=== PATIENT | female | born 1930 | race African-American/Black ===

== ENCOUNTER 2017-02-05 11:37 | Inpatient (IN) | payer MEDICARE, OTHER ==
[~2017-02-05 11:37] MED LIST: ADVAI250I PO; AMLO5TAB22 PO; CLAR10TA13 PO; FERR324T4 PO; HUMU70IN SQ; HYDR-2768 PO; LISI-363 PO; LORTA5 PO; SULF-154 PO; TRAZ50TA4 PO
[2017-02-05 11:49] VITALS: BP 120/60; PULSE 86; RESP 20; TEMP 98.4; O2SAT 97
[2017-02-05] MEDS ORDERED: AMLO5TAB2 PO (12:03)
[2017-02-05] MEDS ORDERED: HYDR25TA5 PO (12:04)
[2017-02-05] MEDS ORDERED: HUMU70IN SQ ×2 (12:04→15:21)
[2017-02-05] MEDS ORDERED: HYDR-3516 PO (12:04)
[2017-02-05] MEDS ORDERED: TRAZ50TA12 PO (12:04)
[2017-02-05] MEDS ORDERED: LISI-515 PO (12:04)
[2017-02-05] MEDS ORDERED: FERR325T18 PO ×2 (12:04→15:17)
[2017-02-05] MEDS ORDERED: ADVA250A INH (12:04)
[2017-02-05] MEDS ORDERED: LORA-400 PO (12:16)
[2017-02-05] MEDS ORDERED: MEDR5TAB3 PO (12:16)
[2017-02-05] MEDS ORDERED: CLON0.2T PO (12:16)
[2017-02-05] MEDS ORDERED: ALPR0.25 PO (12:16)
[2017-02-05] MEDS ORDERED: SYMB160A INH (12:16)
[2017-02-05 12:35] LABS: BASOPHIL # 0.2 TH/MM3 (0-0.2); BASOPHIL % 0.9 % (0.0-2.0); EOSINOPHIL # 0.3 TH/MM3 (0-0.4); EOSINOPHIL % 1.5 % (0.0-4.0); HEMATOCRIT 34.5 % (35.0-46.0); HEMO FLAGS DIFF FINAL; LYMPH % 19.5 % (9.0-44.0); LYMPHOCYTE # 3.4 TH/MM3 (1.0-4.8); MEAN CELL VOLUME 96.4 FL (80.0-100.0); MEAN CORPUSCULAR HEMOGLOBIN 32.5 PG (27.0-34.0); MEAN CORPUSCULAR HGB CONC 33.7 % (32.0-36.0); MONO % 4.9 % (0.0-8.0); NEUT % 73.2 % (16.0-70.0); PLATELET COUNT 274 TH/MM3 (150-450); RED BLOOD COUNT 3.58 MIL/MM3 (4.00-5.30); RED CELL DISTRIBUTION WIDTH 13.6 % (11.6-17.2); WHITE BLOOD COUNT 17.7 TH/MM3 (4.0-11.0)
[2017-02-05] MEDS ORDERED: SODIUM CHLOR 0.9% 1000 ML INJ 1,000 ML IV ONE (12:42)
[2017-02-05 12:49] LABS: APTT (PATIENT) 25.4 SEC (24.3-30.1); PROTHROMBIN TIME - PATIENT 10.2 SEC (9.8-11.6)
--- NOTE | 2017-02-05 12:51 | PD ---
HPI Chief Complaint: Respiratory Symptoms Time Seen by Provider: 11:56 Travel History International Travel<30 days: No Contact w/Intl Traveler<30days: No Traveled to known affect area: No History of Present Illness HPI 87-year-old female that presents to the ED for evaluation of shortness of breath that happened today. Patient has a history of fibroids and follows with Dr. Enriquez for this. Patient has periods on occasion. Patient per family has had some blood coming from her vagina that is usual for her. Per family did noted that every time she gets this. She gets short of breath and she gets pale. Per family she is to them. She was taking a shower when she got out of the shower she complained of shortness of breath which is what prompted evaluation. I called ambulance. Per ambulance report patient has been sating at 100%. She denies any chest pain or shortness of breath. She denies any pain of any kind. No urinary symptoms. Per family she's been a little more confused than usual. She is also feeling weak when she ambulates. She denies any cough or runny nose. No fevers chills or sweats. No history of IV drug abuse. She does have a history of smoking as well as a history of diabetes requiring insulin. 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 She denies any other medical issues at this time. Most of the history is obtained from the family as patient herself is not a good historian. PFSH Past Medical History Autoimmune Disease: No Anxiety: Yes Depression: No Cancer: No Cardiovascular Problems: Yes (htn) COPD: Yes Diabetes: Yes Diminished Hearing: No Hypertension: Yes Immune Disorder: No Psychiatric: No Reproductive: No Menopausal: Yes Dilation and Curettage (D&C): Yes Past Surgical History Gynecologic Surgery: Yes (L OVARY REMOVED) Social History Alcohol Use: No Tobacco Use: No Substance Use: No Allergies-Medications (Allergen,Severity, Reaction): Coded Allergies: No Known Allergies (Verified Adverse Reaction, Unknown, 02/05/17) Reported Meds & Prescriptions Reported Meds & Active Scripts Active Reported [] 1 Tab PO DAILY [] Symbicort Inh (Budesonide/Formoterol Fumarate) 160-4.5 Mcg/Act Aero 2 Puff INH Q12HR Claritin-D 24 HR (Loratadine-Pseudoephedrine 24 HR) 10-240 Mg Tab 1 Tab PO DAILY Alprazolam 0.25 Mg Tab 0.25 Mg PO Q8H PRN Medroxyprogesterone Acetate 5 Mg Tab 5 Mg PO BID Start day 21 Clonidine (Clonidine HCl) 0.2 Mg Tab 0.2 Mg PO TID Trazodone (Trazodone HCl) 50 Mg Tab 50 Mg PO HS Lisinopril 20 Mg Tab 20 Mg PO DAILY Humulin 70-30 Inj (Insulin NPH Isophane-Reg (Human) 70-30 Inj) 1,000 Unit/10 Ml Vial 15 Unit SQ HS Hydrocodone-Acetaminophen 5-325 mg Tab 1 Tab PO Q4H PRN Hydrochlorothiazide 25 Mg Tab 25 Mg PO BID Ferrous Sulfate 325 Mg (65 Mg Iron) Tablet 65 Mg PO DAILY PRN Amlodipine (Amlodipine Besylate) 5 Mg Tab 5 Mg PO DAILY Review of Systems Except as stated in HPI: all other systems reviewed are Neg Physical Exam Narrative GENERAL: SKIN: Warm and dry. Patient does have chronic ulcers stage II to the distal aspect of bilateral first toes. Some erythema noted on the right 1 but minimal on the left forearm. Nontender. 2+ pulses bilaterally. Sensation intact bilaterally. HEAD: Atraumatic. Normocephalic. EYES: Pupils equal and round. No scleral icterus. No injection or drainage. ENT: No nasal bleeding or discharge. Mucous membranes pink and moist. Tongue is midline. No uvula deviation. NECK: Trachea midline. No JVD. CARDIOVASCULAR: Regular rate and rhythm. No murmurs, S3, S4. RESPIRATORY: No accessory muscle use. Clear to auscultation. Breath sounds equal bilaterally. GASTROINTESTINAL: Abdomen soft, non-tender, nondistended. Hepatic and splenic margins not palpable. MUSCULOSKELETAL: Extremities without clubbing, cyanosis, or edema. No obvious deformities. Full range of motion of the upper and lower extremities bilaterally. 2+ pulses bilaterally. NEUROLOGICAL: Awake and alert. No obvious cranial nerve deficits. Motor grossly within normal limits. Five out of 5 muscle strength in the arms and legs. Normal speech. PSYCHIATRIC: Appropriate mood and affect; insight and judgment normal. Data Data Last Documented VS Vital Signs Date Time Temp Pulse Resp B/P (MAP) Pulse Ox O2 Delivery O2 Flow Rate FiO2 02/05/17 11:49 98.4 86 20 120/60 (80) 97 Room Air Orders Orders Complete Blood Count With Diff (02/05/17 12:11) Basic Metabolic Panel (Bmp) (02/05/17 12:11) Troponin I (02/05/17 12:11) B-Type Natriuretic Peptide (02/05/17 12:11) Prothrombin Time / Inr (Pt) (02/05/17 12:11) Act Partial Throm Time (Ptt) (02/05/17 12:11) Urinalysis - C+S If Indicated (02/05/17 12:11) Magnesium (Mg) (02/05/17 12:11) Thyroid Stimulating Hormone (02/05/17 12:11) Chest, Single Ap (02/05/17 12:11) Iv Access Insert/Monitor (02/05/17 12:11) Type And Screen (02/05/17 12:11) Electrocardiogram (02/05/17 ) Lactic Acid Sepsis Protocol (02/05/17 12:42) Blood Culture (02/05/17 12:42) Sodium Chlor 0.9% 1000 Ml Inj (Ns 1000 M (02/05/17 12:42) Cath For Specimen (02/05/17 12:42) Ct Brain W/O Iv Contrast(Rout) (02/05/17 ) Sodium Chlor 0.9% 1000 Ml Inj (Ns 1000 M (02/05/17 14:27) Cefepime Inj (Maxipime Inj) (02/05/17 14:30) Vancomycin Inj (Vancomycin Inj) (02/05/17 14:30) Admit Order (Ed Use Only) (02/05/17 14:29) Labs Laboratory Tests Test 02/05/17 11:50 02/05/17 13:15 02/05/17 13:20 White Blood Count 17.7 TH/MM3 Red Blood Count 3.58 MIL/MM3 Hemoglobin 11.6 GM/DL Hematocrit 34.5 % Mean Corpuscular Volume 96.4 FL Mean Corpuscular Hemoglobin 32.5 PG Mean Corpuscular Hemoglobin Concent 33.7 % Red Cell Distribution Width 13.6 % Platelet Count 274 TH/MM3 Mean Platelet Volume 8.9 FL Neutrophils (%) (Auto) 73.2 % Lymphocytes (%) (Auto) 19.5 % Monocytes (%) (Auto) 4.9 % Eosinophils (%) (Auto) 1.5 % Basophils (%) (Auto) 0.9 % Neutrophils # (Auto) 13.0 TH/MM3 Lymphocytes # (Auto) 3.4 TH/MM3 Monocytes # (Auto) 0.9 TH/MM3 Eosinophils # (Auto) 0.3 TH/MM3 Basophils # (Auto) 0.2 TH/MM3 CBC Comment DIFF FINAL Differential Comment Prothrombin Time 10.2 SEC Prothromb Time International Ratio 1.0 RATIO Activated Partial Thromboplast Time 25.4 SEC Blood Urea Nitrogen 23 MG/DL Creatinine 1.42 MG/DL Random Glucose 324 MG/DL Calcium Level 9.1 MG/DL Magnesium Level 1.8 MG/DL Sodium Level 138 MEQ/L Potassium Level 4.2 MEQ/L Chloride Level 106 MEQ/L Carbon Dioxide Level 22.5 MEQ/L Anion Gap 10 MEQ/L Estimat Glomerular Filtration Rate 42 ML/MIN Troponin I LESS THAN 0.02 NG/ML B-Type Natriuretic Peptide 10 PG/ML Thyroid Stimulating Hormone 3rd Gen 0.658 uIU/ML Urine Color YELLOW Urine Turbidity HAZY Urine pH 5.5 Urine Specific [place] 1.021 Urine Protein TRACE mg/dL Urine Glucose (UA) NEG mg/dL Urine Ketones NEG mg/dL Urine Occult Blood LARGE Urine Nitrite NEG Urine Bilirubin NEG Urine Urobilinogen LESS THAN 2.0 MG/DL Urine Leukocyte Esterase SMALL Urine RBC /hpf Urine WBC 6 /hpf Urine Squamous Epithelial Cells 5 /hpf Urine Hyaline Casts 1 /lpf Urine Mucus FEW /lpf Microscopic Urinalysis Comment CULT NOT INDICATED Lactic Acid Level 2.6 mmol/L MDM Medical Decision Making Medical Screen Exam Complete: Yes Emergency Medical Condition: Yes Medical Record Reviewed: Yes Interpretation(s) CBC & BMP Diagram 02/05/17 11:50 Calcium Level 9.1, Magnesium Level 1.8 lactic acid 2.6 UA shows signs of UTI Last Impressions Chest X-Ray 02/05/17 1211 Signed Impressions: Service Date/Time: Sunday, February 05, 2017 13:22 - CONCLUSION: No acute cardiopulmonary abnormality is identified. Daren Katz MD Head CT 02/05/17 0000 Signed Impressions: Service Date/Time: Sunday, February 05, 2017 13:20 - CONCLUSION: 1. Atrophy as described above. No evidence of acute intracranial pathology.8 Omari Spence MD troponin negative EKG shows sinus rhythm with no sigh of acute ischemia or arrythmia Differential Diagnosis Urosepsis versus UTI versus COPD versus CHF versus renal failure versus anemia versus leukocytosis versus physical deconditioning versus encephalopathy Narrative Course 87-year-old female that presents to the ED for evaluation of shortness of breath. Patient was properly examined and was found to have signs and symptoms of unclear to me at this time. She does not appear to be very short of breath but she does complain of it. She is satting 100%. She denies any chest pain. We'll do blood work and imaging. Initial blood work did show elevated leukocytosis of 17. I did review her records in the 2015 she had a similar lab results and she was diagnosed with UTI and sepsis. At this time her bowels are still stable we will add blood cultures, fluids, lactic acid as well as CT of the head. Labs and imaging showed signs of sepsis. Possible from urine. Will admit. Started on antibiotics. My attending Dr Urban agrees with plan. Sepsis Criteria SIRS Criteria (2 or more): WBC > 46745, < 4000 or > 10% bands Diagnosis Primary Impression: Encephalopathy due to infection Additional Impressions: Sepsis Qualified Codes: A41.9 - Sepsis, unspecified organism UTI (urinary tract infection) Qualified Codes: N30.01 - Acute cystitis with hematuria Admitting Information Admitting Physician Requests: Admit Huber Dodge Feb 05, 2017 12:51
[2017-02-05] MEDS ORDERED: prenatal (13:26)
[2017-02-05] MEDS ORDERED: prenatal PO (13:26)
[2017-02-05 13:33] LABS: ANION GAP 10 MEQ/L (5-15); BICARBONATE 22.5 MEQ/L (21.0-32.0); BLOOD UREA NITROGEN 23 MG/DL (7-18); CHLORIDE 106 MEQ/L (98-107); GLOMERULAR FILTRATION RATE 42 ML/MIN (>89); MAGNESIUM 1.8 MG/DL (1.5-2.5); SODIUM (NA) 138 MEQ/L (136-145)
[2017-02-05 13:34] LABS: POTASSIUM 4.2 MEQ/L (3.5-5.1)
[2017-02-05 13:45] LABS: BLOOD, URINE LARGE (NEG); COMMENT (UR) CULT NOT INDICATED; CULTURE IF INDICATED CULT NOT INDICATED; GLUCOSE,URINE NEG (NEG); HYALINE CAST, URINE 1 /lpf (RARE); KETONE, URINE NEG (NEG); MUCUS URINE FEW /lpf (OCC); NITRITE,URINE NEG (NEG); PH, URINE 5.5 (5.0-8.5); SQUAMOUS EPITHELIAL CELL URINE 5 /hpf (0-5); URINE COLOR YELLOW (YELLW/STRAW)
--- NOTE | 2017-02-05 14:00 | RADRPT ---
EXAM DATE/TIME: 02/05/2017 13:22 [facility] COMPARISON: No previous studies available for comparison. INDICATIONS : Shortness of breath. MEDICAL HISTORY : Hypertension. Chronic obstructive pulmonary disease. Diabetes mellitus type II. SURGICAL HISTORY : None. ENCOUNTER: Initial ACUITY: 1 day PAIN SCORE: 0/10 LOCATION: Bilateral chest FINDINGS: Underinflated AP view of the chest demonstrates a normal-sized cardiac silhouette. No effusion, conso lidation, or pneumothorax is identified. The bones and soft tissues demonstrate no acute finding. CONCLUSION: No acute cardiopulmonary abnormality is identified. Daren Katz MD on February 05, 2017 at 13:58 Board Certified Radiologist. This report was verified electronically.
--- NOTE | 2017-02-05 14:10 | RADRPT ---
EXAM DATE/TIME: 02/05/2017 13:20 [facility] COMPARISON: No previous studies available for comparison. INDICATIONS : Shortness of breath, anemia, vaginal bleeding. RADIATION DOSE: 56.35 CTDIvol (mGy) MEDICAL HISTORY : Cardiovascular disease. Hypertension. Diabetes SURGICAL HISTORY : None. ENCOUNTER: Initial ACUITY: 1 day PAIN SCALE: 0/10 LOCATION: cranial TECHNIQUE: Multiple contiguous axial images were obtained of the head. Using automated exposure control and adj ustment of the mA and/or kV according to patient size, radiation dose was kept as low as reasonably a chievable to obtain optimal diagnostic quality images. DICOM format image data is available electro nically for review and comparison. FINDINGS: The ventricles are enlarged with a prominent sulcal pattern compatible with atrophic change. There is no evidence of acute cortical infarction, acute hemorrhage, mass effect or midline shift. Posterior fossa structures are unremarkable. CONCLUSION: 1. Atrophy as described above. No evidence of acute intracranial pathology.8 Omari Spence MD on February 05, 2017 at 13:59 Board Certified Radiologist. This report was verified electronically.
[2017-02-05] MEDS ORDERED: SODIUM CHLOR 0.9% 1000 ML INJ 1,000 ML IV SCH (14:27)
[2017-02-05] MEDS ORDERED: CEFEPIME INJ 1,000 MG in SODIUM CHLORIDE 0.9% INJ 100 ML IV ONE (14:30)
[2017-02-05] MEDS ORDERED: VANCOMYCIN INJ 1,000 MG in SODIUM CHLOR 0.9% 250 ML INJ 250 ML IV ONE (14:30)
--- NOTE | 2017-02-05 14:30 | HHI.HP ---
[facility] Service Family Medicine Primary Care Physician Yanni Valdez MD Admission Diagnosis Diagnoses: International Travel<30 Days: No Contact w/Intl Traveler<30days: No Known Affected Area: No History of Present Illness Patient is an 87 year old female who presents with one episode of shortness of breath, dizziness and generalized fatigue today. She felt well this morning, received a bath and when coming out of the bathroom, felt weak. By the time patient sat in her recliner, she was having a hard time catching her breath. Episode was short-lived. When asked if she needed to go to the hospital, patient said: "Yes, I feel shitty!" Per patient's daughter, patient looked pale/ pasty during episode. Of note, patient has history of irregular vaginal bleeding, secondary to endometrial hyperplasia. Vaginal bleeding stopped two years ago after D&C by Dr. Dalal; at that time, cancer was ruled out by Dr. Wright. Vaginal bleeding returned approximately one month ago; bleeding is described as on and off spotting. Patient is on medroxyprogesterone acetate (Provera) to decrease bleeding. Per patient's daughter, if patient is not taking medication, bleeding amount would be comparable to "a miscarriage." When bleeding started, patient increased iron and vitamin intake to prevent anemia per daughter. Patient reports occasional abdominal pain, located in the lower mid section. Normally, patient has bowel movements x multiple per day. Per daughter, patient was constipated for last 2 days but had bowel movement this morning. Daughter describes stool as hard and very, very, very dark green. She denies black or bloody stool. Daughter describes stool as "funky" smelling. Patient has complained of buttocks pain; daughter attributes pain to abrasion, which she has treated with zinc oxide and is healing well. Patient has become a picky eater; she prefers ENSURE over solid meals. Per daughter, patient has had decreased urination. Patient denies pain with urination. Patient denies recent fever. Patient denies back pain. Patient has had one UTI in the past (2014). (Nissa Beckham MD R1) Review of Systems Constitutional: COMPLAINS OF: Fatigue, Weight loss (By appearance), Dizziness, Change in appetite (Decreased), DENIES: Fever, Weight gain, Chills Eyes: COMPLAINS OF: Blurred vision, DENIES: Diplopia, Eye pain, Vision loss, Double Vision Ears, nose, mouth, throat: DENIES: Tinnitus, Hearing loss, Nasal discharge, Throat pain, Hoarseness, Ear Pain, Running Nose Respiratory: COMPLAINS OF: Shortness of breath, DENIES: Cough Cardiovascular: DENIES: Chest pain, Palpitations, Lower Extremity Edema Gastrointestinal: COMPLAINS OF: Abdominal pain, Constipation, DENIES: Black stools, Bloody stools, Diarrhea, Nausea, Vomiting Genitourinary: COMPLAINS OF: Abnormal vaginal bleeding, DENIES: Urinary frequency, Urgency Musculoskeletal: DENIES: Joint pain, Muscle aches, Back pain Integumentary: COMPLAINS OF: Nail changes (Growing faster), DENIES: Rash Hematologic/lymphatic: DENIES: Bruising Neurologic: COMPLAINS OF: Abnormal gait, Poor Balance, DENIES: Headache Psychiatric: COMPLAINS OF: Anxiety, DENIES: Confusion, Mood changes, Depression (Nissa Beckham MD R1) Past Family Social History Past Medical History Cataracts Diabetes mellitus Type II Hypertension COPD Chronic kidney disease Environmental allergies Past Surgical History Left oophorectomy D&C 2014 Reported Medications Reported Meds & Active Scripts Active Humulin 70-30 Inj (Insulin NPH Isophane-Reg (Human) 70-30 Inj) 1,000 Unit/10 Ml Vial 33 Units SQ AC BREAKFAST Ferrous Sulfate 325 Mg (65 Mg Iron) Tablet 65 Mg PO BID PRN Reported [] 1 Tab PO DAILY [] Symbicort Inh (Budesonide/Formoterol Fumarate) 160-4.5 Mcg/Act Aero 2 Puff INH Q12HR Alprazolam 0.25 Mg Tab 0.25 Mg PO Q8H PRN Medroxyprogesterone Acetate 5 Mg Tab 5 Mg PO BID Start day 21 Clonidine (Clonidine HCl) 0.2 Mg Tab 0.2 Mg PO TID Lisinopril 20 Mg Tab 20 Mg PO DAILY Humulin 70-30 Inj (Insulin NPH Isophane-Reg (Human) 70-30 Inj) 1,000 Unit/10 Ml Vial 15 Unit SQ HS Hydrocodone-Acetaminophen 5-325 mg Tab 1 Tab PO Q4H PRN Hydrochlorothiazide 25 Mg Tab 25 Mg PO BID Amlodipine (Amlodipine Besylate) 5 Mg Tab 5 Mg PO DAILY (Nissa Beckham MD R1) Allergies: Coded Allergies: No Known Allergies (Verified Allergy, Unknown, 02/05/17) Active Ordered Medications Current Medications Medications (Trade) Dose Ordered Sig/Bertram Route Start Time Stop Time Status Last Admin (Xanax) 0.25 mg Q8H PRN PO 02/05/17 15:15 Sodium Chloride 1,000 ml @ 120 mls/hr Q8H20M IV 02/05/17 16:00 02/05/17 17:33 (NS Flush) 2 ml UNSCH PRN IV FLUSH 02/05/17 15:45 (NS Flush) 2 ml BID IV FLUSH 02/05/17 21:00 (Zofran Inj) 4 mg Q6H PRN IVP 02/05/17 15:45 (Tylenol) 650 mg Q6H PRN PO 02/05/17 15:45 ([place] 5-325 Mg) 1 tab Q4H PRN PO 02/05/17 15:45 ([place] 7.5-325 Mg) 1 tab Q4H PRN PO 02/05/17 15:45 (Morphine Inj) 2 mg Q3H PRN IV PUSH 02/05/17 15:45 (Narcan Inj) 0.4 mg UNSCH PRN IV PUSH 02/05/17 15:45 (Sariah-Colace) 1 tab BID PO 02/05/17 21:00 (Milk Of Magnesia Liq) 30 ml Q12H PRN PO 02/05/17 15:45 (Senokot) 17.2 mg Q12H PRN PO 02/05/17 15:45 (Dulcolax Supp) 10 mg DAILY PRN RECTAL 02/05/17 15:45 (Lactulose Liq) 30 ml DAILY PRN PO 02/05/17 15:45 (Levemir Inj) 5 units HS SQ 02/05/17 21:00 (Levemir Inj) 10 units AC BREAKFAST SQ 02/06/17 07:00 (D50w (Vial) Inj) 50 ml UNSCH PRN IV PUSH 02/05/17 16:00 (Glucagon Inj) 1 mg UNSCH PRN OTHER 02/05/17 16:00 (NovoLOG SUPPLEMENTAL SCALE) 1 ACHS SLIDING SCALE SQ 02/05/17 17:00 (Prinivil) 20 mg DAILY PO 02/06/17 09:00 (Norvasc) 5 mg DAILY PO 02/06/17 09:00 (Catapres) 0.1 mg Q6H PRN PO 02/05/17 16:15 (Symbicort 160-4.5 Mcg Inh) 2 puff Q12HR INH 02/05/17 21:00 (Provera) 5 mg BID PO 02/05/17 21:00 Ceftriaxone Sodium 1000 mg/ Sodium Chloride 100 ml @ 200 mls/hr Q24H IV 02/06/17 09:00 (Flu (Quadrivalent) Vaccine Inj) 0.5 ml ONCE ONCE IM 02/06/17 10:00 02/06/17 10:01 (Pneumovax-23 Inj) 25 mcg ONCE ONCE IM 02/06/17 10:00 02/06/17 10:01 Family History Paternal grandmother: Kidney disease Mother (81 year old): Lung cancer Father: (60s): Diabetes, [place] Daughters: Sarcoidosis Daughter: Non-Hodgkin lymphoma, autoimmune diseases Social History Lives with daughter and grandson. Can use bathroom by herself, but needs help to get back to living room; reads a lot. Does not make her own food, does not drive. Mentally competent. Alcohol: Occasional. Tobacco: None; never. Drugs: None. (Nissa Beckham MD R1) Physical Exam Vital Signs Vital Signs Date Time Temp Pulse Resp B/P (MAP) Pulse Ox O2 Delivery O2 Flow Rate FiO2 02/05/17 11:49 98.4 86 20 120/60 (80) 97 Room Air Physical Exam GENERAL: This is a well-nourished, well-developed, obese patient, in no apparent /respiratory distress. SKIN: Ulcers on the tip of the great toes bilaterally. Skin discoloration on anterior, lower extremities bilaterally. Abrasion on buttocks unable to visualize. No ecchymoses. Warm and dry. HEAD: Atraumatic. Normocephalic. No temporal or scalp tenderness. EYES: Pupils equal round. Extraocular motions intact. No scleral icterus. No injection or drainage. ENT: Nose without bleeding, purulent drainage or septal hematoma. Airway patent. NECK: Trachea midline. No JVD or lymphadenopathy. CARDIOVASCULAR: Regular rate and rhythm without murmurs, gallops, or rubs. RESPIRATORY: Clear to auscultation anteriorly. Breath sounds equal bilaterally. No wheezes, rales, or rhonchi. GASTROINTESTINAL: Abdomen soft, non-tender, nondistended. No hepato-splenomegaly , or palpable masses. No guarding. MUSCULOSKELETAL: Extremities without clubbing, cyanosis, or edema. No joint tenderness, effusion, or edema noted. No calf tenderness. NEUROLOGICAL: Awake and alert. Cranial nerves II through XII intact. Motor and sensory grossly within normal limits. Normal speech. Laboratory Laboratory Tests Test 02/05/17 11:50 02/05/17 13:15 02/05/17 13:20 White Blood Count 17.7 Red Blood Count 3.58 Hemoglobin 11.6 Hematocrit 34.5 Mean Corpuscular Volume 96.4 Mean Corpuscular Hemoglobin 32.5 Mean Corpuscular Hemoglobin Concent 33.7 Red Cell Distribution Width 13.6 Platelet Count 274 Mean Platelet Volume 8.9 Neutrophils (%) (Auto) 73.2 Lymphocytes (%) (Auto) 19.5 Monocytes (%) (Auto) 4.9 Eosinophils (%) (Auto) 1.5 Basophils (%) (Auto) 0.9 Neutrophils # (Auto) 13.0 Lymphocytes # (Auto) 3.4 Monocytes # (Auto) 0.9 Eosinophils # (Auto) 0.3 Basophils # (Auto) 0.2 CBC Comment DIFF FINAL Differential Comment Prothrombin Time 10.2 Prothromb Time International Ratio 1.0 Activated Partial Thromboplast Time 25.4 Blood Urea Nitrogen 23 Creatinine 1.42 Random Glucose 324 Calcium Level 9.1 Magnesium Level 1.8 Sodium Level 138 Potassium Level 4.2 Chloride Level 106 Carbon Dioxide Level 22.5 Anion Gap 10 Estimat Glomerular Filtration Rate 42 Troponin I LESS THAN 0.02 B-Type Natriuretic Peptide 10 Thyroid Stimulating Hormone 3rd Gen 0.658 Urine Color YELLOW Urine Turbidity HAZY Urine pH 5.5 Urine Specific [place] 1.021 Urine Protein TRACE Urine Glucose (UA) NEG Urine Ketones NEG Urine Occult Blood LARGE Urine Nitrite NEG Urine Bilirubin NEG Urine Urobilinogen LESS THAN 2.0 Urine Leukocyte Esterase SMALL Urine RBC Urine WBC 6 Urine Squamous Epithelial Cells 5 Urine Hyaline Casts 1 Urine Mucus FEW Microscopic Urinalysis Comment CULT NOT INDICATED Lactic Acid Level 2.6 Date/Time Source Procedure Growth Status 02/05/17 13:20 Blood Peripheral Aerobic Blood Culture Pending Received 02/05/17 13:20 Blood Peripheral Anaerobic Blood Culture Pending Received (Nissa Beckham MD R1) Result Diagram: 02/05/17 1150 02/05/17 1150 Imaging Last Impressions Chest X-Ray 02/05/17 1211 Signed Impressions: Service Date/Time: Sunday, February 05, 2017 13:22 - CONCLUSION: No acute cardiopulmonary abnormality is identified. Daren Katz MD Head CT 02/05/17 0000 Signed Impressions: Service Date/Time: Sunday, February 05, 2017 13:20 - CONCLUSION: 1. Atrophy as described above. No evidence of acute intracranial pathology.8 Omari Spence MD (LaBell,Nissa ADAMS R1) Caprini VTE Risk Assessment Caprini VTE Risk Assessment: Mod/High Risk (score >= 2) VTE Pharm Contraindication: Active bleeding Caprini Risk Assessment Model Point Value = 1 Point Value = 2 Point Value = 3 Point Value = 5 Age 41-60 Minor surgery BMI > 25 kg/m2 Swollen legs Varicose veins or History of unexplained or recurrent spontaneous Oral contraceptives or hormone replacement Sepsis (< 1 month) Serious lung disease, including pneumonia (< 1 month) Abnormal pulmonary function Acute myocardial infarction Congestive heart failure (< 1 month) History of inflammatory bowel disease Medical patient at bed rest Age 61-74 Arthroscopic surgery Major open surgery (> 45 min) Laparoscopic surgery (> 45 min) Malignancy Confined to bed (> 72 hours) Immobilizing plaster cast Central venous access Age >= 75 History of VTE Family history of VTE Factor V Leiden Prothrombin [id number] Lupus anticoagulant Anticardiolipin antibodies Elevated serum homocysteine Heparin-induced thrombocytopenia Other congenital or acquired thrombophilia Stroke (< 1 month) Elective arthroplasty Hip, pelvis, or leg fracture Acute spinal cord injury (< 1 month) Prophylaxis Regimen Total Risk Factor Score Risk Level Prophylaxis Regimen 0-1 Low Early ambulation 2 Moderate Order ONE of the following: *Sequential Compression Device (SCD) *Heparin 5000 units SQ BID 3-4 Higher Order ONE of the following medications: *Heparin 5000 units SQ TID *Enoxaparin/Lovenox 40 mg SQ daily (WT < 150 kg, CrCl > 30 mL/min) *Enoxaparin/Lovenox 30 mg SQ daily (WT < 150 kg, CrCl > 10-29 mL/min) *Enoxaparin/Lovenox 30 mg SQ BID (WT < 150 kg, CrCl > 30 mL/min) AND/OR *Sequential Compression Device (SCD) 5 or more Highest Order ONE of the following medications: *Heparin 5000 units SQ TID (Preferred with Epidurals) *Enoxaparin/Lovenox 40 mg SQ daily (WT < 150 kg, CrCl > 30 mL/min) *Enoxaparin/Lovenox 30 mg SQ daily (WT < 150 kg, CrCl > 10-29 mL/min) *Enoxaparin/Lovenox 30 mg SQ BID (WT < 150 kg, CrCl > 30 mL/min) AND *Sequential Compression Device (SCD) (Nissa Beckham MD R1) Assessment and Plan Assessment and Plan Patient is an 87 year old female who presents with one episode of shortness of breath, dizziness and generalized fatigue today. Vital signs within normal limits. WBC 17.7. Lactic acid 2.6 with repeat 2.2. Cr 1.42. UA hazy in appearance, large occult blood and small leukocyte esterase as well as 6 WBCs and few mucus. Admitted for UTI and acute on chronic kidney failure. Code Status Full Code Discussed Condition With Geo Salmon and Laurent. (Nissa Beckham MD R1) Attending Attestation Patient seen and examined. Case reviewed and discussed with the resident team. Agree with plan of care as discussed with me and documented in the resident note. pt seen in ED and being admitted for UTI. She is pleasant and stable hemodynamically (Candy Miguel MD) Problem List: (1) Leukocytosis ICD Codes: D72.829 - Elevated white blood cell count, unspecified Status: Acute Plan: Vital signs within normal limits. Differential diagnoses: * Likely secondary to UTI. Labs/Microbiology: * On admission, WBC 17.7 with 73.2% neutrophils. * Blood culture pending. Medication: * Acetaminophen 650mg q6hr PO PRN for fever >101F. * See antibiotic coverage below. (2) UTI (urinary tract infection) ICD Codes: N39.0 - Urinary tract infection, site not specified Status: Acute Plan: Asymptomatic. Labs/Microbiology: * On admission, WBC 17.7 with 73.2% neutrophils. * UA hazy appearance, large occult blood, small leukocyte esterase, 6 WBC and few mucus. * Blood culture pending. * Urine culture pending. Medications: * Ceftriaxone 1g IV q24hr. * Patient received vancomycin and cefepime in ED. (3) Acute on chronic renal failure ICD Codes: N17.9 - Acute kidney failure, unspecified; N18.9 - Chronic kidney disease, unspecified Status: Acute Plan: Patient with history of chronic kidney disease. Not followed by nephrology. Per daughter, patient has had decreased urination. Labs: * On admission, BUN 23 and CR 1.42. Medications: * NS 1,000 ml at 120 ml/hr. (4) Hypertension ICD Codes: I10 - Essential (primary) hypertension Status: Chronic Plan: Patient on four different blood pressure medications at home. Daughter concerned that patient is taking too much blood pressure medication. Vitals: * On admission, BP 120/60. Orders: * Orthostatic hypotension testing. Medications: * Continued amlodipine 5mg PO daily. * Continued lisinopril 20mg PO daily. * Continued clonidine 0.1mg q6hr PO PRN if systolic pressure >180. (5) DM (diabetes mellitus) ICD Codes: E11.9 - Type 2 diabetes mellitus without complications Status: Chronic Plan: Insulin-dependent. Labs: * On admission, random glucose 324. Medications: * Levemir 10 units SQ before meals breakfast. * Levemir 5 units SQ at bedtime. * NovoLog supplemental sliding scale. (6) COPD (chronic obstructive pulmonary disease) ICD Codes: J44.9 - Chronic obstructive pulmonary disease, unspecified Status: Chronic Plan: Patient with history of COPD. Medications: * Continued Symbicort inhaler q12hr. (7) Post-menopausal bleeding ICD Codes: N95.0 - Post-menopausal bleeding Status: Acute Plan: Postmenopausal bleeding monitored by Dr. Dalal. Patient seen by Dr. Bone in 2014; cancer ruled out at the time. Patient on Provera to control bleeding at home. Labs: * On admission, Hgb 11.6 and Hct 34.5. Medications: * Continued medroxyprogesterone acetate 5mg BID PO. (8) Fluid, electrolyte, nutrition, and prophylaxis Status: Acute Plan: Fluids: * NS 1,000 ml at 120 ml/hr. Electrolyte: * Monitor and replete as necessary. Nutrition: * Diabetic diet. * Supplement with Glucerna. Prophylaxis: * SCDs. (Nissa Beckham MD R1) Problem Qualifiers (1) Leukocytosis: Qualified Codes: D72.825 - Bandemia (2) UTI (urinary tract infection): Qualified Codes: N30.01 - Acute cystitis with hematuria (3) Acute on chronic renal failure: Qualified Codes: N17.9 - Acute kidney failure, unspecified; N18.9 - Chronic kidney disease, unspecified (4) Hypertension: Qualified Codes: I10 - Essential (primary) hypertension (5) DM (diabetes mellitus): Qualified Codes: E11.8 - Type 2 diabetes mellitus with unspecified complications (6) COPD (chronic obstructive pulmonary disease): Qualified Codes: J43.9 - Emphysema, unspecified Nissa Beckham MD R1 Feb 05, 2017 14:30 Candy Miguel MD Feb 06, 2017 12:22
--- NOTE | 2017-02-05 14:53 | PD ---
Data Data Last Documented VS Vital Signs Date Time Temp Pulse Resp B/P (MAP) Pulse Ox O2 Delivery O2 Flow Rate FiO2 02/05/17 11:49 98.4 86 20 120/60 (80) 97 Room Air Orders Orders Complete Blood Count With Diff (02/05/17 12:11) Basic Metabolic Panel (Bmp) (02/05/17 12:11) Troponin I (02/05/17 12:11) B-Type Natriuretic Peptide (02/05/17 12:11) Prothrombin Time / Inr (Pt) (02/05/17 12:11) Act Partial Throm Time (Ptt) (02/05/17 12:11) Urinalysis - C+S If Indicated (02/05/17 12:11) Magnesium (Mg) (02/05/17 12:11) Thyroid Stimulating Hormone (02/05/17 12:11) Chest, Single Ap (02/05/17 12:11) Iv Access Insert/Monitor (02/05/17 12:11) Type And Screen (02/05/17 12:11) Electrocardiogram (02/05/17 ) Lactic Acid Sepsis Protocol (02/05/17 12:42) Blood Culture (02/05/17 12:42) Sodium Chlor 0.9% 1000 Ml Inj (Ns 1000 M (02/05/17 12:42) Cath For Specimen (02/05/17 12:42) Ct Brain W/O Iv Contrast(Rout) (02/05/17 ) Sodium Chlor 0.9% 1000 Ml Inj (Ns 1000 M (02/05/17 14:27) Cefepime Inj (Maxipime Inj) (02/05/17 14:30) Vancomycin Inj (Vancomycin Inj) (02/05/17 14:30) Admit Order (Ed Use Only) (02/05/17 14:29) Labs Laboratory Tests Test 02/05/17 11:50 02/05/17 13:15 02/05/17 13:20 White Blood Count 17.7 TH/MM3 Red Blood Count 3.58 MIL/MM3 Hemoglobin 11.6 GM/DL Hematocrit 34.5 % Mean Corpuscular Volume 96.4 FL Mean Corpuscular Hemoglobin 32.5 PG Mean Corpuscular Hemoglobin Concent 33.7 % Red Cell Distribution Width 13.6 % Platelet Count 274 TH/MM3 Mean Platelet Volume 8.9 FL Neutrophils (%) (Auto) 73.2 % Lymphocytes (%) (Auto) 19.5 % Monocytes (%) (Auto) 4.9 % Eosinophils (%) (Auto) 1.5 % Basophils (%) (Auto) 0.9 % Neutrophils # (Auto) 13.0 TH/MM3 Lymphocytes # (Auto) 3.4 TH/MM3 Monocytes # (Auto) 0.9 TH/MM3 Eosinophils # (Auto) 0.3 TH/MM3 Basophils # (Auto) 0.2 TH/MM3 CBC Comment DIFF FINAL Differential Comment Prothrombin Time 10.2 SEC Prothromb Time International Ratio 1.0 RATIO Activated Partial Thromboplast Time 25.4 SEC Blood Urea Nitrogen 23 MG/DL Creatinine 1.42 MG/DL Random Glucose 324 MG/DL Calcium Level 9.1 MG/DL Magnesium Level 1.8 MG/DL Sodium Level 138 MEQ/L Potassium Level 4.2 MEQ/L Chloride Level 106 MEQ/L Carbon Dioxide Level 22.5 MEQ/L Anion Gap 10 MEQ/L Estimat Glomerular Filtration Rate 42 ML/MIN Troponin I LESS THAN 0.02 NG/ML B-Type Natriuretic Peptide 10 PG/ML Thyroid Stimulating Hormone 3rd Gen 0.658 uIU/ML Urine Color YELLOW Urine Turbidity HAZY Urine pH 5.5 Urine Specific [place] 1.021 Urine Protein TRACE mg/dL Urine Glucose (UA) NEG mg/dL Urine Ketones NEG mg/dL Urine Occult Blood LARGE Urine Nitrite NEG Urine Bilirubin NEG Urine Urobilinogen LESS THAN 2.0 MG/DL Urine Leukocyte Esterase SMALL Urine RBC /hpf Urine WBC 6 /hpf Urine Squamous Epithelial Cells 5 /hpf Urine Hyaline Casts 1 /lpf Urine Mucus FEW /lpf Microscopic Urinalysis Comment CULT NOT INDICATED Lactic Acid Level 2.6 mmol/L MDM Supervised Visit with BRANDY: Yes Narrative Course The history, exam, and medical decision-making in the associated mid-level provider note were completed with my assistance. I reviewed and agree with the findings presented. I attest that I had a [id number] encounter with the patient on the same day, and personally performed and documented my assessment and findings in the medical record. *My assessment and Findings: 87-year-old woman, presents to the emergency department 87-year-old woman, or shortness of breath. Some pallor and history of postmenopausal vaginal bleeding associated with fibroids. H&H is not terrible. Also complaining of some generalized weakness. She has some chronic ulcers on her toes. She has some leukocytosis of unclear etiology. Blood in her urine which was a catheter urine. We'll recommend admission for observation. Diagnosis Primary Impression: Encephalopathy due to infection Additional Impressions: Sepsis Qualified Codes: A41.9 - Sepsis, unspecified organism UTI (urinary tract infection) Qualified Codes: N30.01 - Acute cystitis with hematuria Chester Urban MD Feb 05, 2017 14:53
[2017-02-05] MEDS ORDERED: ALPRAZolam 0.25 MG TAB PO PRN (15:15)
[2017-02-05 15:28] LABS: LACTIC ACID GHOST NOT REPORTABLE
[2017-02-05 15:40] VITALS: BP 125/58; PULSE 88; RESP 20; O2SAT 98
[2017-02-05] MEDS ORDERED: NALOXONE HCL 0.4 MG/ML AMP IV PUSH PRN (15:45)
[2017-02-05] MEDS ORDERED: ACETAMINOPHEN/HYDROcodone 325 MG/5 MG TAB PO PRN (15:45)
[2017-02-05] MEDS ORDERED: SENNOSIDES 8.6 MG TAB PO PRN (15:45)
[2017-02-05] MEDS ORDERED: ONDANSETRON HCL 4 MG/2 ML VIAL IVP PRN (15:45)
[2017-02-05] MEDS ORDERED: SODIUM CHLORIDE 0.9% FLUSH 10 ML FLUSH IV FLUSH PRN (15:45)
[2017-02-05] MEDS ORDERED: MAGNESIUM HYDROXIDE SUSP 30 ML CUP PO PRN (15:45)
[2017-02-05] MEDS ORDERED: ACETAMINOPHEN 325 MG TAB PO PRN (15:45)
[2017-02-05] MEDS ORDERED: MORPHINE SULFATE 4 MG/ML INJ IV PUSH PRN (15:45)
[2017-02-05] MEDS ORDERED: LACTULOSE SYRUP 20 GM/30 ML CUP PO PRN (15:45)
[2017-02-05] MEDS ORDERED: BISACODYL 10 MG SUPP RECTAL PRN (15:45)
[2017-02-05 16:00] VITALS: BP 139/61; PULSE 83; RESP 20; TEMP 97.8; O2SAT 98
[2017-02-05] MEDS ORDERED: DEXTROSE 50% IN WATER 50 ML VIAL(D50) IV PUSH PRN (16:00)
[2017-02-05] MEDS ORDERED: GLUCAGON 1 MG/ML VIAL OTHER PRN (16:00)
[2017-02-05] MEDS ORDERED: cloNIDine HCL 0.1 MG TAB PO PRN (16:15)
[2017-02-05] MEDS: INSULIN ASPART SUPPLEMENTAL SCALE SQ SCH ×2 (17:00→22:13)
[2017-02-05] MEDS: SODIUM CHLOR 0.9% 1000 ML INJ 1,000 ML IV SCH (17:33)
[2017-02-05 20:00] VITALS: BP 136/66; PULSE 88; RESP 20; TEMP 96; O2SAT 98
[2017-02-05] MEDS: BUDESONIDE-FORMOTEROL 160/4.5 MCG INHALER INH SCH (20:27)
[2017-02-05] MEDS: DOCUSATE SODIUM 50 MG/SENNA 8.6 MG TAB PO SCH (20:28)
[2017-02-05] MEDS: SODIUM CHLORIDE 0.9% FLUSH 10 ML FLUSH IV FLUSH SCH (20:28)
[2017-02-05] MEDS: ACETAMINOPHEN/HYDROcodone 325 MG/7.5 MG TAB PO PRN (20:30)
[2017-02-05] MEDS: INSULIN DETEMIR 100 UNITS/ML VIAL SQ SCH (22:12)
[2017-02-06 00:23] VITALS: BP 148/73; PULSE 88; RESP 20; TEMP 99; O2SAT 98
[2017-02-06] MEDS: SODIUM CHLOR 0.9% 1000 ML INJ 1,000 ML IV SCH ×4 (01:14→23:22)
[2017-02-06 02:00] LABS: C. DIFF EPI 027 PRESUMPTIVE NEGATIVE (NEGATIVE)
[2017-02-06] MEDS: INSULIN DETEMIR 100 UNITS/ML VIAL SQ SCH ×2 (06:23→23:21)
[2017-02-06 06:29] LABS: AUTOMATED NEUTROPHIL # 12.4 TH/MM3 (1.8-7.7); BASOPHIL % 0.2 % (0.0-2.0); EOSINOPHIL # 0.3 TH/MM3 (0-0.4); EOSINOPHIL % 1.7 % (0.0-4.0); HEMATOCRIT 31.3 % (35.0-46.0); HEMO FLAGS DIFF FINAL; LYMPH % 19.9 % (9.0-44.0); LYMPHOCYTE # 3.4 TH/MM3 (1.0-4.8); MEAN CELL VOLUME 96.5 FL (80.0-100.0); MEAN CORPUSCULAR HEMOGLOBIN 32.2 PG (27.0-34.0); MEAN CORPUSCULAR HGB CONC 33.4 % (32.0-36.0); MONO % 5.8 % (0.0-8.0); NEUT % 72.4 % (16.0-70.0); PLATELET COUNT 230 TH/MM3 (150-450); RED BLOOD COUNT 3.24 MIL/MM3 (4.00-5.30); RED CELL DISTRIBUTION WIDTH 13.8 % (11.6-17.2); WHITE BLOOD COUNT 17.2 TH/MM3 (4.0-11.0)
[2017-02-06 07:05] LABS: BICARBONATE 23.5 MEQ/L (21.0-32.0); POTASSIUM 3.9 MEQ/L (3.5-5.1)
[2017-02-06 08:00] VITALS: BP 157/68; PULSE 76; RESP 17; TEMP 97.6; O2SAT 97
[2017-02-06] MEDS: INSULIN ASPART SUPPLEMENTAL SCALE SQ SCH ×4 (08:00→23:21)
[2017-02-06] MEDS: SODIUM CHLORIDE 0.9% FLUSH 10 ML FLUSH IV FLUSH SCH ×2 (09:00→20:28)
[2017-02-06] MEDS: amLODIPine BESYLATE 5 MG TAB PO SCH (09:29)
[2017-02-06] MEDS: DOCUSATE SODIUM 50 MG/SENNA 8.6 MG TAB PO SCH ×2 (09:30→20:29)
[2017-02-06] MEDS: LISINOPRIL 20 MG TAB PO SCH (09:30)
[2017-02-06] MEDS: cefTRIAXone INJ 1,000 MG in SODIUM CHLORIDE 0.9% INJ 100 ML IV SCH (09:32)
[2017-02-06] MEDS: BUDESONIDE-FORMOTEROL 160/4.5 MCG INHALER INH SCH ×2 (09:32→23:21)
[2017-02-06] MEDS ORDERED: PNEUMOCOCCAL POLYVALENT INJ 25 MCG/0.5 ML SYR IM ONE (10:00)
[2017-02-06] MEDS ORDERED: INFLUENZA VIRUS VACCINE (QUADRIVALENT) 0.5 ML SYR IM ONE (10:00)
--- NOTE | 2017-02-06 11:59 | HHI.HP ---
[facility] Service Family Medicine Primary Care Physician Yanni Valdez MD Admission Diagnosis Diagnoses: (1) Leukocytosis Diagnosis: Principal (2) UTI (urinary tract infection) Diagnosis: Principal (3) Acute on chronic renal failure Diagnosis: Principal (4) Hypertension Diagnosis: Principal (5) DM (diabetes mellitus) Diagnosis: Principal (6) COPD (chronic obstructive pulmonary disease) Diagnosis: Principal (7) Post-menopausal bleeding Diagnosis: Principal (8) Fluid, electrolyte, nutrition, and prophylaxis Diagnosis: Principal International Travel<30 Days: No Contact w/Intl Traveler<30days: No Known Affected Area: No History of Present Illness Ms Morales is an 87 year old female who presents with one episode of shortness of breath, dizziness and generalized fatigue. She felt earlier that morning, received a bath and when coming out of the bathroom, felt weak. By the time patient sat in her recliner, she was having a hard time catching her breath. Episode was short-lived. When asked if she needed to go to the hospital , patient said: "Yes, I feel shitty!" Per patient's daughter, patient looked pale/pasty during episode. Of note, patient has history of irregular vaginal bleeding, secondary to endometrial hyperplasia. Vaginal bleeding stopped two years ago after D&C by Dr. Dalal; at that time, cancer was ruled out by Dr. Wright. Vaginal bleeding returned approximately one month ago; bleeding is described as on and off spotting. Patient is on medroxyprogesterone acetate (Provera) to decrease bleeding. Per patient's daughter, if patient is not taking medication, bleeding amount would be comparable to "a miscarriage." When bleeding started, patient increased iron and vitamin intake to prevent anemia per daughter. Patient reports occasional abdominal pain, located in the lower mid section. Normally, patient has bowel movements x multiple per day. Per daughter, patient was constipated for last 2 days but had bowel movement this morning. Daughter describes stool as hard and very, very, very dark green. She denies black or bloody stool. Daughter describes stool as "funky" smelling. Patient has complained of buttocks pain; daughter attributes pain to abrasion, which she has treated with zinc oxide and is healing well. Patient has become a picky eater; she prefers ENSURE over solid meals. Per daughter, patient has had decreased urination. Patient denies pain with urination. Patient denies recent fever. Patient denies back pain. Patient has had one UTI in the past (2014). Overnight there were no incidents or complaints. Today Ms Morales wanted to go home and denied any problems, No pain, no breathing issues, no other complaints. She is a poor historian and appears to have some dementia. Review of Systems Other Constitutional: COMPLAINS OF: Fatigue, Weight loss (By appearance), Dizziness, Change in appetite (Decreased), DENIES: Fever, Weight gain, Chills Eyes: COMPLAINS OF: Blurred vision, DENIES: Diplopia, Eye pain, Vision loss, Double Vision Ears, nose, mouth, throat: DENIES: Tinnitus, Hearing loss, Nasal discharge, Throat pain, Hoarseness, Ear Pain, Running Nose Respiratory: COMPLAINS OF: Shortness of breath, DENIES: Cough Cardiovascular: DENIES: Chest pain, Palpitations, Lower Extremity Edema Gastrointestinal: COMPLAINS OF: Abdominal pain, Constipation, DENIES: Black stools, Bloody stools, Diarrhea, Nausea, Vomiting Genitourinary: COMPLAINS OF: Abnormal vaginal bleeding, DENIES: Urinary frequency, Urgency Musculoskeletal: DENIES: Joint pain, Muscle aches, Back pain Integumentary: COMPLAINS OF: Nail changes (Growing faster), DENIES: Rash Hematologic/lymphatic: DENIES: Bruising Neurologic: COMPLAINS OF: Abnormal gait, Poor Balance, DENIES: Headache Psychiatric: COMPLAINS OF: Anxiety, DENIES: Confusion, Mood changes, Depression Past Family Social History Past Medical History Cataracts Diabetes mellitus Type II Hypertension COPD Chronic kidney disease Environmental allergies Past Surgical History Left oophorectomy D&C 2014 Allergies: Coded Allergies: No Known Allergies (Verified Allergy, Unknown, 02/05/17) Family History Paternal grandmother: Kidney disease Mother (81 year old): Lung cancer Father: (60s): Diabetes, [place] Daughters: Sarcoidosis Daughter: Non-Hodgkin lymphoma, autoimmune diseases Social History Lives with daughter and grandson. Can use bathroom by herself, but needs help to get back to living room; reads a lot. Does not make her own food, does not drive. Mentally competent. Alcohol: Occasional. Tobacco: None; never. Drugs: None. Physical Exam Vital Signs Vital Signs Date Time Temp Pulse Resp B/P (MAP) Pulse Ox O2 Delivery O2 Flow Rate FiO2 02/06/17 08:00 97.6 76 17 157/68 (97) 97 02/06/17 00:23 99.0 88 20 148/73 (98) 98 02/05/17 20:00 96.0 88 20 136/66 (89) 98 02/05/17 16:00 97.8 83 20 139/61 (87) 98 02/05/17 15:40 88 20 125/58 (80) 98 Room Air 02/05/17 12:00 Physical Exam GENERAL: This is a well-nourished, well-developed, obese patient, in no apparent /respiratory distress. SKIN: Ulcers on the tip of the great toes bilaterally. Skin discoloration on anterior, lower extremities bilaterally. Abrasion on buttocks unable to visualize. No ecchymoses. Warm and dry. HEAD: Atraumatic. Normocephalic. No temporal or scalp tenderness. EYES: Pupils equal round. Extraocular motions intact. No scleral icterus. No injection or drainage. ENT: Nose without bleeding, purulent drainage or septal hematoma. Airway patent. NECK: Trachea midline. No JVD or lymphadenopathy. CARDIOVASCULAR: Regular rate and rhythm without murmurs, gallops, or rubs. RESPIRATORY: Clear to auscultation anteriorly. Breath sounds equal bilaterally. No wheezes, rales, or rhonchi. GASTROINTESTINAL: Abdomen soft, non-tender, nondistended. No hepato-splenomegaly , or palpable masses. No guarding. MUSCULOSKELETAL: Extremities without clubbing, cyanosis, or edema. No joint tenderness, effusion, or edema noted. No calf tenderness. NEUROLOGICAL: Awake and alert. Cranial nerves II through XII intact. Motor and sensory grossly within normal limits. Normal speech. Laboratory Laboratory Tests Test 02/05/17 13:15 02/05/17 13:20 02/05/17 16:28 02/05/17 22:25 Urine Color YELLOW Urine Turbidity HAZY Urine pH 5.5 Urine Specific [place] 1.021 Urine Protein TRACE Urine Glucose (UA) NEG Urine Ketones NEG Urine Occult Blood LARGE Urine Nitrite NEG Urine Bilirubin NEG Urine Urobilinogen LESS THAN 2.0 Urine Leukocyte Esterase SMALL Urine RBC Urine WBC 6 Urine Squamous Epithelial Cells 5 Urine Hyaline Casts 1 Urine Mucus FEW Microscopic Urinalysis Comment CULT NOT INDICATED Lactic Acid Level 2.6 2.2 Stool C. difficile Toxin (PCR) NEGATIVE Stl C. difficile Toxin Epiderm 027 PRESUMPTIVE NEGATIVE Test 02/06/17 05:11 White Blood Count 17.2 Red Blood Count 3.24 Hemoglobin 10.4 Hematocrit 31.3 Mean Corpuscular Volume 96.5 Mean Corpuscular Hemoglobin 32.2 Mean Corpuscular Hemoglobin Concent 33.4 Red Cell Distribution Width 13.8 Platelet Count 230 Mean Platelet Volume 8.2 Neutrophils (%) (Auto) 72.4 Lymphocytes (%) (Auto) 19.9 Monocytes (%) (Auto) 5.8 Eosinophils (%) (Auto) 1.7 Basophils (%) (Auto) 0.2 Neutrophils # (Auto) 12.4 Lymphocytes # (Auto) 3.4 Monocytes # (Auto) 1.0 Eosinophils # (Auto) 0.3 Basophils # (Auto) 0.0 CBC Comment DIFF FINAL Differential Comment Blood Urea Nitrogen 16 Creatinine 1.02 Random Glucose 121 Calcium Level 8.4 Sodium Level 143 Potassium Level 3.9 Chloride Level 111 Carbon Dioxide Level 23.5 Anion Gap 9 Estimat Glomerular Filtration Rate 62 Date/Time Source Procedure Growth Status 02/05/17 13:20 Blood Peripheral Aerobic Blood Culture - Preliminary NO GROWTH IN 1 DAY Resulted 02/05/17 13:20 Blood Peripheral Anaerobic Blood Culture - Preliminary NO GROWTH IN 1 DAY Resulted 02/05/17 22:25 Stool Stool Stool Occult Blood (HALLIE) - Final HEMOCCULT NEGATIVE Complete Result Diagram: 02/06/17 0511 02/06/17 0511 Imaging Last Impressions Chest X-Ray 02/05/17 1211 Signed Impressions: Service Date/Time: Sunday, February 05, 2017 13:22 - CONCLUSION: No acute cardiopulmonary abnormality is identified. Daren Katz MD Head CT 02/05/17 0000 Signed Impressions: Service Date/Time: Sunday, February 05, 2017 13:20 - CONCLUSION: 1. Atrophy as described above. No evidence of acute intracranial pathology.8 MD Tish Harding VTE Risk Assessment Tish VTE Risk Assessment: Mod/High Risk (score >= 2) VTE Pharm Contraindication: Active bleeding Caprini Risk Assessment Model Point Value = 1 Point Value = 2 Point Value = 3 Point Value = 5 Age 41-60 Minor surgery BMI > 25 kg/m2 Swollen legs Varicose veins or History of unexplained or recurrent spontaneous Oral contraceptives or hormone replacement Sepsis (< 1 month) Serious lung disease, including pneumonia (< 1 month) Abnormal pulmonary function Acute myocardial infarction Congestive heart failure (< 1 month) History of inflammatory bowel disease Medical patient at bed rest Age 61-74 Arthroscopic surgery Major open surgery (> 45 min) Laparoscopic surgery (> 45 min) Malignancy Confined to bed (> 72 hours) Immobilizing plaster cast Central venous access Age >= 75 History of VTE Family history of VTE Factor V Leiden Prothrombin [id number] Lupus anticoagulant Anticardiolipin antibodies Elevated serum homocysteine Heparin-induced thrombocytopenia Other congenital or acquired thrombophilia Stroke (< 1 month) Elective arthroplasty Hip, pelvis, or leg fracture Acute spinal cord injury (< 1 month) Prophylaxis Regimen Total Risk Factor Score Risk Level Prophylaxis Regimen 0-1 Low Early ambulation 2 Moderate Order ONE of the following: *Sequential Compression Device (SCD) *Heparin 5000 units SQ BID 3-4 Higher Order ONE of the following medications: *Heparin 5000 units SQ TID *Enoxaparin/Lovenox 40 mg SQ daily (WT < 150 kg, CrCl > 30 mL/min) *Enoxaparin/Lovenox 30 mg SQ daily (WT < 150 kg, CrCl > 10-29 mL/min) *Enoxaparin/Lovenox 30 mg SQ BID (WT < 150 kg, CrCl > 30 mL/min) AND/OR *Sequential Compression Device (SCD) 5 or more Highest Order ONE of the following medications: *Heparin 5000 units SQ TID (Preferred with Epidurals) *Enoxaparin/Lovenox 40 mg SQ daily (WT < 150 kg, CrCl > 30 mL/min) *Enoxaparin/Lovenox 30 mg SQ daily (WT < 150 kg, CrCl > 10-29 mL/min) *Enoxaparin/Lovenox 30 mg SQ BID (WT < 150 kg, CrCl > 30 mL/min) AND *Sequential Compression Device (SCD) Assessment and Plan Assessment and Plan Patient is an 87 year old female who presents with one episode of shortness of breath, dizziness and generalized fatigue. Vital signs within normal limits. WBC 17.7. Lactic acid 2.6 with repeat 2.2. Cr 1.42. UA hazy in appearance, large occult blood and small leukocyte esterase as well as 6 WBCs and few mucus. Admitted for UTI and acute on chronic kidney failure. Problem List: (1) Leukocytosis ICD Codes: D72.829 - Elevated white blood cell count, unspecified Status: Acute Plan: Vital signs within normal limits. On chart review her WBCs have been elevated for many years. Her WBC now and in 2014 have been in the 17 range. At her age, there can be many hematologic reasons for chronically elevated WBC. Would consider rechecking CBC as an outpt when she is at baseline and seeing if she may need referral to Hematology. At this point it is not warranted as an inpatient as she is still being evaluated for infectious diseases Differential diagnoses: * Likely secondary to UTI. Labs/Microbiology: * On admission, WBC 17.7 with 73.2% neutrophils. * Blood culture pending. Medication: * Acetaminophen 650mg q6hr PO PRN for fever >101F. * See antibiotic coverage below. (2) UTI (urinary tract infection) ICD Codes: N39.0 - Urinary tract infection, site not specified Status: Acute Plan: Asymptomatic. Labs/Microbiology: * On admission, WBC 17.7 with 73.2% neutrophils. * UA hazy appearance, large occult blood, small leukocyte esterase, 6 WBC and few mucus. * Blood culture pending. * Urine culture pending. Medications: * Ceftriaxone 1g IV q24hr. * Patient received vancomycin and cefepime in ED. (3) Acute on chronic renal failure ICD Codes: N17.9 - Acute kidney failure, unspecified; N18.9 - Chronic kidney disease, unspecified Status: Acute Plan: Patient with history of chronic kidney disease. Not followed by nephrology. Per daughter, patient has had decreased urination. Labs: * On admission, BUN 23 and CR 1.42. Medications: * NS 1,000 ml at 120 ml/hr. (4) Hypertension ICD Codes: I10 - Essential (primary) hypertension Status: Chronic Plan: Patient on four different blood pressure medications at home. Daughter concerned that patient is taking too much blood pressure medication. Vitals: * On admission, BP 120/60. Orders: * Orthostatic hypotension testing. Medications: * Continued amlodipine 5mg PO daily. * Continued lisinopril 20mg PO daily. * Continued clonidine 0.1mg q6hr PO PRN if systolic pressure >180. (5) DM (diabetes mellitus) ICD Codes: E11.9 - Type 2 diabetes mellitus without complications Status: Chronic Plan: Insulin-dependent. Labs: * On admission, random glucose 324. Medications: * Levemir 10 units SQ before meals breakfast. * Levemir 5 units SQ at bedtime. * NovoLog supplemental sliding scale. (6) COPD (chronic obstructive pulmonary disease) ICD Codes: J44.9 - Chronic obstructive pulmonary disease, unspecified Status: Chronic Plan: Patient with history of COPD. Medications: * Continued Symbicort inhaler q12hr. (7) Post-menopausal bleeding ICD Codes: N95.0 - Post-menopausal bleeding Status: Acute Plan: Postmenopausal bleeding monitored by Dr. Dalal. Patient seen by Dr. Bone in 2014; cancer ruled out at the time. Patient on Provera to control bleeding at home. Labs: * On admission, Hgb 11.6 and Hct 34.5. Medications: * Continued medroxyprogesterone acetate 5mg BID PO. (8) Fluid, electrolyte, nutrition, and prophylaxis Status: Acute Plan: Fluids: * NS 1,000 ml at 120 ml/hr. Electrolyte: * Monitor and replete as necessary. Nutrition: * Diabetic diet. * Supplement with Glucerna. Prophylaxis: * SCDs. Problem Qualifiers (1) Leukocytosis: Qualified Codes: D72.825 - Bandemia (2) UTI (urinary tract infection): Qualified Codes: N30.01 - Acute cystitis with hematuria (3) Acute on chronic renal failure: Qualified Codes: N17.9 - Acute kidney failure, unspecified; N18.9 - Chronic kidney disease, unspecified (4) Hypertension: Qualified Codes: I10 - Essential (primary) hypertension (5) DM (diabetes mellitus): Qualified Codes: E11.8 - Type 2 diabetes mellitus with unspecified complications (6) COPD (chronic obstructive pulmonary disease): Qualified Codes: J43.9 - Emphysema, unspecified Candy Miguel MD Feb 06, 2017 11:59
[2017-02-06 12:00] VITALS: BP 158/70; PULSE 88; RESP 16; TEMP 99; O2SAT 96
[2017-02-06] MEDS ORDERED: CIPR250T2 PO (12:27)
--- NOTE | 2017-02-06 12:27 | HHI.DCPOC ---
Discharge Care Plan Diagnosis: (1) UTI (urinary tract infection) Goals to Promote Your Health * To prevent worsening of your condition and complications * To maintain your health at the optimal level Directions to Meet Your Goals Take your medications as prescribed Follow your dietary instruction Follow activity as directed Keep your appointments as scheduled Take your immunizations and boosters as scheduled If your symptoms worsen call your PCP, if no PCP go to Urgent Care Center or Emergency Room Smoking is Dangerous to Your Health. Avoid second hand smoke Call the 24-hour hour crisis hotline for domestic abuse at Alan Guardado MD, R3 Feb 06, 2017 12:27
--- NOTE | 2017-02-06 13:30 | EKG ---
Date Performed: 02/05/2017 Time Performed: 12:54:40 PTAGE: 87 years EKG: Sinus rhythm WITH FIRST DEGREE AV BLOCK MARKED LEFT AXIS DEVIATION NONSPECIFIC T-WAVE ABNORMALITY ABNORMAL ECG Si nce PREVIOUS TRACING , no significant change noted PREVIOUS TRACING 07/29/2014 13.53.50 DOCTOR: Orlin Javier Interpretating Date/Time 02/06/2017 13:29:18
--- NOTE | 2017-02-06 15:02 | HHI.FF ---
Face to Face Verification Diagnosis: (1) Hypokalemia (2) Physical deconditioning (3) COPD (chronic obstructive pulmonary disease) (4) Hypertension (5) DM (diabetes mellitus) (6) Acute on chronic renal failure (7) UTI (urinary tract infection) (8) Anemia (9) Post-menopausal bleeding Physical Therapy Order: Evaluate and Treat Occupational Therapy Order: Evaluate and Treat Home Health Nursing Order: Medical education Diabetic education Nursing assessment with vital signs I have seen patient Nahomi Morales on 02/06/17. My clinical findings support the need for the requested home health care services because: Ltd mobility - disease progression Deconditioned w/ increased weakness Limited ability to care for self High risk of falls I certify that my clinical findings support that this patient is homebound because: Unsteady gait/balance Unsafe to leave home unassisted Nissa Beckham MD R1 Feb 06, 2017 15:02
[2017-02-06 16:00] VITALS: BP 117/54; PULSE 87; RESP 17; TEMP 97.7; O2SAT 98
[2017-02-06 20:00] VITALS: BP 159/72; PULSE 93; RESP 22; TEMP 98; O2SAT 98
[2017-02-07] VITALS: BP 153/67; PULSE 88; RESP 22; TEMP 98.2; O2SAT 98
[2017-02-07] MEDS: INSULIN DETEMIR 100 UNITS/ML VIAL SQ SCH ×2 (06:22→20:11)
[2017-02-07 08:00] VITALS: BP 148/68; PULSE 81; RESP 16; TEMP 97.3; O2SAT 99
[2017-02-07] MEDS: cefTRIAXone INJ 1,000 MG in SODIUM CHLORIDE 0.9% INJ 100 ML IV SCH (08:28)
[2017-02-07] MEDS: INSULIN ASPART SUPPLEMENTAL SCALE SQ SCH ×4 (08:28→20:11)
[2017-02-07] MEDS: LISINOPRIL 20 MG TAB PO SCH (08:28)
[2017-02-07] MEDS: amLODIPine BESYLATE 5 MG TAB PO SCH (08:28)
[2017-02-07] MEDS: BUDESONIDE-FORMOTEROL 160/4.5 MCG INHALER INH SCH ×2 (08:29→20:04)
[2017-02-07] MEDS: DOCUSATE SODIUM 50 MG/SENNA 8.6 MG TAB PO SCH ×2 (08:29→20:03)
[2017-02-07] MEDS: SODIUM CHLOR 0.9% 1000 ML INJ 1,000 ML IV SCH ×2 (08:29→17:42)
[2017-02-07] MEDS: SODIUM CHLORIDE 0.9% FLUSH 10 ML FLUSH IV FLUSH SCH ×2 (08:29→20:04)
[2017-02-07] MEDS ORDERED: Vancomycin Consult Pharmacy 1 EA OTHER SCH (10:00)
--- NOTE | 2017-02-07 10:08 | HHI.FPPN ---
Subjective Remarks Patient seen and examined this morning with daughter at bedside. No acute events overnight per nursing staff. Patient*report patient was seen by HEDIS SPECIALIST this morning and is recommending an ultrasound and evaluation by her HEDIS SPECIALIST, Dr. Dalal, tomorrow for possible D&C. Her daughter reports no events overnight and the patient was also reporting "chills" this morning. Otherwise patient and daughter report no complaints and she denies any shortness of breath , chest pain, NVD, abdominal pain, or calf tenderness. We discussed that her blood cultures have come back with gram-positive cocci. Patient and daughter counseled on initiation of antibiotics and continued monitoring at this time until speciation and sensitivities identified. (Dexter Mancilla MD R2) Objective Vitals Vital Signs Date Time Temp Pulse Resp B/P (MAP) Pulse Ox O2 Delivery O2 Flow Rate FiO2 02/07/17 08:00 97.3 81 16 148/68 (94) 99 02/07/17 00:00 98.2 88 22 153/67 (95) 98 02/06/17 20:00 98.0 93 22 159/72 (101) 98 02/06/17 16:00 97.7 87 17 117/54 (75) 98 02/06/17 12:00 99.0 88 16 158/70 (99) 96 I/O 02/06/17 02/06/17 02/06/17 02/07/17 02/07/17 02/07/17 07:00 15:00 23:00 07:00 15:00 23:00 Intake Total 1100 ml 960 ml 240 ml Balance 1100 ml 960 ml 240 ml Intake Oral 960 ml 240 ml IV Total 1100 ml # Voids 4 4 3 # Bowel Movements 2 1 1 (Dexter Mancilla MD R2) Result Diagram: 02/06/17 0511 02/06/17 0511 Objective Remarks GENERAL: Well-nourished, well-developed obese female lying in bed in no acute distress. SKIN: Ulcers on the tip of the great toes bilaterally. Skin discoloration on anterior, lower extremities bilaterally. Abrasion on buttocks unable to visualize. No ecchymoses. Warm and dry. HEENT: Atraumatic, normocephalic with EOMI. MMM. No rhinorrhea. No LAD or JVD appreciated. CARDIOVASCULAR: Regular rate and rhythm without murmurs, gallops, or rubs. RESPIRATORY: Clear to auscultation anteriorly. No CRW appreciated. No increased work of breathing. GASTROINTESTINAL: Abdomen soft, non-tender, nondistended with positive bowel sounds. No masses appreciated. MUSCULOSKELETAL: Extremities without cyanosis or edema. No calf tenderness. NEUROLOGICAL: Awake and alert. Patient is slightly lethargic to baseline, does interact during interview and exam. (Dexter Mancilla MD R2) A/P Assessment and Plan Patient is an 87 year old female who presents with one episode of shortness of breath, dizziness and generalized fatigue. Vital signs within normal limits. WBC 17.7. Lactic acid 2.6 with repeat 2.2. Cr 1.42. UA hazy in appearance, large occult blood and small leukocyte esterase as well as 6 WBCs and few mucus. Admitted for UTI and acute on chronic kidney failure. Patient now with gram-positive cocci in blood cultures. (Dexter Mancilla MD R2) Attending Attestation Patient seen and examined. Case reviewed and discussed with the resident team. Agree with plan of care as discussed with me and documented in the resident note. will need to follow her blood cultures to see what fci treatment will be needed (Candy Miguel MD) Problem List: (1) Gram-positive bacteremia ICD Codes: R78.81 - Bacteremia Status: Acute Plan: Patient found to have gram-positive bacteremia on routine blood cultures. Imaging/orders/studies: Blood cultures: Gram-positive cocci and 3/4 blood cultures, speciation and sensitivities pending Medications: Vancomycin 1 g twice a day, pharmacy consulted for dosing (02/07- ) (2) UTI (urinary tract infection) ICD Codes: N39.0 - Urinary tract infection, site not specified Status: Acute Plan: Asymptomatic. Labs/Microbiology: * On admission, WBC 17.7 with 73.2% neutrophils. * UA hazy appearance, large occult blood, small leukocyte esterase, 6 WBC and few mucus. * Blood culture gram-positive cocci, plan as above * Urine culture pending. Medications: * Ceftriaxone 1g IV q24hr. (02/05- ) * Patient received vancomycin and cefepime in ED. (3) Leukocytosis ICD Codes: D72.829 - Elevated white blood cell count, unspecified Status: Acute Plan: Vital signs within normal limits. On chart review her WBCs have been elevated for many years. Her WBC now and in 2015 have been in the 17 range. At her age, there can be many hematologic reasons for chronically elevated WBC. Would consider rechecking CBC as an outpt when she is at baseline and seeing if she may need referral to Hematology. At this point it is not warranted as an inpatient as she is still being evaluated for infectious diseases Differential diagnoses: * Likely secondary to UTI. Labs/Microbiology: * On admission, WBC 17.7 with 73.2% neutrophils. * Blood culture with gram-positive cocci, plan as above Medication: * Acetaminophen 650mg q6hr PO PRN for fever >101F. * See antibiotic coverage below. (4) Acute on chronic renal failure ICD Codes: N17.9 - Acute kidney failure, unspecified; N18.9 - Chronic kidney disease, unspecified Status: Resolved Plan: Patient with history of chronic kidney disease. Not followed by nephrology. Per daughter, patient has had decreased urination. Labs: * On admission, BUN 23 and CR 1.42. Improved Medications: * NS 1,000 ml at 120 ml/hr. (5) Hypertension ICD Codes: I10 - Essential (primary) hypertension Status: Chronic Plan: Patient on four different blood pressure medications at home. Daughter concerned that patient is taking too much blood pressure medication. Vitals: * On admission, BP 120/60. Orders: * Orthostatic hypotension testing. Medications: * Continued amlodipine 5mg PO daily. * Continued lisinopril 20mg PO daily. * Continued clonidine 0.1mg q6hr PO PRN if systolic pressure >180. (6) DM (diabetes mellitus) ICD Codes: E11.9 - Type 2 diabetes mellitus without complications Status: Chronic Plan: Insulin-dependent. Labs: * On admission, random glucose 324. Medications: * Levemir 10 units SQ before meals breakfast. * Levemir 5 units SQ at bedtime. * NovoLog supplemental sliding scale. (7) COPD (chronic obstructive pulmonary disease) ICD Codes: J44.9 - Chronic obstructive pulmonary disease, unspecified Status: Chronic Plan: Patient with history of COPD. Medications: * Continued Symbicort inhaler q12hr. (8) Post-menopausal bleeding ICD Codes: N95.0 - Post-menopausal bleeding Status: Acute Plan: Postmenopausal bleeding monitored by Dr. Dalal. Patient seen by Dr. Bone in 2015; cancer ruled out at the time. Patient on Provera to control bleeding at home. Labs: * On admission, Hgb 11.6 and Hct 34.5. * Ultrasound: Pending Medications: * Continued medroxyprogesterone acetate 5mg BID PO. (9) Fluid, electrolyte, nutrition, and prophylaxis Status: Acute Plan: Fluids: * NS 1,000 ml at 120 ml/hr. Electrolyte: * Monitor and replete as necessary. Nutrition: * Diabetic diet. * Supplement with Glucerna. Prophylaxis: * SCDs. * Hold medical prophylaxis due to possible surgical intervention tomorrow (Dexter Mancilla MD R2) Problem Qualifiers (1) UTI (urinary tract infection): Qualified Codes: N30.01 - Acute cystitis with hematuria (2) Leukocytosis: Qualified Codes: D72.825 - Bandemia (3) Acute on chronic renal failure: Qualified Codes: N17.9 - Acute kidney failure, unspecified; N18.9 - Chronic kidney disease, unspecified (4) Hypertension: Qualified Codes: I10 - Essential (primary) hypertension (5) DM (diabetes mellitus): Qualified Codes: E11.8 - Type 2 diabetes mellitus with unspecified complications (6) COPD (chronic obstructive pulmonary disease): Qualified Codes: J43.9 - Emphysema, unspecified Dexter Mancilla MD R2 Feb 07, 2017 10:08 Candy Miguel MD Feb 10, 2017 12:06
--- NOTE | 2017-02-07 10:21 | PD.CONS ---
HPI Chief Complaint consulted on inpatient by Internal Medicine team for postmenopausal bleeding in patient known to Dr. Daren Dalal, I am covering for him this weekend pt admitted for shortness of breath/dizziness/fatigue/leukocytosis suspected UTI now with +blood cultures Date Seen: Feb 07, 2017 Time Seen: 09:40 Travel History International Travel<30 Days: No Contact w/Intl Traveler<30Days: No Known Affected Area: No History of Present Illness HPI 87 yo admitted 02/06/17 to IM team for short of breath/dizziness/fatigue and laboratory abnormality with leukocytosis and questionable UTI based on Udip. On admission patient's daughter brought up that over past 1.5 months pt has had postmenopausal bleeding, has increased her Provera dose from 5mg daily to 5mg BID. If misses dose has light bleeding but enough to require pad change throughout the day. Pt lives with her daughter who is main caregiver. Patient is sleepy on entry into room, nods in agreement with statements made by daughter. Arousable but history not obtained from patient, obtained from daughter. On review of records Dr. Dalal performed hysteroscopy, dilation & curettage back in July 30, 2014 at which time endocervical polyp showed complex hyperplasia without atypia and endometrial sampling showed simple hyperplasia without atypia. Pt was sent to [facility] and Dr. Isamar Wright saw pt August at which time recommendation for Provera 5mg BID was discussed. Unclear why patient was not taking that dose until recently. Only previous imaging on review of chart is pelvic ultrasound dated 07/12/14 showing 8.1 x 5.0 x 4.8 cm uterus, right ovary not visualized, left ovary surgically absent, endometrial stripe 6mm at that time. Unremarkable pelvic ultrasound. Patient's daughter is insistent that vaginal bleeding is addressed this admission despite it being a chronic issue. Patient denies pain currently, daughter states a few days ago was complaining of abdominal pain but this resolved once patient had bowel movement per daughter's report. Daughter reports usually pt has BMs daily and had been without x 2 days prior to that BM. Patient states she has no pain currently, 0/10, but is cold. States she feels tired and wants to sleep. No bleeding on pad currently. Pt declines pelvic exam. 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 Dalal for postmenopausal bleeding Family History Narrative Family History mother - lung cancer & stroke, passed age 81 father type 2 diabetes, passed age 65 no FHx of uterine cancer, ovarian cancer, or cervical cancer reported Social History Alcohol Use: No Tobacco Use: No Substance Abuse: No Allergies-Medications (Allergen,Severity, Reaction): Coded Allergies: No Known Allergies (Verified Allergy, Unknown, 02/05/17) Home Meds Active Scripts Ciprofloxacin (Ciprofloxacin) 250 Mg Tab, 250 MG PO BID for Infection, #6 TAB 0 Refills Prov:Alan Guardado MD, R3 02/06/17 Insulin NPH Isophane-Reg (Human) 70-30 Inj (Humulin 70-30 Inj) 1,000 Unit/10 Ml Vial, 33 UNITS SQ AC BREAKFAST, #1 VIAL Prov:Nissa Beckham MD R1 02/05/17 Ferrous Sulfate (Ferrous Sulfate) 325 Mg (65 Mg Iron) Tablet, 65 MG PO BID Y for anemia, #30 TAB 0 Refills Prov:Nissa Beckham MD R1 02/05/17 Reported Medications [] No Conflict Check, 1 TAB PO DAILY 02/05/17 [] No Conflict Check 02/05/17 Budesonide-Formoterol Inh (Symbicort Inh) 160-4.5 Mcg/Act Aero, 2 PUFF INH Q12HR , #1 INHALER 0 Refills 02/05/17 Alprazolam (Alprazolam) 0.25 Mg Tab, 0.25 MG PO Q8H Y for ANXIETY, TAB 0 Refills 02/05/17 Medroxyprogesterone Acetate (Medroxyprogesterone Acetate) 5 Mg Tab, 5 MG PO BID for Uterine bleeding, #5 TAB 0 Refills Start day 21 02/05/17 Clonidine (Clonidine) 0.2 Mg Tab, 0.2 MG PO TID for Blood Pressure Management, # 60 TAB 0 Refills 02/05/17 Lisinopril (Lisinopril) 20 Mg Tab, 20 MG PO DAILY, #30 TAB 0 Refills 02/05/17 Insulin NPH Isophane-Reg (Human) 70-30 Inj (Humulin 70-30 Inj) 1,000 Unit/10 Ml Vial, 15 UNIT SQ HS 02/05/17 Hydrocodone-Acetaminophen (Hydrocodone-Acetaminophen) 5-325 mg Tab, 1 TAB PO Q4H Y for PAIN, TAB 0 Refills 02/05/17 Hydrochlorothiazide (Hydrochlorothiazide) 25 Mg Tab, 25 MG PO BID, #30 TAB 02/05/17 Amlodipine (Amlodipine) 5 Mg Tab, 5 MG PO DAILY for Blood Pressure Management, # 30 TAB 0 Refills 02/05/17 Discontinued Reported Medications Fluticasone-Salmeterol Inh (Advair Diskus Inh) 250-50 Mcg/Blist Aer, 1 PUFF INH BID, #1 INHALER 0 Refills Rinse mouth after use. 02/05/17 Review of Systems General / Constitutional: No: Fever, Weight Gain, Chills, Other Eyes: No: Diploplia, Blurred Vision, Visual changes, Pain, Photophobia HENT: Lightheadedness (on admission), No: Headaches, Vertigo Cardiovascular: No: Irregular Rhythm, Chest Pain or Discomfort, Palpitations, Tachycardia, Syncope, Varicosities, Edema, Cyanosis Respiratory: Short of Breath (on admission, has since resolved), No: Cough, Other Gastrointestinal: Constipation (resolved 2 days ago), No: Nausea, Vomiting, Diarrhea Genitourinary: Vaginal Bleeding (x 1.5 months per pt's daughter), No: Decreased Urinary Output, Oliguria Musculoskeletal: Weakness, No: Limited ROM, Cramping, Edema, Pain Skin: No Rash, No Itching, No Dryness, No Lumps, No Change in Pigmentation, No Change in Nails, No Alopecia, Lesions (ulcers on large toes bilaterally; healing ) Neurologic: Weakness, No: Dizziness, Syncope, Focal Abnormalities, Coordination Problem, Headache, Slurred Speech, Seizures Psychiatric: No: Depression, Suicidal Ideations, Homicidal Ideation Endocrine: No: Heat Intolerance, Cold Intolerance, Polydipsia, Polyuria, Other Physical Exam Exam Limitations: Poor Historian (drowsy; patient's daughter present for exam) Vital Signs Date Time Temp Pulse Resp B/P (MAP) Pulse Ox O2 Delivery O2 Flow Rate FiO2 02/07/17 08:00 97.3 81 16 148/68 (94) 99 02/07/17 00:00 98.2 88 22 153/67 (95) 98 02/06/17 20:00 98.0 93 22 159/72 (101) 98 02/06/17 16:00 97.7 87 17 117/54 (75) 98 02/06/17 12:00 99.0 88 16 158/70 (99) 96 Narrative GENERAL: Well-nourished, well-developed patient. Overweight. SKIN: Warm and dry. HEAD: Normocephalic and atraumatic. EYES: No scleral icterus. No injection or drainage. ENT: No nasal drainage noted. Mucous membranes pink. Airway patent. NECK: Supple, trachea midline. No JVD. CARDIOVASCULAR: Regular rate and rhythm without murmurs, gallops, or rubs. RESPIRATORY: Breath sounds equal bilaterally from anterior & lateral chest; pt unable to sit up in bed states she is too tired. No accessory muscle use. BREASTS: deferred. ABDOMEN/GI: Abdomen soft, non-tender, bowel sounds present, no rebound, no guarding; uterus not palpated abdominally GENITOURINARY: pt declined internal exam; external exam shows no abrasion, pad is dry (just changed) EXTREMITIES: No cyanosis; shiny thin skin overlying shins to ankles b/l; healing lesion of large toe bilaterally; nails brittle BACK: unable to examine due to pt uncooperative with exam. NEUROLOGICAL: sleepy, answers questions with nodding; unable to evaluate rest of neurologic exam. Data Data Vital Signs Reviewed: Yes Orders Orders Activity Oob With Assistance (02/06/17 11:14) Resp Home Oxygen Walk Test (02/06/17 ) Admit To Inpatient (02/06/17 ) Inpatient Certification (02/06/17 ) Consult Gynecology (02/06/17 ) (Hub Use Only)Inp Phy Cons/Ref (02/06/17 ) Case Management Consult (02/06/17 ) Us Pelvis Comp W Transvaginal (02/07/17 ) Labs Date/Time Source Procedure Growth Status 02/05/17 13:20 Blood Peripheral Aerobic Blood Culture - Preliminary Gram Positive Cocci Resulted 02/05/17 13:20 Anaerobic Blood Culture - Preliminary Gram Positive Cocci Resulted 02/05/17 22:25 Stool Stool Stool Occult Blood ([facility]ALLIE) - Final HEMOCCULT NEGATIVE Complete 02/06/17 12:30 Urine Catheterized Urine Urine Culture Pending Received [facility] Medical Record Reviewed: Yes Interpretation(s) postmenopausal bleeding, 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 Dalal, I am covering for him this weekend, consult was ordered for postmenopausal bleeding in pt admitted for leukocytosis and suspected UTI, on review of labs this morning preliminary blood cultures are + gram positive cocci x 2 1) postmenopausal bleeding: on review of chart and previous workup it appears PMB was first evaluated by Dr. Dalal in 2014 with pathology showing endometrial hyperplasia without atypia; at that time 07/2014 pt was started on Provera 5mg daily but after consultation with [facility] Dr. Wright it was recommended dose increased to 5mg bid; per pt's daughter, pt was only taking Provera 5mg daily until about 1.5 months ago when started to have bleeding again ; denies any clots or soaking thru bedsheets/ clothing but states it is enough to have to change her pad throughout the day, like a light to moderate menses; pt's daughter increased Provera to BID about 1 month ago and states it helps but pt continues to have on/off bleeding - no blood on pad this morning and pt declines pelvic exam; will order pelvic ultrasound & plan for outpatient evaluation; pt needs repeat sampling in office with endometrial biopsy and possibly additional procedures based on sonogram results - as bleeding is not acute and no heavy currently would recommend further workup as outpatient, pt to return to care of Dr. Dalal as she is established with him - will continue Provera 5mg po bid while inpatient 2) multiple other health issues now with peripheral blood cultures + for gram + cocci; leave all further management up to primary team, discharge planning up to their discretion Thank you for this consult, if patient remains inpatient Dr. Dalal will see tomorrow and continue to follow; will f/u ultrasound results, order placed. Otherwise will plan additional evaluation of chronic PMB in outpatient setting. Admitting diagnosis: acute encephalopahty, UTI, lactic acidosis CoMorbid Conditions type 2 diabetes, chronic kidney disease, COPD, chronic hypertension, obesity Scripts Ciprofloxacin (Ciprofloxacin) 250 Mg Tab 250 MG PO BID for Infection, #6 TAB 0 Refills Prov: Alan Guardado MD, R3 02/06/17 Insulin NPH Isophane-Reg (Human) 70-30 Inj (Humulin 70-30 Inj) 1,000 Unit/10 Ml Vial 33 UNITS SQ AC BREAKFAST, #1 VIAL Prov: Nissa Beckham MD R1 02/05/17 Ferrous Sulfate (Ferrous Sulfate) 325 Mg (65 Mg Iron) Tablet 65 MG PO BID Y for anemia, #30 TAB 0 Refills Prov: Nissa Beckham MD R1 02/05/17 Renetta Taylor MD Feb 07, 2017 10:21
[2017-02-07] MEDS ORDERED: VANCOMYCIN INJ 1,000 MG in SODIUM CHLOR 0.9% 250 ML INJ 250 ML IV ONE (11:00)
[2017-02-07 12:00] VITALS: BP 137/65; PULSE 93; RESP 17; TEMP 98.1; O2SAT 99
--- NOTE | 2017-02-07 13:23 | RADRPT ---
EXAM DATE/TIME: 02/07/2017 12:21 [facility] COMPARISON: US PELVIS COMP W/TRANSVAGINAL, July 12, 2014, 8:16. INDICATIONS : Post menopausal bleeding. MEDICAL HISTORY : Cardiovascular disease. Hypertension. Diabetes SURGICAL HISTORY : D&C. Left oopherectomy. ENCOUNTER: Subsequent ACUITY: 1 month PAIN SCORE: 0/10 LOCATION: Bilateral Perianal MEASUREMENTS: TRANSABDOMINAL: UTERUS: 10.5 x 5.6 x 4.2 cm ENDOMETRIAL STRIPE: 7 mm RIGHT OVARY: 2.7 x 3.2 x 1.1 cm LEFT OVARY: Surgically absent UTERUS: Non visualized ENDOMETRIAL STRIPE: RIGHT OVARY: Non visualized LEFT OVARY: Surgically absent FINDINGS: UTERUS: The myometrium has homogeneous echotexture without mass.There appears to be a focal fluid collection in the upper uterine endometrial cavity measuring 1.3 x 0.8 cm. This is a new finding compared to the prior study. There is a small nabothian cyst on the cervix which is not significantly changed compar ed to the prior exam. RIGHT OVARY: Ovary contains no mass or significant cystic lesion. LEFT OVARY: Surgically removed. MISCELLANEOUS: No free fluid. CONCLUSION: 1. There appears to be a small focal fluid collection in the upper uterine endometrial cavity measuri ng 1.3 x 0.8 cm. This is a new abnormal finding compared to the prior examination. 2. Small stable nabothian cysts in the cervix. 3. Otherwise, no other significant changes compared to the prior examination. Jay Lange MD on February 07, 2017 at 13:17 Board Certified Radiologist. This report was verified electronically.
[2017-02-07 16:00] VITALS: BP 127/58; PULSE 85; RESP 16; TEMP 98.4; O2SAT 99
[2017-02-07 18:00] VITALS: BP_SYST 138; BP_SYST 149; BP_SYST 158; BP_DIAS 56; BP_DIAS 68; PULSE 86; RESP 17; TEMP 96.8; O2SAT 97
[2017-02-07 20:00] VITALS: BP 150/65; PULSE 89; RESP 24; TEMP 97; O2SAT 98
[2017-02-08] VITALS: BP 158/70; PULSE 84; RESP 24; TEMP 99.4; O2SAT 97
[2017-02-08] MEDS: SODIUM CHLOR 0.9% 1000 ML INJ 1,000 ML IV SCH ×3 (01:10→17:50)
[2017-02-08] MEDS: INSULIN DETEMIR 100 UNITS/ML VIAL SQ SCH ×2 (05:55→21:45)
[2017-02-08] MEDS: DOCUSATE SODIUM 50 MG/SENNA 8.6 MG TAB PO SCH ×2 (07:39→21:46)
[2017-02-08] MEDS: LISINOPRIL 20 MG TAB PO SCH (07:39)
[2017-02-08] MEDS: SODIUM CHLORIDE 0.9% FLUSH 10 ML FLUSH IV FLUSH SCH ×2 (07:39→21:47)
[2017-02-08] MEDS: cefTRIAXone INJ 1,000 MG in SODIUM CHLORIDE 0.9% INJ 100 ML IV SCH (07:39)
[2017-02-08] MEDS: amLODIPine BESYLATE 5 MG TAB PO SCH (07:39)
[2017-02-08] MEDS: BUDESONIDE-FORMOTEROL 160/4.5 MCG INHALER INH SCH ×2 (07:40→21:48)
[2017-02-08 07:55] LABS: HEMATOCRIT 29.1 % (35.0-46.0); MEAN CORPUSCULAR HEMOGLOBIN 32.2 PG (27.0-34.0); MEAN CORPUSCULAR HGB CONC 33.9 % (32.0-36.0); PLATELET COUNT 215 TH/MM3 (150-450); RED BLOOD COUNT 3.06 MIL/MM3 (4.00-5.30); RED CELL DISTRIBUTION WIDTH 13.5 % (11.6-17.2); REVIEW FLAG FINAL; WHITE BLOOD COUNT 13.7 TH/MM3 (4.0-11.0)
[2017-02-08 08:00] VITALS: BP 153/65; PULSE 88; RESP 18; TEMP 98.6; O2SAT 97
[2017-02-08] MEDS: INSULIN ASPART SUPPLEMENTAL SCALE SQ SCH ×4 (08:04→21:44)
[2017-02-08 08:28] LABS: BICARBONATE 21.9 MEQ/L (21.0-32.0); MAGNESIUM 1.5 MG/DL (1.5-2.5); POTASSIUM 4.1 MEQ/L (3.5-5.1)
--- NOTE | 2017-02-08 09:15 | HHI.FPPN ---
Subjective Remarks Patient was seen and evaluated this morning. She continues to feel fatigued. She complains of feeling cold despite being covered by 3 blankets. Patient's temperature recorded at 8 AM: 98.6 F. Patient denies chest pain, heart palpitations, shortness of breath, nausea/vomiting, diarrhea and constipation. All questions were answered. (Nissa Beckham MD R1) Objective Vitals Vital Signs Date Time Temp Pulse Resp B/P (MAP) Pulse Ox O2 Delivery O2 Flow Rate FiO2 02/08/17 08:00 98.6 88 18 153/65 (94) 97 02/08/17 00:00 99.4 84 24 158/70 (99) 97 02/07/17 20:00 97.0 89 24 150/65 (93) 98 02/07/17 18:00 96.8 86 17 149/68 (95) 97 138/56 (83) 158/68 (98) 02/07/17 16:00 98.4 85 16 127/58 (81) 99 02/07/17 13:57 18 02/07/17 12:00 98.1 93 17 137/65 (89) 99 I/O 02/07/17 02/07/17 02/07/17 02/08/17 02/08/17 02/08/17 07:00 15:00 23:00 07:00 15:00 23:00 Intake Total 240 ml 350 ml 2160 ml 1240 ml Balance 240 ml 350 ml 2160 ml 1240 ml Intake Oral 240 ml 2160 ml 240 ml IV Total 350 ml 1000 ml # Voids 3 4 3 # Bowel Movements 1 3 1 (Nissa Beckham MD R1) Result Diagram: 02/08/17 0645 02/08/17 0645 Imaging Last Impressions Pelvis Ultrasound 02/07/17 0000 Signed Impressions: Service Date/Time: Tuesday, February 07, 2017 12:21 - CONCLUSION: 1. There appears to be a small focal fluid collection in the upper uterine endometrial cavity measuring 1.3 x 0.8 cm. This is a new abnormal finding compared to the prior examination. 2. Small stable nabothian cysts in the cervix. 3. Otherwise , no other significant changes compared to the prior examination. Jay Lange MD Chest X-Ray 02/05/17 1211 Signed Impressions: Service Date/Time: Sunday, February 05, 2017 13:22 - CONCLUSION: No acute cardiopulmonary abnormality is identified. Daren Katz MD Head CT 02/05/17 0000 Signed Impressions: Service Date/Time: Sunday, February 05, 2017 13:20 - CONCLUSION: 1. Atrophy as described above. No evidence of acute intracranial pathology.8 Omari Spence MD Objective Remarks GENERAL: Well-nourished, well-developed, obese female lying in bed in no acute/ respiratory distress. She looks weak. SKIN: Warm and dry. Ulcers on the tip of the great toes bilaterally. Skin discoloration on anterior, lower extremities bilaterally. No ecchymoses. HEENT: Atraumatic, normocephalic with extraocular motions intact. Moist mucous membranes. No rhinorrhea. No lymphadenopathy or JVD appreciated. CARDIOVASCULAR: Regular rate and rhythm without murmurs, gallops, or rubs. RESPIRATORY: Clear to auscultation anteriorly. No increased work of breathing. No accessory muscle use. GASTROINTESTINAL: Abdomen soft, non-tender, nondistended with positive bowel sounds. No masses appreciated. MUSCULOSKELETAL: Extremities without cyanosis or edema. No calf tenderness. NEUROLOGICAL: Awake and alert. Patient is slightly lethargic but does interact during interview and exam. Medications and IVs Current Medications Medications (Trade) Dose Ordered Sig/Bertram Route Start Time Stop Time Status Last Admin (Xanax) 0.25 mg Q8H PRN PO 02/05/17 15:15 02/07/17 14:25 Sodium Chloride 1,000 ml @ 120 mls/hr Q8H20M IV 02/05/17 16:00 02/08/17 07:40 (NS Flush) 2 ml UNSCH PRN IV FLUSH 02/05/17 15:45 (NS Flush) 2 ml BID IV FLUSH 02/05/17 21:00 02/08/17 07:39 (Zofran Inj) 4 mg Q6H PRN IVP 02/05/17 15:45 (Tylenol) 650 mg Q6H PRN PO 02/05/17 15:45 ([place] 5-325 Mg) 1 tab Q4H PRN PO 02/05/17 15:45 02/07/17 12:48 ([place] 7.5-325 Mg) 1 tab Q4H PRN PO 02/05/17 15:45 02/05/17 20:30 (Morphine Inj) 2 mg Q3H PRN IV PUSH 02/05/17 15:45 (Narcan Inj) 0.4 mg UNSCH PRN IV PUSH 02/05/17 15:45 (Sariah-Colace) 1 tab BID PO 02/05/17 21:00 02/08/17 07:39 (Milk Of Magnesia Liq) 30 ml Q12H PRN PO 02/05/17 15:45 (Senokot) 17.2 mg Q12H PRN PO 02/05/17 15:45 (Dulcolax Supp) 10 mg DAILY PRN RECTAL 02/05/17 15:45 (Lactulose Liq) 30 ml DAILY PRN PO 02/05/17 15:45 (Levemir Inj) 5 units HS SQ 02/05/17 21:00 02/07/17 20:11 (Levemir Inj) 10 units AC BREAKFAST SQ 02/06/17 07:00 02/08/17 05:55 (D50w (Vial) Inj) 50 ml UNSCH PRN IV PUSH 02/05/17 16:00 (Glucagon Inj) 1 mg UNSCH PRN OTHER 02/05/17 16:00 (NovoLOG SUPPLEMENTAL SCALE) 1 ACHS SLIDING SCALE SQ 02/05/17 17:00 02/08/17 12:30 (Prinivil) 20 mg DAILY PO 02/06/17 09:00 02/08/17 07:39 (Norvasc) 5 mg DAILY PO 02/06/17 09:00 02/08/17 07:39 (Catapres) 0.1 mg Q6H PRN PO 02/05/17 16:15 (Symbicort 160-4.5 Mcg Inh) 2 puff Q12HR INH 02/05/17 21:00 02/08/17 07:40 (Provera) 5 mg BID PO 02/05/17 21:00 02/08/17 07:39 Ceftriaxone Sodium 1000 mg/ Sodium Chloride 100 ml @ 200 mls/hr Q24H IV 02/06/17 09:00 02/08/17 07:39 Pharmacy Profile Note 0 ml @ 0 mls/hr UNSCH OTHER 02/07/17 10:00 Vancomycin HCl 1250 mg/Sodium Chloride 262.5 ml @ 250 mls/hr Q18H IV 02/08/17 13:00 02/08/17 12:49 Miscellaneous Information SPECIFIC LAB TO BE [facility]... ONCE ONCE .XX 02/10/17 18:45 02/10/17 18:46 (Nissa Beckham MD R1) Urinary Catheter: No (Nissa Beckham MD R1) Vascular Central Line Catheter: No (Nissa Beckham MD R1) A/P Assessment and Plan Patient is an 87 year old female who presents with one episode of shortness of breath, dizziness and generalized fatigue. On admission, vital signs within normal limits, WBC 17.7, lactic acid 2.6 with repeat 2.2, Cr 1.42 and UA hazy in appearance, large occult blood and small leukocyte esterase as well as 6 WBCs and few mucus. Admitted for UTI and acute on chronic kidney failure. Patient also with vaginal bleeding, followed by Dr. Dalal. Patient now with gram-positive cocci in blood cultures. (Nissa Beckham MD R1) Attending Attestation Patient seen and examined. Case reviewed and discussed with the resident team. Agree with plan of care as discussed with me and documented in the resident note. she is doing well on abx but unclear if she will need a longer course (Candy Miguel MD) Problem List: (1) Leukocytosis ICD Codes: D72.829 - Elevated white blood cell count, unspecified Status: Acute Plan: Vital signs within normal limits. Differential diagnoses: * Likely secondary to bacteremia versus UTI. * See plan for Gram-positive bacteria and UTI. Medication: * Acetaminophen 650mg q6hr PO PRN for fever >101F. (2) Gram-positive bacteremia ICD Codes: R78.81 - Bacteremia Status: Acute Plan: Patient found to have gram-positive bacteremia on routine blood cultures. Labs: * On admission, WBC 13.7 and lactic acid 2.6 with repeat 2.2. * 02/08: WBC 13.7. Micrology: * Blood cultures: Gram-positive cocci in 3/4 blood cultures. * Aerobic blood cultures growing staph epidermidis x2; aerobic blood culture with no growth in 3 days 1. * Anaerobic blood culture growing staph species coagulase-negative. * Repeat blood cultures ordered 02/08. Medications: * Vancomycin 1g IV BID, pharmacy consulted for dosing (02/07- ). (3) UTI (urinary tract infection) ICD Codes: N39.0 - Urinary tract infection, site not specified Status: Acute Plan: Asymptomatic. Labs/Microbiology: * On admission, WBC 17.7 with 73.2% neutrophils. * 02/08: WBC 13.7. * UA hazy appearance, large occult blood, small leukocyte esterase, 6 WBC and few mucus. * Urine culture with no growth in 48 hours. Medications: * Ceftriaxone 1g IV q24hr. (02/05- ). * Patient received vancomycin and cefepime in ED. (4) Acute on chronic renal failure ICD Codes: N17.9 - Acute kidney failure, unspecified; N18.9 - Chronic kidney disease, unspecified Status: Resolved Plan: Resolved. Patient with history of chronic kidney disease. Not followed by nephrology. Per daughter, patient has had decreased urination. Labs: * On admission, BUN 23 and Cr 1.42. * 02/08: BUN 10 and Cr 0.77. Medications: * NS 1,000 ml at 120 ml/hr. (5) Hypertension ICD Codes: I10 - Essential (primary) hypertension Status: Chronic Plan: Patient on four different blood pressure medications at home. Daughter concerned that patient is taking too much blood pressure medication. Vitals: * On admission, BP 120/60. * 02/08: 140/76. Orders: * Orthostatic hypotension testing - negative. Medications: * Continued amlodipine 5mg PO daily. * Continued lisinopril 20mg PO daily. * Continued clonidine 0.1mg q6hr PO PRN if systolic pressure >180. (6) DM (diabetes mellitus) ICD Codes: E11.9 - Type 2 diabetes mellitus without complications Status: Chronic Plan: Insulin-dependent. Labs: * On admission, random glucose 324. * 02/08: random glucose 174. Medications: * Levemir 10 units SQ before meals breakfast. * Levemir 5 units SQ at bedtime. * NovoLog supplemental sliding scale - patient has required 17 additional units in last 24 hours. (7) COPD (chronic obstructive pulmonary disease) ICD Codes: J44.9 - Chronic obstructive pulmonary disease, unspecified Status: Chronic Plan: Patient with history of COPD. Medications: * Continued Symbicort inhaler q12hr. (8) Post-menopausal bleeding ICD Codes: N95.0 - Post-menopausal bleeding Status: Acute Plan: Postmenopausal bleeding monitored by Dr. Dalal. Patient seen by Dr. Bone in 2014; cancer ruled out at the time. Patient on Provera to control bleeding at home. Labs: * On admission, Hgb 11.6 and Hct 34.5. * 02/08: Hgb 9.8 and Hct 29.1. * Ultrasound: There appears to be a small focal fluid collection in the upper uterine endometrial cavity measuring 1.30.8 cm. This is a new abnormal finding compared to the prior examination. Small stable nabothian cysts on the cervix. Otherwise, no other significant changes compared to the prior examination. Orders: * Placed gynecological consult. Dr. Taylor saw patient on 02/07 and recommended outpatient evaluation. Dr. Dalal to see patient today. Medications: * Continued medroxyprogesterone acetate 5mg BID PO. (9) Fluid, electrolyte, nutrition, and prophylaxis Status: Acute Plan: Fluids: * NS 1,000 ml at 120 ml/hr. Electrolyte: * Monitor and replete as necessary. Nutrition: * Diabetic diet. * Supplement with Glucerna. Prophylaxis: * SCDs. (Nissa Beckham MD R1) Problem Qualifiers (1) Leukocytosis: Qualified Codes: D72.825 - Bandemia (2) UTI (urinary tract infection): Qualified Codes: N30.01 - Acute cystitis with hematuria (3) Acute on chronic renal failure: Qualified Codes: N17.9 - Acute kidney failure, unspecified; N18.9 - Chronic kidney disease, unspecified (4) Hypertension: Qualified Codes: I10 - Essential (primary) hypertension (5) DM (diabetes mellitus): Qualified Codes: E11.8 - Type 2 diabetes mellitus with unspecified complications (6) COPD (chronic obstructive pulmonary disease): Qualified Codes: J43.9 - Emphysema, unspecified Nissa Beckham MD R1 Feb 08, 2017 09:15 Candy Miguel MD Feb 10, 2017 12:08
[2017-02-08 12:00] VITALS: BP 140/76; PULSE 81; RESP 18; TEMP 99.1; O2SAT 93
[2017-02-08] MEDS: VANCOMYCIN INJ 1,250 MG in SODIUM CHLOR 0.9% 250 ML INJ 250 ML IV SCH (12:49)
[2017-02-08 16:00] VITALS: BP 141/60; PULSE 93; RESP 20; TEMP 99.7; O2SAT 98
--- NOTE | 2017-02-08 16:19 | HHI.PR ---
[employer] Note Note Pt was seen this afternoon, daughter Pat at bedside. I explained that Dr Dalal wants her to continue to provera 5mg twice per day to decrease bleeding. He will f/u with her in the office in one week . Pt was alert heart rhythm regular lungs clear to auscultation anterior and posterior abd soft and nontender no dc or blood noted under pt or on perineum no swelling to bilateral lower extremities f/u on office in 1 week Radha Shore Feb 08, 2017 16:19
[2017-02-08 20:00] VITALS: BP 149/67; PULSE 79; RESP 18; TEMP 97.4; O2SAT 98
[2017-02-08] MEDS: ACETAMINOPHEN/HYDROcodone 325 MG/7.5 MG TAB PO PRN (21:48)
[2017-02-09] VITALS: BP 134/69; PULSE 91; RESP 18; TEMP 99.4; O2SAT 97
[2017-02-09] MEDS: SODIUM CHLOR 0.9% 1000 ML INJ 1,000 ML IV SCH (03:24)
[2017-02-09] MEDS: VANCOMYCIN INJ 1,250 MG in SODIUM CHLOR 0.9% 250 ML INJ 250 ML IV SCH (06:34)
[2017-02-09] MEDS: INSULIN DETEMIR 100 UNITS/ML VIAL SQ SCH ×2 (06:35→12:06)
[2017-02-09 07:56] VITALS: BP 150/67; PULSE 78; RESP 18; TEMP 98.6; O2SAT 99
[2017-02-09 09:37] VITALS: PULSE 87; O2SAT 97
--- NOTE | 2017-02-09 09:40 | HHI.FPPN ---
Subjective Remarks Patient was seen and evaluated this morning. She complains of feeling cold despite being covered by multiple blankets. Patient's temperature recorded at 7: 56: 98.6F. Patient denies chest pain, heart palpitations, shortness of breath, nausea/vomiting, diarrhea and constipation. All questions were answered. (Nissa Beckham MD R1) Objective Vitals Vital Signs Date Time Temp Pulse Resp B/P (MAP) Pulse Ox O2 Delivery O2 Flow Rate FiO2 02/09/17 09:37 87 97 02/09/17 07:56 98.6 78 18 150/67 (94) 99 02/09/17 00:00 99.4 91 18 134/69 (90) 97 02/08/17 20:00 97.4 79 18 149/67 (94) 98 02/08/17 16:00 99.7 93 20 141/60 (87) 98 02/08/17 12:00 99.1 81 18 140/76 (97) 93 I/O 02/08/17 02/08/17 02/08/17 02/09/17 02/09/17 02/09/17 07:00 15:00 23:00 07:00 15:00 23:00 Intake Total 1240 ml 350 ml 620 ml 1305 ml Balance 1240 ml 350 ml 620 ml 1305 ml Intake Oral 240 ml 620 ml IV Total 1000 ml 350 ml 1305 ml # Voids 3 4 3 # Bowel Movements 1 2 4 (Nissa Beckham MD R1) Result Diagram: 02/08/17 0645 02/08/17 0645 Imaging Last Impressions Pelvis Ultrasound 02/07/17 0000 Signed Impressions: Service Date/Time: Tuesday, February 07, 2017 12:21 - CONCLUSION: 1. There appears to be a small focal fluid collection in the upper uterine endometrial cavity measuring 1.3 x 0.8 cm. This is a new abnormal finding compared to the prior examination. 2. Small stable nabothian cysts in the cervix. 3. Otherwise , no other significant changes compared to the prior examination. Jay Lange MD Chest X-Ray 02/05/17 1211 Signed Impressions: Service Date/Time: Sunday, February 05, 2017 13:22 - CONCLUSION: No acute cardiopulmonary abnormality is identified. Daren Katz MD Head CT 02/05/17 0000 Signed Impressions: Service Date/Time: Sunday, February 05, 2017 13:20 - CONCLUSION: 1. Atrophy as described above. No evidence of acute intracranial pathology.8 Omari Spence MD Objective Remarks GENERAL: Well-nourished, well-developed, obese female lying in bed in no acute/ respiratory distress. She looks tired and weak. SKIN: Warm and dry. Ulcers on the tip of the great toes bilaterally. Skin discoloration on anterior, lower extremities bilaterally. No ecchymoses. HEENT: Atraumatic, normocephalic with extraocular motions intact. Moist mucous membranes. No rhinorrhea. No lymphadenopathy or JVD appreciated. CARDIOVASCULAR: Regular rate and rhythm without murmurs, gallops, or rubs. RESPIRATORY: Clear to auscultation anteriorly. No increased work of breathing. No accessory muscle use. GASTROINTESTINAL: Abdomen soft, non-tender, nondistended with positive bowel sounds. No masses appreciated. MUSCULOSKELETAL: Extremities without cyanosis or edema. No calf tenderness. NEUROLOGICAL: Awake and alert. Patient was woken up and appears drowsy but interacts appropriately during interview and exam. Medications and IVs Current Medications Medications (Trade) Dose Ordered Sig/Bertram Route Start Time Stop Time Status Last Admin (Xanax) 0.25 mg Q8H PRN PO 02/05/17 15:15 02/07/17 14:25 Sodium Chloride 1,000 ml @ 120 mls/hr Q8H20M IV 02/05/17 16:00 02/09/17 03:24 (NS Flush) 2 ml UNSCH PRN IV FLUSH 02/05/17 15:45 (NS Flush) 2 ml BID IV FLUSH 02/05/17 21:00 02/09/17 10:11 (Zofran Inj) 4 mg Q6H PRN IVP 02/05/17 15:45 (Tylenol) 650 mg Q6H PRN PO 02/05/17 15:45 ([place] 5-325 Mg) 1 tab Q4H PRN PO 02/05/17 15:45 02/07/17 12:48 ([place] 7.5-325 Mg) 1 tab Q4H PRN PO 02/05/17 15:45 02/08/17 21:48 (Morphine Inj) 2 mg Q3H PRN IV PUSH 02/05/17 15:45 (Narcan Inj) 0.4 mg UNSCH PRN IV PUSH 02/05/17 15:45 (Sariah-Colace) 1 tab BID PO 02/05/17 21:00 02/09/17 10:10 (Milk Of Magnesia Liq) 30 ml Q12H PRN PO 02/05/17 15:45 (Senokot) 17.2 mg Q12H PRN PO 02/05/17 15:45 (Dulcolax Supp) 10 mg DAILY PRN RECTAL 02/05/17 15:45 (Lactulose Liq) 30 ml DAILY PRN PO 02/05/17 15:45 (Levemir Inj) 5 units HS SQ 02/05/17 21:00 02/08/17 21:45 (Levemir Inj) 10 units AC BREAKFAST SQ 02/06/17 07:00 02/08/17 05:55 (D50w (Vial) Inj) 50 ml UNSCH PRN IV PUSH 02/05/17 16:00 (Glucagon Inj) 1 mg UNSCH PRN OTHER 02/05/17 16:00 (NovoLOG SUPPLEMENTAL SCALE) 1 ACHS SLIDING SCALE SQ 02/05/17 17:00 02/09/17 10:07 (Prinivil) 20 mg DAILY PO 02/06/17 09:00 02/09/17 10:10 (Norvasc) 5 mg DAILY PO 02/06/17 09:00 02/09/17 10:11 (Catapres) 0.1 mg Q6H PRN PO 02/05/17 16:15 (Symbicort 160-4.5 Mcg Inh) 2 puff Q12HR INH 02/05/17 21:00 02/08/17 21:48 (Provera) 5 mg BID PO 02/05/17 21:00 02/09/17 10:10 Ceftriaxone Sodium 1000 mg/ Sodium Chloride 100 ml @ 200 mls/hr Q24H IV 02/06/17 09:00 02/09/17 10:10 Pharmacy Profile Note 0 ml @ 0 mls/hr UNSCH OTHER 02/07/17 10:00 Vancomycin HCl 1250 mg/Sodium Chloride 262.5 ml @ 250 mls/hr Q18H IV 02/08/17 13:00 02/09/17 06:34 Miscellaneous Information SPECIFIC LAB TO BE [facility]... ONCE ONCE .XX 02/10/17 18:45 02/10/17 18:46 (Nissa Beckham MD R1) Urinary Catheter: No (Nissa Beckham MD R1) Vascular Central Line Catheter: No (Nissa Beckham MD R1) A/P Assessment and Plan Patient is an 87 year old female who presents with one episode of shortness of breath, dizziness and generalized fatigue. On admission, vital signs within normal limits, WBC 17.7, lactic acid 2.6 with repeat 2.2, Cr 1.42 and UA hazy in appearance, large occult blood and small leukocyte esterase as well as 6 WBCs and few mucus. Admitted for UTI and acute on chronic kidney failure. Patient also with vaginal bleeding, followed by Dr. Dalal. Patient now with gram-positive cocci in blood cultures. (Nissa Beckham MD R1) Attending Attestation Case reviewed and discussed with the resident team. Agree with plan of care as discussed with me and documented in the resident note. (Chandrakant Mccauley MD) Problem List: (1) Leukocytosis ICD Codes: D72.829 - Elevated white blood cell count, unspecified Status: Acute Plan: Vital signs within normal limits. Differential diagnoses: * Likely secondary to bacteremia versus UTI. * See plan for Gram-positive bacteria and UTI. Medication: * Acetaminophen 650mg q6hr PO PRN for fever >101F. (2) Gram-positive bacteremia ICD Codes: R78.81 - Bacteremia Status: Acute Plan: Patient found to have gram-positive bacteremia on routine blood cultures. Labs: * On admission, WBC 13.7 and lactic acid 2.6 with repeat 2.2. * 02/09: WBC 14.2. Micrology: * Aerobic blood cultures growing staph epidermidis x1; aerobic blood culture no growth in 4 days. Sensitivities available. * Anaerobic blood culture growing staph epidermidis x2. Sensitivities available. * Repeat blood cultures 02/08 no growth in 1 day. Medications: * Vancomycin 1g IV BID, pharmacy consulted for dosing (02/07- ). * Discharge on Bactrim DS x 10 days. (3) UTI (urinary tract infection) ICD Codes: N39.0 - Urinary tract infection, site not specified Status: Acute Plan: Asymptomatic. Labs/Microbiology: * On admission, WBC 17.7 with 73.2% neutrophils. * 12: WBC 14.2. * UA hazy appearance, large occult blood, small leukocyte esterase, 6 WBC and few mucus. * Urine culture with no growth in 48 hours. Medications: * Ceftriaxone 1g IV q24hr. (02/05- ). * Patient received vancomycin and cefepime in ED. (4) Physical deconditioning ICD Codes: R53.81 - Other malaise Status: Acute Plan: Patient weak and tired in appearance. Orders: * PT consulted. PT recommends PT at rehab. Patient and family prefer at home rehab. Daughter concerned about patient's psychological state if send to rehabilitation facility. Home PT to be set up upon discharge. (5) Acute on chronic renal failure ICD Codes: N17.9 - Acute kidney failure, unspecified; N18.9 - Chronic kidney disease, unspecified Status: Resolved Plan: Resolved. Patient with history of chronic kidney disease. Not followed by nephrology. Per daughter, patient has had decreased urination. Labs: * On admission, BUN 23 and Cr 1.42. * 02/09: BUN 9 and Cr 0.63. Medications: * NS 1,000 ml at 120 ml/hr. (6) Hypertension ICD Codes: I10 - Essential (primary) hypertension Status: Chronic Plan: Patient on four different blood pressure medications at home. Daughter concerned that patient is taking too much blood pressure medication. Vitals: * On admission, BP 120/60. * 12: 150/67. Orders: * Orthostatic hypotension testing - negative. Medications: * Continued amlodipine 5mg PO daily. * Continued lisinopril 20mg PO daily. * Continued clonidine 0.1mg q6hr PO PRN if systolic pressure >180. (7) DM (diabetes mellitus) ICD Codes: E11.9 - Type 2 diabetes mellitus without complications Status: Chronic Plan: Insulin-dependent. Labs: * On admission, random glucose 324. * 02/09: random glucose 154. Medications: * Levemir 10 units SQ before meals breakfast. * Levemir 5 units SQ at bedtime. * NovoLog supplemental sliding scale - patient has required 15 additional units in last 24 hours. (8) COPD (chronic obstructive pulmonary disease) ICD Codes: J44.9 - Chronic obstructive pulmonary disease, unspecified Status: Chronic Plan: Patient with history of COPD. Medications: * Continued Symbicort inhaler q12hr. (9) Post-menopausal bleeding ICD Codes: N95.0 - Post-menopausal bleeding Status: Acute Plan: Postmenopausal bleeding monitored by Dr. Dalal. Patient seen by Dr. Bone in 2014; cancer ruled out at the time. Patient on Provera to control bleeding at home. Labs: * On admission, Hgb 11.6 and Hct 34.5. * 02/09: Hgb 9.7 and Hct 28.9. * Ultrasound: There appears to be a small focal fluid collection in the upper uterine endometrial cavity measuring 1.30.8 cm. This is a new abnormal finding compared to the prior examination. Small stable nabothian cysts on the cervix. Otherwise, no other significant changes compared to the prior examination. Orders: * Placed gynecological consult. Dr. Taylor saw patient on 02/07 and recommended outpatient evaluation. Nurse practitioner from Dr. Dalal's office saw patient yesterday and recommended outpatient follow-up. Medications: * Continued medroxyprogesterone acetate 5mg BID PO. (10) Fluid, electrolyte, nutrition, and prophylaxis Status: Acute Plan: Fluids: * NS 1,000 ml at 120 ml/hr. Electrolyte: * Monitor and replete as necessary. Nutrition: * Diabetic diet. * Supplement with Glucerna. Prophylaxis: * SCDs. (Nissa Beckham MD R1) Problem Qualifiers (1) Leukocytosis: Qualified Codes: D72.825 - Bandemia (2) UTI (urinary tract infection): Qualified Codes: N30.01 - Acute cystitis with hematuria (3) Acute on chronic renal failure: Qualified Codes: N17.9 - Acute kidney failure, unspecified; N18.9 - Chronic kidney disease, unspecified (4) Hypertension: Qualified Codes: I10 - Essential (primary) hypertension (5) DM (diabetes mellitus): Qualified Codes: E11.8 - Type 2 diabetes mellitus with unspecified complications (6) COPD (chronic obstructive pulmonary disease): Qualified Codes: J43.9 - Emphysema, unspecified Nissa Beckham MD R1 Feb 09, 2017 09:40 Chandrakant Mccauley MD Feb 10, 2017 17:57
[2017-02-09] MEDS: INSULIN ASPART SUPPLEMENTAL SCALE SQ SCH ×2 (10:07→12:12)
[2017-02-09] MEDS: DOCUSATE SODIUM 50 MG/SENNA 8.6 MG TAB PO SCH (10:10)
[2017-02-09] MEDS: LISINOPRIL 20 MG TAB PO SCH (10:10)
[2017-02-09] MEDS: cefTRIAXone INJ 1,000 MG in SODIUM CHLORIDE 0.9% INJ 100 ML IV SCH (10:10)
[2017-02-09] MEDS: amLODIPine BESYLATE 5 MG TAB PO SCH (10:11)
[2017-02-09] MEDS: SODIUM CHLORIDE 0.9% FLUSH 10 ML FLUSH IV FLUSH SCH (10:11)
[2017-02-09 10:57] LABS: HEMATOCRIT 28.9 % (35.0-46.0); MEAN CELL VOLUME 95.4 FL (80.0-100.0); MEAN CORPUSCULAR HEMOGLOBIN 31.8 PG (27.0-34.0); MEAN CORPUSCULAR HGB CONC 33.4 % (32.0-36.0); PLATELET COUNT 222 TH/MM3 (150-450); RED BLOOD COUNT 3.03 MIL/MM3 (4.00-5.30); RED CELL DISTRIBUTION WIDTH 13.5 % (11.6-17.2); REVIEW FLAG FINAL; WHITE BLOOD COUNT 14.2 TH/MM3 (4.0-11.0)
[2017-02-09 11:26] LABS: POTASSIUM 3.5 MEQ/L (3.5-5.1)
[2017-02-09 12:00] VITALS: BP 162/74; PULSE 88; RESP 18; TEMP 97.8; O2SAT 98
[2017-02-09] MEDS: ACETAMINOPHEN/HYDROcodone 325 MG/7.5 MG TAB PO PRN (12:01)
[2017-02-09] MEDS ORDERED: BACT800T5 PO (12:45)
--- NOTE | 2017-02-09 13:08 | HHI.DS ---
Discharge Summary Admission Date Feb 06, 2017 at 13:15 Discharge Date: Feb 09, 2017 Admitting Diagnosis UTI, lactic acidosis (1) Leukocytosis Diagnosis: Principal ICD Codes: D72.829 - Elevated white blood cell count, unspecified Status: Acute (2) Gram-positive bacteremia Diagnosis: Principal ICD Codes: R78.81 - Bacteremia Status: Acute (3) Post-menopausal bleeding Diagnosis: Secondary ICD Codes: N95.0 - Post-menopausal bleeding Status: Acute (4) UTI (urinary tract infection) Diagnosis: Secondary ICD Codes: N39.0 - Urinary tract infection, site not specified Status: Acute (5) Physical deconditioning Diagnosis: Secondary ICD Codes: R53.81 - Other malaise Status: Acute (6) Acute on chronic renal failure Diagnosis: Secondary ICD Codes: N17.9 - Acute kidney failure, unspecified; N18.9 - Chronic kidney disease, unspecified Status: Resolved (7) Hypertension Diagnosis: Secondary ICD Codes: I10 - Essential (primary) hypertension Status: Chronic (8) DM (diabetes mellitus) Diagnosis: Secondary ICD Codes: E11.9 - Type 2 diabetes mellitus without complications Status: Chronic (9) COPD (chronic obstructive pulmonary disease) Diagnosis: Secondary ICD Codes: J44.9 - Chronic obstructive pulmonary disease, unspecified Status: Chronic Brief History Patient is an 87 year old female who presents with one episode of shortness of breath, dizziness and generalized fatigue. On admission, vital signs within normal limits, WBC 17.7, lactic acid 2.6 with repeat 2.2, Cr 1.42 and UA hazy in appearance, large occult blood and small leukocyte esterase as well as 6 WBCs and few mucus. Admitted for UTI and acute on chronic kidney failure. Patient also with vaginal bleeding, followed by Dr. Dalal. Patient then with gram-positive cocci in blood cultures. CBC/BMP: 02/09/17 0930 02/09/17 0930 Significant Findings Laboratory Tests Test 02/08/17 06:45 02/09/17 09:30 White Blood Count 13.7 TH/MM3 (4.0-11.0) 14.2 TH/MM3 (4.0-11.0) Red Blood Count 3.06 MIL/MM3 (4.00-5.30) 3.03 MIL/MM3 (4.00-5.30) Hemoglobin 9.8 GM/DL (11.6-15.3) 9.7 GM/DL (11.6-15.3) Hematocrit 29.1 % (35.0-46.0) 28.9 % (35.0-46.0) Random Glucose 174 MG/DL (74-106) 154 MG/DL (74-106) Calcium Level 8.1 MG/DL (8.5-10.1) 8.0 MG/DL (8.5-10.1) Chloride Level 112 MEQ/L (98-107) 113 MEQ/L (98-107) Estimat Glomerular Filtration Rate 86 ML/MIN (>89) Imaging Last Impressions Pelvis Ultrasound 02/07/17 0000 Signed Impressions: Service Date/Time: Tuesday, February 07, 2017 12:21 - CONCLUSION: 1. There appears to be a small focal fluid collection in the upper uterine endometrial cavity measuring 1.3 x 0.8 cm. This is a new abnormal finding compared to the prior examination. 2. Small stable nabothian cysts in the cervix. 3. Otherwise , no other significant changes compared to the prior examination. Jay Lange MD Chest X-Ray 02/05/17 1211 Signed Impressions: Service Date/Time: Sunday, February 05, 2017 13:22 - CONCLUSION: No acute cardiopulmonary abnormality is identified. Daren Katz MD Head CT 02/05/17 0000 Signed Impressions: Service Date/Time: Sunday, February 05, 2017 13:20 - CONCLUSION: 1. Atrophy as described above. No evidence of acute intracranial pathology.8 Omari Spence MD PE at Discharge GENERAL: Well-nourished, well-developed, obese female lying in bed in no acute/ respiratory distress. She looks tired and weak. SKIN: Warm and dry. Ulcers on the tip of the great toes bilaterally. Skin discoloration on anterior, lower extremities bilaterally. No ecchymoses. HEENT: Atraumatic, normocephalic with extraocular motions intact. Moist mucous membranes. No rhinorrhea. No lymphadenopathy or JVD appreciated. CARDIOVASCULAR: Regular rate and rhythm without murmurs, gallops, or rubs. RESPIRATORY: Clear to auscultation anteriorly. No increased work of breathing. No accessory muscle use. GASTROINTESTINAL: Abdomen soft, non-tender, nondistended with positive bowel sounds. No masses appreciated. MUSCULOSKELETAL: Extremities without cyanosis or edema. No calf tenderness. NEUROLOGICAL: Awake and alert. Patient was woken up and appears drowsy but interacts appropriately during interview and exam. Hospital Course Leukocytosis and Gram-positive bacteremia: Patient found to have gram-positive bacteremia on routine blood cultures. Labs: * On admission, WBC 13.7 and lactic acid 2.6 with repeat 2.2. * 02/09: WBC 14.2. Micrology: * Aerobic blood cultures growing staph epidermidis x1; aerobic blood culture no growth in 4 days. Sensitivities available. * Anaerobic blood culture growing staph epidermidis x2. Sensitivities available. * Repeat blood cultures 02/08 no growth in 1 day. Medications: * Vancomycin 1g IV BID, pharmacy consulted for dosing (02/07- ). * Discharge on Bactrim DS x 10 days. UTI: Asymptomatic. Labs/Microbiology: * On admission, WBC 17.7 with 73.2% neutrophils. * 02/09: WBC 14.2. * UA hazy appearance, large occult blood, small leukocyte esterase, 6 WBC and few mucus. * Urine culture with no growth in 48 hours. Medications: * Ceftriaxone 1g IV q24hr. (02/05-02/09). * Patient received vancomycin and cefepime in ED. Acute on chronic renal failure: Resolved. Patient with history of chronic kidney disease. Not followed by nephrology. Per daughter, patient has had decreased urination. Labs: * On admission, BUN 23 and Cr 1.42. * 02/09: BUN 9 and Cr 0.63. Medications: * NS 1,000 ml at 120 ml/hr. Post-menopausal bleeding: Postmenopausal bleeding monitored by Dr. Dalal. Patient seen by Dr. Bone in 2014; cancer ruled out at the time. Patient on Provera to control bleeding at home. Labs: * On admission, Hgb 11.6 and Hct 34.5. * 02/09: Hgb 9.7 and Hct 28.9. * Ultrasound: There appears to be a small focal fluid collection in the upper uterine endometrial cavity measuring 1.30.8 cm. This is a new abnormal finding compared to the prior examination. Small stable nabothian cysts on the cervix. Otherwise, no other significant changes compared to the prior examination. Orders: * Placed gynecological consult. Dr. Taylor saw patient on 02/07 and recommended outpatient evaluation. Nurse practitioner from Dr. Dalal's office saw patient yesterday and recommended outpatient follow-up. Medications: * Continued medroxyprogesterone acetate 5mg BID PO. Deconditioning: PT recommended PT at rehab. Patient and family prefer at home rehab. Daughter concerned about patient's psychological state if send to rehabilitation facility. Home PT to be set up upon discharge. Pt Condition on Discharge: Stable Discharge Disposition: Disch w/ Home Health Serv Discharge Instructions DIET: Follow Instructions for: Diabetic Diet Activities you can perform: Regular-No Restrictions Follow up Referrals: GRAPHIC COORDINATOR - 2-3 Days with Marlene Dalal MD PCP Follow-up - 2-3 Days New Medications: Sulfamethoxazole-Trimethoprim (Bactrim DS) 800-160 Mg Tab 1 TAB PO BID for Infection for 10 Days, #20 TAB 0 Refills Continued Medications: Alprazolam (Alprazolam) 0.25 Mg Tab 0.25 MG PO Q8H PRN for ANXIETY, TAB 0 Refills Amlodipine (Amlodipine) 5 Mg Tab 5 MG PO DAILY for Blood Pressure Management, #30 TAB 0 Refills Budesonide-Formoterol Inh (Symbicort Inh) 160-4.5 Mcg/Act Aero 2 PUFF INH Q12HR, #1 INHALER 0 Refills Ferrous Sulfate (Ferrous Sulfate) 325 Mg (65 Mg Iron) Tablet 65 MG PO BID PRN for anemia, #30 TAB 0 Refills Hydrocodone-Acetaminophen (Hydrocodone-Acetaminophen) 5-325 mg Tab 1 TAB PO Q4H PRN for PAIN, TAB 0 Refills Insulin NPH Isophane-Reg (Human) 70-30 Inj (Humulin 70-30 Inj) 1,000 Unit/10 Ml Vial 15 UNIT SQ HS Insulin NPH Isophane-Reg (Human) 70-30 Inj (Humulin 70-30 Inj) 1,000 Unit/10 Ml Vial 33 UNITS SQ AC BREAKFAST, #1 VIAL Lisinopril (Lisinopril) 20 Mg Tab 20 MG PO DAILY, #30 TAB 0 Refills Medroxyprogesterone Acetate (Medroxyprogesterone Acetate) 5 Mg Tab 5 MG PO BID for Uterine bleeding, #5 TAB 0 Refills Start day 21 [] () [] () 1 TAB PO DAILY Discontinued Medications: Clonidine (Clonidine) 0.2 Mg Tab 0.2 MG PO TID for Blood Pressure Management, #60 TAB 0 Refills Hydrochlorothiazide (Hydrochlorothiazide) 25 Mg Tab 25 MG PO BID, #30 TAB LaBell,Nissa ADAMS R1 Feb 09, 2017 13:08
--- NOTE | 2017-02-09 15:46 | PD.WCN.NOT ---
Wound Consult Description: Consult placed for WOUND MANAGEMENT of Tips of great toes bilaterally per Nissa Beckham MDR1 Communicated with: Patient Recommendation: Leave great toes open to air and free from pressure/rubbing. Additional Information: Patient seen on for bilateral great toes. Bilateral great toes are hyperkeratotic with ~1cm x 1cm of dried exudate. There are no open areas noted. These wounds appear to be of pressure and or friction related. Dipika Tyson [facility] Feb 09, 2017 15:46
[2017-02-10] MEDS ORDERED: PHARMACY ORDERED LAB ONE (18:45)
== END 2017-02-09 16:35 | disposition home health service (06) | DRG 690 ==
LOC: NEPE 11:37 → INTOOBSV 14:31 → NEDA 14:31 → N07B 15:54 → OBSVTOIN 02-06 13:15
PROVIDERS: ADMIT Family Medicine; ATTEND Family Medicine
DX: N39.0 Urinary tract infection, site not specified (principal); N17.9 Acute kidney failure, unspecified; E87.2 Acidosis; E11.22 Type 2 diabetes mellitus with diabetic chronic kidney disease; L97.528 Non-pressure chronic ulcer of other part of left foot with other specified severity; L97.518 Non-pressure chronic ulcer of other part of right foot with other specified severity; F03.90 Unspecified dementia, unspecified severity, without behavioral disturbance, psychotic disturbance, mood disturbance, and anxiety; E11.621 Type 2 diabetes mellitus with foot ulcer; N18.9 Chronic kidney disease, unspecified; I12.9 Hypertensive chronic kidney disease with stage 1 through stage 4 chronic kidney disease, or unspecified chronic kidney disease; F41.9 Anxiety disorder, unspecified; Z79.4 Long term (current) use of insulin; Z87.891 Personal history of nicotine dependence; N95.0 Postmenopausal bleeding; D25.9 Leiomyoma of uterus, unspecified; Z87.440 Personal history of urinary (tract) infections; J43.9 Emphysema, unspecified; Z90.721 Acquired absence of ovaries, unilateral; Z84.1 Family history of disorders of kidney and ureter; Z83.3 Family history of diabetes mellitus; Z80.1 Family history of malignant neoplasm of trachea, bronchus and lung; Z80.7 Family history of other malignant neoplasms of lymphoid, hematopoietic and related tissues; Z80.8 Family history of malignant neoplasm of other organs or systems; D64.9 Anemia, unspecified; B96.89 Other specified bacterial agents as the cause of diseases classified elsewhere; E66.9 Obesity, unspecified; Z23 Encounter for immunization
CPT/HCPCS: 70450; 71010; 76830; 76856; 80048; 80202; 81001; 82272; 82948; 83605; 83735; 83880; 84443; 84484; 85025; 85027; 85610; 85730; 86403; 86850; 86900; 86901; 87040; 87077; 87086; 87186; 87205; 87493; 90686; 90732; 93005; 94150; 96360; J0692; J0696; J1815; J3370; J7030; J7050; P9612; Q2038

== ENCOUNTER 2017-04-07 19:25 | Emergency (ER) | payer MEDICARE, OTHER ==
[~2017-04-07] VITALS: Ht 167.6 cm; Wt 80.0 kg
[~2017-04-07 19:25] MED LIST changes: -ADVAI250I PO; +ALPR0.25 PO; +AMLO5TAB2 PO; -AMLO5TAB22 PO; +BACT800T5 PO; -CLAR10TA13 PO; -FERR324T4 PO; +FERR325T18 PO; -HYDR-2768 PO; +HYDR-3516 PO; -LISI-363 PO; +LISI-515 PO; -LORTA5 PO; +MEDR5TAB3 PO; -SULF-154 PO; +SYMB160A INH; -TRAZ50TA4 PO; +prenatal; +prenatal PO
[2017-04-07 19:36] VITALS: BP 128/68; PULSE 84; RESP 16; TEMP 98.5; O2SAT 98
[2017-04-07] MEDS ORDERED: SODIUM CHLORIDE 0.9% FLUSH 10 ML FLUSH IVF PRN (20:15)
[2017-04-07] MEDS ORDERED: CALC1TAB87 PO (20:27)
[2017-04-07] MEDS ORDERED: ZYRTEC D PO (20:27)
[2017-04-07] MEDS ORDERED: MELA5 PO (20:27)
[2017-04-07] MEDS ORDERED: CYAN100025 SL (20:27)
[2017-04-07] MEDS ORDERED: TRAZ50TA12 PO (20:27)
[2017-04-07] MEDS ORDERED: FIBE500T PO (20:27)
--- NOTE | 2017-04-07 20:49 | RADRPT ---
EXAM DATE/TIME: 04/07/2017 20:36 [facility] COMPARISON: CHEST SINGLE AP, February 05, 2017, 13:22. INDICATIONS : Palpitations. MEDICAL HISTORY : Hypertension. Diabetes mellitus type II. SURGICAL HISTORY : None. ENCOUNTER: Initial ACUITY: 1 day PAIN SCORE: Non-responsive. LOCATION: Bilateral chest FINDINGS: A single view of the chest demonstrates the lungs to be symmetrically aerated without evidence of mas s, infiltrate or effusion. The cardiomediastinal contours are unremarkable. Osseous structures are intact. CONCLUSION: No acute disease. No significant change has occurred. Jay Lange MD on April 07, 2017 at 20:47 Board Certified Radiologist. This report was verified electronically.
[2017-04-07 21:00] VITALS: BP 132/60; PULSE 77; RESP 16; O2SAT 97
[2017-04-07 21:25] LABS: AUTOMATED NEUTROPHIL # 9.9 TH/MM3 (1.8-7.7); BASOPHIL # 0.1 TH/MM3 (0-0.2); BASOPHIL % 0.7 % (0.0-2.0); EOSINOPHIL # 0.2 TH/MM3 (0-0.4); EOSINOPHIL % 1.4 % (0.0-4.0); HEMATOCRIT 34.8 % (35.0-46.0); HEMOGLOBIN 11.6 GM/DL (11.6-15.3); LYMPH % 29.8 % (9.0-44.0); LYMPHOCYTE # 4.8 TH/MM3 (1.0-4.8); MEAN CELL VOLUME 95.1 FL (80.0-100.0); MEAN CORPUSCULAR HEMOGLOBIN 31.8 PG (27.0-34.0); MEAN CORPUSCULAR HGB CONC 33.5 % (32.0-36.0); MEAN PLATELET VOLUME 7.6 FL (7.0-11.0); MONOCYTE # 1.1 TH/MM3 (0-0.9); NEUT % 61.1 % (16.0-70.0); PLATELET COUNT 327 TH/MM3 (150-450); RED BLOOD COUNT 3.66 MIL/MM3 (4.00-5.30); RED CELL DISTRIBUTION WIDTH 14.3 % (11.6-17.2); WHITE BLOOD COUNT 16.2 TH/MM3 (4.0-11.0)
[2017-04-07 21:40] LABS: PROTHROMBIN TIME - PATIENT 10.5 SEC (9.8-11.6)
--- NOTE | 2017-04-07 21:49 | RADRPT ---
EXAM DATE/TIME: 04/07/2017 21:20 [facility] COMPARISON: CT BRAIN W/O CONTRAST, February 05, 2017, 13:20. INDICATIONS : Dizziness. RADIATION DOSE: 59.09 CTDIvol (mGy) MEDICAL HISTORY : Hypertension. Chronic obstructive pulmonary disease. SURGICAL HISTORY : None. ENCOUNTER: Initial ACUITY: 1 day PAIN SCALE: 0/10 LOCATION: cranial TECHNIQUE: Multiple contiguous axial images were obtained of the head. Using automated exposure control and adj ustment of the mA and/or kV according to patient size, radiation dose was kept as low as reasonably a chievable to obtain optimal diagnostic quality images. DICOM format image data is available electro nically for review and comparison. FINDINGS: CEREBRUM: The ventricles are normal for age. There continues to be bilateral cortical atrophy and chronic white matter changes. These findings are stable compared to the prior study. No evidence of midline shift, mass lesion, hemorrhage or acute infarction. No extra-axial fluid collections are seen. POSTERIOR FOSSA: The cerebellum and brainstem are intact. The 4th ventricle is midline. The cerebellopontine angle i s unremarkable. EXTRACRANIAL: The visualized portion of the orbits is intact. SKULL: The calvaria is intact. No evidence of skull fracture. CONCLUSION: Stable CT scan of the brain. Jay Lange MD on April 07, 2017 at 21:43 Board Certified Radiologist. This report was verified electronically.
[2017-04-07 22:00] VITALS: BP 117/57; PULSE 75; RESP 16; O2SAT 97
[2017-04-07 22:29] LABS: BILIRUBIN, URINE NEG (NEG); BLOOD, URINE NEG (NEG); GLUCOSE,URINE NEG (NEG); KETONE, URINE NEG (NEG); NITRITE,URINE NEG (NEG); SQUAMOUS EPITHELIAL CELL URINE <1 /hpf (0-5); URINE COLOR YELLOW (YELLW/STRAW); URINE LEUKOCYTE ESTERASE NEG (NEG)
[2017-04-08 00:03] LABS: ALBUMIN 2.7 GM/DL (3.4-5.0); ALKALINE PHOSPHATASE 64 U/L (45-117); ALT (GPT) 9 U/L (10-53); AST (GOT) 9 U/L (15-37); BLOOD UREA NITROGEN 11 MG/DL (7-18); CALCIUM 8.6 MG/DL (8.5-10.1); GLOMERULAR FILTRATION RATE 64 ML/MIN (>89); MAGNESIUM 1.9 MG/DL (1.5-2.5); TOTAL PROTEIN 7.4 GM/DL (6.4-8.2)
[2017-04-08 00:04] LABS: BICARBONATE 26.3 MEQ/L (21.0-32.0); CHLORIDE 104 MEQ/L (98-107); SODIUM (NA) 138 MEQ/L (136-145); TOTAL BILIRUBIN ADULT 0.2 MG/DL (0.2-1.0); TROPONIN I LESS THAN 0.02 NG/ML (0.02-0.05)
[2017-04-08 00:07] LABS: GLUCOSE,RANDOM 49 MG/DL (74-106)
[2017-04-08 00:30] VITALS: BP 167/89; PULSE 89; RESP 16; O2SAT 99
[2017-04-08] MEDS ORDERED: cefTRIAXone INJ 1,000 MG in SODIUM CHLORIDE 0.9% INJ 100 ML IV ONE (02:15)
--- NOTE | 2017-04-08 02:32 | PD ---
HPI Chief Complaint: General Weakness Time Seen by Provider: 19:51 Travel History International Travel<30 days: No Contact w/Intl Traveler<30days: No Traveled to known affect area: No History of Present Illness HPI 87-year-old female presents to the emergency department for evaluation of generalized weakness. Daughter reports after physical therapy today patient seemed more fatigued had received insulin and had not been taking as much oral intake today after exertion. Due to generalized weakness decided to bring the patient to the emergency room for further evaluation. Patient here denies any headache visual disturbance trouble with her speech difficulty swallowing neck pain back pain chest pain rib pain abdominal pain shortness of breath nausea vomiting diarrhea urinary symptoms or new onset unilateral upper or lower extremity numbness tingling or weakness. Patient denies any fall or injury. Patient states she feels well. Daughter reports that she has been doing well with physical therapy has been having some issues with sinus infections and urinary tract infections and last antibiotic use was approximately 10 days ago. Patient has had no abdominal pain no explosive or bloody or mucoid diarrhea. Patient has been doing pretty well but daughter is very concerned that she may have a urinary tract infection. Patient's had no fever no chills no productive cough no abdominal pain and dysuria frequency urgency or hematuria also no flank pain. Patient denies any chest pain palpitations or referred neck jaw back shoulder arm pain. PFSH Past Medical History Narrative Medical Recurrent urinary tract infections recurrent sinusitis Anemia anxiety hypertension diabetes; oophorectomy; no tobacco use alcohol use; nursing notes reviewed Anemia: Yes Autoimmune Disease: No Anxiety: Yes Depression: No Cancer: No Cardiovascular Problems: No COPD: Yes Diabetes: Yes Patient Takes Glucophage: Yes Diminished Hearing: No Endocrine: No Genitourinary: No Hypertension: Yes Immune Disorder: No Musculoskeletal: No Neurologic: No Psychiatric: No Reproductive: Yes Respiratory: No (allergy seasonal) Thyroid Disease: No Tetanus Vaccination: Unknown Influenza Vaccination: Yes Menopausal: Yes Dilation and Curettage (D&C): Yes Past Surgical History Abdominal Surgery: No Cardiac Surgery: No Ear Surgery: Yes (bleeding on retina) Endocrine Surgery: No Eye Surgery: No Genitourinary Surgery: No Gynecologic Surgery: Yes (partial oophrectomy) Oral Surgery: No Thoracic Surgery: No Other Surgery: Yes Social History Alcohol Use: No Tobacco Use: No Substance Use: No Allergies-Medications (Allergen,Severity, Reaction): Coded Allergies: No Known Allergies (Verified Allergy, Unknown, 04/07/17) Reported Meds & Prescriptions Reported Meds & Active Scripts Active Humulin 70-30 Inj (Insulin NPH Isophane-Reg (Human) 70-30 Inj) 1,000 Unit/10 Ml Vial 33 Units SQ AC BREAKFAST Ferrous Sulfate 325 Mg (65 Mg Iron) Tablet 65 Mg PO BID PRN Reported B-12 (Cyanocobalamin) 1,000 Mcg Subl Unknown Dose SL DAILY Calcium 600 with Vitamin D (Calcium Carbonate-Cholecalciferol) 600-400 mg-Unit Tab 1 Tab PO DAILY Fiber Therapy (Methylcellulose) 500 Mg Tab 2 Tab PO DAILY PRN Melatonin 5 Mg Tab 5 Mg PO HS PRN [Zyrtec D] 1 Tab PO DAILY PRN Trazodone (Trazodone HCl) 50 Mg Tab 50 Mg PO HS PRN Symbicort Inh (Budesonide/Formoterol Fumarate) 160-4.5 Mcg/Act Aero 2 Puff INH Q12HR Alprazolam 0.25 Mg Tab 0.25 Mg PO Q8H PRN Lisinopril 20 Mg Tab 40 Mg PO DAILY Humulin 70-30 Inj (Insulin NPH Isophane-Reg (Human) 70-30 Inj) 1,000 Unit/10 Ml Vial 15 Unit SQ HS Amlodipine (Amlodipine Besylate) 5 Mg Tab 5 Mg PO DAILY Review of Systems Except as stated in HPI: all other systems reviewed are Neg General / Constitutional: No: Fever, Chills Eyes: No: Visual changes HENT: Positive: Lightheadedness, No: Headaches, Congestion Cardiovascular: No: Chest Pain or Discomfort, Palpitations, Diaphoresis, Dyspnea on exertion Respiratory: No: Cough, Wheezing Gastrointestinal: No: Nausea, Vomiting, Diarrhea, Abdominal Pain Genitourinary: No: Urgency, Frequency, Dysuria Musculoskeletal: No: Myalgias, Arthralgias Skin: No Rash Neurologic: Positive: Weakness, No: Dizziness, Syncope, Focal Abnormalities, Coordination Problem, Headache, Change in Mentation, Paresthesia, Seizures Psychiatric: No: Anxiety Hematologic/Lymphatic: No: Lymph Node Enlargement Physical Exam Narrative GENERAL: Well-developed well-nourished female in no acute distress no respiratory distress SKIN: Warm and dry. HEAD: Atraumatic. Normocephalic. EYES: Pupils equal and round. No scleral icterus. No injection or drainage. ENT: No nasal bleeding or discharge. Mucous membranes pink and moist. NECK: Trachea midline. No JVD. CARDIOVASCULAR: Regular rate and rhythm. RESPIRATORY: No accessory muscle use. Clear to auscultation. Breath sounds equal bilaterally. GASTROINTESTINAL: Abdomen soft, non-tender, nondistended. Hepatic and splenic margins not palpable. MUSCULOSKELETAL: Extremities without clubbing, cyanosis, or edema. No obvious deformities. NEUROLOGICAL: Awake and alert. No obvious cranial nerve deficits. Motor grossly within normal limits. Five out of 5 muscle strength in the arms and legs. Normal speech. PSYCHIATRIC: Appropriate mood and affect; insight and judgment normal. Data Data Last Documented VS Vital Signs Date Time Temp Pulse Resp B/P (MAP) Pulse Ox O2 Delivery O2 Flow Rate FiO2 04/08/17 02:36 88 16 159/65 (96) 100 04/08/17 00:30 Room Air 04/07/17 19:36 98.5 Orders Orders Electrocardiogram (04/07/17 20:06) Complete Blood Count With Diff (04/07/17 20:06) Comprehensive Metabolic Panel (04/07/17 20:06) Magnesium (Mg) (04/07/17 20:06) Ckmb (Isoenzyme) Profile (04/07/17 20:06) Troponin I (04/07/17 20:06) Act Partial Throm Time (Ptt) (04/07/17 20:06) Prothrombin Time / Inr (Pt) (04/07/17 20:06) Urinalysis - C+S If Indicated (04/07/17 20:06) Chest, Single Ap (04/07/17 20:06) Ct Brain W/O Iv Contrast(Rout) (04/07/17 20:06) Ecg Monitoring (04/07/17 20:06) Iv Access Insert/Monitor (04/07/17 20:06) Oximetry (04/07/17 20:06) Sodium Chloride 0.9% Flush (Ns Flush) (04/07/17 20:15) Blood Culture (04/07/17 20:06) Lactic Acid (04/07/17 20:06) Blood Glucose (04/08/17 00:07) Ceftriaxone Inj (Rocephin Inj) (04/08/17 02:15) Ed Discharge Order (04/08/17 02:28) Labs Laboratory Tests Test 04/07/17 20:25 04/07/17 22:00 04/07/17 22:30 White Blood Count 16.2 TH/MM3 Red Blood Count 3.66 MIL/MM3 Hemoglobin 11.6 GM/DL Hematocrit 34.8 % Mean Corpuscular Volume 95.1 FL Mean Corpuscular Hemoglobin 31.8 PG Mean Corpuscular Hemoglobin Concent 33.5 % Red Cell Distribution Width 14.3 % Platelet Count 327 TH/MM3 Mean Platelet Volume 7.6 FL Neutrophils (%) (Auto) 61.1 % Lymphocytes (%) (Auto) 29.8 % Monocytes (%) (Auto) 7.0 % Eosinophils (%) (Auto) 1.4 % Basophils (%) (Auto) 0.7 % Neutrophils # (Auto) 9.9 TH/MM3 Lymphocytes # (Auto) 4.8 TH/MM3 Monocytes # (Auto) 1.1 TH/MM3 Eosinophils # (Auto) 0.2 TH/MM3 Basophils # (Auto) 0.1 TH/MM3 CBC Comment DIFF FINAL Differential Comment Prothrombin Time 10.5 SEC Prothromb Time International Ratio 1.0 RATIO Activated Partial Thromboplast Time 25.2 SEC Lactic Acid Level 1.4 mmol/L Urine Color YELLOW Urine Turbidity CLEAR Urine pH 7.0 Urine Specific [place] 1.007 Urine Protein NEG mg/dL Urine Glucose (UA) NEG mg/dL Urine Ketones NEG mg/dL Urine Occult Blood NEG Urine Nitrite NEG Urine Bilirubin NEG Urine Urobilinogen LESS THAN 2.0 MG/DL Urine Leukocyte Esterase NEG Urine RBC LESS THAN 1 /hpf Urine WBC LESS THAN 1 /hpf Urine Squamous Epithelial Cells <1 /hpf Microscopic Urinalysis Comment CULT NOT INDICATED Blood Urea Nitrogen 11 MG/DL Creatinine 1.00 MG/DL Random Glucose 49 MG/DL Total Protein 7.4 GM/DL Albumin 2.7 GM/DL Calcium Level 8.6 MG/DL Magnesium Level 1.9 MG/DL Alkaline Phosphatase 64 U/L Aspartate Amino Transf (AST/SGOT) 9 U/L Alanine Aminotransferase (ALT/SGPT) 9 U/L Total Bilirubin 0.2 MG/DL Sodium Level 138 MEQ/L Potassium Level 3.6 MEQ/L Chloride Level 104 MEQ/L Carbon Dioxide Level 26.3 MEQ/L Anion Gap 8 MEQ/L Estimat Glomerular Filtration Rate 64 ML/MIN Total Creatine Kinase 18 U/L Troponin I LESS THAN 0.02 NG/ML MDM Medical Decision Making Medical Screen Exam Complete: Yes Emergency Medical Condition: Yes Medical Record Reviewed: Yes Interpretation(s) EKG normal sinus rhythm rate 83 left axis deviation age-indeterminate QS septally Last Impressions Head CT 04/07/172005 Signed Impressions: Service Date/Time: Friday, April 07, 2017 21:20 - CONCLUSION: Stable CT scan of the brain. Jay Lange MD Chest X-Ray 04/07/172005 Signed Impressions: Service Date/Time: Friday, April 07, 2017 20:36 - CONCLUSION: No acute disease. No significant change has occurred. Jay Lange MD CBC & BMP Diagram 04/07/17 20:25 04/07/17 22:30 Total Protein 7.4, Albumin 2.7 L, Calcium Level 8.6, Magnesium Level 1.9, Alkaline Phosphatase 64, Aspartate Amino Transf (AST/SGOT) 9 L, Alanine Aminotransferase (ALT/SGPT) 9 L, Total Bilirubin 0.2 Vital Signs Date Time Temp Pulse Resp B/P (MAP) Pulse Ox O2 Delivery O2 Flow Rate FiO2 04/08/17 00:30 89 16 167/89 (115) 99 Room Air 04/07/17 22:00 75 16 117/57 (77) 97 Room Air 04/07/17 21:00 77 16 132/60 (84) 97 Room Air 04/07/17 19:36 98.5 84 16 128/68 (88) 98 Differential Diagnosis Generalized weakness, dehydration, hypoglycemia, TIA, CVA, ICH, ACS, anemia, electronic disturbance, arrhythmia, dehydration, UTI, sinusitis, sepsis Narrative Course Patient placed on groundwater monitoring technician with continuous pulse oximetry IV access obtained specimen collected and sent for resulting EKG performed which reveals no acute injury pattern change patient sent for imaging studies CT brain noncontrast reveals the process White count as well as elevated the patient is afebrile has no obvious foci for infection and appears mildly dehydrated as well as is identified to have low blood sugar which may have caused some mild stress demargination Patient given oral hydration and dietary tray Patient feeling well and desirous of being discharged to home voicing no concerns or complaints. In view of white count elevation although normal lactic acid cultures pending normal chest x-ray normal urinalysis with no obvious source of infection will still cover presumptively with one-time dose of IV Rocephin and patient will be stable for outpatient management with close follow-up with primary care provider on or Wednesday of this week. Patient and daughter are in agreement with this plan as patient and daughter both desirous of having patient discharged home stable vital signs and otherwise afebrile and stable for outpatient management this time although daughter is encouraged to adjust dose of insulin as patient is more physically active in consuming last food was require less insulin dosing. Diagnosis Primary Impression: Hypoglycemia associated with type 2 diabetes mellitus Additional Impressions: Physical deconditioning Leukocytosis Referrals: Primary Care Physician 1 day Patient Instructions: General Instructions Additional Instructions: Encourage/increase fluid hydration Follow-up [employer] diet closely and monitor blood sugars Follow-up with primary care provider call office in a.m. schedule follow-up appointment Return to the emergency department for any concerns or change in condition Continue chronic medications as currently prescribed Take acetaminophen/Tylenol as needed for fever 100.4F or greater Med/Other Pt SpecificInfo: No Change to Meds Disposition: 01 DISCHARGE HOME Condition: Stable Dinah Sandoval MD Apr 08, 2017 02:32
[2017-04-08 02:36] VITALS: BP 159/65
--- NOTE | 2017-04-08 20:33 | EKG ---
Date Performed: 04/07/2017 Time Performed: 19:37:31 PTAGE: 87 years EKG: Sinus rhythm MARKED LEFT AXIS DEVIATION PATTERN CONSISTENT WITH PULMONARY DISEASE SEPTAL MYOCARDIAL INFARCTION AB NORMAL ECG INTERPRETATION BASED ON A DEFAULT AGE OF 40 YEARS Since the prior tracing, there has been no significant change NO PREVIOUS TRACING DOCTOR: Julius Staton Interpretating Date/Time 04/08/2017 20:23:35
== END 2017-04-08 02:55 | disposition home or self-care (01) ==
LOC: NEPC 19:25
DX: E11.649 Type 2 diabetes mellitus with hypoglycemia without coma (principal); D72.829 Elevated white blood cell count, unspecified; R94.31 Abnormal electrocardiogram [ECG] [EKG]; J44.9 Chronic obstructive pulmonary disease, unspecified; I10 Essential (primary) hypertension; D64.9 Anemia, unspecified; Z79.4 Long term (current) use of insulin; Z79.899 Other long term (current) drug therapy
CPT/HCPCS: 70450; 71045; 80053; 81001; 82550; 83605; 83735; 84484; 85025; 85610; 85730; 87040; 93005; 96374; 99285; J0696

== ENCOUNTER 2017-04-21 11:48 | Emergency (ER) | payer MEDICARE ==
[~2017-04-21] VITALS: Ht 167.6 cm; Wt 100.0 kg
[~2017-04-21 11:48] MED LIST changes: -BACT800T5 PO; +CALC1TAB87 PO; +CYAN100025 SL; +FIBE500T PO; -HYDR-3516 PO; -MEDR5TAB3 PO; +MELA5 PO; +TRAZ50TA12 PO; +ZYRTEC D PO; -prenatal; -prenatal PO
[2017-04-21 12:01] VITALS: BP 110/58; PULSE 73; RESP 15; TEMP 97.8; O2SAT 99
[2017-04-21] MEDS ORDERED: SODIUM CHLOR 0.9% 1000 ML INJ 1,000 ML IV ONE (12:01)
[2017-04-21] MEDS ORDERED: SODIUM CHLORIDE 0.9% FLUSH 10 ML FLUSH IVF PRN (12:15)
--- NOTE | 2017-04-21 12:19 | RADRPT ---
EXAM DATE/TIME: 04/21/2017 12:03 [facility] COMPARISON: No previous studies available for comparison. INDICATIONS : Chest discomfort. MEDICAL HISTORY : Hypertension. Chronic obstructive pulmonary disease. Diabetes mellitus type II. SURGICAL HISTORY : None. ENCOUNTER: Initial ACUITY: 1 day PAIN SCORE: Non-responsive. LOCATION: Bilateral chest FINDINGS: A single view of the chest demonstrates minimal basilar atelectasis. No effusion. No pneumothorax. To rtuous aorta. CONCLUSION: 1. Minimal basilar atelectasis. No active disease. Teja Miramontes MD on April 21, 2017 at 12:15 Board Certified Radiologist. This report was verified electronically.
[2017-04-21] MEDS ORDERED: DEXTROSE 50% IN WATER 50 ML SYRINGE ONE (13:05)
[2017-04-21] MEDS ORDERED: DEXTROSE 50% IN WATER 50 ML SYRINGE IV PUSH ONE ×2 (13:15→13:30)
[2017-04-21 13:19] LABS: BASOPHIL # 0.1 TH/MM3 (0-0.2); BASOPHIL % 0.4 % (0.0-2.0); BILIRUBIN, URINE NEG (NEG); BLOOD, URINE MOD (NEG); EOSINOPHIL # 0.2 TH/MM3 (0-0.4); EOSINOPHIL % 1.2 % (0.0-4.0); GLUCOSE,URINE NEG (NEG); HEMATOCRIT 33.9 % (35.0-46.0); HEMOGLOBIN 11.5 GM/DL (11.6-15.3); HYALINE CAST, URINE 7 /lpf (RARE); KETONE, URINE NEG (NEG); LYMPH % 17.4 % (9.0-44.0); LYMPHOCYTE # 2.6 TH/MM3 (1.0-4.8); MEAN CELL VOLUME 95.1 FL (80.0-100.0); MEAN CORPUSCULAR HEMOGLOBIN 32.3 PG (27.0-34.0); MEAN PLATELET VOLUME 7.5 FL (7.0-11.0); MONO % 6.1 % (0.0-8.0); MONOCYTE # 0.9 TH/MM3 (0-0.9); NEUT % 74.9 % (16.0-70.0); NITRITE,URINE NEG (NEG); PLATELET COUNT 321 TH/MM3 (150-450); RED BLOOD COUNT 3.57 MIL/MM3 (4.00-5.30); RED CELL DISTRIBUTION WIDTH 13.3 % (11.6-17.2); URINE COLOR YELLOW (YELLW/STRAW); URINE LEUKOCYTE ESTERASE NEG (NEG); WHITE BLOOD COUNT 14.7 TH/MM3 (4.0-11.0)
[2017-04-21 13:26] LABS: PROTHROMBIN TIME - PATIENT 10.6 SEC (9.8-11.6)
[2017-04-21] MEDS ORDERED: CETI1TAB53 PO (13:28)
--- NOTE | 2017-04-21 13:33 | RADRPT ---
EXAM DATE/TIME: 04/21/2017 12:53 [place] COMPARISON: CT BRAIN W/O CONTRAST, February 05, 2017, 13:20. CT BRAIN W/O CONTRAST, April 07, 2017, 21:20. INDICATIONS : Patient had a episode where she was unresponsive RADIATION DOSE: 36.07 CTDIvol (mGy) MEDICAL HISTORY : Hypertension. Chronic obstructive pulmonary disease. anemia,diabetes SURGICAL HISTORY : None. ENCOUNTER: Initial ACUITY: 1 day PAIN SCALE: 0/10 LOCATION: cranial TECHNIQUE: Multiple contiguous axial images were obtained of the head. Using automated exposure control and adj ustment of the mA and/or kV according to patient size, radiation dose was kept as low as reasonably a chievable to obtain optimal diagnostic quality images. DICOM format image data is available electro nically for review and comparison. FINDINGS: There is mild patient motion causing some streak artifacts on the mid convexity images. The patient head is also canted in the gantry creating asymmetries. The study is still of diagnostic quality. CEREBRUM: The ventricles, sulci, and basal cisterns are prominent, characteristic of moderate severity central and cortical atrophy. The overall appearance of the brain is unchanged when compared to 04/07/17. No evidence of midline shift, mass lesion, hemorrhage or acute infarction. No extra-axial fluid collect ions are seen. POSTERIOR FOSSA: The cerebellum and brainstem are intact. The 4th ventricle is midline. The cerebellopontine angle i s unremarkable. EXTRACRANIAL: The visualized portion of the orbits is intact. SKULL: The calvaria is intact. No evidence of skull fracture. Small bony excrescence adjacent to the exter nal table of the right frontal calvarium, unchanged from prior. CONCLUSION: 1. No acute findings in the brain. No evidence of hemorrhage. 2. 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 Sanchez Rodríguez MD on April 21, 2017 at 13:16 Board Certified Radiologist. This report was verified electronically.
--- NOTE | 2017-04-21 13:37 | PD ---
HPI Chief Complaint: Syncope/Near-Syncope Time Seen by Provider: 11:55 Travel History International Travel<30 days: No Contact w/Intl Traveler<30days: No Traveled to known affect area: No History of Present Illness HPI 87-year-old female with PMH of HTN, DM, COPD, anxiety, anemia presents to the ED via EMS for evaluation of syncopal episode at home today. The patient states that she was getting her hair done and just felt weak. On arrival she denies headache, dizziness, chest pain, palpitations, shortness of breath, abdominal pain, nausea, vomiting. She is unsure if she took her insulin this morning. She states that she has not eaten today. EMS reports BP and blood glucose low on scene. The patient's daughter arrives and confirms the patient' s account of this morning's events. Daughter states that the patient received 33 units of Humulin this morning. She states that she has not eaten today. Patient's daughter states that the patient had a few episodes of loose stools yesterday. Daughter states that she gave her mother dose of Imodium before bed and the daughter feels the events today are related to that medication. PCP Dr. Valdez. [facility] Past Medical History Anemia: Yes Autoimmune Disease: No Anxiety: Yes Depression: No Cancer: No Cardiovascular Problems: No COPD: Yes Diabetes: Yes Patient Takes Glucophage: No Diminished Hearing: No Endocrine: No Gastrointestinal Disorders: Yes (dark stool) Genitourinary: No Hypertension: Yes Immune Disorder: No Musculoskeletal: No Neurologic: No Psychiatric: No Reproductive: Yes Thyroid Disease: No Tetanus Vaccination: Unknown Influenza Vaccination: Yes Menopausal: Yes Dilation and Curettage (D&C): Yes Past Surgical History Abdominal Surgery: No Cardiac Surgery: No Ear Surgery: Yes (bleeding on retina) Endocrine Surgery: No Eye Surgery: No Genitourinary Surgery: No Gynecologic Surgery: Yes (partial oophrectomy) Oral Surgery: No Thoracic Surgery: No Other Surgery: Yes Social History Alcohol Use: No Tobacco Use: No Substance Use: No Allergies-Medications (Allergen,Severity, Reaction): Coded Allergies: No Known Allergies (Verified Allergy, Unknown, 04/21/17) Reported Meds & Prescriptions Reported Meds & Active Scripts Active Humulin 70-30 Inj (Insulin NPH Isophane-Reg (Human) 70-30 Inj) 1,000 Unit/10 Ml Vial 33 Units SQ AC BREAKFAST Ferrous Sulfate 325 Mg (65 Mg Iron) Tablet 65 Mg PO BID PRN Reported Zyrtec-D Tablet (Cetirizine HCl/Pseudoephedrine) 5 Mg-120 Mg Tab.er.12h 1 Tab PO DAILY PRN B-12 (Cyanocobalamin) 1,000 Mcg Subl 1,000 Mcg SL DAILY Calcium 600 with Vitamin D (Calcium Carbonate-Cholecalciferol) 600-400 mg-Unit Tab 1 Tab PO DAILY Fiber Therapy (Methylcellulose) 500 Mg Tab 2 Tab PO DAILY PRN Melatonin 5 Mg Tab 5 Mg PO HS PRN Trazodone (Trazodone HCl) 50 Mg Tab 50 Mg PO HS PRN Symbicort Inh (Budesonide/Formoterol Fumarate) 160-4.5 Mcg/Act Aero 2 Puff INH Q12HR Alprazolam 0.25 Mg Tab 0.25 Mg PO Q8H PRN Lisinopril 20 Mg Tab 40 Mg PO DAILY Humulin 70-30 Inj (Insulin NPH Isophane-Reg (Human) 70-30 Inj) 1,000 Unit/10 Ml Vial 15 Unit SQ HS Amlodipine (Amlodipine Besylate) 5 Mg Tab 5 Mg PO DAILY Review of Systems Except as stated in HPI: all other systems reviewed are Neg Physical Exam Narrative GENERAL: Well-nourished, well-developed female in no acute distress. SKIN: Focused skin assessment warm/dry. HEAD: Normocephalic. Atraumatic. EYES: No scleral icterus. No injection or drainage. PERRLA. EOMI. NECK: Supple, trachea midline. No JVD or lymphadenopathy. CARDIOVASCULAR: Regular rate and rhythm without murmurs, gallops, or rubs. RESPIRATORY: Breath sounds clear and equal bilaterally. No accessory muscle use. GASTROINTESTINAL: Abdomen soft, non-tender, nondistended. Active bowel sounds. MUSCULOSKELETAL: No cyanosis, or edema. NEUROLOGICAL: Somewhat somnolent, arouses easily to voice. Follows commands appropriately. Cranial nerves II through XII intact. Motor and sensory grossly within normal limits. Moves all extremities spontaneously. Normal speech. BACK: Nontender without obvious deformity. No CVA tenderness. Data Data Last Documented VS Vital Signs Date Time Temp Pulse Resp B/P (MAP) Pulse Ox O2 Delivery O2 Flow Rate FiO2 04/21/17 13:40 74 16 119/59 (79) 99 Room Air 04/21/17 12:01 97.8 Orders Orders Electrocardiogram (04/21/17 12:01) Complete Blood Count With Diff (04/21/17 12:01) Comprehensive Metabolic Panel (04/21/17 12:01) Ckmb (Isoenzyme) Profile (04/21/17 12:01) Troponin I (04/21/17 12:01) Act Partial Throm Time (Ptt) (04/21/17 12:01) Prothrombin Time / Inr (Pt) (04/21/17 12:01) Urinalysis - C+S If Indicated (04/21/17 12:01) Chest, Single Ap (04/21/17 12:01) Ct Brain W/O Iv Contrast(Rout) (04/21/17 12:01) Ecg Monitoring (04/21/17 12:01) Iv Access Insert/Monitor (04/21/17 12:01) Oximetry (04/21/17 12:01) Sodium Chloride 0.9% Flush (Ns Flush) (04/21/17 12:15) Sodium Chlor 0.9% 1000 Ml Inj (Ns 1000 M (04/21/17 12:01) Cath For Specimen (04/21/17 12:01) Dextrose 50% In Hira (Syr) Inj (D50w (Syr (04/21/17 13:05) Dextrose 50% In Hira (Syr) Inj (D50w (Syr (04/21/17 13:15) Dextrose 50% In Hira (Syr) Inj (D50w (Syr (04/21/17 13:30) Ed Discharge Order (04/21/17 14:09) Labs Laboratory Tests Test 04/21/17 12:33 White Blood Count 14.7 TH/MM3 Red Blood Count 3.57 MIL/MM3 Hemoglobin 11.5 GM/DL Hematocrit 33.9 % Mean Corpuscular Volume 95.1 FL Mean Corpuscular Hemoglobin 32.3 PG Mean Corpuscular Hemoglobin Concent 34.0 % Red Cell Distribution Width 13.3 % Platelet Count 321 TH/MM3 Mean Platelet Volume 7.5 FL Neutrophils (%) (Auto) 74.9 % Lymphocytes (%) (Auto) 17.4 % Monocytes (%) (Auto) 6.1 % Eosinophils (%) (Auto) 1.2 % Basophils (%) (Auto) 0.4 % Neutrophils # (Auto) 11.0 TH/MM3 Lymphocytes # (Auto) 2.6 TH/MM3 Monocytes # (Auto) 0.9 TH/MM3 Eosinophils # (Auto) 0.2 TH/MM3 Basophils # (Auto) 0.1 TH/MM3 CBC Comment DIFF FINAL Differential Comment Prothrombin Time 10.6 SEC Prothromb Time International Ratio 1.0 RATIO Activated Partial Thromboplast Time 22.7 SEC Urine Color YELLOW Urine Turbidity CLEAR Urine pH 6.0 Urine Specific [place] 1.015 Urine Protein NEG mg/dL Urine Glucose (UA) NEG mg/dL Urine Ketones NEG mg/dL Urine Occult Blood MOD Urine Nitrite NEG Urine Bilirubin NEG Urine Urobilinogen LESS THAN 2.0 MG/DL Urine Leukocyte Esterase NEG Urine RBC 53 /hpf Urine WBC 2 /hpf Urine Hyaline Casts 7 /lpf Microscopic Urinalysis Comment CULT NOT INDICATED Blood Urea Nitrogen 23 MG/DL Creatinine 1.55 MG/DL Random Glucose 44 MG/DL Total Protein 7.7 GM/DL Albumin 2.7 GM/DL Calcium Level 8.6 MG/DL Alkaline Phosphatase 61 U/L Aspartate Amino Transf (AST/SGOT) 15 U/L Alanine Aminotransferase (ALT/SGPT) 8 U/L Total Bilirubin 0.2 MG/DL Sodium Level 140 MEQ/L Potassium Level 3.4 MEQ/L Chloride Level 105 MEQ/L Carbon Dioxide Level 27.6 MEQ/L Anion Gap 7 MEQ/L Estimat Glomerular Filtration Rate 38 ML/MIN Total Creatine Kinase 32 U/L Troponin I LESS THAN 0.02 NG/ML MDM Medical Decision Making Medical Screen Exam Complete: Yes Emergency Medical Condition: Yes Differential Diagnosis hypoglycemia versus metabolic derangement versus anemia versus dehydration versus less likely ACS versus less like ICH versus other Narrative Course 87-year-old female with PMH of HTN, DM, COPD, anxiety, anemia presents to the ED via EMS for evaluation of syncopal episode at home today. The patient states that she was getting her hair done and just felt weak. On arrival she denies headache, dizziness, chest pain, palpitations, shortness of breath, abdominal pain, nausea, vomiting. Daughter reports administering 33 units of Humulin N this morning. Patient has not had anything to eat. EMS reports BP and blood glucose low on scene. Patient's daughter states that the patient had a few episodes of loose stools yesterday and was treated with Imodium before bed. Daughter feels symptoms are related to this. PCP Dr. Valdez. BP 110/58 after administration of 250 normal saline en route. Bedside blood glucose 42 on arrival. On exam the patient is somewhat somnolent but she arouses easily to voice. She is not diaphoretic. She follows commands appropriately. No focal neuro deficits. Chest CTAB. Abdomen soft and nontender. No lower extremity edema. IV was established. Patient was administered 1 L normal saline and 25 mL D50. EKG rate 75, normal rhythm. Eating obscured by artifact. No acute ST changes. Reviewed by Dr. Lepe Cardiac enzymes negative 1. CXR: Minimal bibasilar atelectasis. No acute disease per radiology read. CBC: CBC 14.7. Hemoglobin 11.5. INR: 1.0. CMP: Potassium 3.4. BUN 23, creatinine 1.55. Blood glucose 44. UA: No culture indicated. On recheck the patient's sitting up in bed. Patient was administered 25 ML's D50. Blood glucose is 89 on recheck. I discussed the results of the workup with the patient and her daughter. Syncopal episode 2/2 to low blood sugars. The patient's daughter feels safe taking the patient home and will follow closely with Dr. Valdez. I reinforced proper administration of Humalog, the importance of checking blood sugar before giving these medications, caution with OTC medications. The patient is stable and discharged home. Diagnosis Primary Impression: Hypoglycemia associated with type 2 diabetes mellitus Additional Impression: Near syncope Referrals: Yanni Valdez Jr., MD Patient Instructions: General Instructions, Hypoglycemia in a Person with Diabetes (ED) Additional Instructions: Rest, hydrate. Return to normal, gentle activities as tolerated. Check blood sugars regularly. Always give food shortly after morning insulin dose. Follow-up with Dr. Valdez as discussed. Return to the ED for any urgent or emergent medical condition. Disposition: 01 DISCHARGE HOME Condition: Stable Rianna Stewart Apr 21, 2017 13:37
[2017-04-21 13:40] VITALS: BP 119/59; PULSE 74; RESP 16; O2SAT 99
[2017-04-21 13:46] LABS: ALBUMIN 2.7 GM/DL (3.4-5.0); ALKALINE PHOSPHATASE 61 U/L (45-117); ALT (GPT) 8 U/L (10-53); AST (GOT) 15 U/L (15-37); BICARBONATE 27.6 MEQ/L (21.0-32.0); BLOOD UREA NITROGEN 23 MG/DL (7-18); CALCIUM 8.6 MG/DL (8.5-10.1); CHLORIDE 105 MEQ/L (98-107); CREATININE 1.55 MG/DL (0.50-1.00); GLOMERULAR FILTRATION RATE 38 ML/MIN (>89); SODIUM (NA) 140 MEQ/L (136-145); TOTAL BILIRUBIN ADULT 0.2 MG/DL (0.2-1.0); TOTAL PROTEIN 7.7 GM/DL (6.4-8.2); TROPONIN I LESS THAN 0.02 NG/ML (0.02-0.05)
[2017-04-21 13:50] LABS: GLUCOSE,RANDOM 44 MG/DL (74-106)
--- NOTE | 2017-04-22 08:17 | EKG ---
Date Performed: 04/21/2017 Time Performed: 12:14:03 PTAGE: 87 years EKG: Probable normal Sinus rhythm Significant artifact precluding any further interpretation PREVIOUS TRACING : 04/07/2017 19.37 DOCTOR: Jessa Cespedes Interpretating Date/Time 04/22/2017 08:14:46
== END 2017-04-21 16:23 | disposition home or self-care (01) ==
LOC: NEPC 11:48 → NEDAMB 16:23
DX: E11.649 Type 2 diabetes mellitus with hypoglycemia without coma (principal); R55 Syncope and collapse; I10 Essential (primary) hypertension; J44.9 Chronic obstructive pulmonary disease, unspecified; D64.9 Anemia, unspecified; F41.9 Anxiety disorder, unspecified; Z79.4 Long term (current) use of insulin
CPT/HCPCS: 70450; 71045; 80053; 81001; 82550; 84484; 85025; 85610; 85730; 93005; 96361; 96374; 99285; J7030; P9612

== ENCOUNTER 2018-02-06 16:35 | Inpatient (IN) ==
[2018-02-06] MEDS ORDERED: Dextrose 50% in Water Syringe 50 ML ONE (17:00)
[2018-02-06] MEDS ORDERED: Dextrose 50% in Water 50 ML Vial IV.PUSH ONE (17:01)
[2018-02-06 17:32] LABS: Baso # (Auto) 0.1 th/mm3 (0.0-0.2); Baso % (Auto) 0.4 % (0.0-2.0); Eos # (Auto) 0.1 th/mm3 (0.0-0.4); Eos % (Auto) 0.4 % (0.0-4.0); Hematocrit 33.6 % (35.0-46.0); Hemoglobin 11.2 gm/dL (11.6-15.3); Lymph # (Auto) 1.4 th/mm3 (1.0-4.8); Lymph % (Auto) 6.7 % (9.0-44.0); Mean Corpuscular HGB Conc 33.3 % (32.0-36.0); Mean Corpuscular Hemoglobin 32.2 pg (27.0-34.0); Mean Corpuscular Volume 96.9 fL (80.0-100.0); Mean Platelet Volume 7.3 fL (7.0-11.0); Mono # (Auto) 1.3 th/mm3 (0.0-0.9); Neut # (Auto) 18.7 th/mm3 (1.8-7.7); Neut % (Auto) 86.5 % (16.0-70.0); Platelet Count 325 th/mm3 (150-450); Red Blood Count 3.47 mil/mm3 (4.00-5.30); Red Cell Distribution Width 13.8 % (11.6-17.2); White Blood Count 21.6 th/mm3 (4.0-11.0)
[2018-02-06 17:37] LABS: Bacteria,Urine Occasional /hpf; Bilirubin,Urine Negative (Negative); Clarity,Urine Hazy (Clear); Color,Urine Amber (Yellw/Straw); Glucose,Urine (UA) Negative (Negative); Leukocyte Esterase,Urine Small (Negative); Mucus,Urine Few /lpf (Occasional); Nitrite,Urine Negative (Negative); Specific Gravity,Urine 1.021 (1.002-1.035); Squamous Epithelial Cell,Urine 1 /hpf (0-5)
--- NOTE | 2018-02-06 17:57 | ED ---
HPI General Chief complaint: Altered Mental Status Stated complaint: Poss AMS Time Seen by Provider: 02/06/18 16:39 History of Present Illness HPI narrative: Patient is an 88-year-old female presents emergency department for intermittent altered mental status since today. Patient has a history of C. difficile and she is taking antibiotic for that. Patient really has no complaints currently she is alert and awake and oriented. She is a diabetic on insulin. Denies any chest pain shortness breath abdominal pain nausea vomiting diarrhea constipation. Related Data Home Medications Medication Instructions Recorded Confirmed alprazolam 0.25 mg PO TID PRN 11/09/17 02/06/18 amlodipine 5 mg PO DAILY 11/09/17 02/06/18 benzonatate 100 mg PO TID PRN 11/09/17 02/06/18 budesonide-formoterol [Symbicort] 2 puff INHALATION BID 11/09/17 02/06/18 ferrous sulfate 325 mg PO DAILY 11/09/17 02/06/18 insulin NPH and regular human 15 unit SUB-Q 4XW 11/09/17 02/06/18 [Humulin 70/30 U-100 Insulin] insulin NPH and regular human 33 unit SUB-Q QAM 11/09/17 02/06/18 [Humulin 70/30 U-100 Insulin] lisinopril 40 mg PO DAILY 11/09/17 02/06/18 medroxyprogesterone 5 mg PO DAILY 11/09/17 02/06/18 trazodone 50 mg PO QPM 11/09/17 02/06/18 Previous Rx's Medication Instructions Recorded albuterol sulfate 2.5 mg INHALATION Q4-8H PRN #90 ml 11/09/17 Allergies Allergy/AdvReac Type Severity Reaction Status Date / Time No Known Allergies Allergy Verified 01/10/18 22:35 Review of Systems ROS: all other systems reviewed are negative [facility] Medical History Medical History Asthma (Acute) Diabetes (Acute) Hypertension (Acute) Uterine fibroid (Acute) Surgical History Surgical History Hx of oophorectomy (Acute) Family History Family History Father Heart disease Diabetes Mother Asthma Social History Social History Substance History: No History of Abuse Second Hand Smoke Exposure: No Smoking Status: Never smoker How Often Do You Have a Drink Containing Alcohol: Never Recent Out of Country Travel within the Last 8 Weeks: No Immunization History Tetanus Immunization: Unsure Exam Narrative Exam Narrative: GENERAL: Well-developed well-nourished no obvious distress SKIN: patient has mild skin breakdown posterior of the sacrum, superficial probably stage I. No obvious infection. HEAD: Atraumatic. Normocephalic. EYES: Pupils equal and round. No scleral icterus. No injection or drainage. ENT: No nasal bleeding or discharge. Mucous membranes pink and moist. NECK: Trachea midline. No JVD. CARDIOVASCULAR: Regular rate and rhythm. No murmur appreciated. RESPIRATORY: No accessory muscle use. Clear to auscultation. Breath sounds equal bilaterally. GASTROINTESTINAL: Abdomen soft, non-tender, nondistended. Hepatic and splenic margins not palpable. MUSCULOSKELETAL: No obvious deformities. No clubbing. No cyanosis. No edema. NEUROLOGICAL: Awake and alert. No obvious cranial nerve deficits. Motor grossly within normal limits. Normal speech. PSYCHIATRIC: Appropriate mood and affect; insight and judgment normal. Course Initial Documented Vital Signs Temperature 98 F 02/06/18 16:40 Pulse Rate 88 02/06/18 16:40 Respiratory Rate 18 02/06/18 16:40 Blood Pressure 132/71 02/06/18 16:40 Pulse Oximetry 98 02/06/18 16:40 Last Documented Vital Signs Temperature 98.7 F 02/11/18 16:00 Pulse Rate 86 02/11/18 16:00 Respiratory Rate 22 02/11/18 16:00 Blood Pressure 134/58 L 02/11/18 16:00 Pulse Oximetry 96 02/11/18 16:00 Sign Out Sign Out Data: Patient Sign Out occurred on 02/06/18 at 19:08. Patient's care was discussed, and care was transferred from Twan Ibarra MD to Elvi Quionnez MD. Sign Out Comment: Obs~ 6 hours. Recheck BGL. Consider discharge with lower insulin dosing. Last updated by Twan Ibarra MD at 02/06/18 18:48 Post-Handoff Eval: The patient's case was checked out to me by Dr. Ibarra at the conclusion of his shift. Please see his initial history and physical. The patient presented with an episode of altered mentation and a blood sugar in the 40s. The patient' s daughter at the bedside reports that she is under the care of home health. She reports that this is the third episode of hypoglycemia over the last 3 weeks. She denies any changes in the patient's insulin regimen, however she was diagnosed with C. difficile colitis and placed on Flagyl on Wednesday. During the course of the patient was placed on a cardiac rn with oximetry and frequent blood pressure monitoring. The patient had IV access obtained and blood work sent for analysis. The patient was initially provided an amp of D50. The patient was then given orange juice and was also provided a meal of [employer] by her daughter at the bedside. The patient tolerated this well. The patient's diagnostic studies are remarkable for a white count of 21.6, Hemoglobin 11.2, platelets 325 with 86.5 neutrophils. Given the patient's leukocytosis, blood cultures x2 have been added to the patient's workup along with a lactic acid. Chemistries remarkable for chloride of 111, BUN 19, creatinine 1.40 and is noted to be elevated from a creatinine previously on December 2017 at 1.08, calcium 7.4, albumin 1.8. Urinalysis shows small leukocyte esterase 7 WBCs, occasional bacteria, few mucus, culture indicated. Chest x-ray shows no acute abnormality. The patient had a CT scan of the abdomen and pelvis done that shows severe wall thickening and severe surrounding inflammation involving the rectum and distal sigmoid colon, findings are consistent with the severe acute proctocolitis, sigmoid colon immediately proximal to the inflammatory changes is dilated. Stable partially visualized anterior mediastinal mass measuring up to 4.4 cm is noted, severe atherosclerotic disease is noted. The patient's case including history, pertinent physical examination findings, and laboratory studies were discussed with Dr. Galarza. It was agreed that the patient would be admitted to the hospitalist service. The patient's results were discussed with the patient, including the plan of care. I explained that further testing and/ or monitoring is indicated based on the patient's history, examination, and/ or laboratory findings. Therefore, I recommended admission for additional evaluation. The patient expressed understanding and was agreeable with this plan. The patient was admitted to the hospital in guarded condition and sent to a bed under the care of the [facility] service. Medical Decision Making MDM Narrative Medical Screen Exam Complete: Yes Emergency Medical Condition: Yes Lab Data Result diagrams: 02/11/18 05:50 02/10/18 09:06 Lab Results 02/06/18 02/06/18 02/06/18 Range/Units 16:59 17:09 17:10 WBC 21.6 H (4.0-11.0) th/mm3 RBC 3.47 L (4.00-5.30) mil/mm3 Hgb 11.2 L (11.6-15.3) gm/dL Hct 33.6 L (35.0-46.0) % MCV 96.9 (80.0-100.0) fL MCH 32.2 (27.0-34.0) pg MCHC 33.3 (32.0-36.0) % RDW 13.8 (11.6-17.2) % Plt Count 325 (150-450) th/mm3 MPV 7.3 (7.0-11.0) fL Prelim Diff (Auto) Neut % (Auto) 86.5 H (16.0-70.0) % Lymph % (Auto) 6.7 L (9.0-44.0) % [place] % (Auto) 6.0 (0.0-8.0) % Eos % (Auto) 0.4 (0.0-4.0) % Baso % (Auto) 0.4 (0.0-2.0) % Neut # (Auto) 18.7 H (1.8-7.7) th/mm3 Lymph # (Auto) 1.4 (1.0-4.8) th/mm3 [place] # (Auto) 1.3 H (0.0-0.9) th/mm3 Eos # (Auto) 0.1 (0.0-0.4) th/mm3 Baso # (Auto) 0.1 (0.0-0.2) th/mm3 WBC Differential . Seg Neuts % (Manual) (16-70) % Band Neuts % (Manual) (0-6) % Lymphocytes % (Manual) (9-44) % Monocytes % (Manual) (0-8) % Abs Neuts (Manual) (1.8-7.7) th/mm3 Differential Comment Auto diff final Platelet Estimate (Normal) Platelet Morphology (Normal) Ovalocytes (None) Sodium (136-145) meq/L Potassium (3.5-5.1) meq/L Chloride (98-107) meq/L Carbon Dioxide (21.0-32.0) meq/L Anion Gap (5-15) meq/L BUN (7-18) mg/dL Creatinine (0.50-1.00) mg/dL Estimated GFR (>89) mL/min POC Glucose 41 L* 119 H (68-110) mg/dl Random Glucose (74-106) mg/dL Lactic Acid (0.4-2.0) mmol/L Calcium (8.5-10.1) mg/dL Calcium Adj for Albumin (8.5-10.1) mg/dL Magnesium (1.5-2.5) mg/dL Total Bilirubin (0.2-1.0) mg/dL AST (15-37) U/L ALT (10-53) U/L Alkaline Phosphatase (45-117) U/L Total Creatine Kinase (26-192) U/L Total Protein (6.4-8.2) g/dL Albumin (3.4-5.0) g/dL Urine Color (Yellw/Straw) Urine Clarity (Clear) Urine pH (5.0-8.5) Ur Specific [place] (1.002-1.035) Urine Protein (Neg-Trace) mg/dL Urine Glucose (UA) (Negative) mg/dL Urine Ketones (Negative) mg/dL Urine Occult Blood (Negative) Urine Nitrate (Negative) Urine Bilirubin (Negative) Urine Urobilinogen (Less than 2) mg/dL Ur Leukocyte Esterase (Negative) Urine RBC (0-3) /hpf Urine WBC (0-5) /hpf Urine WBC Clumps (None) Ur Squamous Epith Cells (0-5) /hpf Urine Bacteria (None) /hpf Urine Mucus (Occasional) /lpf Urine Yeast (None) /hpf Ur Yeast w Hyphae (None) /hpf Micro UA Comment Ur Microscopic Review Urine Culture Comments Stool C.difficile Ag (Negative) Stool C.difficile Toxin (Negative) Stl C.difficile DNA Amp (Negative) St C. diff Tox Epid 027 (Negative) Random Vancomycin Comment 12/11/1602/06/18 02/06/18 Range/Units 17:10 17:10 17:20 WBC (4.0-11.0) th/mm3 RBC (4.00-5.30) mil/mm3 Hgb (11.6-15.3) gm/dL Hct (35.0-46.0) % MCV (80.0-100.0) fL MCH (27.0-34.0) pg MCHC (32.0-36.0) % RDW (11.6-17.2) % Plt Count (150-450) th/mm3 MPV (7.0-11.0) fL Prelim Diff (Auto) Neut % (Auto) (16.0-70.0) % Lymph % (Auto) (9.0-44.0) % [place] % (Auto) (0.0-8.0) % Eos % (Auto) (0.0-4.0) % Baso % (Auto) (0.0-2.0) % Neut # (Auto) (1.8-7.7) th/mm3 Lymph # (Auto) (1.0-4.8) th/mm3 [place] # (Auto) (0.0-0.9) th/mm3 Eos # (Auto) (0.0-0.4) th/mm3 Baso # (Auto) (0.0-0.2) th/mm3 WBC Differential Seg Neuts % (Manual) (16-70) % Band Neuts % (Manual) (0-6) % Lymphocytes % (Manual) (9-44) % Monocytes % (Manual) (0-8) % Abs Neuts (Manual) (1.8-7.7) th/mm3 Differential Comment Platelet Estimate (Normal) Platelet Morphology (Normal) Ovalocytes (None) Sodium 142 (136-145) meq/L Potassium 4.6 (3.5-5.1) meq/L Chloride 111 H (98-107) meq/L Carbon Dioxide 23.8 (21.0-32.0) meq/L Anion Gap 7 (5-15) meq/L BUN 19 H (7-18) mg/dL Creatinine 1.40 H (0.50-1.00) mg/dL Estimated GFR 43 L (>89) mL/min POC Glucose (68-110) mg/dl Random Glucose 157 H (74-106) mg/dL Lactic Acid (0.4-2.0) mmol/L Calcium 7.4 L* (8.5-10.1) mg/dL Calcium Adj for Albumin 9.2 (8.5-10.1) mg/dL Magnesium 2.4 (1.5-2.5) mg/dL Total Bilirubin 0.2 (0.2-1.0) mg/dL AST 20 (15-37) U/L ALT 9 L (10-53) U/L Alkaline Phosphatase 68 (45-117) U/L Total Creatine Kinase 69 (26-192) U/L Total Protein 6.4 (6.4-8.2) g/dL Albumin 1.8 L (3.4-5.0) g/dL Urine Color [place] (Yellw/Straw) Urine Clarity Hazy H (Clear) Urine pH 5.0 (5.0-8.5) Ur Specific [place] 1.021 (1.002-1.035) Urine Protein Negative (Neg-Trace) mg/dL Urine Glucose (UA) Negative (Negative) mg/dL Urine Ketones Negative (Negative) mg/dL Urine Occult Blood Negative (Negative) Urine Nitrate Negative (Negative) Urine Bilirubin Negative (Negative) Urine Urobilinogen Less than 2 (Less than 2) mg/dL Ur Leukocyte Esterase Small H (Negative) Urine RBC Less than 1 (0-3) /hpf Urine WBC 7 H (0-5) /hpf Urine WBC Clumps (None) Ur Squamous Epith Cells 1 (0-5) /hpf Urine Bacteria Occasional H (None) /hpf Urine Mucus Few H (Occasional) /lpf Urine Yeast (None) /hpf Ur Yeast w Hyphae (None) /hpf Micro UA Comment Cath-culture ind Ur Microscopic Review Not Reportable Urine Culture Comments Cath-cult indicated Stool C.difficile Ag (Negative) Stool C.difficile Toxin (Negative) Stl C.difficile DNA Amp (Negative) St C. diff Tox Epid 027 (Negative) Random Vancomycin Comment 02/06/18 02/06/18 02/06/18 Range/Units 17:43 19:21 20:00 WBC (4.0-11.0) th/mm3 RBC (4.00-5.30) mil/mm3 Hgb (11.6-15.3) gm/dL Hct (35.0-46.0) % MCV (80.0-100.0) fL MCH (27.0-34.0) pg MCHC (32.0-36.0) % RDW (11.6-17.2) % Plt Count (150-450) th/mm3 MPV (7.0-11.0) fL Prelim Diff (Auto) Neut % (Auto) (16.0-70.0) % Lymph % (Auto) (9.0-44.0) % [place] % (Auto) (0.0-8.0) % Eos % (Auto) (0.0-4.0) % Baso % (Auto) (0.0-2.0) % Neut # (Auto) (1.8-7.7) th/mm3 Lymph # (Auto) (1.0-4.8) th/mm3 [place] # (Auto) (0.0-0.9) th/mm3 Eos # (Auto) (0.0-0.4) th/mm3 Baso # (Auto) (0.0-0.2) th/mm3 WBC Differential Seg Neuts % (Manual) (16-70) % Band Neuts % (Manual) (0-6) % Lymphocytes % (Manual) (9-44) % Monocytes % (Manual) (0-8) % Abs Neuts (Manual) (1.8-7.7) th/mm3 Differential Comment Platelet Estimate (Normal) Platelet Morphology (Normal) Ovalocytes (None) Sodium (136-145) meq/L Potassium (3.5-5.1) meq/L Chloride (98-107) meq/L Carbon Dioxide (21.0-32.0) meq/L Anion Gap (5-15) meq/L BUN (7-18) mg/dL Creatinine (0.50-1.00) mg/dL Estimated GFR (>89) mL/min POC Glucose 106 138 H (68-110) mg/dl Random Glucose (74-106) mg/dL Lactic Acid 1.6 (0.4-2.0) mmol/L Calcium (8.5-10.1) mg/dL Calcium Adj for Albumin (8.5-10.1) mg/dL Magnesium (1.5-2.5) mg/dL Total Bilirubin (0.2-1.0) mg/dL AST (15-37) U/L ALT (10-53) U/L Alkaline Phosphatase (45-117) U/L Total Creatine Kinase (26-192) U/L Total Protein (6.4-8.2) g/dL Albumin (3.4-5.0) g/dL Urine Color (Yellw/Straw) Urine Clarity (Clear) Urine pH (5.0-8.5) Ur Specific [place] (1.002-1.035) Urine Protein (Neg-Trace) mg/dL Urine Glucose (UA) (Negative) mg/dL Urine Ketones (Negative) mg/dL Urine Occult Blood (Negative) Urine Nitrate (Negative) Urine Bilirubin (Negative) Urine Urobilinogen (Less than 2) mg/dL Ur Leukocyte Esterase (Negative) Urine RBC (0-3) /hpf Urine WBC (0-5) /hpf Urine WBC Clumps (None) Ur Squamous Epith Cells (0-5) /hpf Urine Bacteria (None) /hpf Urine Mucus (Occasional) /lpf Urine Yeast (None) /hpf Ur Yeast w Hyphae (None) /hpf Micro UA Comment Ur Microscopic Review Urine Culture Comments Stool C.difficile Ag (Negative) Stool C.difficile Toxin (Negative) Stl C.difficile DNA Amp (Negative) St C. diff Tox Epid 027 (Negative) Random Vancomycin Comment 02/06/18 02/07/18 02/07/18 Range/Units 21:03 01:14 07:50 WBC 20.4 H (4.0-11.0) th/mm3 RBC 3.33 L (4.00-5.30) mil/mm3 Hgb 10.7 L (11.6-15.3) gm/dL Hct 31.9 L (35.0-46.0) % MCV 95.8 (80.0-100.0) fL MCH 32.2 (27.0-34.0) pg MCHC 33.7 (32.0-36.0) % RDW 13.9 (11.6-17.2) % Plt Count 320 (150-450) th/mm3 MPV 6.9 L (7.0-11.0) fL Prelim Diff (Auto) Neut % (Auto) 82.0 H (16.0-70.0) % Lymph % (Auto) 9.5 (9.0-44.0) % [place] % (Auto) 7.2 (0.0-8.0) % Eos % (Auto) 0.9 (0.0-4.0) % Baso % (Auto) 0.4 (0.0-2.0) % Neut # (Auto) 16.8 H (1.8-7.7) th/mm3 Lymph # (Auto) 1.9 (1.0-4.8) th/mm3 [place] # (Auto) 1.5 H (0.0-0.9) th/mm3 Eos # (Auto) 0.2 (0.0-0.4) th/mm3 Baso # (Auto) 0.1 (0.0-0.2) th/mm3 WBC Differential . Seg Neuts % (Manual) (16-70) % Band Neuts % (Manual) (0-6) % Lymphocytes % (Manual) (9-44) % Monocytes % (Manual) (0-8) % Abs Neuts (Manual) (1.8-7.7) th/mm3 Differential Comment Auto diff final Platelet Estimate (Normal) Platelet Morphology (Normal) Ovalocytes (None) Sodium (136-145) meq/L Potassium (3.5-5.1) meq/L Chloride (98-107) meq/L Carbon Dioxide (21.0-32.0) meq/L Anion Gap (5-15) meq/L BUN (7-18) mg/dL Creatinine (0.50-1.00) mg/dL Estimated GFR (>89) mL/min POC Glucose 182 H 173 H (68-110) mg/dl Random Glucose (74-106) mg/dL Lactic Acid (0.4-2.0) mmol/L Calcium (8.5-10.1) mg/dL Calcium Adj for Albumin (8.5-10.1) mg/dL Magnesium (1.5-2.5) mg/dL Total Bilirubin (0.2-1.0) mg/dL AST (15-37) U/L ALT (10-53) U/L Alkaline Phosphatase (45-117) U/L Total Creatine Kinase (26-192) U/L Total Protein (6.4-8.2) g/dL Albumin (3.4-5.0) g/dL Urine Color (Yellw/Straw) Urine Clarity (Clear) Urine pH (5.0-8.5) Ur Specific [place] (1.002-1.035) Urine Protein (Neg-Trace) mg/dL Urine Glucose (UA) (Negative) mg/dL Urine Ketones (Negative) mg/dL Urine Occult Blood (Negative) Urine Nitrate (Negative) Urine Bilirubin (Negative) Urine Urobilinogen (Less than 2) mg/dL Ur Leukocyte Esterase (Negative) Urine RBC (0-3) /hpf Urine WBC (0-5) /hpf Urine WBC Clumps (None) Ur Squamous Epith Cells (0-5) /hpf Urine Bacteria (None) /hpf Urine Mucus (Occasional) /lpf Urine Yeast (None) /hpf Ur Yeast w Hyphae (None) /hpf Micro UA Comment Ur Microscopic Review Urine Culture Comments Stool C.difficile Ag (Negative) Stool C.difficile Toxin (Negative) Stl C.difficile DNA Amp (Negative) St C. diff Tox Epid 027 (Negative) Random Vancomycin Comment 02/07/18 02/07/18 02/07/18 Range/Units 07:50 08:25 13:26 WBC (4.0-11.0) th/mm3 RBC (4.00-5.30) mil/mm3 Hgb (11.6-15.3) gm/dL Hct (35.0-46.0) % MCV (80.0-100.0) fL MCH (27.0-34.0) pg MCHC (32.0-36.0) % RDW (11.6-17.2) % Plt Count (150-450) th/mm3 MPV (7.0-11.0) fL Prelim Diff (Auto) Neut % (Auto) (16.0-70.0) % Lymph % (Auto) (9.0-44.0) % [place] % (Auto) (0.0-8.0) % Eos % (Auto) (0.0-4.0) % Baso % (Auto) (0.0-2.0) % Neut # (Auto) (1.8-7.7) th/mm3 Lymph # (Auto) (1.0-4.8) th/mm3 [place] # (Auto) (0.0-0.9) th/mm3 Eos # (Auto) (0.0-0.4) th/mm3 Baso # (Auto) (0.0-0.2) th/mm3 WBC Differential Seg Neuts % (Manual) (16-70) % Band Neuts % (Manual) (0-6) % Lymphocytes % (Manual) (9-44) % Monocytes % (Manual) (0-8) % Abs Neuts (Manual) (1.8-7.7) th/mm3 Differential Comment Platelet Estimate (Normal) Platelet Morphology (Normal) Ovalocytes (None) Sodium 141 (136-145) meq/L Potassium 4.3 (3.5-5.1) meq/L Chloride 114 H (98-107) meq/L Carbon Dioxide 21.0 (21.0-32.0) meq/L Anion Gap 6 (5-15) meq/L BUN 15 (7-18) mg/dL Creatinine 1.09 H (0.50-1.00) mg/dL Estimated GFR 57 L (>89) mL/min POC Glucose 135 H 185 H (68-110) mg/dl Random Glucose 130 H (74-106) mg/dL Lactic Acid (0.4-2.0) mmol/L Calcium 7.1 L* (8.5-10.1) mg/dL Calcium Adj for Albumin 8.9 (8.5-10.1) mg/dL Magnesium (1.5-2.5) mg/dL Total Bilirubin 0.2 (0.2-1.0) mg/dL AST 11 L (15-37) U/L ALT 10 (10-53) U/L Alkaline Phosphatase 68 (45-117) U/L Total Creatine Kinase (26-192) U/L Total Protein 6.0 L (6.4-8.2) g/dL Albumin 1.7 L (3.4-5.0) g/dL Urine Color (Yellw/Straw) Urine Clarity (Clear) Urine pH (5.0-8.5) Ur Specific [place] (1.002-1.035) Urine Protein (Neg-Trace) mg/dL Urine Glucose (UA) (Negative) mg/dL Urine Ketones (Negative) mg/dL Urine Occult Blood (Negative) Urine Nitrate (Negative) Urine Bilirubin (Negative) Urine Urobilinogen (Less than 2) mg/dL Ur Leukocyte Esterase (Negative) Urine RBC (0-3) /hpf Urine WBC (0-5) /hpf Urine WBC Clumps (None) Ur Squamous Epith Cells (0-5) /hpf Urine Bacteria (None) /hpf Urine Mucus (Occasional) /lpf Urine Yeast (None) /hpf Ur Yeast w Hyphae (None) /hpf Micro UA Comment Ur Microscopic Review Urine Culture Comments Stool C.difficile Ag (Negative) Stool C.difficile Toxin (Negative) Stl C.difficile DNA Amp (Negative) St C. diff Tox Epid 027 (Negative) Random Vancomycin Comment 02/07/18 02/07/18 02/08/18 Range/Units 17:08 20:24 04:40 WBC (4.0-11.0) th/mm3 RBC (4.00-5.30) mil/mm3 Hgb (11.6-15.3) gm/dL Hct (35.0-46.0) % MCV (80.0-100.0) fL MCH (27.0-34.0) pg MCHC (32.0-36.0) % RDW (11.6-17.2) % Plt Count (150-450) th/mm3 MPV (7.0-11.0) fL Prelim Diff (Auto) Neut % (Auto) (16.0-70.0) % Lymph % (Auto) (9.0-44.0) % [place] % (Auto) (0.0-8.0) % Eos % (Auto) (0.0-4.0) % Baso % (Auto) (0.0-2.0) % Neut # (Auto) (1.8-7.7) th/mm3 Lymph # (Auto) (1.0-4.8) th/mm3 [place] # (Auto) (0.0-0.9) th/mm3 Eos # (Auto) (0.0-0.4) th/mm3 Baso # (Auto) (0.0-0.2) th/mm3 WBC Differential Seg Neuts % (Manual) (16-70) % Band Neuts % (Manual) (0-6) % Lymphocytes % (Manual) (9-44) % Monocytes % (Manual) (0-8) % Abs Neuts (Manual) (1.8-7.7) th/mm3 Differential Comment Platelet Estimate (Normal) Platelet Morphology (Normal) Ovalocytes (None) Sodium (136-145) meq/L Potassium (3.5-5.1) meq/L Chloride (98-107) meq/L Carbon Dioxide (21.0-32.0) meq/L Anion Gap (5-15) meq/L BUN (7-18) mg/dL Creatinine (0.50-1.00) mg/dL Estimated GFR (>89) mL/min POC Glucose 173 H 165 H (68-110) mg/dl Random Glucose (74-106) mg/dL Lactic Acid (0.4-2.0) mmol/L Calcium (8.5-10.1) mg/dL Calcium Adj for Albumin (8.5-10.1) mg/dL Magnesium (1.5-2.5) mg/dL Total Bilirubin (0.2-1.0) mg/dL AST (15-37) U/L ALT (10-53) U/L Alkaline Phosphatase (45-117) U/L Total Creatine Kinase (26-192) U/L Total Protein (6.4-8.2) g/dL Albumin (3.4-5.0) g/dL Urine Color (Yellw/Straw) Urine Clarity (Clear) Urine pH (5.0-8.5) Ur Specific [place] (1.002-1.035) Urine Protein (Neg-Trace) mg/dL Urine Glucose (UA) (Negative) mg/dL Urine Ketones (Negative) mg/dL Urine Occult Blood (Negative) Urine Nitrate (Negative) Urine Bilirubin (Negative) Urine Urobilinogen (Less than 2) mg/dL Ur Leukocyte Esterase (Negative) Urine RBC (0-3) /hpf Urine WBC (0-5) /hpf Urine WBC Clumps (None) Ur Squamous Epith Cells (0-5) /hpf Urine Bacteria (None) /hpf Urine Mucus (Occasional) /lpf Urine Yeast (None) /hpf Ur Yeast w Hyphae (None) /hpf Micro UA Comment Ur Microscopic Review Urine Culture Comments Stool C.difficile Ag Positive H (Negative) Stool C.difficile Toxin Positive H (Negative) Stl C.difficile DNA Amp Positive H (Negative) St C. diff Tox Epid 027 Positive H (Negative) Random Vancomycin Comment 12/11/18 12/11/18 12/11/18 Range/Units 07:18 07:18 07:45 WBC 25.2 H (4.0-11.0) th/mm3 RBC 3.46 L (4.00-5.30) mil/mm3 Hgb 11.1 L (11.6-15.3) gm/dL Hct 34.0 L (35.0-46.0) % MCV 98.1 (80.0-100.0) fL MCH 32.2 (27.0-34.0) pg MCHC 32.8 (32.0-36.0) % RDW 13.7 (11.6-17.2) % Plt Count 322 (150-450) th/mm3 MPV 7.0 (7.0-11.0) fL Prelim Diff (Auto) Neut % (Auto) (16.0-70.0) % Lymph % (Auto) (9.0-44.0) % [place] % (Auto) (0.0-8.0) % Eos % (Auto) (0.0-4.0) % Baso % (Auto) (0.0-2.0) % Neut # (Auto) (1.8-7.7) th/mm3 Lymph # (Auto) (1.0-4.8) th/mm3 [place] # (Auto) (0.0-0.9) th/mm3 Eos # (Auto) (0.0-0.4) th/mm3 Baso # (Auto) (0.0-0.2) th/mm3 WBC Differential Seg Neuts % (Manual) (16-70) % Band Neuts % (Manual) (0-6) % Lymphocytes % (Manual) (9-44) % Monocytes % (Manual) (0-8) % Abs Neuts (Manual) (1.8-7.7) th/mm3 Differential Comment Platelet Estimate (Normal) Platelet Morphology (Normal) Ovalocytes (None) Sodium 140 (136-145) meq/L Potassium 4.4 (3.5-5.1) meq/L Chloride 114 H (98-107) meq/L Carbon Dioxide 20.3 L (21.0-32.0) meq/L Anion Gap 6 (5-15) meq/L BUN 13 (7-18) mg/dL Creatinine 0.97 (0.50-1.00) mg/dL Estimated GFR 66 L (>89) mL/min POC Glucose 218 H (68-110) mg/dl Random Glucose 252 H D (74-106) mg/dL Lactic Acid (0.4-2.0) mmol/L Calcium 7.2 L* (8.5-10.1) mg/dL Calcium Adj for Albumin 9.0 (8.5-10.1) mg/dL Magnesium (1.5-2.5) mg/dL Total Bilirubin (0.2-1.0) mg/dL AST (15-37) U/L ALT (10-53) U/L Alkaline Phosphatase (45-117) U/L Total Creatine Kinase (26-192) U/L Total Protein (6.4-8.2) g/dL Albumin 1.8 L (3.4-5.0) g/dL Urine Color (Yellw/Straw) Urine Clarity (Clear) Urine pH (5.0-8.5) Ur Specific [place] (1.002-1.035) Urine Protein (Neg-Trace) mg/dL Urine Glucose (UA) (Negative) mg/dL Urine Ketones (Negative) mg/dL Urine Occult Blood (Negative) Urine Nitrate (Negative) Urine Bilirubin (Negative) Urine Urobilinogen (Less than 2) mg/dL Ur Leukocyte Esterase (Negative) Urine RBC (0-3) /hpf Urine WBC (0-5) /hpf Urine WBC Clumps (None) Ur Squamous Epith Cells (0-5) /hpf Urine Bacteria (None) /hpf Urine Mucus (Occasional) /lpf Urine Yeast (None) /hpf Ur Yeast w Hyphae (None) /hpf Micro UA Comment Ur Microscopic Review Urine Culture Comments Stool C.difficile Ag (Negative) Stool C.difficile Toxin (Negative) Stl C.difficile DNA Amp (Negative) St C. diff Tox Epid 027 (Negative) Random Vancomycin Comment 02/08/18 02/08/18 02/08/18 Range/Units 13:05 17:27 20:13 WBC (4.0-11.0) th/mm3 RBC (4.00-5.30) mil/mm3 Hgb (11.6-15.3) gm/dL Hct (35.0-46.0) % MCV (80.0-100.0) fL MCH (27.0-34.0) pg MCHC (32.0-36.0) % RDW (11.6-17.2) % Plt Count (150-450) th/mm3 MPV (7.0-11.0) fL Prelim Diff (Auto) Neut % (Auto) (16.0-70.0) % Lymph % (Auto) (9.0-44.0) % [place] % (Auto) (0.0-8.0) % Eos % (Auto) (0.0-4.0) % Baso % (Auto) (0.0-2.0) % Neut # (Auto) (1.8-7.7) th/mm3 Lymph # (Auto) (1.0-4.8) th/mm3 [place] # (Auto) (0.0-0.9) th/mm3 Eos # (Auto) (0.0-0.4) th/mm3 Baso # (Auto) (0.0-0.2) th/mm3 WBC Differential Seg Neuts % (Manual) (16-70) % Band Neuts % (Manual) (0-6) % Lymphocytes % (Manual) (9-44) % Monocytes % (Manual) (0-8) % Abs Neuts (Manual) (1.8-7.7) th/mm3 Differential Comment Platelet Estimate (Normal) Platelet Morphology (Normal) Ovalocytes (None) Sodium (136-145) meq/L Potassium (3.5-5.1) meq/L Chloride (98-107) meq/L Carbon Dioxide (21.0-32.0) meq/L Anion Gap (5-15) meq/L BUN (7-18) mg/dL Creatinine (0.50-1.00) mg/dL Estimated GFR (>89) mL/min POC Glucose 177 H 164 H 312 H (68-110) mg/dl Random Glucose (74-106) mg/dL Lactic Acid (0.4-2.0) mmol/L Calcium (8.5-10.1) mg/dL Calcium Adj for Albumin (8.5-10.1) mg/dL Magnesium (1.5-2.5) mg/dL Total Bilirubin (0.2-1.0) mg/dL AST (15-37) U/L ALT (10-53) U/L Alkaline Phosphatase (45-117) U/L Total Creatine Kinase (26-192) U/L Total Protein (6.4-8.2) g/dL Albumin (3.4-5.0) g/dL Urine Color (Yellw/Straw) Urine Clarity (Clear) Urine pH (5.0-8.5) Ur Specific [place] (1.002-1.035) Urine Protein (Neg-Trace) mg/dL Urine Glucose (UA) (Negative) mg/dL Urine Ketones (Negative) mg/dL Urine Occult Blood (Negative) Urine Nitrate (Negative) Urine Bilirubin (Negative) Urine Urobilinogen (Less than 2) mg/dL Ur Leukocyte Esterase (Negative) Urine RBC (0-3) /hpf Urine WBC (0-5) /hpf Urine WBC Clumps (None) Ur Squamous Epith Cells (0-5) /hpf Urine Bacteria (None) /hpf Urine Mucus (Occasional) /lpf Urine Yeast (None) /hpf Ur Yeast w Hyphae (None) /hpf Micro UA Comment Ur Microscopic Review Urine Culture Comments Stool C.difficile Ag (Negative) Stool C.difficile Toxin (Negative) Stl C.difficile DNA Amp (Negative) St C. diff Tox Epid 027 (Negative) Random Vancomycin Comment 02/08/18 02/09/18 02/09/18 Range/Units 21:08 07:14 08:11 WBC 30.0 H (4.0-11.0) th/mm3 RBC 3.57 L (4.00-5.30) mil/mm3 Hgb 11.4 L (11.6-15.3) gm/dL Hct 34.7 L (35.0-46.0) % MCV 97.1 (80.0-100.0) fL MCH 31.8 (27.0-34.0) pg MCHC 32.8 (32.0-36.0) % RDW 13.8 (11.6-17.2) % Plt Count 300 (150-450) th/mm3 MPV 7.2 (7.0-11.0) fL Prelim Diff (Auto) Neut % (Auto) 87.4 H (16.0-70.0) % Lymph % (Auto) 6.7 L (9.0-44.0) % [place] % (Auto) 5.2 (0.0-8.0) % Eos % (Auto) 0.2 (0.0-4.0) % Baso % (Auto) 0.5 (0.0-2.0) % Neut # (Auto) 26.2 H (1.8-7.7) th/mm3 Lymph # (Auto) 2.0 (1.0-4.8) th/mm3 [place] # (Auto) 1.6 H (0.0-0.9) th/mm3 Eos # (Auto) 0.1 (0.0-0.4) th/mm3 Baso # (Auto) 0.1 (0.0-0.2) th/mm3 WBC Differential . Seg Neuts % (Manual) (16-70) % Band Neuts % (Manual) (0-6) % Lymphocytes % (Manual) (9-44) % Monocytes % (Manual) (0-8) % Abs Neuts (Manual) (1.8-7.7) th/mm3 Differential Comment Auto diff final Platelet Estimate (Normal) Platelet Morphology (Normal) Ovalocytes (None) Sodium (136-145) meq/L Potassium (3.5-5.1) meq/L Chloride (98-107) meq/L Carbon Dioxide (21.0-32.0) meq/L Anion Gap (5-15) meq/L BUN (7-18) mg/dL Creatinine (0.50-1.00) mg/dL Estimated GFR (>89) mL/min POC Glucose 341 H 289 H (68-110) mg/dl Random Glucose (74-106) mg/dL Lactic Acid (0.4-2.0) mmol/L Calcium (8.5-10.1) mg/dL Calcium Adj for Albumin (8.5-10.1) mg/dL Magnesium (1.5-2.5) mg/dL Total Bilirubin (0.2-1.0) mg/dL AST (15-37) U/L ALT (10-53) U/L Alkaline Phosphatase (45-117) U/L Total Creatine Kinase (26-192) U/L Total Protein (6.4-8.2) g/dL Albumin (3.4-5.0) g/dL Urine Color (Yellw/Straw) Urine Clarity (Clear) Urine pH (5.0-8.5) Ur Specific [place] (1.002-1.035) Urine Protein (Neg-Trace) mg/dL Urine Glucose (UA) (Negative) mg/dL Urine Ketones (Negative) mg/dL Urine Occult Blood (Negative) Urine Nitrate (Negative) Urine Bilirubin (Negative) Urine Urobilinogen (Less than 2) mg/dL Ur Leukocyte Esterase (Negative) Urine RBC (0-3) /hpf Urine WBC (0-5) /hpf Urine WBC Clumps (None) Ur Squamous Epith Cells (0-5) /hpf Urine Bacteria (None) /hpf Urine Mucus (Occasional) /lpf Urine Yeast (None) /hpf Ur Yeast w Hyphae (None) /hpf Micro UA Comment Ur Microscopic Review Urine Culture Comments Stool C.difficile Ag (Negative) Stool C.difficile Toxin (Negative) Stl C.difficile DNA Amp (Negative) St C. diff Tox Epid 027 (Negative) Random Vancomycin Comment 02/09/18 02/09/18 02/09/18 Range/Units 13:08 17:34 22:06 WBC (4.0-11.0) th/mm3 RBC (4.00-5.30) mil/mm3 Hgb (11.6-15.3) gm/dL Hct (35.0-46.0) % MCV (80.0-100.0) fL MCH (27.0-34.0) pg MCHC (32.0-36.0) % RDW (11.6-17.2) % Plt Count (150-450) th/mm3 MPV (7.0-11.0) fL Prelim Diff (Auto) Neut % (Auto) (16.0-70.0) % Lymph % (Auto) (9.0-44.0) % [place] % (Auto) (0.0-8.0) % Eos % (Auto) (0.0-4.0) % Baso % (Auto) (0.0-2.0) % Neut # (Auto) (1.8-7.7) th/mm3 Lymph # (Auto) (1.0-4.8) th/mm3 [place] # (Auto) (0.0-0.9) th/mm3 Eos # (Auto) (0.0-0.4) th/mm3 Baso # (Auto) (0.0-0.2) th/mm3 WBC Differential Seg Neuts % (Manual) (16-70) % Band Neuts % (Manual) (0-6) % Lymphocytes % (Manual) (9-44) % Monocytes % (Manual) (0-8) % Abs Neuts (Manual) (1.8-7.7) th/mm3 Differential Comment Platelet Estimate (Normal) Platelet Morphology (Normal) Ovalocytes (None) Sodium (136-145) meq/L Potassium (3.5-5.1) meq/L Chloride (98-107) meq/L Carbon Dioxide (21.0-32.0) meq/L Anion Gap (5-15) meq/L BUN (7-18) mg/dL Creatinine (0.50-1.00) mg/dL Estimated GFR (>89) mL/min POC Glucose 305 H 415 H 365 H (68-110) mg/dl Random Glucose (74-106) mg/dL Lactic Acid (0.4-2.0) mmol/L Calcium (8.5-10.1) mg/dL Calcium Adj for Albumin (8.5-10.1) mg/dL Magnesium (1.5-2.5) mg/dL Total Bilirubin (0.2-1.0) mg/dL AST (15-37) U/L ALT (10-53) U/L Alkaline Phosphatase (45-117) U/L Total Creatine Kinase (26-192) U/L Total Protein (6.4-8.2) g/dL Albumin (3.4-5.0) g/dL Urine Color (Yellw/Straw) Urine Clarity (Clear) Urine pH (5.0-8.5) Ur Specific [place] (1.002-1.035) Urine Protein (Neg-Trace) mg/dL Urine Glucose (UA) (Negative) mg/dL Urine Ketones (Negative) mg/dL Urine Occult Blood (Negative) Urine Nitrate (Negative) Urine Bilirubin (Negative) Urine Urobilinogen (Less than 2) mg/dL Ur Leukocyte Esterase (Negative) Urine RBC (0-3) /hpf Urine WBC (0-5) /hpf Urine WBC Clumps (None) Ur Squamous Epith Cells (0-5) /hpf Urine Bacteria (None) /hpf Urine Mucus (Occasional) /lpf Urine Yeast (None) /hpf Ur Yeast w Hyphae (None) /hpf Micro UA Comment Ur Microscopic Review Urine Culture Comments Stool C.difficile Ag (Negative) Stool C.difficile Toxin (Negative) Stl C.difficile DNA Amp (Negative) St C. diff Tox Epid 027 (Negative) Random Vancomycin Comment 02/10/18 02/10/18 02/10/18 Range/Units 05:49 07:30 09:06 WBC (4.0-11.0) th/mm3 RBC (4.00-5.30) mil/mm3 Hgb (11.6-15.3) gm/dL Hct (35.0-46.0) % MCV (80.0-100.0) fL MCH (27.0-34.0) pg MCHC (32.0-36.0) % RDW (11.6-17.2) % Plt Count (150-450) th/mm3 MPV (7.0-11.0) fL Prelim Diff (Auto) Neut % (Auto) (16.0-70.0) % Lymph % (Auto) (9.0-44.0) % [place] % (Auto) (0.0-8.0) % Eos % (Auto) (0.0-4.0) % Baso % (Auto) (0.0-2.0) % Neut # (Auto) (1.8-7.7) th/mm3 Lymph # (Auto) (1.0-4.8) th/mm3 [place] # (Auto) (0.0-0.9) th/mm3 Eos # (Auto) (0.0-0.4) th/mm3 Baso # (Auto) (0.0-0.2) th/mm3 WBC Differential Seg Neuts % (Manual) (16-70) % Band Neuts % (Manual) (0-6) % Lymphocytes % (Manual) (9-44) % Monocytes % (Manual) (0-8) % Abs Neuts (Manual) (1.8-7.7) th/mm3 Differential Comment Platelet Estimate (Normal) Platelet Morphology (Normal) Ovalocytes (None) Sodium 141 (136-145) meq/L Potassium 5.1 (3.5-5.1) meq/L Chloride 117 H (98-107) meq/L Carbon Dioxide 20.0 L (21.0-32.0) meq/L Anion Gap 4 L (5-15) meq/L BUN 13 (7-18) mg/dL Creatinine 0.87 (0.50-1.00) mg/dL Estimated GFR 75 L (>89) mL/min POC Glucose 244 H (68-110) mg/dl Random Glucose 217 H (74-106) mg/dL Lactic Acid (0.4-2.0) mmol/L Calcium 7.1 L* (8.5-10.1) mg/dL Calcium Adj for Albumin 9.2 (8.5-10.1) mg/dL Magnesium (1.5-2.5) mg/dL Total Bilirubin (0.2-1.0) mg/dL AST (15-37) U/L ALT (10-53) U/L Alkaline Phosphatase (45-117) U/L Total Creatine Kinase (26-192) U/L Total Protein (6.4-8.2) g/dL Albumin 1.4 L (3.4-5.0) g/dL Urine Color (Yellw/Straw) Urine Clarity (Clear) Urine pH (5.0-8.5) Ur Specific [place] (1.002-1.035) Urine Protein (Neg-Trace) mg/dL Urine Glucose (UA) (Negative) mg/dL Urine Ketones (Negative) mg/dL Urine Occult Blood (Negative) Urine Nitrate (Negative) Urine Bilirubin (Negative) Urine Urobilinogen (Less than 2) mg/dL Ur Leukocyte Esterase (Negative) Urine RBC (0-3) /hpf Urine WBC (0-5) /hpf Urine WBC Clumps (None) Ur Squamous Epith Cells (0-5) /hpf Urine Bacteria (None) /hpf Urine Mucus (Occasional) /lpf Urine Yeast (None) /hpf Ur Yeast w Hyphae (None) /hpf Micro UA Comment Ur Microscopic Review Urine Culture Comments Stool C.difficile Ag (Negative) Stool C.difficile Toxin (Negative) Stl C.difficile DNA Amp (Negative) St C. diff Tox Epid 027 (Negative) Random Vancomycin 8.8 Comment 02/10/18 02/10/18 02/10/18 Range/Units 09:06 12:44 16:27 WBC 32.8 H (4.0-11.0) th/mm3 RBC 3.06 L (4.00-5.30) mil/mm3 Hgb 9.9 L (11.6-15.3) gm/dL Hct 29.6 L (35.0-46.0) % MCV 96.8 (80.0-100.0) fL MCH 32.3 (27.0-34.0) pg MCHC 33.4 (32.0-36.0) % RDW 14.2 (11.6-17.2) % Plt Count 305 (150-450) th/mm3 MPV 7.1 (7.0-11.0) fL Prelim Diff (Auto) Slide review pending Neut % (Auto) 84.9 H (16.0-70.0) % Lymph % (Auto) 8.4 L (9.0-44.0) % [place] % (Auto) 6.1 (0.0-8.0) % Eos % (Auto) 0.4 (0.0-4.0) % Baso % (Auto) 0.2 (0.0-2.0) % Neut # (Auto) 27.8 H (1.8-7.7) th/mm3 Lymph # (Auto) 2.7 (1.0-4.8) th/mm3 [place] # (Auto) 2.0 H (0.0-0.9) th/mm3 Eos # (Auto) 0.1 (0.0-0.4) th/mm3 Baso # (Auto) 0.1 (0.0-0.2) th/mm3 WBC Differential Manual diff final Seg Neuts % (Manual) 86 H (16-70) % Band Neuts % (Manual) 5 (0-6) % Lymphocytes % (Manual) 5 L (9-44) % Monocytes % (Manual) 4 (0-8) % Abs Neuts (Manual) 29.8 H (1.8-7.7) th/mm3 Differential Comment . Platelet Estimate Normal (Normal) Platelet Morphology Normal (Normal) Ovalocytes 1+ H (None) Sodium (136-145) meq/L Potassium (3.5-5.1) meq/L Chloride (98-107) meq/L Carbon Dioxide (21.0-32.0) meq/L Anion Gap (5-15) meq/L BUN (7-18) mg/dL Creatinine (0.50-1.00) mg/dL Estimated GFR (>89) mL/min POC Glucose 277 H 215 H (68-110) mg/dl Random Glucose (74-106) mg/dL Lactic Acid (0.4-2.0) mmol/L Calcium (8.5-10.1) mg/dL Calcium Adj for Albumin (8.5-10.1) mg/dL Magnesium (1.5-2.5) mg/dL Total Bilirubin (0.2-1.0) mg/dL AST (15-37) U/L ALT (10-53) U/L Alkaline Phosphatase (45-117) U/L Total Creatine Kinase (26-192) U/L Total Protein (6.4-8.2) g/dL Albumin (3.4-5.0) g/dL Urine Color (Yellw/Straw) Urine Clarity (Clear) Urine pH (5.0-8.5) Ur Specific [place] (1.002-1.035) Urine Protein (Neg-Trace) mg/dL Urine Glucose (UA) (Negative) mg/dL Urine Ketones (Negative) mg/dL Urine Occult Blood (Negative) Urine Nitrate (Negative) Urine Bilirubin (Negative) Urine Urobilinogen (Less than 2) mg/dL Ur Leukocyte Esterase (Negative) Urine RBC (0-3) /hpf Urine WBC (0-5) /hpf Urine WBC Clumps (None) Ur Squamous Epith Cells (0-5) /hpf Urine Bacteria (None) /hpf Urine Mucus (Occasional) /lpf Urine Yeast (None) /hpf Ur Yeast w Hyphae (None) /hpf Micro UA Comment Ur Microscopic Review Urine Culture Comments Stool C.difficile Ag (Negative) Stool C.difficile Toxin (Negative) Stl C.difficile DNA Amp (Negative) St C. diff Tox Epid 027 (Negative) Random Vancomycin Comment 02/10/18 02/10/18 02/11/18 Range/Units 18:00 20:38 05:50 WBC 29.7 H (4.0-11.0) th/mm3 RBC 3.09 L (4.00-5.30) mil/mm3 Hgb 10.0 L (11.6-15.3) gm/dL Hct 29.5 L (35.0-46.0) % MCV 95.4 (80.0-100.0) fL MCH 32.3 (27.0-34.0) pg MCHC 33.8 (32.0-36.0) % RDW 13.9 (11.6-17.2) % Plt Count 298 (150-450) th/mm3 MPV 7.4 (7.0-11.0) fL Prelim Diff (Auto) Neut % (Auto) 83.8 H (16.0-70.0) % Lymph % (Auto) 9.3 (9.0-44.0) % [place] % (Auto) 5.8 (0.0-8.0) % Eos % (Auto) 0.6 (0.0-4.0) % Baso % (Auto) 0.5 (0.0-2.0) % Neut # (Auto) 24.9 H (1.8-7.7) th/mm3 Lymph # (Auto) 2.8 (1.0-4.8) th/mm3 [place] # (Auto) 1.7 H (0.0-0.9) th/mm3 Eos # (Auto) 0.2 (0.0-0.4) th/mm3 Baso # (Auto) 0.1 (0.0-0.2) th/mm3 WBC Differential . Seg Neuts % (Manual) (16-70) % Band Neuts % (Manual) (0-6) % Lymphocytes % (Manual) (9-44) % Monocytes % (Manual) (0-8) % Abs Neuts (Manual) (1.8-7.7) th/mm3 Differential Comment Auto diff final Platelet Estimate (Normal) Platelet Morphology (Normal) Ovalocytes (None) Sodium (136-145) meq/L Potassium (3.5-5.1) meq/L Chloride (98-107) meq/L Carbon Dioxide (21.0-32.0) meq/L Anion Gap (5-15) meq/L BUN (7-18) mg/dL Creatinine (0.50-1.00) mg/dL Estimated GFR (>89) mL/min POC Glucose 251 H (68-110) mg/dl Random Glucose (74-106) mg/dL Lactic Acid (0.4-2.0) mmol/L Calcium (8.5-10.1) mg/dL Calcium Adj for Albumin (8.5-10.1) mg/dL Magnesium (1.5-2.5) mg/dL Total Bilirubin (0.2-1.0) mg/dL AST (15-37) U/L ALT (10-53) U/L Alkaline Phosphatase (45-117) U/L Total Creatine Kinase (26-192) U/L Total Protein (6.4-8.2) g/dL Albumin (3.4-5.0) g/dL Urine Color [place] (Yellw/Straw) Urine Clarity Turbid H (Clear) Urine pH 5.0 (5.0-8.5) Ur Specific [place] 1.026 (1.002-1.035) Urine Protein 30 H (Neg-Trace) mg/dL Urine Glucose (UA) 50 (Negative) mg/dL Urine Ketones Trace H (Negative) mg/dL Urine Occult Blood Small H (Negative) Urine Nitrate Negative (Negative) Urine Bilirubin (Negative) Urine Urobilinogen 0.2 (Less than 2) mg/dL Ur Leukocyte Esterase Large H (Negative) Urine RBC 57 H (0-3) /hpf Urine WBC (0-5) /hpf Urine WBC Clumps Few H (None) Ur Squamous Epith Cells 1 (0-5) /hpf Urine Bacteria Moderate H (None) /hpf Urine Mucus Moderate H (Occasional) /lpf Urine Yeast Many H (None) /hpf Ur Yeast w Hyphae Rare H (None) /hpf Micro UA Comment Ur Microscopic Review Not Reportable Urine Culture Comments Stool C.difficile Ag (Negative) Stool C.difficile Toxin (Negative) Stl C.difficile DNA Amp (Negative) St C. diff Tox Epid 027 (Negative) Random Vancomycin Comment 02/11/18 02/11/18 02/11/18 Range/Units 08:33 12:41 17:08 WBC (4.0-11.0) th/mm3 RBC (4.00-5.30) mil/mm3 Hgb (11.6-15.3) gm/dL Hct (35.0-46.0) % MCV (80.0-100.0) fL MCH (27.0-34.0) pg MCHC (32.0-36.0) % RDW (11.6-17.2) % Plt Count (150-450) th/mm3 MPV (7.0-11.0) fL Prelim Diff (Auto) Neut % (Auto) (16.0-70.0) % Lymph % (Auto) (9.0-44.0) % [place] % (Auto) (0.0-8.0) % Eos % (Auto) (0.0-4.0) % Baso % (Auto) (0.0-2.0) % Neut # (Auto) (1.8-7.7) th/mm3 Lymph # (Auto) (1.0-4.8) th/mm3 [place] # (Auto) (0.0-0.9) th/mm3 Eos # (Auto) (0.0-0.4) th/mm3 Baso # (Auto) (0.0-0.2) th/mm3 WBC Differential Seg Neuts % (Manual) (16-70) % Band Neuts % (Manual) (0-6) % Lymphocytes % (Manual) (9-44) % Monocytes % (Manual) (0-8) % Abs Neuts (Manual) (1.8-7.7) th/mm3 Differential Comment Platelet Estimate (Normal) Platelet Morphology (Normal) Ovalocytes (None) Sodium (136-145) meq/L Potassium (3.5-5.1) meq/L Chloride (98-107) meq/L Carbon Dioxide (21.0-32.0) meq/L Anion Gap (5-15) meq/L BUN (7-18) mg/dL Creatinine (0.50-1.00) mg/dL Estimated GFR (>89) mL/min POC Glucose 197 H 234 H 258 H (68-110) mg/dl Random Glucose (74-106) mg/dL Lactic Acid (0.4-2.0) mmol/L Calcium (8.5-10.1) mg/dL Calcium Adj for Albumin (8.5-10.1) mg/dL Magnesium (1.5-2.5) mg/dL Total Bilirubin (0.2-1.0) mg/dL AST (15-37) U/L ALT (10-53) U/L Alkaline Phosphatase (45-117) U/L Total Creatine Kinase (26-192) U/L Total Protein (6.4-8.2) g/dL Albumin (3.4-5.0) g/dL Urine Color (Yellw/Straw) Urine Clarity (Clear) Urine pH (5.0-8.5) Ur Specific [place] (1.002-1.035) Urine Protein (Neg-Trace) mg/dL Urine Glucose (UA) (Negative) mg/dL Urine Ketones (Negative) mg/dL Urine Occult Blood (Negative) Urine Nitrate (Negative) Urine Bilirubin (Negative) Urine Urobilinogen (Less than 2) mg/dL Ur Leukocyte Esterase (Negative) Urine RBC (0-3) /hpf Urine WBC (0-5) /hpf Urine WBC Clumps (None) Ur Squamous Epith Cells (0-5) /hpf Urine Bacteria (None) /hpf Urine Mucus (Occasional) /lpf Urine Yeast (None) /hpf Ur Yeast w Hyphae (None) /hpf Micro UA Comment Ur Microscopic Review Urine Culture Comments Stool C.difficile Ag (Negative) Stool C.difficile Toxin (Negative) Stl C.difficile DNA Amp (Negative) St C. diff Tox Epid 027 (Negative) Random Vancomycin Comment Imaging Data Radiologist's impression: Chest X-Ray 02/06/18 17:54 CONCLUSION: No acute cardiopulmonary process. Abdomen/Pelvis CT 02/06/18 19:48 CONCLUSION: 1. Severe wall thickening and severe surrounding inflammation involving the rectum and distal sigmoid colon. Findings are characteristic of a severe acute proctocolitis. The sigmoid colon immediately proximal to the inflammation is dilated. 2. 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 This was previously described on the 11/09/[address] 3. Severe atherosclerotic disease. Chest X-Ray 02/10/18 00:00 CONCLUSION: No acute cardiopulmonary disease. Discharge Plan Discharge Disposition Patient Disposition: ED Admit(ED Internal Use Only) Discharge Order Discharge Orders: ED Use Only Admit Order (Routine); Ordered 02/06/18 Ordered By: Elvi Quinonez Discharge Details Diagnosis: Colitis, Hypoglycemia Physicians Team ED Provider: Elvi Quinonez Primary Care Provider: Yanni Valdez Attending Provider: Nomi Hawkins Other Providers: Shabnam Rodríguez ; Cruz Aranda Status ED Status: Left Department Discharge Information Discharge Date/Time: 02/06/18 23:06
[2018-02-06 17:58] LABS: Calcium 7.4 mg/dL (8.5-10.1); Carbon Dioxide 23.8 meq/L (21.0-32.0); Magnesium 2.4 mg/dL (1.5-2.5); Potassium 4.6 meq/L (3.5-5.1)
[2018-02-06 17:59] LABS: Albumin 1.8 g/dL (3.4-5.0); Total Protein 6.4 g/dL (6.4-8.2)
--- NOTE | 2018-02-06 18:17 | XR ---
EXAM DATE: 02/06/2018 6:12 PM EST AGE/SEX: 88 years / Female INDICATIONS: Short of breath. CLINICAL DATA: This is the patient's initial encounter. Patient reports that signs and symptoms have been present for 1 day and indicates a pain score of 0/10. MEDICAL/SURGICAL HISTORY: None. None. COMPARISON: C, CHEST 1V SINGLE AP, 01/10/2018. [facility], CT CHEST W/O CONTRAST, 01/10/2018. . FINDINGS: The heart size is normal. There is persistent density seen in the left retrocardiac area. This is unc hanged. There is deviation of the trachea towards the right presumably from an enlarged thyroid. When compared to the prior exam, no significant change is occurred. The lungs appear clear. The costophre rose angles are clear. CONCLUSION: No acute cardiopulmonary process. Electronically signed by: Daren Grace MD 02/06/2018 6:15 PM EST
[2018-02-06] MEDS ORDERED: Sodium Chlor 0.9% Inj 500 ML IV.SIG ONE (19:50)
[2018-02-06] MEDS ORDERED: metroNIDAZOLE 500 MG Tablet PO ONE (20:15)
--- NOTE | 2018-02-06 21:01 | CT ---
EXAM DATE: 02/06/2018 8:37 PM EST AGE/SEX: 88 years / Female INDICATIONS: Abdominal pain; possible colitis. CLINICAL DATA: This is the patient's initial encounter. Patient reports that signs and symptoms have been present for 1 day and indicates a pain score of 7/10. MEDICAL/SURGICAL HISTORY: Hypertension. Diabetes. Asthma. . Oophorectomy ORAL CONTRAST: No oral contrast ingested. RADIATION DOSE: 26.79 CTDI (mGy) COMPARISON: [facility] [place]ELVIS [place]/O CONTRAST, 11/09/2017. [facility] [place]ST [place]AST, 11/09/2017. . TECHNIQUE: Multiple contiguous axial images were obtained through the abdomen and pelvis following b olus infusion of 95 ml Omnipaque 350 (iohexol) nonionic water-soluble contrast as a single exam dos e. No oral contrast ingested. Using automated exposure control and adjustment of the mA and/or kV ac cording to patient size, radiation dose was kept as low as reasonably achievable to obtain optimal di agnostic quality images. DICOM format image data is available electronically for review and comparis on. FINDINGS: There is artifact on the examination related to patient arm positioning. Lower chest: There is respiratory motion artifact. Lungs demonstrate no acute finding. There is a par tially visualized solid appearing mass in the anterior mediastinum measuring up to 4.4 x 2.7 cm. It c ontains punctate areas of calcification and was documented on the prior examination. Hepatobiliary: No focal liver lesion is identified. Hepatic vasculature demonstrates no abnormality. There are likely multiple stones in the gallbladder. No bile duct dilatation is present. Kidneys: No hydronephrosis, stone, or mass. Adrenal Glands: Within normal limits. Spleen: Within normal limits. Pancreas: No definite pancreas abnormality is identified. Vascular: The aorta is nonaneurysmal. There is severe atherosclerotic disease. Bowel/Mesentery: The stomach and small bowel demonstrate no acute abnormality. There is severe wall t hickening and surrounding inflammation involving the rectum and distal sigmoid colon. There is also s evere surrounding inflammation in the adjacent fat. The sigmoid colon proximal to the inflammation is dilated. No free intraperitoneal air or fluid is identified. Abdominal Wall: No hernia is visualized. Retroperitoneum: No lymphadenopathy. Bladder: No wall thickening or mass. Reproductive: No acute abnormality is appreciated. Inguinal: No lymphadenopathy or hernia. Musculoskeletal: No acute osseous abnormality is identified. There are degenerative changes of the parrish mbar spine. CONCLUSION: 1. Severe wall thickening and severe surrounding inflammation involving the rectum and distal sigmoi d colon. Findings are characteristic of a severe acute proctocolitis. The sigmoid colon immediately p roximal to the inflammation is dilated. 2. 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 This was previously described on the 11/09/[address] 3. Severe atherosclerotic disease. Electronically signed by: Daren Katz MD 02/06/2018 9:00 PM EST
[2018-02-06] MEDS ORDERED: Acetaminophen 325 MG Tablet PO PRN (21:38)
[2018-02-06] MEDS ORDERED: Bisacodyl 10 MG Supp RECTAL PRN (21:38)
[2018-02-06] MEDS: Sod Chloride 0.9% Inj 1,000 ML IV.CONT SCH (22:04)
--- NOTE | 2018-02-06 22:33 | P.HPIM ---
History of Present Illness Service: [facility] Primary Care Physician: Yanni Valdez MD Chief Complaint: lethargy History of Present Illness: 88 y/o female with a history of htn, dm and asthma was brought to the ED via EMS for increased lethargy and confusion per the daughter. Patient is oriented x 2, sleepy, information was provided by her daughter at bedside. She states the patient has had increasing stools for 2 weeks and on Wednesday tested positive for cdiff out patient, she was then started on Flagyl Po. She states the patient was being fed today and went unresponsive so ems was called. Patient opens eyes briefly to answer some questions, she denies any abdominal pain, sob, or chest pain. No dysuria complaints. Patient does have care givers that take care of her at night that also work at a local detention. Daughter also states patients sugar tends to go low at home, patient takes 70/30 at home 15units multiple times a day, daughter states she only eats 2 meals a day and snacks the rest of the time. Inpatient Certification Inpatient Certification: I certify that the inpatient services were ordered in accordance with Medicare regulations governing the order. This includes certification that hospital inpatient services are reasonable and necessary and in the case of services not specified as inpatient-only under 42 CFR 419.22(n), that they are appropriately provided as inpatient services in accordance to with the 2-midnight benchmark under 43 CFR 412.3(e) Estimated Total Length of Stay (Days): 3 Plans for Post Hospital Care: Not yet determined Review of Systems Review of Systems: all other systems reviewed are negative [facility] Medical History Medical History Asthma (Acute) Diabetes (Acute) Hypertension (Acute) Uterine fibroid (Acute) Surgical History Surgical History Hx of oophorectomy (Acute) Family History Family History Father Heart disease Diabetes Mother Asthma Social History Social History Substance History: No History of Abuse Second Hand Smoke Exposure: No Smoking Status: Unknown if ever smoked How Often Do You Have a Drink Containing Alcohol: Never Recent Out of Country Travel within the Last 8 Weeks: No Immunization History Tetanus Immunization: Unsure Medications and Allergies Allergies Allergy/AdvReac Type Severity Reaction Status Date / Time No Known Allergies Allergy Verified 01/10/18 22:35 Home Medications Medication Instructions Recorded Confirmed Type alprazolam 0.25 mg PO TID PRN 11/09/17 02/06/18 History amlodipine 5 mg PO DAILY 11/09/17 02/06/18 History benzonatate 100 mg PO TID PRN 11/09/17 02/06/18 History budesonide-formoterol [Symbicort] 2 puff INHALATION BID 11/09/17 02/06/18 History ferrous sulfate 325 mg PO DAILY 11/09/17 02/06/18 History insulin NPH and regular human 15 unit SUB-Q 4XW 11/09/17 02/06/18 History [Humulin 70/30 U-100 Insulin] insulin NPH and regular human 33 unit SUB-Q QAM 11/09/17 02/06/18 History [Humulin 70/30 U-100 Insulin] lisinopril 40 mg PO DAILY 11/09/17 02/06/18 History medroxyprogesterone 5 mg PO DAILY 11/09/17 02/06/18 History trazodone 50 mg PO QPM 11/09/17 02/06/18 History Active Medications: Active Medications Acetaminophen (Tylenol) 650 mg PO Q4H PRN PRN Reason: Temp > 100.4 Al Hydroxide/Mg Hydroxide (Milk Of Magnesia Liq) 30 ml PO Q12H PRN PRN Reason: Mild Constipation Bisacodyl (Dulcolax Supp) 10 mg RECTAL DAILY PRN PRN Reason: SEVERE CONSITIPATION Metronidazole/Sodium Chloride (Flagyl 500 Mg Inj) 100 mls @ 100 mls/hr IV.SIG Q6H DARCY Sodium Chloride (Ns Inj) 1,000 mls @ 60 mls/hr IV.CONT .[id number] [facility] Last Admin: 02/06/18 22:04 Dose: 60 mls/hr Lactulose (Lactulose Liq) 30 ml PO DAILY PRN PRN Reason: SEVERE CONSITIPATION Ondansetron HCl (Zofran Inj) 4 mg IV.PUSH Q6H PRN PRN Reason: NAUSEA OR VOMITING Sennosides (Senokot) 17.2 mg PO Q12H PRN PRN Reason: Moderate Constipation Sodium Chloride (Ns Flush) 2 ml IV.FLUSH BID DARCY Sodium Chloride (Ns Flush) 2 ml IV.FLUSH PRN PRN PRN Reason: FLUSH AFTER USING IV ACCESS Vancomycin HCl (Vancomycin Po) 500 mg PO QID [facility] Last Admin: 02/06/18 22:12 Dose: 500 mg Physical Exam Vital signs: Last Vital Signs Temp 98.3 F 02/06/18 16:50 Pulse 84 02/06/18 22:06 Resp 15 02/06/18 22:06 BP 117/54 L 02/06/18 22:06 Pulse Ox 98 02/06/18 22:06 Intake & Output 02/04/18 02/05/18 02/06/18 02/07/18 06:59 06:59 06:59 06:59 Intake Total 550 / 550 Balance 550 / 550 Weight 113.398 kg Narrative: GENERAL: patient in no acute distress SKIN: Warm and dry. Stage 1 pressure ulcer sacrum, reddened, blanchable HEAD: Atraumatic. Normocephalic. EYES: Pupils equal and round. No scleral icterus. No injection or drainage. CARDIOVASCULAR: Regular rate and rhythm. RESPIRATORY: No accessory muscle use. Clear to auscultation. Breath sounds equal bilaterally. GASTROINTESTINAL: Abdomen soft, non-tender, nondistended. Hepatic and splenic margins not palpable. MUSCULOSKELETAL: Extremities without clubbing, cyanosis, or edema. No obvious deformities. NEUROLOGICAL: Sleepy and alert x 2. Motor grossly within normal limits. Normal speech. Results Labs CBC & Chem 7: 02/06/18 17:10 02/06/18 17:10 Imaging Impressions Chest X-Ray 02/06/18 17:54 CONCLUSION: No acute cardiopulmonary process. Abdomen/Pelvis CT 02/06/18 19:48 CONCLUSION: 1. Severe wall thickening and severe surrounding inflammation involving the rectum and distal sigmoid colon. Findings are characteristic of a severe acute proctocolitis. The sigmoid colon immediately proximal to the inflammation is dilated. 2. 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 This was previously described on the 11/09/[address] 3. Severe atherosclerotic disease. Caprini VTE Risk Assessment Caprini VTE Risk Assessment: Moderate/High Risk (score >= 2) Caprini Risk Assessment Model: Point Value = 1 Point Value = 2 Point Value = 3 Point Value = 5 Age 41-60 Minor surgery BMI > 25 kg/m2 Swollen legs Varicose veins or History of unexplained or recurrent spontaneous Oral contraceptives or hormone replacement Sepsis (< 1 month) Serious lung disease, including pneumonia (< 1 month) Abnormal pulmonary function Acute myocardial infarction Congestive heart failure (< 1 month) History of inflammatory bowel disease Medical patient at bed rest Age 61-74 Arthroscopic surgery Major open surgery (> 45 min) Laparoscopic surgery (> 45 min) Malignancy Confined to bed (> 72 hours) Immobilizing plaster cast Central venous access Age >= 75 History of VTE Family history of VTE Factor V Leiden Prothrombin [id number] Lupus anticoagulant Anticardiolipin antibodies Elevated serum homocysteine Heparin-induced thrombocytopenia Other congenital or acquired thrombophilia Stroke (< 1 month) Elective arthroplasty Hip, pelvis, or leg fracture Acute spinal cord injury (< 1 month) Prophylaxis Regimen: Total Risk Factor Score Risk Level Prophylaxis Regimen 0-1 Low Early ambulation 2 Moderate Order ONE of the following: *Sequential Compression Device (SCD) *Heparin 5000 units SQ BID 3-4 Higher Order ONE of the following medications: *Heparin 5000 units SQ TID *Enoxaparin/Lovenox 40 mg SQ daily (WT < 150 kg, CrCl > 30 mL/min) *Enoxaparin/Lovenox 30 mg SQ daily (WT < 150 kg, CrCl > 10-29 mL/min) *Enoxaparin/Lovenox 30 mg SQ BID (WT < 150 kg, CrCl > 30 mL/min) AND/OR *Sequential Compression Device (SCD) 5 or more Highest Order ONE of the following medications: *Heparin 5000 units SQ TID (Preferred with Epidurals) *Enoxaparin/Lovenox 40 mg SQ daily (WT < 150 kg, CrCl > 30 mL/min) *Enoxaparin/Lovenox 30 mg SQ daily (WT < 150 kg, CrCl > 10-29 mL/min) *Enoxaparin/Lovenox 30 mg SQ BID (WT < 150 kg, CrCl > 30 mL/min) AND *Sequential Compression Device (SCD) Assessment and Plan Plan 88 y/o female with a history of htn, dm and asthma was brought to the ED via EMS for increased lethargy and confusion per the daughter. Collins diff colitis with leukocytosis WBC 21.[address] reviewed and shows Severe wall thickening and severe surrounding inflammation involving the rectum and distal sigmoid colon. Findings are characteristic of a severe acute proctocolitis. -Vancomycin po and flagyl IV -Labs in am -IVF for hydration Abnormal UA UA shows small leukocyte esterase -culture pending, await culture before treatment Acute kidney injury, likely due to dehydration creatine 1.4, baseline 1.0 -IVF as above -Trend creatine -avoid nephrotoxins Pressure ulcer,sacrum, patient is at risk for increasing pressure ulcer -Barrier cream as needed -Turn Q2H DM, chronic -Hold home insulin, patient may benefit from lowering 70/30 dose at home and following up with PCP -Accu checks with Sliding scale -Diabetic diet HTN, chronic -Resume home medications -Monitor vitals DVT prophylaxis: scds
[2018-02-07] MEDS ORDERED: Dextrose 50% in Water 50 ML Vial IV.PUSH PRN (01:33)
[2018-02-07 08:19] LABS: Baso # (Auto) 0.1 th/mm3 (0.0-0.2); Baso % (Auto) 0.4 % (0.0-2.0); Eos # (Auto) 0.2 th/mm3 (0.0-0.4); Eos % (Auto) 0.9 % (0.0-4.0); Hematocrit 31.9 % (35.0-46.0); Hemoglobin 10.7 gm/dL (11.6-15.3); Lymph # (Auto) 1.9 th/mm3 (1.0-4.8); Lymph % (Auto) 9.5 % (9.0-44.0); Mean Corpuscular HGB Conc 33.7 % (32.0-36.0); Mean Corpuscular Hemoglobin 32.2 pg (27.0-34.0); Mean Corpuscular Volume 95.8 fL (80.0-100.0); Mean Platelet Volume 6.9 fL (7.0-11.0); Mono # (Auto) 1.5 th/mm3 (0.0-0.9); Mono % (Auto) 7.2 % (0.0-8.0); Neut # (Auto) 16.8 th/mm3 (1.8-7.7); Platelet Count 320 th/mm3 (150-450); Red Blood Count 3.33 mil/mm3 (4.00-5.30); Red Cell Distribution Width 13.9 % (11.6-17.2); White Blood Count 20.4 th/mm3 (4.0-11.0)
[2018-02-07 08:55] LABS: Albumin 1.7 g/dL (3.4-5.0); Calcium 7.1 mg/dL (8.5-10.1); Potassium 4.3 meq/L (3.5-5.1)
[2018-02-07] MEDS: Ferrous Sulfate 325 MG Tablet PO SCH (09:58)
[2018-02-07] MEDS: Heparin - SQ 10,000 UNITS/ML Vial SQ SCH ×2 (09:58→21:32)
[2018-02-07] MEDS: Insulin NovoLOG Aspart Correctional Sugar Inj SQ SCH ×4 (10:00→21:45)
[2018-02-07] MEDS: amLODIPine 5 MG Tablet PO SCH (10:00)
--- NOTE | 2018-02-07 13:29 | P.PNIM ---
Subjective Interval history: Follow-up visit colitis, leukocytosis, DM 2. Patient seen and examined today awake and alert. Knows her name. Knows she is in a hospital but does not know the name. States is 1979. Patient was reoriented. She denies any chest pain, palpitations, headaches, fevers, chills. Patient reports abdominal pain mostly along the mid epigastric region on bilateral side, unable to describe further. Denies any nausea, vomiting. Physical Exam Vital signs: Vital Signs 02/06/18 16:40 02/06/18 16:49 02/06/18 16:50 Temperature 98 F 98.3 F Pulse Rate 88 87 Respiratory Rate 18 20 Blood Pressure 132/71 137/62 Pulse Oximetry 98 98 98 02/06/18 19:22 02/06/18 21:04 02/06/18 22:06 Temperature Pulse Rate 82 84 84 Respiratory Rate 17 17 15 Blood Pressure 127/85 152/69 H 117/54 L Pulse Oximetry 98 98 98 02/06/18 22:45 02/07/18 00:00 02/07/18 04:00 Temperature 98.5 F 98.7 F 98.8 F Pulse Rate 84 80 89 Respiratory Rate 18 16 18 Blood Pressure 130/60 133/59 L 119/58 L Pulse Oximetry 99 97 98 02/07/18 08:00 Temperature 97.6 F Pulse Rate 99 H Respiratory Rate 20 Blood Pressure 125/61 Pulse Oximetry 96 Intake & Output 02/06/18 02/07/18 02/07/18 18:59 06:59 18:59 Intake Total 50 / 50 650 / 650 Balance 50 / 50 650 / 650 Weight 116 kg 113 kg Intake: IV 50 / 50 600 / 600 [id number] Syringe 50 ML @ 0 mls/hr . 50 / 50 ROUTE .STK-MED ONE Rx#:[id number] NS Inj 500 ML @ Wide Open IV. 500 / 500 SIG BOLUS ONE Rx#:[id number] Flagyl 500 MG Inj 100 ML @ 100 100 / 100 mls/hr IV.SIG Q6H DARCY Rx#: [id number] Oral 50 / 50 Narrative: GENERAL: This is a an elderly, well-developed patient, in no apparent distress. SKIN: Warm and dry. HEENT: Normocephalic. Pupils equal round and reactive. Nose without bleeding. Airway patent. Oral candidiasis noted. NECK: Trachea midline. CARDIOVASCULAR: Regular rate and rhythm without murmurs, gallops, or rubs. RESPIRATORY: Clear to auscultation. Breath sounds equal bilaterally. No wheezes , rales, or rhonchi. GASTROINTESTINAL: Abdomen soft, nondistended. Bowel Sounds hyperactive. Mild tenderness to palpate. MUSCULOSKELETAL: Extremities without clubbing, cyanosis, or edema. NEUROLOGICAL: Awake and alert. Moves all extremities, weak bilateral lower extremities. Results - Labs CBC & Chem 7: 02/07/18 07:50 02/07/18 07:50 Laboratory Results - last 24 hr 02/06/18 02/06/18 02/06/18 16:59 17:09 17:10 WBC 21.6 H RBC 3.47 L Hgb 11.2 L Hct 33.6 L MCV 96.9 MCH 32.2 MCHC 33.3 RDW 13.8 Plt Count 325 MPV 7.3 Neut % (Auto) 86.5 H Lymph % (Auto) 6.7 L [place] % (Auto) 6.0 Eos % (Auto) 0.4 Baso % (Auto) 0.4 Neut # (Auto) 18.7 H Lymph # (Auto) 1.4 [place] # (Auto) 1.3 H Eos # (Auto) 0.1 Baso # (Auto) 0.1 WBC Differential . Differential Comment Auto diff final Sodium Potassium Chloride Carbon Dioxide Anion Gap BUN Creatinine Estimated GFR POC Glucose 41 L* 119 H Random Glucose Lactic Acid Calcium Calcium Adj for Albumin Magnesium Total Bilirubin AST ALT Alkaline Phosphatase Total Creatine Kinase Total Protein Albumin Urine Color Urine Clarity Urine pH Ur Specific [place] Urine Protein Urine Glucose (UA) Urine Ketones Urine Occult Blood Urine Nitrate Urine Bilirubin Urine Urobilinogen Ur Leukocyte Esterase Urine RBC Urine WBC Ur Squamous Epith Cells Urine Bacteria Urine Mucus Micro UA Comment Ur Microscopic Review Urine Culture Comments 02/06/18 02/06/18 02/06/18 17:10 17:10 17:20 WBC RBC Hgb Hct MCV MCH MCHC RDW Plt Count MPV Neut % (Auto) Lymph % (Auto) [place] % (Auto) Eos % (Auto) Baso % (Auto) Neut # (Auto) Lymph # (Auto) [place] # (Auto) Eos # (Auto) Baso # (Auto) WBC Differential Differential Comment Sodium 142 Potassium 4.6 Chloride 111 H Carbon Dioxide 23.8 Anion Gap 7 BUN 19 H Creatinine 1.40 H Estimated GFR 43 L POC Glucose Random Glucose 157 H Lactic Acid Calcium 7.4 L* Calcium Adj for Albumin 9.2 Magnesium 2.4 Total Bilirubin 0.2 AST 20 ALT 9 L Alkaline Phosphatase 68 Total Creatine Kinase 69 Total Protein 6.4 Albumin 1.8 L Urine Color [place] Urine Clarity Hazy H Urine pH 5.0 Ur Specific [place] 1.021 Urine Protein Negative Urine Glucose (UA) Negative Urine Ketones Negative Urine Occult Blood Negative Urine Nitrate Negative Urine Bilirubin Negative Urine Urobilinogen Less than 2 Ur Leukocyte Esterase Small H Urine RBC Less than 1 Urine WBC 7 H Ur Squamous Epith Cells 1 Urine Bacteria Occasional H Urine Mucus Few H Micro UA Comment Cath-culture ind Ur Microscopic Review Not Reportable Urine Culture Comments Cath-cult indicated 02/06/18 02/06/18 02/06/18 17:43 19:21 20:00 WBC RBC Hgb Hct MCV MCH MCHC RDW Plt Count MPV Neut % (Auto) Lymph % (Auto) [place] % (Auto) Eos % (Auto) Baso % (Auto) Neut # (Auto) Lymph # (Auto) [place] # (Auto) Eos # (Auto) Baso # (Auto) WBC Differential Differential Comment Sodium Potassium Chloride Carbon Dioxide Anion Gap BUN Creatinine Estimated GFR POC Glucose 106 138 H Random Glucose Lactic Acid 1.6 Calcium Calcium Adj for Albumin Magnesium Total Bilirubin AST ALT Alkaline Phosphatase Total Creatine Kinase Total Protein Albumin Urine Color Urine Clarity Urine pH Ur Specific [place] Urine Protein Urine Glucose (UA) Urine Ketones Urine Occult Blood Urine Nitrate Urine Bilirubin Urine Urobilinogen Ur Leukocyte Esterase Urine RBC Urine WBC Ur Squamous Epith Cells Urine Bacteria Urine Mucus Micro UA Comment Ur Microscopic Review Urine Culture Comments 02/06/18 02/07/18 02/07/18 21:03 01:14 07:50 WBC 20.4 H RBC 3.33 L Hgb 10.7 L Hct 31.9 L MCV 95.8 MCH 32.2 MCHC 33.7 RDW 13.9 Plt Count 320 MPV 6.9 L Neut % (Auto) 82.0 H Lymph % (Auto) 9.5 [place] % (Auto) 7.2 Eos % (Auto) 0.9 Baso % (Auto) 0.4 Neut # (Auto) 16.8 H Lymph # (Auto) 1.9 [place] # (Auto) 1.5 H Eos # (Auto) 0.2 Baso # (Auto) 0.1 WBC Differential . Differential Comment Auto diff final Sodium Potassium Chloride Carbon Dioxide Anion Gap BUN Creatinine Estimated GFR POC Glucose 182 H 173 H Random Glucose Lactic Acid Calcium Calcium Adj for Albumin Magnesium Total Bilirubin AST ALT Alkaline Phosphatase Total Creatine Kinase Total Protein Albumin Urine Color Urine Clarity Urine pH Ur Specific [place] Urine Protein Urine Glucose (UA) Urine Ketones Urine Occult Blood Urine Nitrate Urine Bilirubin Urine Urobilinogen Ur Leukocyte Esterase Urine RBC Urine WBC Ur Squamous Epith Cells Urine Bacteria Urine Mucus Micro UA Comment Ur Microscopic Review Urine Culture Comments 02/07/18 02/07/18 07:50 08:25 WBC RBC Hgb Hct MCV MCH MCHC RDW Plt Count MPV Neut % (Auto) Lymph % (Auto) [place] % (Auto) Eos % (Auto) Baso % (Auto) Neut # (Auto) Lymph # (Auto) [place] # (Auto) Eos # (Auto) Baso # (Auto) WBC Differential Differential Comment Sodium 141 Potassium 4.3 Chloride 114 H Carbon Dioxide 21.0 Anion Gap 6 BUN 15 Creatinine 1.09 H Estimated GFR 57 L POC Glucose 135 H Random Glucose 130 H Lactic Acid Calcium 7.1 L* Calcium Adj for Albumin 8.9 Magnesium Total Bilirubin 0.2 AST 11 L ALT 10 Alkaline Phosphatase 68 Total Creatine Kinase Total Protein 6.0 L Albumin 1.7 L Urine Color Urine Clarity Urine pH Ur Specific [place] Urine Protein Urine Glucose (UA) Urine Ketones Urine Occult Blood Urine Nitrate Urine Bilirubin Urine Urobilinogen Ur Leukocyte Esterase Urine RBC Urine WBC Ur Squamous Epith Cells Urine Bacteria Urine Mucus Micro UA Comment Ur Microscopic Review Urine Culture Comments Microbiology 02/06/18 20:00 Blood - Peripheral Aerobic Blood Culture - Preliminary No growth in 1 day 02/06/18 20:00 Blood - Peripheral Anaerobic Blood Culture - Preliminary No growth in 1 day 02/06/18 20:05 Blood - Peripheral Aerobic Blood Culture - Preliminary No growth in 1 day 02/06/18 20:05 Blood - Peripheral Anaerobic Blood Culture - Preliminary No growth in 1 day - Imaging Impressions Chest X-Ray 02/06/18 17:54 CONCLUSION: No acute cardiopulmonary process. Abdomen/Pelvis CT 02/06/18 19:48 CONCLUSION: 1. Severe wall thickening and severe surrounding inflammation involving the rectum and distal sigmoid colon. Findings are characteristic of a severe acute proctocolitis. The sigmoid colon immediately proximal to the inflammation is dilated. 2. 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 This was previously described on the 11/09/[address] 3. Severe atherosclerotic disease. Assessment and Plan - Plan 88 y/o female with a history of htn, dm and asthma was brought to the ED via EMS for increased lethargy and confusion per the daughter C diff colitis with leukocytosis WBC 21.6 -->20.4 SIRS, sepsis due to colitis -Follow-up blood cultures, lactic acid less than 2 -Diagnosed in the outpatient positive for C. difficile and was started on Flagyl p.o. -Abdominal CT reviewed and shows Severe wall thickening and severe surrounding inflammation involving the rectum and distal sigmoid colon. Findings are characteristic of a severe acute proctocolitis. -Vancomycin po and flagyl IV, May benefit with Vanco per rectum but will defer to Colorectal Surgeon due to proctocolitis in the rectum-risk for perf -IVF for hydration -Consult infectious disease for further evaluation. Appreciate recommendation -Consult colorectal surgeon for further evaluation. Appreciate recommendations Abnormal UA UA shows small leukocyte esterase -culture pending, no growth to date, preliminary Oral Ashlyn -Clotrimazole troches -Oral care Acute kidney injury, likely due to dehydration -creatine 1.4, baseline 1.0 -IVF as above -Trend creatine -avoid nephrotoxins Pressure ulcer,sacrum, patient is at risk for increasing pressure ulcer -Barrier cream as needed -Turn Q2H DM, chronic -Initially hypoglycemic possibly from dehydration -Hold home insulin, patient may benefit from lowering 70/30 dose at home and following up with PCP -Accu checks with Sliding scale -Diabetic diet HTN, chronic -Resume home medications Norvasc 5 mg -Monitor vitals DVT prophylaxis heparin Code Status: Full code Discussed Condition With: Discussed with nursing, Dr. Hawkins, Dr. Rodríguez Discharge Planning: Plan to DC home with home health care when clinically improved
[2018-02-07] MEDS: Budesonide-Formoterol 80/4.5 MCG 6.9 GM Inhaler INH SCH ×2 (13:30→21:47)
--- NOTE | 2018-02-07 16:02 | P.CONID ---
History of Present Illness Service: Infectious disease Consult date: 02/07/18 Requesting Physician: Jef Ortiz Reason for Consult: Evaluate patient with severe proctocolitis Primary Care Provider: Yanni Valdez MD Chief Complaint: lethargy History of Present Illness: Patient seen and examined. Records reviewed. Patient is an 88-year-old female, presented to the hospital for further evaluation of lethargy. Patient apparently has been having diarrhea over the last 2 weeks. She was seen by her primary care physician, and tested positive for C. difficile. She was started on p.o. Flagyl. On the day of admission patient was noted to be quite lethargic,. She lives with her daughter. She was concerned so the patient was brought into the hospital for further evaluation and treatment. Since admission she has not been febrile. Her white count is greater than 20,000. CT of the abdomen and pelvis is showing significant bowel wall thickening of the rectum and the sigmoid colon. She is having a lot of diarrhea. Infectious disease consultation has been requested to assist with evaluation and treatment. Review of Systems Constitutional: Reports lack of energy, Denies chills, Denies fever(s), Denies night sweats Eyes: Denies discharge, Denies dry eyes Ears, Nose, Mouth, and Throat: Denies difficulty swallowing, Denies nasal discharge, Denies pain with swallowing, Denies sore throat Cardiovascular: Denies chest pain, Denies shortness of breath Respiratory: Denies chest congestion, Denies cough, Denies shortness of breath Gastrointestinal: Denies abdominal pain, Denies nausea, Denies pain with swallowing, Denies vomiting Genitourinary: Denies painful urination Musculoskeletal: Denies joint pain, Denies joint swelling Skin/Breast: Denies rash Neurologic: Reports confusion PMFSH - History History Provided By: Family Member, Chief Fundraising Officer / EMT - Medical History Medical History: Medical History (Last Reviewed 02/07/18 @ 15:56 by Shabnam Rodríguez MD) Asthma Diabetes Hypertension Uterine fibroid - Surgical History Surgical History: Surgical History (Last Reviewed 02/07/18 @ 15:56 by Shabnam Rodríguez MD) Hx of oophorectomy - Family History Family History: Family History (Last Reviewed 02/07/18 @ 15:56 by Shabnam Rodríguez MD) Father Heart disease Diabetes Mother Asthma - Tobacco History Second Hand Smoke Exposure: No Smoking Status: Unknown if ever smoked - Alcohol History How Often Do You Have a Drink Containing Alcohol: Never - Substance Use History Substance History: No History of Abuse - Travel History Recent Travel Out of the Country Within the Last 8 Weeks: No - Immunization History Tetanus Immunization: Unsure Medications and Allergies Active Medications: Active Medications Acetaminophen (Tylenol) 650 mg PO Q4H PRN PRN Reason: Temp > 100.4 Al Hydroxide/Mg Hydroxide (Milk Of Magnesia Liq) 30 ml PO Q12H PRN PRN Reason: Mild Constipation Amlodipine Besylate (Norvasc) 5 mg PO DAILY [facility] Last Admin: 02/07/18 10:00 Dose: Not Given Bisacodyl (Dulcolax Supp) 10 mg RECTAL DAILY PRN PRN Reason: SEVERE CONSITIPATION Budesonide/Formoterol Fumarate (Symbicort 80/4.5 Mcg Inh) 2 puff INH BID [facility] Last Admin: 02/07/18 13:30 Dose: Not Given Clotrimazole (Mycelex Andres) 10 mg BUCCAL 5 TIMES A DAY [facility] Stop: 02/17/18 13:59 Dextrose (D50w Vial) 50 ml IV.PUSH UNSCH PRN PRN Reason: PER HYPOGLYCEMIA PROTOCOL Ferrous Sulfate (Ferosul) 325 mg PO DAILY [facility] Last Admin: 02/07/18 09:58 Dose: 325 mg Glucagon (Glucagon Inj) 1 mg OTHER PRN PRN PRN Reason: for Hypoglycemia Protocol Heparin Sodium (Porcine) (Heparin Inj) 5,000 units SQ Q12HR [facility] Last Admin: 02/07/18 09:58 Dose: 5,000 units Sodium Chloride (Ns Inj) 1,000 mls @ 60 mls/hr IV.CONT .[id number] [facility] Last Admin: 02/06/18 22:04 Dose: 60 mls/hr Metronidazole/Sodium Chloride (Flagyl 500 Mg Inj) 100 mls @ 100 mls/hr IV.SIG Q8H [facility] Insulin Aspart (Novolog Insulin Correctional Sugar Inj) 0 unit SQ ACHS [facility]; Protocol Last Admin: 02/07/18 10:00 Dose: Not Given Lactobacillus Acidophilus (Lactinex) 1 tab PO BID [facility] Lactulose (Lactulose Liq) 30 ml PO DAILY PRN PRN Reason: SEVERE CONSITIPATION Medroxyprogesterone Acetate (Provera) 5 mg PO DAILY [facility] Last Admin: 02/07/18 09:58 Dose: 5 mg Ondansetron HCl (Zofran Inj) 4 mg IV.PUSH Q6H PRN PRN Reason: NAUSEA OR VOMITING Sennosides (Senokot) 17.2 mg PO Q12H PRN PRN Reason: Moderate Constipation Sodium Chloride (Ns Flush) 2 ml IV.FLUSH BID [facility] Last Admin: 02/07/18 10:00 Dose: Not Given Sodium Chloride (Ns Flush) 2 ml IV.FLUSH PRN PRN PRN Reason: FLUSH AFTER USING IV ACCESS Vancomycin HCl (Vancomycin Po) 250 mg PO QID [facility] Last Admin: 02/07/18 13:32 Dose: 250 mg Allergies Allergy/AdvReac Type Severity Reaction Status Date / Time No Known Allergies Allergy Verified 01/10/18 22:35 Home Medications Medication Instructions Recorded Confirmed Type alprazolam 0.25 mg PO TID PRN 11/09/17 02/06/18 History amlodipine 5 mg PO DAILY 11/09/17 02/06/18 History benzonatate 100 mg PO TID PRN 11/09/17 02/06/18 History budesonide-formoterol [Symbicort] 2 puff INHALATION BID 11/09/17 02/06/18 History ferrous sulfate 325 mg PO DAILY 11/09/17 02/06/18 History insulin NPH and regular human 15 unit SUB-Q 4XW 11/09/17 02/06/18 History [Humulin 70/30 U-100 Insulin] insulin NPH and regular human 33 unit SUB-Q QAM 11/09/17 02/06/18 History [Humulin 70/30 U-100 Insulin] lisinopril 40 mg PO DAILY 11/09/17 02/06/18 History medroxyprogesterone 5 mg PO DAILY 11/09/17 02/06/18 History trazodone 50 mg PO QPM 11/09/17 02/06/18 History Exam Vital signs: Vital Signs 02/06/18 16:40 02/06/18 16:49 02/06/18 16:50 Temperature 98 F 98.3 F Pulse Rate 88 87 Respiratory Rate 18 20 Blood Pressure 132/71 137/62 Pulse Oximetry 98 98 98 02/06/18 19:22 02/06/18 21:04 12/09/18 22:06 Temperature Pulse Rate 82 84 84 Respiratory Rate 17 17 15 Blood Pressure 127/85 152/69 H 117/54 L Pulse Oximetry 98 98 98 02/06/18 22:45 02/07/18 00:00 02/07/18 04:00 Temperature 98.5 F 98.7 F 98.8 F Pulse Rate 84 80 89 Respiratory Rate 18 16 18 Blood Pressure 130/60 133/59 L 119/58 L Pulse Oximetry 99 97 98 02/07/18 08:00 02/07/18 12:00 02/07/18 14:29 Temperature 97.6 F 98.5 F Pulse Rate 99 H 89 Respiratory Rate 20 20 Blood Pressure 125/61 132/64 Pulse Oximetry 96 98 96 Intake & Output 02/06/18 02/07/18 02/07/18 18:59 06:59 18:59 Intake Total 50 / 50 650 / 650 Balance 50 / 50 650 / 650 Weight 116 kg 113 kg Intake: IV 50 / 50 600 / 600 [id number] Syringe 50 ML @ 0 mls/hr . 50 / 50 ROUTE .STK-MED ONE Rx#:[id number] NS Inj 500 ML @ Wide Open IV. 500 / 500 SIG BOLUS ONE Rx#:[id number] Flagyl 500 MG Inj 100 ML @ 100 100 / 100 mls/hr IV.SIG Q6H DARCY Rx#: [id number] Oral 50 / 50 Narrative: Physical Examination GENERAL: Patient is a well-nourished, well-developed elderly female, awake and alert, not in respiratory distress. Told me worng age, does not known where she is, gave me wrong year and could n0t tell me name of president SKIN: Cool and dry. No generalized rash, no ecchymoses and no evidence of embolic lesions. HEAD: Atraumatic. Normocephalic. No temporal wasting, or tenderness. EYES: [place] conjunctiva. No petechia or hemorrhage. Pupils equal, round and reactive to light. Extraocular movements full and intact. No scleral icterus. No injection or drainage. EARS, NOSE AND THROAT: Nose without bleeding or purulent nasal discharge. Slightly dry oral mucosa, white coating on tongue NECK: Trachea midline. Supple and not tender, no meningeal signs CARDIOVASCULAR: Regular rate and rhythm. No murmurs, rubs or gallops heard RESPIRATORY: Clear to auscultation. Breath sounds equal bilaterally. No rales , wheezing or rhonchi ABDOMEN: Soft, non-tender, nondistended. Bowel sounds present and normoactive. No guarding. No rebound. No organomegaly. EXTREMITIES: No clubbing, cyanosis, or edema. No calf tenderness. NEURO: Grossly non-focal PSYCHIATRIC: Normal affect, calm and cooperative. LINE: No evidence of infection Results - Labs CBC & Chem 7: 02/07/18 07:50 02/07/18 07:50 Labs: Laboratory Results - last 24 hr 02/06/18 02/06/18 02/06/18 16:59 17:09 17:10 WBC 21.6 H RBC 3.47 L Hgb 11.2 L Hct 33.6 L MCV 96.9 MCH 32.2 MCHC 33.3 RDW 13.8 Plt Count 325 MPV 7.3 Neut % (Auto) 86.5 H Lymph % (Auto) 6.7 L [place] % (Auto) 6.0 Eos % (Auto) 0.4 Baso % (Auto) 0.4 Neut # (Auto) 18.7 H Lymph # (Auto) 1.4 [place] # (Auto) 1.3 H Eos # (Auto) 0.1 Baso # (Auto) 0.1 WBC Differential . Differential Comment Auto diff final Sodium Potassium Chloride Carbon Dioxide Anion Gap BUN Creatinine Estimated GFR POC Glucose 41 L* 119 H Random Glucose Lactic Acid Calcium Calcium Adj for Albumin Magnesium Total Bilirubin AST ALT Alkaline Phosphatase Total Creatine Kinase Total Protein Albumin Urine Color Urine Clarity Urine pH Ur Specific [place] Urine Protein Urine Glucose (UA) Urine Ketones Urine Occult Blood Urine Nitrate Urine Bilirubin Urine Urobilinogen Ur Leukocyte Esterase Urine RBC Urine WBC Ur Squamous Epith Cells Urine Bacteria Urine Mucus Micro UA Comment Ur Microscopic Review Urine Culture Comments 02/06/18 02/06/18 02/06/18 17:10 17:10 17:20 WBC RBC Hgb Hct MCV MCH MCHC RDW Plt Count MPV Neut % (Auto) Lymph % (Auto) [place] % (Auto) Eos % (Auto) Baso % (Auto) Neut # (Auto) Lymph # (Auto) [place] # (Auto) Eos # (Auto) Baso # (Auto) WBC Differential Differential Comment Sodium 142 Potassium 4.6 Chloride 111 H Carbon Dioxide 23.8 Anion Gap 7 BUN 19 H Creatinine 1.40 H Estimated GFR 43 L POC Glucose Random Glucose 157 H Lactic Acid Calcium 7.4 L* Calcium Adj for Albumin 9.2 Magnesium 2.4 Total Bilirubin 0.2 AST 20 ALT 9 L Alkaline Phosphatase 68 Total Creatine Kinase 69 Total Protein 6.4 Albumin 1.8 L Urine Color Jesika Urine Clarity Hazy H Urine pH 5.0 Ur Specific [place] 1.021 Urine Protein Negative Urine Glucose (UA) Negative Urine Ketones Negative Urine Occult Blood Negative Urine Nitrate Negative Urine Bilirubin Negative Urine Urobilinogen Less than 2 Ur Leukocyte Esterase Small H Urine RBC Less than 1 Urine WBC 7 H Ur Squamous Epith Cells 1 Urine Bacteria Occasional H Urine Mucus Few H Micro UA Comment Cath-culture ind Ur Microscopic Review Not Reportable Urine Culture Comments Cath-cult indicated 02/06/18 02/06/18 02/06/18 17:43 19:21 20:00 WBC RBC Hgb Hct MCV MCH MCHC RDW Plt Count MPV Neut % (Auto) Lymph % (Auto) [place] % (Auto) Eos % (Auto) Baso % (Auto) Neut # (Auto) Lymph # (Auto) [place] # (Auto) Eos # (Auto) Baso # (Auto) WBC Differential Differential Comment Sodium Potassium Chloride Carbon Dioxide Anion Gap BUN Creatinine Estimated GFR POC Glucose 106 138 H Random Glucose Lactic Acid 1.6 Calcium Calcium Adj for Albumin Magnesium Total Bilirubin AST ALT Alkaline Phosphatase Total Creatine Kinase Total Protein Albumin Urine Color Urine Clarity Urine pH Ur Specific [place] Urine Protein Urine Glucose (UA) Urine Ketones Urine Occult Blood Urine Nitrate Urine Bilirubin Urine Urobilinogen Ur Leukocyte Esterase Urine RBC Urine WBC Ur Squamous Epith Cells Urine Bacteria Urine Mucus Micro UA Comment Ur Microscopic Review Urine Culture Comments 02/06/18 02/07/18 02/07/18 21:03 01:14 07:50 WBC 20.4 H RBC 3.33 L Hgb 10.7 L Hct 31.9 L MCV 95.8 MCH 32.2 MCHC 33.7 RDW 13.9 Plt Count 320 MPV 6.9 L Neut % (Auto) 82.0 H Lymph % (Auto) 9.5 [place] % (Auto) 7.2 Eos % (Auto) 0.9 Baso % (Auto) 0.4 Neut # (Auto) 16.8 H Lymph # (Auto) 1.9 [place] # (Auto) 1.5 H Eos # (Auto) 0.2 Baso # (Auto) 0.1 WBC Differential . Differential Comment Auto diff final Sodium Potassium Chloride Carbon Dioxide Anion Gap BUN Creatinine Estimated GFR POC Glucose 182 H 173 H Random Glucose Lactic Acid Calcium Calcium Adj for Albumin Magnesium Total Bilirubin AST ALT Alkaline Phosphatase Total Creatine Kinase Total Protein Albumin Urine Color Urine Clarity Urine pH Ur Specific [place] Urine Protein Urine Glucose (UA) Urine Ketones Urine Occult Blood Urine Nitrate Urine Bilirubin Urine Urobilinogen Ur Leukocyte Esterase Urine RBC Urine WBC Ur Squamous Epith Cells Urine Bacteria Urine Mucus Micro UA Comment Ur Microscopic Review Urine Culture Comments 02/07/18 02/07/18 02/07/18 07:50 08:25 13:26 WBC RBC Hgb Hct MCV MCH MCHC RDW Plt Count MPV Neut % (Auto) Lymph % (Auto) [place] % (Auto) Eos % (Auto) Baso % (Auto) Neut # (Auto) Lymph # (Auto) [place] # (Auto) Eos # (Auto) Baso # (Auto) WBC Differential Differential Comment Sodium 141 Potassium 4.3 Chloride 114 H Carbon Dioxide 21.0 Anion Gap 6 BUN 15 Creatinine 1.09 H Estimated GFR 57 L POC Glucose 135 H 185 H Random Glucose 130 H Lactic Acid Calcium 7.1 L* Calcium Adj for Albumin 8.9 Magnesium Total Bilirubin 0.2 AST 11 L ALT 10 Alkaline Phosphatase 68 Total Creatine Kinase Total Protein 6.0 L Albumin 1.7 L Urine Color Urine Clarity Urine pH Ur Specific [place] Urine Protein Urine Glucose (UA) Urine Ketones Urine Occult Blood Urine Nitrate Urine Bilirubin Urine Urobilinogen Ur Leukocyte Esterase Urine RBC Urine WBC Ur Squamous Epith Cells Urine Bacteria Urine Mucus Micro UA Comment Ur Microscopic Review Urine Culture Comments - Imaging Impressions Chest X-Ray 02/06/18 17:54 CONCLUSION: No acute cardiopulmonary process. Abdomen/Pelvis CT 02/06/18 19:48 CONCLUSION: 1. Severe wall thickening and severe surrounding inflammation involving the rectum and distal sigmoid colon. Findings are characteristic of a severe acute proctocolitis. The sigmoid colon immediately proximal to the inflammation is dilated. 2. 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 This was previously described on the 11/09/[address] 3. Severe atherosclerotic disease. Assessment and Plan - Plan IMpression Possible sepsis due to C diff C difficile colitis Severe proctocolitis on CT A/P Leukocytosis Prob underlying demetia Recommendation Continue IV Flagyl Continue po Vanco Conssult CRS jennie evaluate severe proctocolitis Follow CBC Monitor progress I will follow along with you Thank you for this consultation
[2018-02-07] MEDS: Clotrimazole 10 MG Troche BUCCAL SCH ×3 (16:22→21:32)
[2018-02-07] MEDS: Sod Chloride 0.9% Inj 1,000 ML IV.CONT SCH (21:31)
[2018-02-07] MEDS: Lactobacillus Acidophilus/L. Spores Tablet PO SCH (21:32)
--- NOTE | 2018-02-07 23:07 | MB ---
cc: Cruz Aranda MD DATE: 02/07/2018 REASON FOR CONSULTATION: C. diff colitis, abnormal CAT scan. HISTORY OF PRESENT ILLNESS: Ms. Blanco is an 88-year-old female with a significant history of hypertension and diabetes. Daughter reports her mother had a respiratory illness several weeks ago and was treated with broad spectrum oral antibiotics. She did well until the last several days when she became increasingly lethargic and a little less responsive. Daughter noted increased amounts of diarrhea and loose stool. The patient was sleeping a lot more than usual. She also had decreased oral intake due to the lethargy. She was seen by an outpatient family doctor and found to be positive for C. diff in the stool and was started on oral Flagyl. However, due to poor oral intake, she became more unresponsive and the patient's daughter called [facility] on the day of admission for worsening of her condition. She denies any real abdominal pain. No rectal bleeding. Copious amounts of liquid foul-smelling stool. Unsure if she has had any urination problems. Denies any fever. She has been taking her insulin for her diabetes, but daughter believes she checks her blood sugars. Since admission, the patient did have an evaluation in the emergency room showing some mild dehydration and elevated white count. She also had a CT scan showing significant thickening and inflammatory changes of the rectum, rectosigmoid and some of the left colon. Please refer to the history and physical and other consultations for a more complete past medical and surgical history. PHYSICAL EXAMINATION: GENERAL: A very pleasant older female barely responsive to verbal stimulus. HEENT: Remarkable for very dry but pink membranes. Nonicteric sclerae. NECK: Rather stiff without adenopathy. CHEST: Diminished in the bases, clear anteriorly. HEART: Regular rhythm. ABDOMEN: Soft, a little doughy. Bowel sounds are normal. Very little tenderness. No rebound or guarding or any masses noted. EXTREMITIES: Show 1 to 2+ pedal edema. LABORATORY STUDIES: White count initially was 21.6, hemoglobin 11.2, platelet count 325,000. Electrolytes remarkable for a BUN of 15, creatinine of 1, albumin of 1.7. Normal liver function tests. Urinalysis pretty unremarkable. CT scan was reviewed showing severe wall thickening and surrounding inflammatory changes of the rectum and distal sigmoid consistent with acute proctosigmoiditis. Quite a bit of stool was present in the proximal colon. ASSESSMENT AND PLAN: An 88-year-old female with reportedly Clostridium difficile positive stools outpatient who appears to have failed oral Flagyl treatment. The patient has been admitted and started on intravenous Flagyl and oral vancomycin. We reviewed at length with the daughter and suggested we at least evaluate the sigmoid and rectosigmoid. I recommended we bring her down to the GI lab for at least visualization of the rectum and sigmoid colon to see if there are any ischemic changes or any other source of inflammatory process. If it is Clostridium difficile colitis, then maybe vancomycin enemas would be beneficial to help speed the response to treatment. If she continues to show very little response to treatment, would potentially think about palliative care. We will see how she does with additional medical therapy prior to doing any more interventional therapies. MD MARZENA Martinez/lui , 10:34 PM , 10:42 PM
[2018-02-07] MEDS ORDERED: Sodium Chlor 0.9% Inj 500 ML IV.SIG SCH (23:45)
[2018-02-07] MEDS ORDERED: Chlorhexidine Gluconate 2% 1 Pack (2 Cloths) TOPICAL ONE (23:48)
[2018-02-08] MEDS: Clotrimazole 10 MG Troche BUCCAL SCH ×4 (06:26→21:08)
[2018-02-08 07:58] LABS: Hemoglobin 11.1 gm/dL (11.6-15.3); Mean Corpuscular HGB Conc 32.8 % (32.0-36.0); Mean Corpuscular Hemoglobin 32.2 pg (27.0-34.0); Mean Corpuscular Volume 98.1 fL (80.0-100.0); Platelet Count 322 th/mm3 (150-450); Red Blood Count 3.46 mil/mm3 (4.00-5.30); Red Cell Distribution Width 13.7 % (11.6-17.2); White Blood Count 25.2 th/mm3 (4.0-11.0)
[2018-02-08 08:27] LABS: Calcium 7.2 mg/dL (8.5-10.1); Carbon Dioxide 20.3 meq/L (21.0-32.0); Potassium 4.4 meq/L (3.5-5.1)
[2018-02-08 08:39] LABS: Albumin 1.8 g/dL (3.4-5.0)
[2018-02-08] MEDS: Ferrous Sulfate 325 MG Tablet PO SCH (09:00)
[2018-02-08] MEDS: amLODIPine 5 MG Tablet PO SCH (09:00)
[2018-02-08] MEDS: Heparin - SQ 10,000 UNITS/ML Vial SQ SCH ×2 (09:00→21:09)
[2018-02-08] MEDS: Insulin NovoLOG Aspart Correctional Sugar Inj SQ SCH ×4 (09:30→21:10)
[2018-02-08] MEDS: Lactobacillus Acidophilus/L. Spores Tablet PO SCH ×2 (09:52→21:10)
--- NOTE | 2018-02-08 10:04 | ECG ---
Date Performed: 02/06/2018 Time Performed: 16:58:13 PTAGE: 88 years EKG: SUPRAVENTRICULAR RHYTHM MARKED LEFT AXIS DEVIATION Consider ASMI, age indeterminate Seniain e artifact significantly limits accuracy of interpretation Left anterior fascicular block ABNORMAL EC G PREVIOUS TRACING : 01/10/2018 23.32 DOCTOR: Frederic Blanco Interpretating Date/Time 02/08/2018 10:04:15
--- NOTE | 2018-02-08 10:10 | P.PNID ---
Subjective Remarks: Patient is an 88-year-old female, presented to the hospital for further evaluation of lethargy. Patient apparently has been having diarrhea over the last 2 weeks. She was seen by her primary care physician, and tested positive for C. difficile. She was started on p.o. Flagyl. On the day of admission patient was noted to be quite lethargic,. She lives with her daughter. She was concerned so the patient was brought into the hospital for further evaluation and treatment. Since admission she has not been febrile. Her white count is greater than 20,000. CT of the abdomen and pelvis is showing significant bowel wall thickening of the rectum and the sigmoid colon. She is having a lot of diarrhea. Infectious disease consultation has been requested to assist with evaluation and treatment. Notes reviewed Low grade temps CRS notes reviewed Going for GI procedure today WBC higher Getting acidotic Stools not recorded Antibiotics: IV Flagyl PO Vancomycin Lines: PIV Past Medical History: Asthma Diabetes Hypertension Uterine fibroid Oophorectomy Allergies/Adverse Reactions: Allergies No Known Allergies Allergy (Verified 01/10/18 22:35) Objective Vital Signs 02/07/18 12:00 02/07/18 14:29 02/07/18 16:00 Temperature 98.5 F 99.2 F Pulse Rate 89 92 H Respiratory Rate 20 20 Blood Pressure 132/64 141/62 H Pulse Oximetry 98 96 98 02/07/18 20:00 02/08/18 00:00 02/08/18 04:00 Temperature 98.8 F 100.1 F H 99.7 F H Pulse Rate 90 93 H 89 Respiratory Rate 20 20 20 Blood Pressure 143/66 H 151/68 H 174/67 H Pulse Oximetry 99 98 98 02/08/18 08:00 Temperature 99.3 F Pulse Rate 87 Respiratory Rate 20 Blood Pressure 121/62 Pulse Oximetry 95 Intake & Output 02/07/18 02/08/18 02/08/18 18:59 06:59 18:59 Intake Total 1000 / 1000 800 / 800 Balance 1000 / 1000 800 / 800 Weight 96.3 kg Intake: IV 1000 / 1000 200 / 200 NS Inj 1,000 ML @ 60 mls/hr IV. 1000 / 1000 CONT .[id number] DARCY Rx#:[id number] Flagyl 500 MG Inj 100 ML @ 100 200 / 200 mls/hr IV.SIG Q8H DARCY Rx#: [id number] Oral 600 / 600 02/06/18 17:20 Catheterized Urine Urine Culture - Final No growth in 48 hours 02/06/18 20:00 Blood - Peripheral Aerobic Blood Culture - Preliminary gram positive cocci 02/06/18 20:00 Blood - Peripheral Anaerobic Blood Culture - Preliminary gram positive cocci 02/06/18 20:05 Blood - Peripheral Aerobic Blood Culture - Preliminary No growth in 1 day 02/06/18 20:05 Blood - Peripheral Anaerobic Blood Culture - Preliminary No growth in 1 day Lab - Hematology Results 02/06/18 02/07/18 02/08/18 17:10 07:50 07:18 WBC 21.6 H 20.4 H 25.2 H RBC 3.47 L 3.33 L 3.46 L Hgb 11.2 L 10.7 L 11.1 L Hct 33.6 L 31.9 L 34.0 L MCV 96.9 95.8 98.1 MCH 32.2 32.2 32.2 MCHC 33.3 33.7 32.8 RDW 13.8 13.9 13.7 Plt Count 325 320 322 MPV 7.3 6.9 L 7.0 Neut % (Auto) 86.5 H 82.0 H Lymph % (Auto) 6.7 L 9.5 [place] % (Auto) 6.0 7.2 Eos % (Auto) 0.4 0.9 Baso % (Auto) 0.4 0.4 Neut # (Auto) 18.7 H 16.8 H Lymph # (Auto) 1.4 1.9 [place] # (Auto) 1.3 H 1.5 H Eos # (Auto) 0.1 0.2 Baso # (Auto) 0.1 0.1 WBC Differential . . Differential Comment Auto diff final Auto diff final Lab - Chemistry Results 02/06/18 02/06/18 02/06/18 16:59 17:09 17:10 Sodium 142 Potassium 4.6 Chloride 111 H Carbon Dioxide 23.8 Anion Gap 7 BUN 19 H Creatinine 1.40 H Estimated GFR 43 L POC Glucose 41 L* 119 H Random Glucose 157 H Lactic Acid Calcium 7.4 L* Calcium Adj for Albumin 9.2 Magnesium 2.4 Total Bilirubin 0.2 AST 20 ALT 9 L Alkaline Phosphatase 68 Total Creatine Kinase Total Protein 6.4 Albumin 1.8 L 12/11/1602/06/18 02/06/18 17:10 17:43 19:21 Sodium Potassium Chloride Carbon Dioxide Anion Gap BUN Creatinine Estimated GFR POC Glucose 106 138 H Random Glucose Lactic Acid Calcium Calcium Adj for Albumin Magnesium Total Bilirubin AST ALT Alkaline Phosphatase Total Creatine Kinase 69 Total Protein Albumin 02/06/18 02/06/18 02/07/18 20:00 21:03 01:14 Sodium Potassium Chloride Carbon Dioxide Anion Gap BUN Creatinine Estimated GFR POC Glucose 182 H 173 H Random Glucose Lactic Acid 1.6 Calcium Calcium Adj for Albumin Magnesium Total Bilirubin AST ALT Alkaline Phosphatase Total Creatine Kinase Total Protein Albumin 02/07/18 02/07/18 02/07/18 07:50 08:25 13:26 Sodium 141 Potassium 4.3 Chloride 114 H Carbon Dioxide 21.0 Anion Gap 6 BUN 15 Creatinine 1.09 H Estimated GFR 57 L POC Glucose 135 H 185 H Random Glucose 130 H Lactic Acid Calcium 7.1 L* Calcium Adj for Albumin 8.9 Magnesium Total Bilirubin 0.2 AST 11 L ALT 10 Alkaline Phosphatase 68 Total Creatine Kinase Total Protein 6.0 L Albumin 1.7 L 02/07/18 02/07/18 02/08/18 17:08 20:24 07:18 Sodium 140 Potassium 4.4 Chloride 114 H Carbon Dioxide 20.3 L Anion Gap 6 BUN 13 Creatinine 0.97 Estimated GFR 66 L POC Glucose 173 H 165 H Random Glucose 252 H D Lactic Acid Calcium 7.2 L* Calcium Adj for Albumin 9.0 Magnesium Total Bilirubin AST ALT Alkaline Phosphatase Total Creatine Kinase Total Protein Albumin 1.8 L 02/08/18 07:45 Sodium Potassium Chloride Carbon Dioxide Anion Gap BUN Creatinine Estimated GFR POC Glucose 218 H Random Glucose Lactic Acid Calcium Calcium Adj for Albumin Magnesium Total Bilirubin AST ALT Alkaline Phosphatase Total Creatine Kinase Total Protein Albumin Imaging: ITS Impressions Chest X-Ray 02/06/18 17:54 CONCLUSION: No acute cardiopulmonary process. Abdomen/Pelvis CT 02/06/18 19:48 CONCLUSION: 1. Severe wall thickening and severe surrounding inflammation involving the rectum and distal sigmoid colon. Findings are characteristic of a severe acute proctocolitis. The sigmoid colon immediately proximal to the inflammation is dilated. 2. 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 This was previously described on the 11/09/[address] 3. Severe atherosclerotic disease. Physical Exam: GENERAL: awake and alert, not in respiratory distress. Told me worng age, does not known where she is, gave me wrong year and could n0t tell me name of president SKIN: Cool and dry. No generalized rash, no ecchymoses and no evidence of embolic lesions. HEAD: Atraumatic. Normocephalic. No temporal wasting, or tenderness. EYES: [place] conjunctiva. No petechia or hemorrhage. Pupils equal, round and reactive to light. Extraocular movements full and intact. No scleral icterus. No injection or drainage. EARS, NOSE AND THROAT: Nose without bleeding or purulent nasal discharge. Slightly dry oral mucosa, white coating on tongue NECK: Trachea midline. Supple and not tender, no meningeal signs CARDIOVASCULAR: Regular rate and rhythm. No murmurs, rubs or gallops heard RESPIRATORY: Clear to auscultation. Breath sounds equal bilaterally. No rales , wheezing or rhonchi ABDOMEN: Soft, non-tender, nondistended. Bowel sounds present and normoactive. No guarding. No rebound. No organomegaly. EXTREMITIES: No clubbing, cyanosis, or edema. No calf tenderness. NEURO: Grossly non-focal PSYCHIATRIC: Normal affect, calm and cooperative. LINE: No evidence of infection Assessment and Plan - Plan IMpression Possible sepsis due to C diff C difficile colitis Severe proctocolitis on CT A/P Leukocytosis Prob underlying dementia Recommendation Continue IV Flagyl Continue po Vanco For GI procedure today CRSfollowing Follow CBC Follow temps Monitor progress D/W RN
[2018-02-08] MEDS: Sod Chloride 0.9% Inj 1,000 ML IV.CONT SCH (12:51)
[2018-02-08] MEDS: Budesonide-Formoterol 80/4.5 MCG 6.9 GM Inhaler INH SCH ×2 (13:59→21:11)
[2018-02-08] MEDS ORDERED: Vancomycin Consult Pharmacy OTHER PRN (15:47)
--- NOTE | 2018-02-08 16:56 | P.PNIM ---
Subjective Interval history: Follow-up visit for colitis, leukocytosis, DM 2. Patient seen and examined lying in the bed, denies any pain or any discomfort. Patient denies any abdominal pain, nausea or vomiting. Patient had some diarrhea but improving. Patient denies any headache or dizziness, chest pain or shortness of breath, denies any fever or chills. Nurse reported patient requesting for change in mechanical soft diet with Glucerna. Request for speech therapy eval for swallow eval. Physical Exam Vital signs: Vital Signs 02/07/18 20:00 02/08/18 00:00 02/08/18 04:00 Temperature 98.8 F 100.1 F H 99.7 F H Pulse Rate 90 93 H 89 Respiratory Rate 20 20 20 Blood Pressure 143/66 H 151/68 H 174/67 H Pulse Oximetry 99 98 98 02/08/18 08:00 02/08/18 08:50 02/08/18 11:10 Temperature 99.3 F 98.3 F Pulse Rate 87 89 Respiratory Rate 20 20 Blood Pressure 121/62 129/58 L Pulse Oximetry 95 95 95 Intake & Output 02/07/18 02/08/18 02/08/18 18:59 06:59 18:59 Intake Total 1000 / 1000 800 / 800 1050 / 1050 Balance 1000 / 1000 800 / 800 1050 / 1050 Weight 96.3 kg Intake: IV 1000 / 1000 200 / 200 1000 / 1000 NS Inj 1,000 ML @ 60 mls/hr IV. 1000 / 1000 1000 / 1000 CONT .[id number] DARCY Rx#:[id number] Flagyl 500 MG Inj 100 ML @ 100 200 / 200 mls/hr IV.SIG Q8H DARCY Rx#: [id number] Oral 600 / 600 Anesthesia Amount 50 / 50 Narrative: GENERAL: Well-developed, well-nourished, elderly female, in no apparent distress SKIN: Warm and dry. HEAD: Atraumatic. Normocephalic. EYES: Pupils equal and round. No scleral icterus. No injection or drainage. ENT: No nasal bleeding or discharge. Oral white trash NECK: Trachea midline. No JVD. CARDIOVASCULAR: Regular rate and rhythm. RESPIRATORY: No accessory muscle use. Clear to auscultation. Breath sounds equal bilaterally. GASTROINTESTINAL: Abdomen soft, non-tender, nondistended. Hepatic and splenic margins not palpable. MUSCULOSKELETAL: Extremities without clubbing, cyanosis, or edema. No obvious deformities. NEUROLOGICAL: Awake and alert. No obvious cranial nerve deficits. Motor grossly within normal limits. Generalized weakness moving all 4 extremities normal speech. PSYCHIATRIC: Appropriate mood and affect; insight and judgment normal. Results - Labs CBC & Chem 7: 02/08/18 07:18 02/08/18 07:18 Laboratory Results - last 24 hr 02/07/18 02/07/18 02/08/18 17:08 20:24 04:40 WBC RBC Hgb Hct MCV MCH MCHC RDW Plt Count MPV Sodium Potassium Chloride Carbon Dioxide Anion Gap BUN Creatinine Estimated GFR POC Glucose 173 H 165 H Random Glucose Calcium Calcium Adj for Albumin Albumin Stool C.difficile Ag Positive H Stool C.difficile Toxin Positive H Stl C.difficile DNA Amp Positive H St C. diff Tox Epid 027 Positive H 02/08/18 02/08/18 02/08/18 07:18 07:18 07:45 WBC 25.2 H RBC 3.46 L Hgb 11.1 L Hct 34.0 L MCV 98.1 MCH 32.2 MCHC 32.8 RDW 13.7 Plt Count 322 MPV 7.0 Sodium 140 Potassium 4.4 Chloride 114 H Carbon Dioxide 20.3 L Anion Gap 6 BUN 13 Creatinine 0.97 Estimated GFR 66 L POC Glucose 218 H Random Glucose 252 H D Calcium 7.2 L* Calcium Adj for Albumin 9.0 Albumin 1.8 L Stool C.difficile Ag Stool C.difficile Toxin Stl C.difficile DNA Amp St C. diff Tox Epid 027 02/08/18 13:05 WBC RBC Hgb Hct MCV MCH MCHC RDW Plt Count MPV Sodium Potassium Chloride Carbon Dioxide Anion Gap BUN Creatinine Estimated GFR POC Glucose 177 H Random Glucose Calcium Calcium Adj for Albumin Albumin Stool C.difficile Ag Stool C.difficile Toxin Stl C.difficile DNA Amp St C. diff Tox Epid 027 Microbiology 02/06/18 20:00 Blood - Peripheral Aerobic Blood Culture - Preliminary Staphylococcus species 02/06/18 20:00 Blood - Peripheral Anaerobic Blood Culture - Preliminary S. aureus MRSA 02/06/18 20:05 Blood - Peripheral Aerobic Blood Culture - Preliminary No growth in 2 days 02/06/18 20:05 Blood - Peripheral Anaerobic Blood Culture - Preliminary No growth in 2 days 02/06/18 17:20 Catheterized Urine Urine Culture - Final No growth in 48 hours Assessment and Plan - Assessment (1) Clostridium difficile colitis Code(s): A04.72 - Enterocolitis due to Clostridium difficile, not specified as recurrent Status: Acute (2) Colitis Code(s): K52.9 - Noninfective gastroenteritis and colitis, unspecified Status : Acute (3) Hypoglycemia Code(s): E16.2 - Hypoglycemia, unspecified Status: Acute - Plan This is an 88 y/o female with a history of htn, dm and asthma was brought to the ED via EMS for increased lethargy and confusion per the daughter C diff colitis Leukocytosis WBC 21.6 -->20.4 SIRS, sepsis due to colitis -Follow-up blood cultures, lactic acid less than 2 -Diagnosed in the outpatient positive for C. difficile and was started on Flagyl p.o. -Abdominal CT reviewed and shows Severe wall thickening and severe surrounding inflammation involving the rectum and distal sigmoid colon. Findings are characteristic of a severe acute proctocolitis. -Vancomycin po and flagyl IV, May benefit with Vanco per rectum but will defer to Colorectal Surgeon due to proctocolitis in the rectum-risk for perf -IVF for hydration -ID consult appreciated: recom continue Flagyl and Vanco PO -Colorectal surgeon appreciated: Sigmoidoscopy to evaluate Abnormal UA UA shows small leukocyte esterase -culture pending, no growth in 48 hrs Oral [place] -Clotrimazole troches -Oral care Acute kidney injury, likely due to dehydration -creatine today 0.97, back to baseline 1.0 -continue IVF as above -avoid nephrotoxins -follow renal Indices Pressure ulcer,sacrum - patient is at risk for increasing pressure ulcer -Barrier cream as needed -Turn Q2H DM Type 2, chronic -Initially hypoglycemic possibly from dehydration -Hold home insulin, patient may benefit from lowering 70/30 dose at home and following up with PCP -Accu checks with Sliding scale -Diabetic diet HTN, chronic BP Labile -continue home medications Norvasc 5 mg -Monitor BP adjust medications as needed DVT prophylaxis: heparin Code Status: full code Discussed Condition With: patient and nurse/MDR
--- NOTE | 2018-02-08 16:57 | P.DCO ---
- Physical Therapy Order: Evaluate and treat - Occupational Therapy Order: Evaluate and treat - Speech Therapy Order: To improve: Speech and communication skills - Home Health Nursing Order: Medical education, Medication education-adverse effect - Case Management Consult Case Management Consult-Home Health: Yes - Certification I have seen patient Nahomi Morales on 02/08/18. My clinical findings support the need for the requested home health care services because: Limited mobility due to disease progression, Patient has SOB, Deconditioned with increased weakness, Medication compliance is questionable, Limited ability to care for self I certify that my clinical findings support that this patient is homebound because: Impaired cognitive ability/safety, Unsteady gait/balance, Unsafe to leave home unassisted
[2018-02-08] MEDS: VANCOMYCIN IRRIGATION SCH ×3 (19:18)
[2018-02-08] MEDS: SODIUM CHLOR 0.9% IRRIGATION SCH ×3 (19:18)
[2018-02-09] MEDS: SODIUM CHLOR 0.9% IRRIGATION SCH ×6 (05:01→22:12)
[2018-02-09] MEDS: Clotrimazole 10 MG Troche BUCCAL SCH ×5 (05:01→22:09)
[2018-02-09] MEDS: VANCOMYCIN IRRIGATION SCH ×6 (05:01→22:12)
[2018-02-09] MEDS: Sod Chloride 0.9% Inj 1,000 ML IV.CONT SCH ×2 (05:03→19:03)
[2018-02-09 07:58] LABS: Baso # (Auto) 0.1 th/mm3 (0.0-0.2); Baso % (Auto) 0.5 % (0.0-2.0); Eos # (Auto) 0.1 th/mm3 (0.0-0.4); Eos % (Auto) 0.2 % (0.0-4.0); Hematocrit 34.7 % (35.0-46.0); Hemoglobin 11.4 gm/dL (11.6-15.3); Lymph % (Auto) 6.7 % (9.0-44.0); Mean Corpuscular HGB Conc 32.8 % (32.0-36.0); Mean Corpuscular Hemoglobin 31.8 pg (27.0-34.0); Mean Corpuscular Volume 97.1 fL (80.0-100.0); Mean Platelet Volume 7.2 fL (7.0-11.0); Mono # (Auto) 1.6 th/mm3 (0.0-0.9); Mono % (Auto) 5.2 % (0.0-8.0); Neut # (Auto) 26.2 th/mm3 (1.8-7.7); Neut % (Auto) 87.4 % (16.0-70.0); Platelet Count 300 th/mm3 (150-450); Red Blood Count 3.57 mil/mm3 (4.00-5.30); Red Cell Distribution Width 13.8 % (11.6-17.2)
--- NOTE | 2018-02-09 10:37 | P.PNCS ---
Subjective Interval history: afebrile, VSS ??UO stools loose alittle more alert Objective Result Diagrams: 02/09/18 07:14 02/08/18 07:18 Objective Remarks: PE lethargic Abd - full, mild tender, some tympany, no BRB Assessment and Plan - Plan Imp: incr WBC cont enemas, PO vanco IVF insert worthy better skin care
[2018-02-09] MEDS: Lactobacillus Acidophilus/L. Spores Tablet PO SCH ×2 (11:04→22:09)
[2018-02-09] MEDS: amLODIPine 5 MG Tablet PO SCH (11:04)
[2018-02-09] MEDS: Ferrous Sulfate 325 MG Tablet PO SCH (11:04)
[2018-02-09] MEDS: Insulin NovoLOG Aspart Correctional Sugar Inj SQ SCH ×4 (11:05→22:11)
[2018-02-09] MEDS: Heparin - SQ 10,000 UNITS/ML Vial SQ SCH ×2 (11:05→22:13)
[2018-02-09] MEDS: Budesonide-Formoterol 80/4.5 MCG 6.9 GM Inhaler INH SCH ×2 (11:06→22:10)
--- NOTE | 2018-02-09 11:08 | MR ---
cc: Cruz Aranda MD DATE: 02/08/2018 REASON FOR SURGERY: Clostridium difficile colitis, abnormal CT scan. PROCEDURE: Limited colonoscopy to the left colon. POSTOPERATIVE DIAGNOSES 1. Significant colonic stool above the left colon. 2. Edema and swelling of the rectosigmoid mucosa down to the rectum with significant pseudomembranes within the rectal vault. 3. Good blood supply and viability. SURGEON: Cruz Aranda MD. DESCRIPTION OF PROCEDURE: The patient was placed in the left lateral decubitus position. After very little IV anesthesia, digital exam confirms some stool in the rectal vault. The Olympus colonoscope was introduced into the rectum and advanced easily under direct vision with some irrigation of the mucosa and suctioning to get through the rectosigmoid up in the left colon The mucosa did appear to be quite pink and viable. No ischemic changes were seen. Above the left colon, there was quite a bit of stool; and the procedure had to be limited at this point. The scope was therefore gradually withdrawn, noting some diverticulosis in the sigmoid colon. There was quite a bit of edema of the mucosa extending down to the rectosigmoid and rectal vault with pseudomembranes quite obvious within the rectal vault. No evidence of carcinoma was seen. No luminal narrowing was noted. The patient tolerated the procedure quite well and was brought to the recovery room in stable condition. Cruz Aranda MD [facility]/rs , 10:40 AM , 10:45 AM
--- NOTE | 2018-02-09 14:25 | P.PNID ---
Subjective Remarks: Patient is an 88-year-old female, presented to the hospital for further evaluation of lethargy. Patient apparently has been having diarrhea over the last 2 weeks. She was seen by her primary care physician, and tested positive for C. difficile. She was started on p.o. Flagyl. On the day of admission patient was noted to be quite lethargic,. She lives with her daughter. She was concerned so the patient was brought into the hospital for further evaluation and treatment. Since admission she has not been febrile. Her white count is greater than 20,000. CT of the abdomen and pelvis is showing significant bowel wall thickening of the rectum and the sigmoid colon. She is having a lot of diarrhea. Infectious disease consultation has been requested to assist with evaluation and treatment. Notes reviewed Temps 99+ Has evidence of pseudomembrane on sigmoidoscopy CRS notes reviewed WBC rising Has one BC with Coag Neg Staph and MRSA Antibiotics: IV Flagyl PO Vancomycin Vanco enema Lines: PIV Past Medical History: Asthma Diabetes Hypertension Uterine fibroid Oophorectomy Allergies/Adverse Reactions: Allergies No Known Allergies Allergy (Verified 01/10/18 22:35) Objective Vital Signs 02/08/18 16:20 02/08/18 20:00 02/09/18 00:00 Temperature 98.3 F 99.4 F 98.9 F Pulse Rate 88 91 H 94 H Respiratory Rate 20 20 18 Blood Pressure 130/60 130/60 149/65 H Pulse Oximetry 97 97 99 02/09/18 04:00 02/09/18 08:20 Temperature 98.1 F 97.9 F Pulse Rate 85 88 Respiratory Rate 18 18 Blood Pressure 147/64 H 132/61 Pulse Oximetry 97 98 Intake & Output 02/08/18 02/09/18 02/09/18 18:59 06:59 18:59 Intake Total 1150 / 1150 440 / 440 Balance 1150 / 1150 440 / 440 Weight 96.6 kg Intake: IV 1100 / 1100 200 / 200 NS Inj 1,000 ML @ 60 mls/hr IV. 1000 / 1000 CONT .[id number] DARCY Rx#:[id number] Flagyl 500 MG Inj 100 ML @ 100 100 / 100 200 / 200 mls/hr IV.SIG Q8H DARCY Rx#: [id number] Oral 240 / 240 Anesthesia Amount 50 / 50 Other: Date of Last Bowel Movement 02/08/18 02/06/18 20:00 Blood - Peripheral Aerobic Blood Culture - Final Staphylococcus coag negative 02/06/18 20:00 Blood - Peripheral Anaerobic Blood Culture - Final S. aureus MRSA 02/06/18 20:05 Blood - Peripheral Aerobic Blood Culture - Preliminary No growth in 3 days 02/06/18 20:05 Blood - Peripheral Anaerobic Blood Culture - Preliminary No growth in 3 days 02/06/18 17:20 Catheterized Urine Urine Culture - Final No growth in 48 hours Lab - Hematology Results 02/08/18 02/09/18 07:18 07:14 WBC 25.2 H 30.0 H RBC 3.46 L 3.57 L Hgb 11.1 L 11.4 L Hct 34.0 L 34.7 L MCV 98.1 97.1 MCH 32.2 31.8 MCHC 32.8 32.8 RDW 13.7 13.8 Plt Count 322 300 MPV 7.0 7.2 Neut % (Auto) 87.4 H Lymph % (Auto) 6.7 L [place] % (Auto) 5.2 Eos % (Auto) 0.2 Baso % (Auto) 0.5 Neut # (Auto) 26.2 H Lymph # (Auto) 2.0 [place] # (Auto) 1.6 H Eos # (Auto) 0.1 Baso # (Auto) 0.1 WBC Differential . Differential Comment Auto diff final Lab - Chemistry Results 02/07/18 02/07/18 02/08/18 17:08 20:24 07:18 Sodium 140 Potassium 4.4 Chloride 114 H Carbon Dioxide 20.3 L Anion Gap 6 BUN 13 Creatinine 0.97 Estimated GFR 66 L POC Glucose 173 H 165 H Random Glucose 252 H D Calcium 7.2 L* Calcium Adj for Albumin 9.0 Albumin 1.8 L 02/08/18 02/08/18 02/08/18 07:45 13:05 17:27 Sodium Potassium Chloride Carbon Dioxide Anion Gap BUN Creatinine Estimated GFR POC Glucose 218 H 177 H 164 H Random Glucose Calcium Calcium Adj for Albumin Albumin 02/08/18 02/08/18 02/09/18 20:13 21:08 08:11 Sodium Potassium Chloride Carbon Dioxide Anion Gap BUN Creatinine Estimated GFR POC Glucose 312 H 341 H 289 H Random Glucose Calcium Calcium Adj for Albumin Albumin 02/09/18 13:08 Sodium Potassium Chloride Carbon Dioxide Anion Gap BUN Creatinine Estimated GFR POC Glucose 305 H Random Glucose Calcium Calcium Adj for Albumin Albumin Imaging: ITS Impressions Chest X-Ray 02/06/18 17:54 CONCLUSION: No acute cardiopulmonary process. Abdomen/Pelvis CT 02/06/18 19:48 CONCLUSION: 1. Severe wall thickening and severe surrounding inflammation involving the rectum and distal sigmoid colon. Findings are characteristic of a severe acute proctocolitis. The sigmoid colon immediately proximal to the inflammation is dilated. 2. 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 This was previously described on the 11/09/[address] 3. Severe atherosclerotic disease. Physical Exam: GENERAL: awake and alert, not in respiratory distress. Told me worng age, does not known where she is, gave me wrong year and could n0t tell me name of president SKIN: Cool and dry. No generalized rash, no ecchymoses and no evidence of embolic lesions. HEAD: Atraumatic. Normocephalic. No temporal wasting, or tenderness. EYES: [place] conjunctiva. No petechia or hemorrhage. Pupils equal, round and reactive to light. Extraocular movements full and intact. No scleral icterus. No injection or drainage. EARS, NOSE AND THROAT: Nose without bleeding or purulent nasal discharge. Slightly dry oral mucosa, white coating on tongue NECK: Trachea midline. Supple and not tender, no meningeal signs CARDIOVASCULAR: Regular rate and rhythm. No murmurs, rubs or gallops heard RESPIRATORY: Clear to auscultation. Breath sounds equal bilaterally. No rales , wheezing or rhonchi ABDOMEN: Soft, non-tender, nondistended. Bowel sounds present and normoactive. No guarding. No rebound. No organomegaly. EXTREMITIES: No clubbing, cyanosis, or edema. No calf tenderness. NEURO: Grossly non-focal PSYCHIATRIC: Normal affect, calm and cooperative. LINE: No evidence of infection Assessment and Plan - Plan IMpression Possible sepsis due to C diff C difficile colitis Severe proctocolitis on CT A/P Leukocytosis Prob underlying dementia Recommendation Continue IV Flagyl Continue po Vanco Continue Vanco enema Follow CBC Follow temps Repeat BC Give dose of IV Vanco Monitor progress
--- NOTE | 2018-02-09 14:33 | P.PNIM ---
Subjective Interval history: Follow-up visit for colitis, leukocytosis, DM 2. Patient seen and examined laying in bed, sleeping, awakened for assessment. Patient denies any pain or shortness of breath. Denies any abdominal pain, nausea, vomiting, fever or chills. Nurse reported having some loose stools today. Also reported some rash on the leg folds and arm.. Physical Exam Vital signs: Vital Signs 02/08/18 16:20 02/08/18 20:00 02/09/18 00:00 Temperature 98.3 F 99.4 F 98.9 F Pulse Rate 88 91 H 94 H Respiratory Rate 20 20 18 Blood Pressure 130/60 130/60 149/65 H Pulse Oximetry 97 97 99 02/09/18 04:00 02/09/18 08:20 Temperature 98.1 F 97.9 F Pulse Rate 85 88 Respiratory Rate 18 18 Blood Pressure 147/64 H 132/61 Pulse Oximetry 97 98 Intake & Output 02/08/18 02/09/18 02/09/18 18:59 06:59 18:59 Intake Total 1150 / 1150 440 / 440 Balance 1150 / 1150 440 / 440 Weight 96.6 kg Intake: IV 1100 / 1100 200 / 200 NS Inj 1,000 ML @ 60 mls/hr IV. 1000 / 1000 CONT .[id number] [facility] Rx#:[id number] Flagyl 500 MG Inj 100 ML @ 100 100 / 100 200 / 200 mls/hr IV.SIG Q8H [facility] Rx#: [id number] Oral 240 / 240 Anesthesia Amount 50 / 50 Other: Date of Last Bowel Movement 02/08/18 Narrative: GENERAL: Well-developed, well-nourished, elderly female, in no apparent distress SKIN: Warm and dry. HEAD: Atraumatic. Normocephalic. EYES: Pupils equal and round. No scleral icterus. No injection or drainage. ENT: No nasal bleeding or discharge. Oral white trash NECK: Trachea midline. No JVD. CARDIOVASCULAR: Regular rate and rhythm. RESPIRATORY: No accessory muscle use. Clear to auscultation. Breath sounds equal bilaterally. GASTROINTESTINAL: Abdomen soft, non-tender, nondistended. Hepatic and splenic margins not palpable. MUSCULOSKELETAL: Extremities without clubbing, cyanosis, or edema. No obvious deformities. NEUROLOGICAL: Awake and alert. No obvious cranial nerve deficits. Motor grossly within normal limits. Generalized weakness moving all 4 extremities normal speech. PSYCHIATRIC: Appropriate mood and affect; insight and judgment normal. Results - Labs CBC & Chem 7: 02/09/18 07:14 02/08/18 07:18 Laboratory Results - last 24 hr 02/08/18 02/08/18 02/08/18 17:27 20:13 21:08 WBC RBC Hgb Hct MCV MCH MCHC RDW Plt Count MPV Neut % (Auto) Lymph % (Auto) [place] % (Auto) Eos % (Auto) Baso % (Auto) Neut # (Auto) Lymph # (Auto) [place] # (Auto) Eos # (Auto) Baso # (Auto) WBC Differential Differential Comment POC Glucose 164 H 312 H 341 H 02/09/18 02/09/18 02/09/18 07:14 08:11 13:08 WBC 30.0 H RBC 3.57 L Hgb 11.4 L Hct 34.7 L MCV 97.1 MCH 31.8 MCHC 32.8 RDW 13.8 Plt Count 300 MPV 7.2 Neut % (Auto) 87.4 H Lymph % (Auto) 6.7 L [place] % (Auto) 5.2 Eos % (Auto) 0.2 Baso % (Auto) 0.5 Neut # (Auto) 26.2 H Lymph # (Auto) 2.0 [place] # (Auto) 1.6 H Eos # (Auto) 0.1 Baso # (Auto) 0.1 WBC Differential . Differential Comment Auto diff final POC Glucose 289 H 305 H Microbiology 02/06/18 20:00 Blood - Peripheral Aerobic Blood Culture - Final Staphylococcus coag negative 02/06/18 20:00 Blood - Peripheral Anaerobic Blood Culture - Final S. aureus MRSA 02/06/18 20:05 Blood - Peripheral Aerobic Blood Culture - Preliminary No growth in 3 days 02/06/18 20:05 Blood - Peripheral Anaerobic Blood Culture - Preliminary No growth in 3 days Assessment and Plan - Assessment (1) Clostridium difficile colitis Code(s): A04.72 - Enterocolitis due to Clostridium difficile, not specified as recurrent Status: Acute (2) Colitis Code(s): K52.9 - Noninfective gastroenteritis and colitis, unspecified Status : Acute (3) Hypoglycemia Code(s): E16.2 - Hypoglycemia, unspecified Status: Acute - Plan This is an 88 y/o female with a history of htn, dm and asthma was brought to the ED via EMS for increased lethargy and confusion per the daughter C diff colitis Leukocytosis WBC increasing trend 21.6 -->30 SIRS, sepsis due to colitis - lactic acid less than 2 -Blood cultures on 02/06/18: Positive for S. aureus MRSA and staph coag negative -Blood culture on 02/09/18 pending, follow results -Diagnosed in the outpatient positive for C. difficile and was started on Flagyl p.o. -Abdominal CT reviewed and shows Severe wall thickening and severe surrounding inflammation involving the rectum and distal sigmoid colon. Findings are characteristic of a severe acute proctocolitis. -Vancomycin po and flagyl IV, May benefit with Vanco per rectum but will defer to Colorectal Surgeon due to proctocolitis in the rectum-risk for perf -IVF for hydration -ID consult appreciated: recom continue Flagyl, VAnco IV dose today, increased dose of Vanco PO -Colorectal surgeon appreciated: Continue Vanco p.o. -Limited colonoscopy to the left colon-edema and swelling of the rectosigmoid mucosa down to the rectum with significant pseudomembranes within the rectal vault. Good blood supply and viability Abnormal UA UA shows small leukocyte esterase -culture pending, no growth in 48 hrs Oral Ashlyn -Improving -Continue clotrimazole troches -Daily oral care Acute kidney injury, likely due to dehydration -creatine today 0.97, back to baseline 1.0 -continue IVF as above -avoid nephrotoxins -follow renal Indices Pressure ulcer,sacrum - patient is at risk for increasing pressure ulcer -Barrier cream as needed -Turn Q2H DM Type 2, chronic -Initially hypoglycemic possibly from dehydration -Hold home insulin, patient may benefit from lowering 70/30 dose at home and following up with PCP -Accu checks with Sliding scale -Diabetic diet HTN, chronic BP Labile, improving -continue home medications Norvasc 5 mg -Monitor BP adjust medications as needed DVT prophylaxis: heparin Code Status: Full code Discussed Condition With: Patient and nurse Discharge Planning: Plan to discharge home when cleared with colorectal surgeon and ID
[2018-02-09] MEDS ORDERED: Vancomycin Inj 1,000 MG in Sodium Chlor 0.9% Inj 250 ML IV.SIG ONE (16:00)
[2018-02-10] MEDS: [UNRECOGNIZED DRUG - OTHER] RECTAL SCH ×4 (06:01→18:06)
[2018-02-10] MEDS: Clotrimazole 10 MG Troche BUCCAL SCH ×5 (06:01→22:46)
[2018-02-10] MEDS: SODIUM CHLORIDE 0.9% RECTAL SCH ×4 (06:01→18:06)
--- NOTE | 2018-02-10 07:49 | P.PNCS ---
Subjective Interval history: afebrile, VSS UO ?? stools less loose Objective Result Diagrams: 02/09/18 07:14 02/08/18 07:18 Objective Remarks: PE lethargic Abd - full, mild tender, less tympany Assessment and Plan - Plan Imp: incr WBC - fu pending cont enemas, PO vanco IVF insert worthy - check output better skin care
[2018-02-10] MEDS ORDERED: VANCOMYCIN IRRIGATION ONE ×3 (08:30)
[2018-02-10] MEDS ORDERED: [UNRECOGNIZED DRUG - OTHER] IRRIGATION ONE ×3 (08:30)
[2018-02-10] MEDS ORDERED: SODIUM CHLORIDE 0.9% IRRIGATION ONE ×3 (08:30)
[2018-02-10] MEDS: Lactobacillus Acidophilus/L. Spores Tablet PO SCH ×2 (08:44→20:36)
[2018-02-10] MEDS: Heparin - SQ 10,000 UNITS/ML Vial SQ SCH ×2 (08:45→20:35)
[2018-02-10] MEDS: Ferrous Sulfate 325 MG Tablet PO SCH (08:45)
[2018-02-10] MEDS: Insulin NovoLOG Aspart Correctional Sugar Inj SQ SCH ×4 (08:45→20:50)
[2018-02-10] MEDS: amLODIPine 5 MG Tablet PO SCH (08:45)
[2018-02-10] MEDS: Budesonide-Formoterol 80/4.5 MCG 6.9 GM Inhaler INH SCH ×2 (08:46→20:36)
[2018-02-10 09:21] LABS: Baso # (Auto) 0.1 th/mm3 (0.0-0.2); Baso % (Auto) 0.2 % (0.0-2.0); Eos # (Auto) 0.1 th/mm3 (0.0-0.4); Eos % (Auto) 0.4 % (0.0-4.0); Hematocrit 29.6 % (35.0-46.0); Hemoglobin 9.9 gm/dL (11.6-15.3); Lymph # (Auto) 2.7 th/mm3 (1.0-4.8); Lymph % (Auto) 8.4 % (9.0-44.0); Mean Corpuscular HGB Conc 33.4 % (32.0-36.0); Mean Corpuscular Hemoglobin 32.3 pg (27.0-34.0); Mean Corpuscular Volume 96.8 fL (80.0-100.0); Mean Platelet Volume 7.1 fL (7.0-11.0); Mono % (Auto) 6.1 % (0.0-8.0); Neut # (Auto) 27.8 th/mm3 (1.8-7.7); Neut % (Auto) 84.9 % (16.0-70.0); Platelet Count 305 th/mm3 (150-450); Red Blood Count 3.06 mil/mm3 (4.00-5.30); Red Cell Distribution Width 14.2 % (11.6-17.2); White Blood Count 32.8 th/mm3 (4.0-11.0)
[2018-02-10 09:43] LABS: Calcium 7.1 mg/dL (8.5-10.1)
[2018-02-10 09:44] LABS: Potassium 5.1 meq/L (3.5-5.1)
[2018-02-10 09:49] LABS: Lymphocytes 5 % (9-44); Monocytes 4 % (0-8); Platelet Estimate Normal (Normal); Platelet Morphology Normal (Normal)
[2018-02-10 09:50] LABS: Ovalocytes 1+
[2018-02-10 09:55] LABS: Albumin 1.4 g/dL (3.4-5.0); Calcium-Albumin Corrected 9.2 mg/dL (8.5-10.1)
[2018-02-10] MEDS: Sod Chloride 0.9% Inj 1,000 ML IV.CONT SCH ×2 (12:05→20:35)
[2018-02-10] MEDS ORDERED: Vancomycin Consult Pharmacy OTHER PRN (12:43)
--- NOTE | 2018-02-10 13:06 | P.PNID ---
Subjective Remarks: Patient is an 88-year-old female, presented to the hospital for further evaluation of lethargy. Patient apparently has been having diarrhea over the last 2 weeks. She was seen by her primary care physician, and tested positive for C. difficile. She was started on p.o. Flagyl. On the day of admission patient was noted to be quite lethargic,. She lives with her daughter. She was concerned so the patient was brought into the hospital for further evaluation and treatment. Since admission she has not been febrile. Her white count is greater than 20,000. CT of the abdomen and pelvis is showing significant bowel wall thickening of the rectum and the sigmoid colon. She is having a lot of diarrhea. Infectious disease consultation has been requested to assist with evaluation and treatment. Notes reviewed Temps ok WBC rising Davis placed yesterday Has evidence of pseudomembrane on sigmoidoscopy Has one BC with Coag Neg Staph and MRSA Antibiotics: IV Flagyl PO Vancomycin Vanco enema One dose IV vanco Lines: PIV Past Medical History: Asthma Diabetes Hypertension Uterine fibroid Oophorectomy Allergies/Adverse Reactions: Allergies No Known Allergies Allergy (Verified 01/10/18 22:35) Objective Vital Signs 02/09/18 16:30 02/09/18 20:00 02/10/18 00:00 Temperature 99.1 F 99.2 F 99.6 F Pulse Rate 91 H 88 93 H Respiratory Rate 18 18 20 Blood Pressure 137/66 121/60 121/54 L Pulse Oximetry 96 98 98 02/10/18 04:00 02/10/18 08:00 Temperature 99.6 F 98.6 F Pulse Rate 93 H 88 Respiratory Rate 20 18 Blood Pressure 121/54 L 133/58 L Pulse Oximetry 98 98 Intake & Output 02/09/18 02/10/18 02/10/18 18:59 06:59 18:59 Intake Total 100 / 100 450 / 450 1100 / 1100 Output Total 600 / 600 500 / 500 Balance -500 / -500 -50 / -50 1100 / 1100 Weight 96.6 kg Intake: IV 100 / 100 450 / 450 1100 / 1100 NS Inj 1,000 ML @ 100 mls/hr IV 1000 / 1000 .CONT .Q10H [facility] Rx#:[id number] Vancomycin Inj 1,000 MG In NS 250 / 250 Inj 250 ML @ 250 mls/hr IV.SIG ONCE ONE Rx#:[id number] Flagyl 500 MG Inj 100 ML @ 100 100 / 100 200 / 200 100 / 100 mls/hr IV.SIG Q8H [facility] Rx#: [id number] Output: Urine 600 / 600 Urine Amount (Catheter) 500 / 500 Indwelling Urethral Catheter 500 / 500 Other: Date of Last Bowel Movement 02/08/18 02/10/18 # Bowel Movements 4 # Incontinent Bowel Movements 2 02/09/18 14:28 Blood - Peripheral Aerobic Blood Culture - Preliminary No growth in 1 day 02/09/18 14:28 Blood - Peripheral Anaerobic Blood Culture - Preliminary No growth in 1 day 02/09/18 14:35 Blood - Peripheral Aerobic Blood Culture - Preliminary No growth in 1 day 02/09/18 14:35 Blood - Peripheral Anaerobic Blood Culture - Final QNS - See aerobic report. 02/06/18 20:05 Blood - Peripheral Aerobic Blood Culture - Preliminary No growth in 4 days 02/06/18 20:05 Blood - Peripheral Anaerobic Blood Culture - Preliminary No growth in 4 days 02/06/18 20:00 Blood - Peripheral Aerobic Blood Culture - Final Staphylococcus coag negative 02/06/18 20:00 Blood - Peripheral Anaerobic Blood Culture - Final S. aureus MRSA 02/06/18 17:20 Catheterized Urine Urine Culture - Final No growth in 48 hours Lab - Hematology Results 02/09/18 02/10/18 07:14 09:06 WBC 30.0 H 32.8 H RBC 3.57 L 3.06 L Hgb 11.4 L 9.9 L Hct 34.7 L 29.6 L MCV 97.1 96.8 MCH 31.8 32.3 MCHC 32.8 33.4 RDW 13.8 14.2 Plt Count 300 305 MPV 7.2 7.1 Prelim Diff (Auto) Slide review pending Neut % (Auto) 87.4 H 84.9 H Lymph % (Auto) 6.7 L 8.4 L [place] % (Auto) 5.2 6.1 Eos % (Auto) 0.2 0.4 Baso % (Auto) 0.5 0.2 Neut # (Auto) 26.2 H 27.8 H Lymph # (Auto) 2.0 2.7 [place] # (Auto) 1.6 H 2.0 H Eos # (Auto) 0.1 0.1 Baso # (Auto) 0.1 0.1 WBC Differential . Manual diff final Seg Neuts % (Manual) 86 H Band Neuts % (Manual) 5 Lymphocytes % (Manual) 5 L Monocytes % (Manual) 4 Abs Neuts (Manual) 29.8 H Differential Comment Auto diff final . Platelet Estimate Normal Platelet Morphology Normal Ovalocytes 1+ H Lab - Chemistry Results 02/08/18 02/08/18 02/08/18 13:05 17:27 20:13 Sodium Potassium Chloride Carbon Dioxide Anion Gap BUN Creatinine Estimated GFR POC Glucose 177 H 164 H 312 H Random Glucose Calcium Albumin 02/08/18 02/09/18 02/09/18 21:08 08:11 13:08 Sodium Potassium Chloride Carbon Dioxide Anion Gap BUN Creatinine Estimated GFR POC Glucose 341 H 289 H 305 H Random Glucose Calcium Albumin 02/09/18 02/09/18 02/10/18 17:34 22:06 07:30 Sodium Potassium Chloride Carbon Dioxide Anion Gap BUN Creatinine Estimated GFR POC Glucose 415 H 365 H 244 H Random Glucose Calcium Albumin 02/10/18 02/10/18 09:06 12:44 Sodium 141 Potassium 5.1 Chloride 117 H Carbon Dioxide 20.0 L Anion Gap 4 L BUN 13 Creatinine 0.87 Estimated GFR 75 L POC Glucose 277 H Random Glucose 217 H Calcium 7.1 L* Albumin 1.4 L Imaging: ITS Impressions Chest X-Ray 02/06/18 17:54 CONCLUSION: No acute cardiopulmonary process. Abdomen/Pelvis CT 02/06/18 19:48 CONCLUSION: 1. Severe wall thickening and severe surrounding inflammation involving the rectum and distal sigmoid colon. Findings are characteristic of a severe acute proctocolitis. The sigmoid colon immediately proximal to the inflammation is dilated. 2. 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 This was previously described on the 11/09/[address] 3. Severe atherosclerotic disease. Physical Exam: GENERAL: awake and alert, not in respiratory distress. Told me worng age, does not known where she is, gave me wrong year and could n0t tell me name of president SKIN: Cool and dry. No generalized rash, no ecchymoses and no evidence of embolic lesions. HEAD: Atraumatic. Normocephalic. No temporal wasting, or tenderness. EYES: [place] conjunctiva. No petechia or hemorrhage. Pupils equal, round and reactive to light. Extraocular movements full and intact. No scleral icterus. No injection or drainage. EARS, NOSE AND THROAT: Nose without bleeding or purulent nasal discharge. Slightly dry oral mucosa, white coating on tongue NECK: Trachea midline. Supple and not tender, no meningeal signs CARDIOVASCULAR: Regular rate and rhythm. No murmurs, rubs or gallops heard RESPIRATORY: Clear to auscultation. Breath sounds equal bilaterally. No rales , wheezing or rhonchi ABDOMEN: Soft, non-tender, nondistended. Bowel sounds present and normoactive. No guarding. No rebound. No organomegaly. EXTREMITIES: No clubbing, cyanosis, or edema. No calf tenderness. NEURO: Grossly non-focal PSYCHIATRIC: Normal affect, calm and cooperative. LINE: No evidence of infection Assessment and Plan - Plan IMpression Possible sepsis due to C diff C difficile colitis Severe proctocolitis on CT A/P Leukocytosis Prob underlying dementia One (+) BC with MRSA Recommendation Continue IV Flagyl Continue po Vanco Continue Vanco enema Follow CBC Follow temps Follow repeat BC IV vanco Monitor progress
--- NOTE | 2018-02-10 16:07 | P.PNIM ---
Subjective Interval history: Follow-up visit for C. difficile colitis, leukocytosis, diabetes type 2. Patient seen and examined laying in bed, denies any pain or shortness of breath, denies any abdominal discomfort denies any nausea, or vomiting, or diarrhea today. Patient denies any fever or chills. COMPUTER FIELD TECHNICIAN in the room reported no loose stools today. Family in the room identified herself to be her daughter, stated arranging for help for home, wanted to have her mother discharged to home with home care. Nurse denies any acute issues overnight Physical Exam Vital signs: Last Vital Signs Temp 98.4 F 02/10/18 12:00 Pulse 92 H 02/10/18 12:00 Resp 20 02/10/18 12:00 BP 135/66 02/10/18 12:00 Pulse Ox 96 02/10/18 12:00 Intake & Output 02/08/18 02/09/18 02/10/18 02/11/18 06:59 06:59 06:59 06:59 Intake Total 1800 / 1800 2590 / 2590 550 / 550 1100 / 1100 Output Total 1100 / 1100 Balance 1800 / 1800 2590 / 2590 -550 / -550 1100 / 1100 Weight 96.3 kg 96.6 kg 96.6 kg Narrative: GENERAL: Well-developed, well-nourished, elderly female, in no apparent distress SKIN: Warm and dry. HEAD: Atraumatic. Normocephalic. EYES: Pupils equal and round. No scleral icterus. No injection or drainage. ENT: No nasal bleeding or discharge. Oral white trash NECK: Trachea midline. No JVD. CARDIOVASCULAR: Regular rate and rhythm. RESPIRATORY: No accessory muscle use. Clear to auscultation. Breath sounds equal bilaterally. GASTROINTESTINAL: Abdomen soft, non-tender, nondistended. Hepatic and splenic margins not palpable. MUSCULOSKELETAL: Extremities without clubbing, cyanosis, or edema. No obvious deformities. NEUROLOGICAL: Awake and alert. No obvious cranial nerve deficits. Motor grossly within normal limits. Generalized weakness moving all 4 extremities normal speech. PSYCHIATRIC: Appropriate mood and affect; insight and judgment normal. Urinary Catheter Management Indwelling Urethral Catheter: Cath placed during this visit: yes Urethral indwelling: No Insertion date: 02/09/18 Insertion time: 09:00 Results Labs CBC & Chem 7: 02/10/18 09:06 02/10/18 09:06 Labs: Microbiology 02/09/18 14:28 Blood - Peripheral Aerobic Blood Culture - Preliminary No growth in 1 day 02/09/18 14:28 Blood - Peripheral Anaerobic Blood Culture - Preliminary No growth in 1 day 02/09/18 14:35 Blood - Peripheral Aerobic Blood Culture - Preliminary No growth in 1 day 02/09/18 14:35 Blood - Peripheral Anaerobic Blood Culture - Final QNS - See aerobic report. 02/06/18 20:05 Blood - Peripheral Aerobic Blood Culture - Preliminary No growth in 4 days 02/06/18 20:05 Blood - Peripheral Anaerobic Blood Culture - Preliminary No growth in 4 days 02/06/18 20:00 Blood - Peripheral Aerobic Blood Culture - Final Staphylococcus coag negative 02/06/18 20:00 Blood - Peripheral Anaerobic Blood Culture - Final S. aureus MRSA Assessment and Plan (1) Clostridium difficile colitis: Code(s): A04.72 - Enterocolitis due to Clostridium difficile, not specified as recurrent Status: Acute (2) Colitis: Code(s): K52.9 - Noninfective gastroenteritis and colitis, unspecified Status: Acute (3) Hypoglycemia: Code(s): E16.2 - Hypoglycemia, unspecified Status: Acute Plan This is an 88 y/o female with a history of htn, dm and asthma was brought to the ED via EMS for increased lethargy and confusion per the daughter C diff colitis Leukocytosis WBC increasing trend 21.6 --> 32.8 SIRS, sepsis due to colitis - lactic acid less than 2 -Blood cultures on 02/06/18: Positive for S. aureus MRSA and staph coag negative -Blood culture on 02/09/18 pending, follow results -Diagnosed in the outpatient positive for C. difficile and was started on Flagyl p.o. -Abdominal CT reviewed and shows Severe wall thickening and severe surrounding inflammation involving the rectum and distal sigmoid colon. Findings are characteristic of a severe acute proctocolitis. -Vancomycin po and flagyl IV, May benefit with Vanco per rectum but will defer to Colorectal Surgeon due to proctocolitis in the rectum-risk for perf -IVF for hydration -ID consult appreciated: recom continue Flagyl, VAnco IV dose today, increased dose of Vanco PO -Colorectal surgeon appreciated: Continue Vanco p.o. -Limited colonoscopy to the left colon-edema and swelling of the rectosigmoid mucosa down to the rectum with significant pseudomembranes within the rectal vault. Good blood supply and viability -Vanco enema x1 dose today per ID recommendation will confirm dosage needed with GI and ID. Leukocytosis -Increasing white blood cell count -WBC trend 21.6-->30-->32.8 -Highest temp 99.6 -ID following appreciate recommendation: Continue IV Flagyl, p.o. Vanco, Vanco enema, and IV Vanco -Repeat blood culture -Chest x-ray rule out acute process -Send urine for UA with C&S if indicated -No fever or chills -Monitor CBC, and temperature Abnormal UA UA shows small leukocyte esterase -culture pending, no growth in 48 hrs -Urine tea colored -Recent urine for C&S if indicated Oral Ashlyn -Improving -Continue clotrimazole troches -Daily oral care Acute kidney injury, likely due to dehydration -creatine today 0.97, back to baseline 1.0 -continue IVF as above -avoid nephrotoxins -follow renal Indices Pressure ulcer,sacrum - patient is at risk for increasing pressure ulcer -Barrier cream as needed -Turn Q2H DM Type 2, chronic -Initially hypoglycemic possibly from dehydration -Hold home insulin, patient may benefit from lowering 70/30 dose at home and following up with PCP -Accu checks with Sliding scale -Diabetic diet HTN, chronic BP Labile, improving -continue home medications Norvasc 5 mg -Monitor BP adjust medications as needed DVT prophylaxis: heparin Discharge Planning: Plan to discharge home when cleared with colorectal surgeon and ID Progress Note: Quality VTE Deep Vein Thrombosis/Pulmonary Embolism Present on Admission: No
[2018-02-10] MEDS: Vancomycin Inj 1,500 MG in Sodium Chlor 0.9% Inj 500 ML IV.SIG SCH (16:22)
--- NOTE | 2018-02-10 17:20 | XR ---
EXAM DATE: 02/10/2018 5:18 PM EST AGE/SEX: 88 years / Female INDICATIONS: Short of breath. CLINICAL DATA: This is the patient's subsequent encounter. Patient reports that signs and symptoms h ave been present for 4 - 6 days and indicates a pain score of Nonresponsive. MEDICAL/SURGICAL HISTORY: Non-responsive. Non-responsive. COMPARISON: [facility] – [place]ST 1V SINGLE AP, 02/06/2018. . FINDINGS: A single AP view of the chest demonstrates the lungs to be symmetrically aerated without evidence of mass, infiltrate or effusion. The cardiomediastinal contours are unremarkable. Osseous structures a re intact. CONCLUSION: No acute cardiopulmonary disease. Electronically signed by: Marco Asencio MD Board Certified Radiologist 02/10/2018 5:19 PM EST
[2018-02-10 19:16] LABS: Color,Urine Amber (Yellw/Straw); Glucose,Urine (UA) 50 mg/dL (Negative); Leukocyte Esterase,Urine Large (Negative); Mucus,Urine Moderate /lpf (Occasional); Nitrite,Urine Negative (Negative); Specific Gravity,Urine 1.026 (1.002-1.035); Squamous Epithelial Cell,Urine 1 /hpf (0-5)
[2018-02-10 19:18] LABS: Urobilinogen,Urine 0.2 mg/dL (Less than 2)
[2018-02-10 19:19] LABS: Bacteria,Urine Moderate /hpf; Clarity,Urine Turbid (Clear)
[2018-02-10] MEDS: Calcium Carbonate 500 MG Tablet PO SCH (20:36)
[2018-02-10] MEDS ORDERED: GLUCERNA PO SCH (21:00)
[2018-02-11] MEDS: [UNRECOGNIZED DRUG - OTHER] RECTAL SCH ×4 (05:10→17:54)
[2018-02-11] MEDS: SODIUM CHLORIDE 0.9% RECTAL SCH ×4 (05:10→17:54)
[2018-02-11] MEDS: Clotrimazole 10 MG Troche BUCCAL SCH ×5 (05:34→22:21)
[2018-02-11] MEDS: Sod Chloride 0.9% Inj 1,000 ML IV.CONT SCH ×2 (05:34→15:54)
[2018-02-11 06:13] LABS: Baso # (Auto) 0.1 th/mm3 (0.0-0.2); Baso % (Auto) 0.5 % (0.0-2.0); Eos # (Auto) 0.2 th/mm3 (0.0-0.4); Eos % (Auto) 0.6 % (0.0-4.0); Hematocrit 29.5 % (35.0-46.0); Lymph # (Auto) 2.8 th/mm3 (1.0-4.8); Lymph % (Auto) 9.3 % (9.0-44.0); Mean Corpuscular HGB Conc 33.8 % (32.0-36.0); Mean Corpuscular Hemoglobin 32.3 pg (27.0-34.0); Mean Corpuscular Volume 95.4 fL (80.0-100.0); Mean Platelet Volume 7.4 fL (7.0-11.0); Mono # (Auto) 1.7 th/mm3 (0.0-0.9); Mono % (Auto) 5.8 % (0.0-8.0); Neut # (Auto) 24.9 th/mm3 (1.8-7.7); Neut % (Auto) 83.8 % (16.0-70.0); Platelet Count 298 th/mm3 (150-450); Red Blood Count 3.09 mil/mm3 (4.00-5.30); Red Cell Distribution Width 13.9 % (11.6-17.2); White Blood Count 29.7 th/mm3 (4.0-11.0)
[2018-02-11] MEDS: Insulin NovoLOG Aspart Correctional Sugar Inj SQ SCH ×4 (09:38→22:20)
[2018-02-11] MEDS: Lactobacillus Acidophilus/L. Spores Tablet PO SCH ×2 (09:39→22:20)
[2018-02-11] MEDS: Calcium Carbonate 500 MG Tablet PO SCH ×2 (09:39→22:21)
[2018-02-11] MEDS: Ferrous Sulfate 325 MG Tablet PO SCH (09:39)
[2018-02-11] MEDS: amLODIPine 5 MG Tablet PO SCH (09:39)
[2018-02-11] MEDS: Heparin - SQ 10,000 UNITS/ML Vial SQ SCH ×2 (09:40→22:19)
[2018-02-11] MEDS: Albumin Human 25% Inj 100 ML IV.SIG SCH (09:40)
[2018-02-11] MEDS: Budesonide-Formoterol 80/4.5 MCG 6.9 GM Inhaler INH SCH ×2 (09:40→22:22)
--- NOTE | 2018-02-11 15:00 | P.PNID ---
Subjective Remarks: Patient is an 88-year-old female, presented to the hospital for further evaluation of lethargy. Patient apparently has been having diarrhea over the last 2 weeks. She was seen by her primary care physician, and tested positive for C. difficile. She was started on p.o. Flagyl. On the day of admission patient was noted to be quite lethargic,. She lives with her daughter. She was concerned so the patient was brought into the hospital for further evaluation and treatment. Since admission she has not been febrile. Her white count is greater than 20,000. CT of the abdomen and pelvis is showing significant bowel wall thickening of the rectum and the sigmoid colon. She is having a lot of diarrhea. Infectious disease consultation has been requested to assist with evaluation and treatment. Notes reviewed Temps ok WBC lower today Has not been getting the Vancomycin enemas Davis placed yesterday Has evidence of pseudomembrane on sigmoidoscopy Has one BC with Coag Neg Staph and MRSA Repeat BC negative Antibiotics: IV Flagyl PO Vancomycin Vanco enema - got one dose 02/10 One dose IV vanco Lines: PIV Past Medical History: Asthma Diabetes Hypertension Uterine fibroid Oophorectomy Allergies/Adverse Reactions: Allergies No Known Allergies Allergy (Verified 01/10/18 22:35) Objective Vital Signs 02/10/18 16:00 02/10/18 20:00 02/11/18 00:00 Temperature 97.5 F L 99.1 F 99.5 F Pulse Rate 88 89 84 Respiratory Rate 20 20 20 Blood Pressure 111/72 136/61 118/60 Pulse Oximetry 98 98 97 02/11/18 04:00 02/11/18 08:00 02/11/18 12:00 Temperature 99.5 F 98.7 F 98.5 F Pulse Rate 88 91 H 91 H Respiratory Rate 20 20 20 Blood Pressure 134/60 136/65 117/59 L Pulse Oximetry 97 96 99 Intake & Output 02/10/18 02/11/18 02/11/18 18:59 06:59 18:59 Intake Total 3565 / 3565 1440 / 1440 100 / 100 Output Total 200 / 200 250 / 250 800 / 800 Balance 3365 / 3365 1190 / 1190 -700 / -700 Weight 98.5 kg Intake: IV 1615 / 1615 1200 / 1200 100 / 100 NS Inj 1,000 ML @ 100 mls/hr IV 1000 / 1000 1000 / 1000 .CONT .Q10H [facility] Rx#:[id number] Vancomycin Inj 1,500 MG In NS 515 / 515 Inj 500 ML @ 250 mls/hr IV.SIG Q24H [facility] Rx#:[id number] Flagyl 500 MG Inj 100 ML @ 100 100 / 100 200 / 200 100 / 100 mls/hr IV.SIG Q8H [facility] Rx#: [id number] Oral 750 / 750 240 / 240 Other 1200 / 1200 Bladder Irrigation Fluid - 0 / 0 Amount Retained Indwelling Urethral Catheter 0 / 0 Output: Urine 800 / 800 Urine Amount (Catheter) 200 / 200 250 / 250 Indwelling Urethral Catheter 200 / 200 250 / 250 Other: Bladder Irrigation Fluid - Amount Instilled Indwelling Urethral Catheter 10 Bladder Irrigation Fluid - Amount Drained Indwelling Urethral Catheter 10 Other Intake Source Saline Solution Date of Last Bowel Movement 02/10/18 02/10/18 02/11/18 # Incontinent Bowel Movements 2 02/09/18 14:28 Blood - Peripheral Aerobic Blood Culture - Preliminary No growth in 2 days 02/09/18 14:28 Blood - Peripheral Anaerobic Blood Culture - Preliminary No growth in 2 days 02/09/18 14:35 Blood - Peripheral Aerobic Blood Culture - Preliminary No growth in 2 days 02/09/18 14:35 Blood - Peripheral Anaerobic Blood Culture - Final QNS - See aerobic report. 02/06/18 20:05 Blood - Peripheral Aerobic Blood Culture - Final No growth in 5 days 02/06/18 20:05 Blood - Peripheral Anaerobic Blood Culture - Final No growth in 5 days 02/06/18 20:00 Blood - Peripheral Aerobic Blood Culture - Final Staphylococcus coag negative 02/06/18 20:00 Blood - Peripheral Anaerobic Blood Culture - Final S. aureus MRSA Lab - Hematology Results 02/10/18 02/11/18 09:06 05:50 WBC 32.8 H 29.7 H RBC 3.06 L 3.09 L Hgb 9.9 L 10.0 L Hct 29.6 L 29.5 L MCV 96.8 95.4 MCH 32.3 32.3 MCHC 33.4 33.8 RDW 14.2 13.9 Plt Count 305 298 MPV 7.1 7.4 Prelim Diff (Auto) Slide review pending Neut % (Auto) 84.9 H 83.8 H Lymph % (Auto) 8.4 L 9.3 [place] % (Auto) 6.1 5.8 Eos % (Auto) 0.4 0.6 Baso % (Auto) 0.2 0.5 Neut # (Auto) 27.8 H 24.9 H Lymph # (Auto) 2.7 2.8 [place] # (Auto) 2.0 H 1.7 H Eos # (Auto) 0.1 0.2 Baso # (Auto) 0.1 0.1 WBC Differential Manual diff final . Seg Neuts % (Manual) 86 H Band Neuts % (Manual) 5 Lymphocytes % (Manual) 5 L Monocytes % (Manual) 4 Abs Neuts (Manual) 29.8 H Differential Comment . Auto diff final Platelet Estimate Normal Platelet Morphology Normal Ovalocytes 1+ H Lab - Chemistry Results 02/09/18 02/09/18 02/10/18 17:34 22:06 07:30 Sodium Potassium Chloride Carbon Dioxide Anion Gap BUN Creatinine Estimated GFR POC Glucose 415 H 365 H 244 H Random Glucose Calcium Calcium Adj for Albumin Albumin 02/10/18 02/10/18 02/10/18 09:06 12:44 16:27 Sodium 141 Potassium 5.1 Chloride 117 H Carbon Dioxide 20.0 L Anion Gap 4 L BUN 13 Creatinine 0.87 Estimated GFR 75 L POC Glucose 277 H 215 H Random Glucose 217 H Calcium 7.1 L* Calcium Adj for Albumin 9.2 Albumin 1.4 L 02/10/18 02/11/18 02/11/18 20:38 08:33 12:41 Sodium Potassium Chloride Carbon Dioxide Anion Gap BUN Creatinine Estimated GFR POC Glucose 251 H 197 H 234 H Random Glucose Calcium Calcium Adj for Albumin Albumin Imaging: ITS Impressions Abdomen/Pelvis CT 02/06/18 19:48 CONCLUSION: 1. Severe wall thickening and severe surrounding inflammation involving the rectum and distal sigmoid colon. Findings are characteristic of a severe acute proctocolitis. The sigmoid colon immediately proximal to the inflammation is dilated. 2. 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 This was previously described on the 11/09/[address] 3. Severe atherosclerotic disease. Chest X-Ray 02/10/18 00:00 CONCLUSION: No acute cardiopulmonary disease. Physical Exam: GENERAL: awake and alert, not in respiratory distress. Told me worng age, does not known where she is, gave me wrong year and could n0t tell me name of president SKIN: Cool and dry. No generalized rash, no ecchymoses and no evidence of embolic lesions. HEAD: Atraumatic. Normocephalic. No temporal wasting, or tenderness. EYES: [place] conjunctiva. No petechia or hemorrhage. Pupils equal, round and reactive to light. Extraocular movements full and intact. No scleral icterus. No injection or drainage. EARS, NOSE AND THROAT: Nose without bleeding or purulent nasal discharge. Slightly dry oral mucosa, white coating on tongue NECK: Trachea midline. Supple and not tender, no meningeal signs CARDIOVASCULAR: Regular rate and rhythm. No murmurs, rubs or gallops heard RESPIRATORY: Clear to auscultation. Breath sounds equal bilaterally. No rales , wheezing or rhonchi ABDOMEN: Soft, non-tender, nondistended. Bowel sounds present and normoactive. No guarding. No rebound. No organomegaly. EXTREMITIES: No clubbing, cyanosis, or edema. No calf tenderness. NEURO: Grossly non-focal PSYCHIATRIC: Normal affect, calm and cooperative. LINE: No evidence of infection Assessment and Plan - Plan IMpression Possible sepsis due to C diff C difficile colitis Severe proctocolitis on CT A/P Leukocytosis Prob underlying dementia One (+) BC with MRSA Recommendation Continue IV Flagyl Continue po Vanco Continue Vanco enema - will reorder Follow CBC Follow temps Follow repeat BC IV vanco - If neg will determine if stop or dc Monitor progress
[2018-02-11] MEDS ORDERED: SODIUM CHLORIDE 0.9% RECTAL SCH ×2 (16:00)
[2018-02-11] MEDS ORDERED: [UNRECOGNIZED DRUG - OTHER] RECTAL SCH ×2 (16:00)
[2018-02-11] MEDS: Vancomycin Inj 1,500 MG in Sodium Chlor 0.9% Inj 500 ML IV.SIG SCH (16:01)
--- NOTE | 2018-02-11 16:05 | P.PNIM ---
Subjective Interval history: Follow-up visit for C. difficile colitis, leukocytosis, diabetes type 2. Patient seen and examined laying in bed, denies any pain or any discomfort. Patient denies any abdominal pain, nausea or vomiting. Patient denies any diarrhea today. Patient stated doing better and feeling better. Patient denies any headache or dizziness, denies any chest pain or shortness of breath, denies any fever or chills. Nurse reported no acute issues overnight Discussed and confirmed with ID/Dr. Rodríguez enema orders. Physical Exam Vital signs: Last Vital Signs Temp 98.5 F 02/11/18 12:00 Pulse 91 H 02/11/18 12:00 Resp 20 02/11/18 12:00 BP 117/59 L 02/11/18 12:00 Pulse Ox 99 02/11/18 12:00 Intake & Output 02/09/18 02/10/18 02/11/18 02/12/18 06:59 06:59 06:59 06:59 Intake Total 2590 / 2590 550 / 550 5005 / 5005 200 / 200 Output Total 1100 / 1100 450 / 450 800 / 800 Balance 2590 / 2590 -550 / -550 4555 / 4555 -600 / -600 Weight 96.6 kg 96.6 kg 98.5 kg Narrative: GENERAL: Well-developed, well-nourished, elderly female, in no apparent distress SKIN: Warm and dry. HEAD: Atraumatic. Normocephalic. EYES: Pupils equal and round. No scleral icterus. No injection or drainage. ENT: No nasal bleeding or discharge. Oral white trash NECK: Trachea midline. No JVD. CARDIOVASCULAR: Regular rate and rhythm. RESPIRATORY: No accessory muscle use. Clear to auscultation. Breath sounds equal bilaterally. GASTROINTESTINAL: Abdomen soft, non-tender, nondistended. Hepatic and splenic margins not palpable. : Davis catheter in place, draining tea colored urine MUSCULOSKELETAL: Extremities without clubbing, cyanosis, or edema. No obvious deformities. NEUROLOGICAL: Awake and alert. No obvious cranial nerve deficits. Motor grossly within normal limits. Generalized weakness moving all 4 extremities normal speech. PSYCHIATRIC: Appropriate mood and affect; insight and judgment normal. Urinary Catheter Management Indwelling Urethral Catheter: Cath placed during this visit: yes Urethral indwelling: No Insertion date: 02/09/18 Insertion time: 09:00 Results Labs CBC & Chem 7: 02/11/18 05:50 02/10/18 09:06 Labs: Microbiology 02/09/18 14:28 Blood - Peripheral Aerobic Blood Culture - Preliminary No growth in 2 days 02/09/18 14:28 Blood - Peripheral Anaerobic Blood Culture - Preliminary No growth in 2 days 02/09/18 14:35 Blood - Peripheral Aerobic Blood Culture - Preliminary No growth in 2 days 02/09/18 14:35 Blood - Peripheral Anaerobic Blood Culture - Final QNS - See aerobic report. 02/06/18 20:05 Blood - Peripheral Aerobic Blood Culture - Final No growth in 5 days 02/06/18 20:05 Blood - Peripheral Anaerobic Blood Culture - Final No growth in 5 days Imaging Imaging: Impressions Chest X-Ray 02/10/18 00:00 CONCLUSION: No acute cardiopulmonary disease. Assessment and Plan (1) Clostridium difficile colitis: Code(s): A04.72 - Enterocolitis due to Clostridium difficile, not specified as recurrent Status: Acute (2) Colitis: Code(s): K52.9 - Noninfective gastroenteritis and colitis, unspecified Status: Acute (3) Hypoglycemia: Code(s): E16.2 - Hypoglycemia, unspecified Status: Acute Plan This is an 88 y/o female with a history of htn, dm and asthma was brought to the ED via EMS for increased lethargy and confusion per the daughter C diff colitis Leukocytosis WBC increasing trend 21.6 --> 32.8 SIRS, sepsis due to colitis - lactic acid less than 2 -Blood cultures on 02/06/18: Positive for S. aureus MRSA and staph coag negative -Blood culture on 02/09/18 pending, follow results -Diagnosed in the outpatient positive for C. difficile and was started on Flagyl p.o. -Abdominal CT reviewed and shows Severe wall thickening and severe surrounding inflammation involving the rectum and distal sigmoid colon. Findings are characteristic of a severe acute proctocolitis. -Vancomycin po and flagyl IV, continue Vanco per rectum per Colorectal Surgeon -IVF for hydration -ID consult appreciated: recom continue Flagyl, VAnco IV dose today, increased dose of Vanco PO -Colorectal surgeon appreciated: Continue Vanco p.o. -Limited colonoscopy to the left colon-edema and swelling of the rectosigmoid mucosa down to the rectum with significant pseudomembranes within the rectal vault. Good blood supply and viability -Vanco enema x1 dose today per ID recommendation will confirm dosage needed with GI and ID. -Discussed and confirmed Vanco enema order with ID/Dr. Rodríguez. Order clarified Leukocytosis -Increasing white blood cell count -WBC trend 21.6-->30-->32.8-->29.7 -Highest temp 99.6 -ID following appreciate recommendation: Continue IV Flagyl, p.o. Vanco, Vanco enema, and IV Vanco -Repeat blood culture -Chest x-ray rule out acute process -Send urine for UA with C&S if indicated -No fever or chills -Monitor CBC, and temperature Abnormal UA UA shows small leukocyte esterase -culture pending, no growth in 48 hrs -Urine tea colored -Recent urine for C&S if indicated Oral Ashlyn -Improving -Continue clotrimazole troches -Daily oral care Acute kidney injury, likely due to dehydration -creatine today 0.97, back to baseline 1.0 -continue IVF as above -avoid nephrotoxins -follow renal Indices Pressure ulcer,sacrum - patient is at risk for increasing pressure ulcer -Barrier cream as needed -Turn Q2H -Davis catheter in place for wound healing DM Type 2, chronic -Initially hypoglycemic possibly from dehydration -Hold home insulin, patient may benefit from lowering 70/30 dose at home and following up with PCP -Accu checks with Sliding scale -Diabetic diet HTN, chronic BP Labile, improving -continue home medications Norvasc 5 mg -Monitor BP adjust medications as needed DVT prophylaxis: heparin Discharge Planning: Plan to discharge home when cleared with colorectal surgeon and ID Progress Note: Quality VTE Deep Vein Thrombosis/Pulmonary Embolism Present on Admission: No
[2018-02-12] MEDS: Sod Chloride 0.9% Inj 1,000 ML IV.CONT SCH ×2 (03:01→14:09)
[2018-02-12] MEDS: [UNRECOGNIZED DRUG - OTHER] RECTAL SCH ×4 (05:38→17:17)
[2018-02-12] MEDS: SODIUM CHLORIDE 0.9% RECTAL SCH ×4 (05:38→17:17)
[2018-02-12] MEDS: Clotrimazole 10 MG Troche BUCCAL SCH ×5 (05:38→21:59)
[2018-02-12] MEDS: Albumin Human 25% Inj 100 ML IV.SIG SCH (09:23)
[2018-02-12] MEDS: Ferrous Sulfate 325 MG Tablet PO SCH (09:24)
[2018-02-12] MEDS: Lactobacillus Acidophilus/L. Spores Tablet PO SCH ×2 (09:24→22:07)
[2018-02-12] MEDS: Calcium Carbonate 500 MG Tablet PO SCH ×2 (09:24→21:59)
[2018-02-12] MEDS: amLODIPine 5 MG Tablet PO SCH (09:24)
[2018-02-12] MEDS: Heparin - SQ 10,000 UNITS/ML Vial SQ SCH ×2 (09:25→21:58)
[2018-02-12] MEDS: Insulin NovoLOG Aspart Correctional Sugar Inj SQ SCH ×4 (09:35→22:00)
--- NOTE | 2018-02-12 10:28 | P.PNCS ---
Subjective Interval history: afebrile, VSS PO fair UO good Objective Result Diagrams: 02/11/18 05:50 02/10/18 09:06 Objective Remarks: PE lethargic Abd - softer, mild tender, less tympany Assessment and Plan - Plan Imp: incr WBC - fu pending cont enemas, PO vanco IVF insert worthy - check output better skin care DC plans
[2018-02-12] MEDS: Budesonide-Formoterol 80/4.5 MCG 6.9 GM Inhaler INH SCH ×2 (13:00→21:59)
[2018-02-12 13:25] LABS: Baso # (Auto) 0.1 th/mm3 (0.0-0.2); Baso % (Auto) 0.3 % (0.0-2.0); Eos # (Auto) 0.1 th/mm3 (0.0-0.4); Eos % (Auto) 0.4 % (0.0-4.0); Hematocrit 27.5 % (35.0-46.0); Hemoglobin 9.2 gm/dL (11.6-15.3); Lymph # (Auto) 2.7 th/mm3 (1.0-4.8); Lymph % (Auto) 12.8 % (9.0-44.0); Mean Corpuscular HGB Conc 33.3 % (32.0-36.0); Mean Corpuscular Hemoglobin 31.9 pg (27.0-34.0); Mean Corpuscular Volume 95.6 fL (80.0-100.0); Mean Platelet Volume 7.7 fL (7.0-11.0); Mono # (Auto) 1.1 th/mm3 (0.0-0.9); Mono % (Auto) 5.3 % (0.0-8.0); Neut # (Auto) 17.4 th/mm3 (1.8-7.7); Neut % (Auto) 81.2 % (16.0-70.0); Platelet Count 330 th/mm3 (150-450); Red Blood Count 2.88 mil/mm3 (4.00-5.30); Red Cell Distribution Width 13.8 % (11.6-17.2); White Blood Count 21.5 th/mm3 (4.0-11.0)
[2018-02-12] MEDS ORDERED: Simethicone 125 MG Chew Tablet PO PRN (14:11)
--- NOTE | 2018-02-12 14:12 | P.PNIM ---
Subjective Interval history: Follow-up visit for C. difficile colitis, leukocytosis, diabetes type 2. Patient seen and examined laying in bed, stated she do not feel good. When asked how that she feels stated just do not feel good. When asked for abdominal pain stated yes for abdominal pain. Denies any nausea or vomiting. Patient stated pain is mostly gas pain than acid pain. Physical Exam Vital signs: Last Vital Signs Temp 98.0 F 02/12/18 12:34 Pulse 86 02/12/18 12:34 Resp 16 02/12/18 12:34 BP 128/61 02/12/18 12:34 Pulse Ox 98 02/12/18 12:34 Intake & Output 02/10/18 02/11/18 02/12/18 02/13/18 06:59 06:59 06:59 06:59 Intake Total 550 / 550 5005 / 5005 2415 / 2415 Output Total 1100 / 1100 450 / 450 3500 / 3500 Balance -550 / -550 4555 / 4555 -1085 / -1085 Weight 96.6 kg 98.5 kg 96.5 kg Narrative: GENERAL: Well-developed, well-nourished, elderly female, in no apparent distress SKIN: Warm and dry. HEAD: Atraumatic. Normocephalic. EYES: Pupils equal and round. No scleral icterus. No injection or drainage. ENT: No nasal bleeding or discharge. Oral white trash NECK: Trachea midline. No JVD. CARDIOVASCULAR: Regular rate and rhythm. RESPIRATORY: No accessory muscle use. Clear to auscultation. Breath sounds equal bilaterally. GASTROINTESTINAL: Abdomen soft, slight abdominal tenderness on palpation, nondistended. Hepatic and splenic margins not palpable. : Davis catheter in place, draining tea colored urine MUSCULOSKELETAL: Extremities without clubbing, cyanosis, or edema. No obvious deformities. NEUROLOGICAL: Awake and alert. No obvious cranial nerve deficits. Motor grossly within normal limits. Generalized weakness moving all 4 extremities. Normal speech. PSYCHIATRIC: Flat mood and affect; insight and judgment normal. Urinary Catheter Management Indwelling Urethral Catheter: Cath placed during this visit: yes Urethral indwelling: No Insertion date: 02/09/18 Insertion time: 09:00 Results Labs CBC & Chem 7: 02/12/18 11:54 02/10/18 09:06 Labs: Microbiology 02/09/18 14:28 Blood - Peripheral Aerobic Blood Culture - Preliminary No growth in 3 days 02/09/18 14:28 Blood - Peripheral Anaerobic Blood Culture - Preliminary No growth in 3 days 02/09/18 14:35 Blood - Peripheral Aerobic Blood Culture - Preliminary No growth in 3 days 02/09/18 14:35 Blood - Peripheral Anaerobic Blood Culture - Final QNS - See aerobic report. 02/06/18 20:05 Blood - Peripheral Aerobic Blood Culture - Final No growth in 5 days 02/06/18 20:05 Blood - Peripheral Anaerobic Blood Culture - Final No growth in 5 days Assessment and Plan (1) Clostridium difficile colitis: Code(s): A04.72 - Enterocolitis due to Clostridium difficile, not specified as recurrent Status: Acute (2) Colitis: Code(s): K52.9 - Noninfective gastroenteritis and colitis, unspecified Status: Acute (3) Hypoglycemia: Code(s): E16.2 - Hypoglycemia, unspecified Status: Acute Plan This is an 88 y/o female with a history of htn, dm and asthma was brought to the ED via EMS for increased lethargy and confusion per the daughter C diff colitis Leukocytosis WBC increasing trend 21.6 --> 32.8 SIRS, sepsis due to colitis - lactic acid less than 2 -Blood cultures on 02/06/18: Positive for S. aureus MRSA and staph coag negative -Blood culture on 02/09/18 pending, follow results -Diagnosed in the outpatient positive for C. difficile and was started on Flagyl p.o. -Abdominal CT reviewed and shows Severe wall thickening and severe surrounding inflammation involving the rectum and distal sigmoid colon. Findings are characteristic of a severe acute proctocolitis. -Vancomycin po and flagyl IV, continue Vanco per rectum per Colorectal Surgeon -IVF for hydration -ID consult appreciated: recom continue Flagyl, VAnco IV dose today, increased dose of Vanco PO -Colorectal surgeon appreciated: Continue Vanco p.o. -Limited colonoscopy to the left colon-edema and swelling of the rectosigmoid mucosa down to the rectum with significant pseudomembranes within the rectal vault. Good blood supply and viability -Vanco enema x1 dose today per ID recommendation will confirm dosage needed with GI and ID. -Discussed and confirmed Vanco enema order with ID/Dr. Rodríguez. Order clarified Leukocytosis -Increasing white blood cell count -WBC trend 21.6-->30-->32.8-->29.7 -Highest temp 99.6 -ID following appreciate recommendation: Continue IV Flagyl, p.o. Vanco, Vanco enema, and IV Vanco -Repeat blood culture -Chest x-ray rule out acute process -Send urine for UA with C&S if indicated -No fever or chills -Monitor CBC, and temperature Abnormal UA UA shows small leukocyte esterase -culture pending, no growth in 48 hrs -Urine tea colored -Recent urine for C&S if indicated Oral Ashlyn -Improving -Continue clotrimazole troches -Daily oral care Acute kidney injury, likely due to dehydration -creatine today 0.97, back to baseline 1.0 -continue IVF as above -avoid nephrotoxins -follow renal Indices Pressure ulcer,sacrum - patient is at risk for increasing pressure ulcer -Barrier cream as needed -Turn Q2H -Davis catheter in place for wound healing DM Type 2, chronic -Initially hypoglycemic possibly from dehydration -Hold home insulin, patient may benefit from lowering 70/30 dose at home and following up with PCP -Accu checks with Sliding scale -Diabetic diet HTN, chronic BP Labile, improving -continue home medications Norvasc 5 mg -Monitor BP adjust medications as needed DVT prophylaxis: heparin Discharge Planning: Plan to discharge home when cleared with colorectal surgeon and ID Progress Note: Quality VTE Deep Vein Thrombosis/Pulmonary Embolism Present on Admission: No
[2018-02-12] MEDS ORDERED: Pharmacy Ordered Lab Info OTHER ONE (14:45)
[2018-02-12] MEDS: Vancomycin Inj 1,500 MG in Sodium Chlor 0.9% Inj 500 ML IV.SIG SCH (14:53)
--- NOTE | 2018-02-12 14:56 | P.PNID ---
Subjective Remarks: Patient is an 88-year-old female, presented to the hospital for further evaluation of lethargy. Patient apparently has been having diarrhea over the last 2 weeks. She was seen by her primary care physician, and tested positive for C. difficile. She was started on p.o. Flagyl. On the day of admission patient was noted to be quite lethargic,. She lives with her daughter. She was concerned so the patient was brought into the hospital for further evaluation and treatment. Since admission she has not been febrile. Her white count is greater than 20,000. CT of the abdomen and pelvis is showing significant bowel wall thickening of the rectum and the sigmoid colon. She is having a lot of diarrhea. Infectious disease consultation has been requested to assist with evaluation and treatment. Notes reviewed Temps ok WBC better Getting her Vanco enema sibnce yesterday C/O abdominal pain Does not feel good Has not been getting the Vancomycin enemas Davis placed yesterday Has evidence of pseudomembrane on sigmoidoscopy Has one BC with Coag Neg Staph and MRSA Repeat BC negative Antibiotics: IV Flagyl PO Vancomycin Vanco enema IV vanco Lines: PIV Past Medical History: Asthma Diabetes Hypertension Uterine fibroid Oophorectomy Allergies/Adverse Reactions: Allergies No Known Allergies Allergy (Verified 01/10/18 22:35) Objective Vital Signs 02/11/18 16:00 02/11/18 20:00 02/12/18 00:00 Temperature 98.7 F 98.2 F 97.9 F Pulse Rate 86 89 86 Respiratory Rate 22 20 20 Blood Pressure 134/58 L 121/60 120/66 Pulse Oximetry 96 97 99 02/12/18 02:12 02/12/18 04:00 02/12/18 07:55 Temperature 98.2 F 97.5 F L Pulse Rate 80 89 Respiratory Rate 16 18 16 Blood Pressure 121/59 L 123/66 Pulse Oximetry 97 98 02/12/18 08:00 02/12/18 12:34 Temperature 98.0 F Pulse Rate 86 Respiratory Rate 16 16 Blood Pressure 128/61 Pulse Oximetry 98 Intake & Output 02/11/18 02/12/18 02/12/18 18:59 06:59 18:59 Intake Total 1815 / 1815 600 / 600 450 / 450 Output Total 2100 / 2100 1400 / 1400 Balance -285 / -285 -800 / -800 450 / 450 Weight 96.5 kg Intake: IV 815 / 815 300 / 300 450 / 450 NS Inj 1,000 ML @ 60 mls/hr IV. 200 / 200 350 / 350 CONT .[id number] [facility] Rx#:[id number] Flexbumin 25% Inj 100 ML @ 60 100 / 100 mls/hr IV.SIG DAILY [facility] Rx#: [id number] Vancomycin Inj 1,500 MG In NS 515 / 515 Inj 500 ML @ 250 mls/hr IV.SIG Q24H [facility] Rx#:[id number] Flagyl 500 MG Inj 100 ML @ 100 200 / 200 100 / 100 100 / 100 mls/hr IV.SIG Q8H [facility] Rx#: [id number] Oral 1000 / 1000 300 / 300 Output: Urine 1600 / 1600 Urine Amount (Catheter) 500 / 500 1400 / 1400 Indwelling Urethral Catheter 500 / 500 1400 / 1400 Other: Date of Last Bowel Movement 02/11/18 02/11/18 02/11/18 # Incontinent Bowel Movements 4 02/09/18 14:28 Blood - Peripheral Aerobic Blood Culture - Preliminary No growth in 3 days 02/09/18 14:28 Blood - Peripheral Anaerobic Blood Culture - Preliminary No growth in 3 days 02/09/18 14:35 Blood - Peripheral Aerobic Blood Culture - Preliminary No growth in 3 days 02/09/18 14:35 Blood - Peripheral Anaerobic Blood Culture - Final QNS - See aerobic report. 02/06/18 20:05 Blood - Peripheral Aerobic Blood Culture - Final No growth in 5 days 02/06/18 20:05 Blood - Peripheral Anaerobic Blood Culture - Final No growth in 5 days 02/06/18 20:00 Blood - Peripheral Aerobic Blood Culture - Final Staphylococcus coag negative 02/06/18 20:00 Blood - Peripheral Anaerobic Blood Culture - Final S. aureus MRSA Lab - Hematology Results 02/11/18 02/12/18 05:50 11:54 WBC 29.7 H 21.5 H RBC 3.09 L 2.88 L Hgb 10.0 L 9.2 L Hct 29.5 L 27.5 L MCV 95.4 95.6 MCH 32.3 31.9 MCHC 33.8 33.3 RDW 13.9 13.8 Plt Count 298 330 MPV 7.4 7.7 Prelim Diff (Auto) Slide review pending Neut % (Auto) 83.8 H 81.2 H Lymph % (Auto) 9.3 12.8 [place] % (Auto) 5.8 5.3 Eos % (Auto) 0.6 0.4 Baso % (Auto) 0.5 0.3 Neut # (Auto) 24.9 H 17.4 H Lymph # (Auto) 2.8 2.7 [place] # (Auto) 1.7 H 1.1 H Eos # (Auto) 0.2 0.1 Baso # (Auto) 0.1 0.1 WBC Differential . . Diff Scan Auto diff confirmed Differential Comment Auto diff final . Lab - Chemistry Results 02/10/18 02/10/18 02/11/18 16:27 20:38 08:33 POC Glucose 215 H 251 H 197 H 02/11/18 02/11/18 02/11/18 12:41 17:08 20:14 POC Glucose 234 H 258 H 308 H 02/12/18 02/12/18 02/12/18 07:55 12:51 13:09 POC Glucose 227 H 62 L 53 L 02/12/18 02/12/18 02/12/18 13:37 13:58 14:24 POC Glucose 72 87 88 Imaging: ITS Impressions Abdomen/Pelvis CT 02/06/18 19:48 CONCLUSION: 1. Severe wall thickening and severe surrounding inflammation involving the rectum and distal sigmoid colon. Findings are characteristic of a severe acute proctocolitis. The sigmoid colon immediately proximal to the inflammation is dilated. 2. 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 This was previously described on the 11/09/[address] 3. Severe atherosclerotic disease. Chest X-Ray 02/10/18 00:00 CONCLUSION: No acute cardiopulmonary disease. Physical Exam: GENERAL: awake and alert, not in respiratory distress. Told me worng age, does not known where she is, gave me wrong year and could n0t tell me name of president SKIN: Cool and dry. No generalized rash, no ecchymoses and no evidence of embolic lesions. HEAD: Atraumatic. Normocephalic. No temporal wasting, or tenderness. EYES: [employer] conjunctiva. No petechia or hemorrhage. Pupils equal, round and reactive to light. Extraocular movements full and intact. No scleral icterus. No injection or drainage. EARS, NOSE AND THROAT: Nose without bleeding or purulent nasal discharge. Slightly dry oral mucosa, white coating on tongue NECK: Trachea midline. Supple and not tender, no meningeal signs CARDIOVASCULAR: Regular rate and rhythm. No murmurs, rubs or gallops heard RESPIRATORY: Clear to auscultation. Breath sounds equal bilaterally. No rales , wheezing or rhonchi ABDOMEN: Soft, non-tender, nondistended. Bowel sounds present and normoactive. No guarding. No rebound. No organomegaly. EXTREMITIES: No clubbing, cyanosis, or edema. No calf tenderness. NEURO: Grossly non-focal PSYCHIATRIC: Normal affect, calm and cooperative. LINE: No evidence of infection Assessment and Plan - Plan IMpression Possible sepsis due to C diff C difficile colitis Severe proctocolitis on CT A/P Leukocytosis Prob underlying dementia One (+) BC with MRSA Recommendation Continue IV Flagyl Continue po Vanco Continue Vanco enema - will reorder Follow CBC Follow temps Follow repeat BC IV vanco - If fup BC neg will determine if stop or dc Monitor progress
[2018-02-13] MEDS: Sod Chloride 0.9% Inj 1,000 ML IV.CONT SCH ×2 (04:20→20:53)
[2018-02-13] MEDS: Clotrimazole 10 MG Troche BUCCAL SCH ×5 (06:26→21:00)
[2018-02-13] MEDS: SODIUM CHLORIDE 0.9% RECTAL SCH ×4 (06:27→17:20)
[2018-02-13] MEDS: [UNRECOGNIZED DRUG - OTHER] RECTAL SCH ×4 (06:27→17:20)
[2018-02-13] MEDS: amLODIPine 5 MG Tablet PO SCH (08:57)
[2018-02-13] MEDS: Heparin - SQ 10,000 UNITS/ML Vial SQ SCH ×2 (08:57→20:53)
[2018-02-13] MEDS: Calcium Carbonate 500 MG Tablet PO SCH ×2 (08:57→20:50)
[2018-02-13] MEDS: Ferrous Sulfate 325 MG Tablet PO SCH (08:58)
[2018-02-13] MEDS: Lactobacillus Acidophilus/L. Spores Tablet PO SCH ×2 (08:58→20:50)
[2018-02-13] MEDS: Albumin Human 25% Inj 100 ML IV.SIG SCH (08:59)
[2018-02-13] MEDS: Budesonide-Formoterol 80/4.5 MCG 6.9 GM Inhaler INH SCH ×2 (08:59→20:56)
[2018-02-13] MEDS: Insulin NovoLOG Aspart Correctional Sugar Inj SQ SCH ×4 (08:59→20:46)
--- NOTE | 2018-02-13 10:28 | P.PNCS ---
Subjective Interval history: afebrile, VSS UO good less diarrhea Objective Result Diagrams: 02/12/18 11:54 02/12/18 14:25 Objective Remarks: PE lethargic Abd - softer, min tender, less tympany Assessment and Plan - Plan Imp: incr WBC - fu pending, lower cont enemas, PO vanco IVF insert worthy - check output DC plans
--- NOTE | 2018-02-13 11:00 | P.PNIM ---
Subjective Interval history: Follow-up visit for C. difficile colitis, leukocytosis, diabetes type 2. Patient seen and examined laying in bed, awake and patient stated just woken up. Did not eat breakfast yet. Patient set up for breakfast , able to feed herself. Encourage increase fluid intake. Patient denies any headache or shortness of breath, denies any abdominal pain at this time. Denies any nausea or vomiting. Patient stated no diarrhea today. Patient denies any fever or chills. Nurse reported no acute issues overnight Physical Exam Vital signs: Last Vital Signs Temp 98.1 F 02/13/18 08:00 Pulse 87 02/13/18 08:00 Resp 17 02/13/18 08:00 BP 146/60 H 02/13/18 08:00 Pulse Ox 98 02/13/18 08:00 Intake & Output 02/11/18 02/12/18 02/13/18 02/14/18 06:59 06:59 06:59 06:59 Intake Total 5005 / 5005 2415 / 2415 1265 / 1265 Output Total 450 / 450 3500 / 3500 1600 / 1600 Balance 4555 / 4555 -1085 / -1085 -335 / -335 Weight 98.5 kg 96.5 kg 96.6 kg Narrative: GENERAL: Well-developed, well-nourished, elderly female, in no apparent distress SKIN: Warm and dry. HEAD: Atraumatic. Normocephalic. EYES: Pupils equal and round. No scleral icterus. No injection or drainage. ENT: No nasal bleeding or discharge. Oral white trash NECK: Trachea midline. No JVD. CARDIOVASCULAR: Regular rate and rhythm. RESPIRATORY: No accessory muscle use. Clear to auscultation. Breath sounds equal bilaterally. GASTROINTESTINAL: Abdomen soft, no tenderness on palpation, nondistended. Hepatic and splenic margins not palpable. : Davis catheter in place, draining tea colored urine MUSCULOSKELETAL: Extremities without clubbing, cyanosis, or edema. No obvious deformities. NEUROLOGICAL: Awake and alert. No obvious cranial nerve deficits. Motor grossly within normal limits. Generalized weakness moving all 4 extremities. Normal speech. PSYCHIATRIC: Flat mood and affect; insight and judgment normal. Urinary Catheter Management Indwelling Urethral Catheter: Cath placed during this visit: yes Urethral indwelling: No Insertion date: 02/09/18 Insertion time: 09:00 Results Labs CBC & Chem 7: 02/12/18 11:54 02/12/18 14:25 Labs: Microbiology 02/09/18 14:28 Blood - Peripheral Aerobic Blood Culture - Preliminary No growth in 3 days 02/09/18 14:28 Blood - Peripheral Anaerobic Blood Culture - Preliminary No growth in 3 days 02/09/18 14:35 Blood - Peripheral Aerobic Blood Culture - Preliminary No growth in 3 days 02/09/18 14:35 Blood - Peripheral Anaerobic Blood Culture - Final QNS - See aerobic report. Assessment and Plan (1) Clostridium difficile colitis: Code(s): A04.72 - Enterocolitis due to Clostridium difficile, not specified as recurrent Status: Acute (2) Colitis: Code(s): K52.9 - Noninfective gastroenteritis and colitis, unspecified Status: Acute (3) Hypoglycemia: Code(s): E16.2 - Hypoglycemia, unspecified Status: Acute Plan This is an 88 y/o female with a history of htn, dm and asthma was brought to the ED via EMS for increased lethargy and confusion per the daughter C diff colitis Leukocytosis WBC increasing trend 21.6 --> 32.8 SIRS, sepsis due to colitis - lactic acid less than 2 -Blood cultures on 02/06/18: Positive for S. aureus MRSA and staph coag negative -Blood culture on 02/09/18 pending, follow results, No growth in 4 days -Diagnosed in the outpatient positive for C. difficile and was started on Flagyl p.o. -Abdominal CT reviewed and shows Severe wall thickening and severe surrounding inflammation involving the rectum and distal sigmoid colon. Findings are characteristic of a severe acute proctocolitis. -Vancomycin po and flagyl IV, continue Vanco per rectum per Colorectal Surgeon -IVF for hydration -ID consult appreciated: recom continue Flagyl, VAnco IV dose today, increased dose of Vanco PO -Colorectal surgeon appreciated: Continue Vanco p.o. -Limited colonoscopy to the left colon-edema and swelling of the rectosigmoid mucosa down to the rectum with significant pseudomembranes within the rectal vault. Good blood supply and viability -Vanco enema x1 dose today per ID recommendation will confirm dosage needed with GI and ID. -Discussed and confirmed Vanco enema order with ID/Dr. Rodríguez. Order clarified Leukocytosis -Increasing white blood cell count -WBC trending down 21.6-->30-->32.8-->29.7--21.5 -Highest temp 99.6 -ID following appreciate recommendation: Continue IV Flagyl, p.o. Vanco, Vanco enema, and IV Vanco -Repeat blood culture -Chest x-ray rule out acute process -Urinalysis done, called micro for C&S if indicated -No fever or chills -Monitor CBC, and temperature Abnormal UA UA shows small leukocyte esterase -culture pending, no growth in 48 hrs -Urine tea colored -Urinalysis done, called micro for C&S if indicated -start on Diflucan for ashlyn/yeast Oral Ashlyn -Improving -Continue clotrimazole troches -Daily oral care Acute kidney injury, likely due to dehydration -creatine today 0.97, back to baseline 1.0 -continue IVF as above -avoid nephrotoxins -follow renal Indices Pressure ulcer,sacrum - patient is at risk for increasing pressure ulcer -Barrier cream as needed -Turn Q2H -Davis catheter in place for wound healing DM Type 2, chronic -Initially hypoglycemic possibly from dehydration -Hold home insulin, patient may benefit from lowering 70/30 dose at home and following up with PCP -Accu checks with Sliding scale -Diabetic diet HTN, chronic BP Labile, improving -continue home medications Norvasc 5 mg -Monitor BP adjust medications as needed Generalized weakness -encourage OOB tid -PT rehab per protocol DVT prophylaxis: heparin Discharge Planning: Plan to discharge home when cleared with colorectal surgeon and ID Progress Note: Quality VTE Deep Vein Thrombosis/Pulmonary Embolism Present on Admission: No
--- NOTE | 2018-02-13 13:58 | P.PNID ---
Subjective Remarks: Patient is an 88-year-old female, presented to the hospital for further evaluation of lethargy. Patient apparently has been having diarrhea over the last 2 weeks. She was seen by her primary care physician, and tested positive for C. difficile. She was started on p.o. Flagyl. On the day of admission patient was noted to be quite lethargic,. She lives with her daughter. She was concerned so the patient was brought into the hospital for further evaluation and treatment. Since admission she has not been febrile. Her white count is greater than 20,000. CT of the abdomen and pelvis is showing significant bowel wall thickening of the rectum and the sigmoid colon. She is having a lot of diarrhea. Infectious disease consultation has been requested to assist with evaluation and treatment. Notes reviewed Temps ok WBC decreasing Getting her Vanco enema C/O abdominal pain Davis placed yesterday Has evidence of pseudomembrane on sigmoidoscopy Has one BC with Coag Neg Staph and MRSA Repeat BC negative Antibiotics: IV Flagyl PO Vancomycin Vanco enema IV vanco Lines: PIV Past Medical History: Asthma Diabetes Hypertension Uterine fibroid Oophorectomy Allergies/Adverse Reactions: Allergies No Known Allergies Allergy (Verified 01/10/18 22:35) Objective Vital Signs 02/12/18 17:40 02/12/18 20:00 02/13/18 00:00 Temperature 99.6 F 98.6 F 98.8 F Pulse Rate 85 86 85 Respiratory Rate 18 18 18 Blood Pressure 140/64 133/60 141/63 H Pulse Oximetry 96 98 99 02/13/18 04:00 02/13/18 08:00 Temperature 98.8 F 98.1 F Pulse Rate 90 87 Respiratory Rate 18 17 Blood Pressure 158/72 H 146/60 H Pulse Oximetry 99 98 Intake & Output 02/12/18 02/13/18 02/13/18 18:59 06:59 18:59 Intake Total 1165 / 1165 100 / 100 100 / 100 Output Total 1600 / 1600 Balance 1165 / 1165 -1500 / -1500 100 / 100 Weight 96.6 kg Intake: IV 1165 / 1165 100 / 100 100 / 100 NS Inj 1,000 ML @ 60 mls/hr IV. 350 / 350 CONT .[id number] [facility] Rx#:[id number] Flexbumin 25% Inj 100 ML @ 60 100 / 100 mls/hr IV.SIG DAILY [facility] Rx#: [id number] Vancomycin Inj 1,500 MG In NS 515 / 515 Inj 500 ML @ 250 mls/hr IV.SIG Q24H [facility] Rx#:[id number] Flagyl 500 MG Inj 100 ML @ 100 200 / 200 100 / 100 100 / 100 mls/hr IV.SIG Q8H [facility] Rx#: [id number] Output: Urine 1600 / 1600 Other: Date of Last Bowel Movement 02/12/18 02/12/18 02/13/18 02/09/18 14:28 Blood - Peripheral Aerobic Blood Culture - Preliminary No growth in 4 days 02/09/18 14:28 Blood - Peripheral Anaerobic Blood Culture - Preliminary No growth in 4 days 02/09/18 14:35 Blood - Peripheral Aerobic Blood Culture - Preliminary No growth in 4 days 02/09/18 14:35 Blood - Peripheral Anaerobic Blood Culture - Final QNS - See aerobic report. 02/06/18 20:05 Blood - Peripheral Aerobic Blood Culture - Final No growth in 5 days 02/06/18 20:05 Blood - Peripheral Anaerobic Blood Culture - Final No growth in 5 days Lab - Hematology Results 02/12/18 11:54 WBC 21.5 H RBC 2.88 L Hgb 9.2 L Hct 27.5 L MCV 95.6 MCH 31.9 MCHC 33.3 RDW 13.8 Plt Count 330 MPV 7.7 Prelim Diff (Auto) Slide review pending Neut % (Auto) 81.2 H Lymph % (Auto) 12.8 [place] % (Auto) 5.3 Eos % (Auto) 0.4 Baso % (Auto) 0.3 Neut # (Auto) 17.4 H Lymph # (Auto) 2.7 [place] # (Auto) 1.1 H Eos # (Auto) 0.1 Baso # (Auto) 0.1 WBC Differential . Diff Scan Auto diff confirmed Differential Comment . Lab - Chemistry Results 02/11/18 02/11/18 02/12/18 17:08 20:14 07:55 POC Glucose 258 H 308 H 227 H Random Glucose 02/12/18 02/12/18 02/12/18 12:51 13:09 13:37 POC Glucose 62 L 53 L 72 Random Glucose 02/12/18 02/12/18 02/12/18 13:58 14:24 14:25 POC Glucose 87 88 Random Glucose 90 02/12/18 02/12/18 02/12/18 14:52 17:16 20:46 POC Glucose 121 H 248 H 309 H Random Glucose 02/13/18 02/13/18 02/13/18 02:00 08:06 12:27 POC Glucose 259 H 289 H 273 H Random Glucose Imaging: ITS Impressions Abdomen/Pelvis CT 02/06/18 19:48 CONCLUSION: 1. Severe wall thickening and severe surrounding inflammation involving the rectum and distal sigmoid colon. Findings are characteristic of a severe acute proctocolitis. The sigmoid colon immediately proximal to the inflammation is dilated. 2. 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 This was previously described on the 11/09/[address] 3. Severe atherosclerotic disease. Chest X-Ray 02/10/18 00:00 CONCLUSION: No acute cardiopulmonary disease. Physical Exam: GENERAL: awake and alert, not in respiratory distress. Told me worng age, does not known where she is, gave me wrong year and could n0t tell me name of president SKIN: Cool and dry. No generalized rash, no ecchymoses and no evidence of embolic lesions. HEAD: Atraumatic. Normocephalic. No temporal wasting, or tenderness. EYES: [employer] conjunctiva. No petechia or hemorrhage. Pupils equal, round and reactive to light. Extraocular movements full and intact. No scleral icterus. No injection or drainage. EARS, NOSE AND THROAT: Nose without bleeding or purulent nasal discharge. Slightly dry oral mucosa, white coating on tongue NECK: Trachea midline. Supple and not tender, no meningeal signs CARDIOVASCULAR: Regular rate and rhythm. No murmurs, rubs or gallops heard RESPIRATORY: Clear to auscultation. Breath sounds equal bilaterally. No rales , wheezing or rhonchi ABDOMEN: Soft, non-tender, nondistended. Bowel sounds present and normoactive. No guarding. No rebound. No organomegaly. EXTREMITIES: No clubbing, cyanosis, or edema. No calf tenderness. NEURO: Grossly non-focal PSYCHIATRIC: Normal affect, calm and cooperative. LINE: No evidence of infection Assessment and Plan - Plan IMpression Possible sepsis due to C diff C difficile colitis Severe proctocolitis on CT A/P Leukocytosis Prob underlying dementia One (+) BC with MRSA Recommendation Continue IV Flagyl Continue po Vanco Continue Vanco enema - will reorder Follow CBC Follow temps Follow repeat BC IV vanco - If fup BC neg will determine if stop or dc Monitor progress
[2018-02-13] MEDS: Vancomycin Inj 1,500 MG in Sodium Chlor 0.9% Inj 500 ML IV.SIG SCH (16:51)
[2018-02-13] MEDS: Fluconazole 100 MG Tablet PO SCH (17:19)
[2018-02-13 18:29] LABS: Carbon Dioxide 23.5 meq/L (21.0-32.0); Potassium 3.7 meq/L (3.5-5.1)
[2018-02-13 18:41] LABS: Albumin 2.2 g/dL (3.4-5.0); Calcium-Albumin Corrected 8.4 mg/dL (8.5-10.1)
[2018-02-13 19:46] LABS: Baso # (Auto) 0.1 th/mm3 (0.0-0.2); Baso % (Auto) 0.6 % (0.0-2.0); Eos # (Auto) 0.1 th/mm3 (0.0-0.4); Eos % (Auto) 0.7 % (0.0-4.0); Hemoglobin 9.1 gm/dL (11.6-15.3); Lymph # (Auto) 2.3 th/mm3 (1.0-4.8); Lymph % (Auto) 13.6 % (9.0-44.0); Mean Corpuscular HGB Conc 33.7 % (32.0-36.0); Mean Corpuscular Hemoglobin 31.8 pg (27.0-34.0); Mean Corpuscular Volume 94.5 fL (80.0-100.0); Mean Platelet Volume 7.4 fL (7.0-11.0); Mono # (Auto) 1.2 th/mm3 (0.0-0.9); Neut # (Auto) 13.5 th/mm3 (1.8-7.7); Neut % (Auto) 78.1 % (16.0-70.0); Platelet Count 328 th/mm3 (150-450); Red Blood Count 2.86 mil/mm3 (4.00-5.30); Red Cell Distribution Width 13.9 % (11.6-17.2); White Blood Count 17.2 th/mm3 (4.0-11.0)
[2018-02-14] MEDS: Clotrimazole 10 MG Troche BUCCAL SCH ×5 (05:46→22:01)
[2018-02-14] MEDS: SODIUM CHLORIDE 0.9% RECTAL SCH ×2 (05:48)
[2018-02-14] MEDS: [UNRECOGNIZED DRUG - OTHER] RECTAL SCH ×2 (05:48)
[2018-02-14] MEDS: Insulin NovoLOG Aspart Correctional Sugar Inj SQ SCH ×4 (08:38→22:03)
[2018-02-14] MEDS: Albumin Human 25% Inj 100 ML IV.SIG SCH (08:46)
[2018-02-14] MEDS: Fluconazole 100 MG Tablet PO SCH (08:47)
[2018-02-14] MEDS: amLODIPine 5 MG Tablet PO SCH (08:47)
[2018-02-14] MEDS: Ferrous Sulfate 325 MG Tablet PO SCH (08:48)
[2018-02-14] MEDS: Lactobacillus Acidophilus/L. Spores Tablet PO SCH ×2 (08:48→22:01)
[2018-02-14] MEDS: Heparin - SQ 10,000 UNITS/ML Vial SQ SCH ×2 (08:48→21:59)
[2018-02-14] MEDS: Calcium Carbonate 500 MG Tablet PO SCH ×2 (08:49→22:01)
--- NOTE | 2018-02-14 10:56 | P.PNIM ---
Subjective Interval history: Follow-up visit for C. difficile colitis, leukocytosis, diabetes type 2. Patient seen and examined laying in bed, awake, alert and oriented x3. Patient stated do not feel good however unable to identify why. Patient denies any pain or abdominal discomfort. Patient denies any nausea or vomiting. Patient denies any headache or dizziness, denies any chest pain or shortness of breath, denies any fever or chills. Patient denies any diarrhea, stated I do not know. Nurse reported patient had diarrhea during enema administration. Physical Exam Vital signs: Last Vital Signs Temp 98.7 F 02/14/18 08:00 Pulse 88 02/14/18 08:00 Resp 20 02/14/18 08:00 BP 135/62 02/14/18 08:00 Pulse Ox 98 02/14/18 08:00 Intake & Output 02/12/18 02/13/18 02/14/18 02/15/18 06:59 06:59 06:59 06:59 Intake Total 2415 / 2415 1265 / 1265 1750 / 1750 Output Total 3500 / 3500 1600 / 1600 2800 / 2800 Balance -1085 / -1085 -335 / -335 -1050 / -1050 Weight 96.5 kg 96.6 kg 96.5 kg Narrative: GENERAL: Well-developed, well-nourished, elderly female, in no apparent distress SKIN: Warm and dry. HEAD: Atraumatic. Normocephalic. EYES: Pupils equal and round. No scleral icterus. No injection or drainage. ENT: No nasal bleeding or discharge. Oral white trash NECK: Trachea midline. No JVD. CARDIOVASCULAR: Regular rate and rhythm. RESPIRATORY: No accessory muscle use. Clear to auscultation. Breath sounds equal bilaterally. GASTROINTESTINAL: Abdomen soft, no tenderness on palpation, nondistended. Hepatic and splenic margins not palpable. : Davis catheter in place, draining dark yellow urine MUSCULOSKELETAL: Extremities without clubbing, cyanosis, or edema. No obvious deformities. NEUROLOGICAL: Awake and alert. No obvious cranial nerve deficits. Motor grossly within normal limits. Generalized weakness moving all 4 extremities. Normal speech. PSYCHIATRIC: Flat mood and affect; insight and judgment normal. Urinary Catheter Management Indwelling Urethral Catheter: Cath placed during this visit: yes Urethral indwelling: No Insertion date: 02/09/18 Insertion time: 09:00 Results Labs CBC & Chem 7: 02/13/18 19:09 02/14/18 07:57 Labs: Microbiology 02/09/18 14:28 Blood - Peripheral Aerobic Blood Culture - Preliminary No growth in 4 days 02/09/18 14:28 Blood - Peripheral Anaerobic Blood Culture - Preliminary No growth in 4 days 02/09/18 14:35 Blood - Peripheral Aerobic Blood Culture - Preliminary No growth in 4 days 02/09/18 14:35 Blood - Peripheral Anaerobic Blood Culture - Final QNS - See aerobic report. Assessment and Plan (1) Clostridium difficile colitis: Code(s): A04.72 - Enterocolitis due to Clostridium difficile, not specified as recurrent Status: Acute (2) Colitis: Code(s): K52.9 - Noninfective gastroenteritis and colitis, unspecified Status: Acute (3) Hypoglycemia: Code(s): E16.2 - Hypoglycemia, unspecified Status: Acute Plan This is an 88 y/o female with a history of htn, dm and asthma was brought to the ED via EMS for increased lethargy and confusion per the daughter C diff colitis Leukocytosis WBC increasing trend 21.6 --> 32.8 SIRS, sepsis due to colitis - lactic acid less than 2 -Blood cultures on 02/06/18: Positive for S. aureus MRSA and staph coag negative -Blood culture on 02/09/18 pending, follow results, No growth in 4 days -Diagnosed in the outpatient positive for C. difficile and was started on Flagyl p.o. -Abdominal CT reviewed and shows Severe wall thickening and severe surrounding inflammation involving the rectum and distal sigmoid colon. Findings are characteristic of a severe acute proctocolitis. -Vancomycin po and flagyl IV, continue Vanco per rectum per Colorectal Surgeon -IVF for hydration -ID consult appreciated: recom continue Flagyl, VAnco IV dose today, increased dose of Vanco PO -Colorectal surgeon appreciated: Continue Vanco p.o. -Limited colonoscopy to the left colon-edema and swelling of the rectosigmoid mucosa down to the rectum with significant pseudomembranes within the rectal vault. Good blood supply and viability -Vanco enema x1 dose today per ID recommendation will confirm dosage needed with GI and ID. -Discussed and confirmed Vanco enema order with ID/Dr. Rodríguez. Order clarified Leukocytosis -Increasing white blood cell count -WBC trending down 21.6-->30-->32.8-->29.7--21.5-->17.2 -Highest temp 99.6 -ID following appreciate recommendation: Continue IV Flagyl, p.o. Vanco, Vanco enema, and IV Vanco -Repeat blood culture -Chest x-ray rule out acute process -Urinalysis done, called micro for C&S if indicated -No fever or chills, no elevated temperature recorded -Monitor CBC, and temperature -Continue on antibiotic treatment as above Abnormal UA UA shows small leukocyte esterase -culture pending, no growth in 48 hrs -Urine tea colored -Urinalysis done, called micro for C&S if indicated -start on Diflucan for ashlyn/yeast Oral Ashlyn -Improving -Continue clotrimazole troches -Daily oral care Acute kidney injury, likely due to dehydration -creatine today 0.97, back to baseline 1.0 -continue IVF as above -avoid nephrotoxins -follow renal Indices Pressure ulcer,sacrum - patient is at risk for increasing pressure ulcer -Barrier cream as needed -Turn Q2H -Davis catheter in place for wound healing DM Type 2, chronic -Initially hypoglycemic possibly from dehydration -Hold home insulin, patient may benefit from lowering 70/30 dose at home and following up with PCP -Accu checks with Sliding scale -Diabetic diet HTN, chronic BP Labile, improving -continue home medications Norvasc 5 mg -Monitor BP adjust medications as needed Generalized weakness -encourage OOB tid -PT rehab per protocol DVT prophylaxis: heparin Discharge Planning: Plan to discharge home when cleared with colorectal surgeon and ID Progress Note: Quality VTE Deep Vein Thrombosis/Pulmonary Embolism Present on Admission: No
[2018-02-14] MEDS: Budesonide-Formoterol 80/4.5 MCG 6.9 GM Inhaler INH SCH ×2 (11:44→22:07)
--- NOTE | 2018-02-14 13:37 | P.PNID ---
Subjective Remarks: Patient is an 88-year-old female, presented to the hospital for further evaluation of lethargy. Patient apparently has been having diarrhea over the last 2 weeks. She was seen by her primary care physician, and tested positive for C. difficile. She was started on p.o. Flagyl. On the day of admission patient was noted to be quite lethargic,. She lives with her daughter. She was concerned so the patient was brought into the hospital for further evaluation and treatment. Since admission she has not been febrile. Her white count is greater than 20,000. CT of the abdomen and pelvis is showing significant bowel wall thickening of the rectum and the sigmoid colon. She is having a lot of diarrhea. Infectious disease consultation has been requested to assist with evaluation and treatment. Notes reviewed Temps ok WBC decreasing Mild abdominal pain Had 2 mucosy stool today according to [employer] Getting her Vanco enema Has evidence of pseudomembrane on sigmoidoscopy Has one BC with Coag Neg Staph and MRSA Repeat BC negative Antibiotics: IV Flagyl PO Vancomycin Vanco enema IV vanco Lines: PIV Past Medical History: Asthma Diabetes Hypertension Uterine fibroid Oophorectomy Allergies/Adverse Reactions: Allergies No Known Allergies Allergy (Verified 01/10/18 22:35) Objective Vital Signs 02/13/18 16:59 02/13/18 20:00 02/14/18 00:00 Temperature 98.4 F 98.9 F 98.9 F Pulse Rate 80 84 84 Respiratory Rate 16 18 18 Blood Pressure 132/63 128/60 123/59 L Pulse Oximetry 98 98 97 02/14/18 04:00 02/14/18 08:00 02/14/18 10:40 Temperature 98.3 F 98.7 F 98.9 F Pulse Rate 88 88 85 Respiratory Rate 18 20 20 Blood Pressure 126/62 135/62 146/66 H Pulse Oximetry 99 98 98 Intake & Output 02/13/18 02/14/18 02/14/18 18:59 06:59 18:59 Intake Total 1650 / 1650 100 / 100 200 / 200 Output Total 1800 / 1800 1000 / 1000 Balance -150 / -150 -900 / -900 200 / 200 Weight 96.5 kg Intake: IV 200 / 200 100 / 100 200 / 200 Flexbumin 25% Inj 100 ML @ 60 100 / 100 100 / 100 mls/hr IV.SIG DAILY [facility] Rx#: [id number] Flagyl 500 MG Inj 100 ML @ 100 100 / 100 100 / 100 100 / 100 mls/hr IV.SIG Q8H [facility] Rx#: [id number] Oral 750 / 750 Other 700 / 700 Output: Urine 1000 / 1000 Urine Amount (Catheter) 1800 / 1800 Indwelling Urethral Catheter 1800 / 1800 Other: Other Intake Source Saline Solution Date of Last Bowel Movement 02/13/18 02/14/18 # Incontinent Bowel Movements 1 02/09/18 14:28 Blood - Peripheral Aerobic Blood Culture - Final No growth in 5 days 02/09/18 14:28 Blood - Peripheral Anaerobic Blood Culture - Final No growth in 5 days 02/09/18 14:35 Blood - Peripheral Aerobic Blood Culture - Final No growth in 5 days 02/09/18 14:35 Blood - Peripheral Anaerobic Blood Culture - Final QNS - See aerobic report. 02/06/18 20:05 Blood - Peripheral Aerobic Blood Culture - Final No growth in 5 days 02/06/18 20:05 Blood - Peripheral Anaerobic Blood Culture - Final No growth in 5 days Lab - Hematology Results 02/12/18 02/13/18 11:54 19:09 WBC 17.2 H RBC 2.86 L Hgb 9.1 L Hct 27.0 L MCV 94.5 MCH 31.8 MCHC 33.7 RDW 13.9 Plt Count 328 MPV 7.4 Neut % (Auto) 78.1 H Lymph % (Auto) 13.6 [place] % (Auto) 7.0 Eos % (Auto) 0.7 Baso % (Auto) 0.6 Neut # (Auto) 13.5 H Lymph # (Auto) 2.3 [place] # (Auto) 1.2 H Eos # (Auto) 0.1 Baso # (Auto) 0.1 WBC Differential . . Diff Scan Auto diff confirmed Differential Comment Auto diff final Lab - Chemistry Results 02/12/18 02/12/18 02/12/18 13:37 13:58 14:24 Sodium Potassium Chloride Carbon Dioxide Anion Gap BUN Creatinine Estimated GFR POC Glucose 72 87 88 Random Glucose Calcium Calcium Adj for Albumin Albumin 02/12/18 02/12/18 02/12/18 14:25 14:52 17:16 Sodium Potassium Chloride Carbon Dioxide Anion Gap BUN Creatinine Estimated GFR POC Glucose 121 H 248 H Random Glucose 90 Calcium Calcium Adj for Albumin Albumin 12/02/13/18 02/13/18 20:46 02:00 08:06 Sodium Potassium Chloride Carbon Dioxide Anion Gap BUN Creatinine Estimated GFR POC Glucose 309 H 259 H 289 H Random Glucose Calcium Calcium Adj for Albumin Albumin 02/13/18 02/13/18 02/13/18 12:27 16:29 16:45 Sodium 142 Potassium 3.7 Chloride 112 H Carbon Dioxide 23.5 Anion Gap 7 BUN 7 Creatinine 0.76 Estimated GFR 87 L POC Glucose 273 H 270 H Random Glucose 246 H D Calcium 7.0 L* Calcium Adj for Albumin 8.4 L Albumin 2.2 L 02/13/18 02/14/18 02/14/18 20:06 00:59 07:57 Sodium Potassium Chloride Carbon Dioxide Anion Gap BUN Creatinine 0.81 Estimated GFR 81 L POC Glucose 259 H 204 H Random Glucose Calcium Calcium Adj for Albumin Albumin 02/14/18 02/14/18 08:15 12:37 Sodium Potassium Chloride Carbon Dioxide Anion Gap BUN Creatinine Estimated GFR POC Glucose 234 H 200 H Random Glucose Calcium Calcium Adj for Albumin Albumin Imaging: ITS Impressions Abdomen/Pelvis CT 02/06/18 19:48 CONCLUSION: 1. Severe wall thickening and severe surrounding inflammation involving the rectum and distal sigmoid colon. Findings are characteristic of a severe acute proctocolitis. The sigmoid colon immediately proximal to the inflammation is dilated. 2. 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 This was previously described on the 11/09/[address] 3. Severe atherosclerotic disease. Chest X-Ray 02/10/18 00:00 CONCLUSION: No acute cardiopulmonary disease. Physical Exam: GENERAL: awake and alert, not in respiratory distress. SKIN: Cool and dry. No generalized rash HEAD: Atraumatic. Normocephalic. No temporal wasting, or tenderness. EYES: [place] conjunctiva. No petechia or hemorrhage. Pupils equal, round and reactive to light. Extraocular movements full and intact. No scleral icterus. No injection or drainage. EARS, NOSE AND THROAT: Nose without bleeding or purulent nasal discharge. Slightly dry oral mucosa, white coating on tongue NECK: Trachea midline. Supple and not tender, no meningeal signs CARDIOVASCULAR: Regular rate and rhythm. No murmurs, rubs or gallops heard RESPIRATORY: Clear to auscultation. Breath sounds equal bilaterally. No rales , wheezing or rhonchi ABDOMEN: Soft, non-tender, nondistended. Bowel sounds present and normoactive. No guarding. No rebound. No organomegaly. EXTREMITIES: No clubbing, cyanosis, or edema. No calf tenderness. NEURO: Grossly non-focal PSYCHIATRIC: Normal affect, calm and cooperative. LINE: No evidence of infection Assessment and Plan - Plan IMpression Possible sepsis due to C diff C difficile colitis Severe proctocolitis on CT A/P Leukocytosis Prob underlying dementia One (+) BC with MRSA and Coag Neg Staph, ?real Recommendation Stop IV Flagyl Continue po Vanco Continue Vanco enema Follow CBC Follow temps Follow repeat BC Stop IV vanco Monitor progress
[2018-02-14] MEDS: Sod Chloride 0.9% Inj 1,000 ML IV.CONT SCH (13:51)
[2018-02-14] MEDS ORDERED: Pharmacy Ordered Lab Info OTHER ONE (14:45)
[2018-02-14 14:48] LABS: Baso # (Auto) 0.1 th/mm3 (0.0-0.2); Baso % (Auto) 0.7 % (0.0-2.0); Eos # (Auto) 0.1 th/mm3 (0.0-0.4); Eos % (Auto) 0.4 % (0.0-4.0); Hematocrit 25.6 % (35.0-46.0); Lymph # (Auto) 2.2 th/mm3 (1.0-4.8); Lymph % (Auto) 12.7 % (9.0-44.0); Mean Corpuscular HGB Conc 35.1 % (32.0-36.0); Mean Corpuscular Hemoglobin 33.2 pg (27.0-34.0); Mean Corpuscular Volume 94.5 fL (80.0-100.0); Mean Platelet Volume 7.4 fL (7.0-11.0); Mono # (Auto) 1.1 th/mm3 (0.0-0.9); Mono % (Auto) 6.6 % (0.0-8.0); Neut # (Auto) 13.5 th/mm3 (1.8-7.7); Neut % (Auto) 79.6 % (16.0-70.0); Platelet Count 325 th/mm3 (150-450); Red Blood Count 2.71 mil/mm3 (4.00-5.30); Red Cell Distribution Width 13.9 % (11.6-17.2)
[2018-02-14 15:24] LABS: Calcium 7.5 mg/dL (8.5-10.1); Potassium 3.1 meq/L (3.5-5.1)
[2018-02-14 16:34] LABS: Amorphous Sediment,Urine Rare /hpf; Bacteria,Urine Rare /hpf; Bilirubin,Urine Negative (Negative); Clarity,Urine Hazy (Clear); Color,Urine Straw (Yellw/Straw); Glucose,Urine (UA) Negative (Negative); Leukocyte Esterase,Urine Moderate (Negative); Mucus,Urine Few /lpf (Occasional); Nitrite,Urine Negative (Negative); Specific Gravity,Urine 1.005 (1.002-1.035); Squamous Epithelial Cell,Urine 3 /hpf (0-5)
[2018-02-15] MEDS: Sod Chloride 0.9% Inj 1,000 ML IV.CONT SCH ×2 (05:06→21:17)
[2018-02-15] MEDS: [UNRECOGNIZED DRUG - OTHER] RECTAL SCH ×6 (06:25→19:20)
[2018-02-15] MEDS: SODIUM CHLORIDE 0.9% RECTAL SCH ×6 (06:25→19:20)
[2018-02-15] MEDS: Clotrimazole 10 MG Troche BUCCAL SCH ×5 (06:26→21:04)
[2018-02-15 06:58] LABS: Baso # (Auto) 0.1 th/mm3 (0.0-0.2); Baso % (Auto) 0.5 % (0.0-2.0); Eos # (Auto) 0.1 th/mm3 (0.0-0.4); Eos % (Auto) 0.9 % (0.0-4.0); Hematocrit 27.3 % (35.0-46.0); Hemoglobin 9.5 gm/dL (11.6-15.3); Lymph # (Auto) 3.1 th/mm3 (1.0-4.8); Lymph % (Auto) 20.8 % (9.0-44.0); Mean Corpuscular HGB Conc 34.7 % (32.0-36.0); Mean Corpuscular Hemoglobin 32.7 pg (27.0-34.0); Mean Corpuscular Volume 94.1 fL (80.0-100.0); Mean Platelet Volume 7.6 fL (7.0-11.0); Mono # (Auto) 1.2 th/mm3 (0.0-0.9); Mono % (Auto) 7.9 % (0.0-8.0); Neut # (Auto) 10.5 th/mm3 (1.8-7.7); Neut % (Auto) 69.9 % (16.0-70.0); Platelet Count 329 th/mm3 (150-450); Red Cell Distribution Width 13.6 % (11.6-17.2)
[2018-02-15 07:20] LABS: Alanine Aminotransferase 13 U/L (10-53); Albumin 2.3 g/dL (3.4-5.0); Anion Gap 8 meq/L (5-15); Aspartate Aminotransferase 13 U/L (15-37); Blood Urea Nitrogen 7 mg/dL (7-18); Calcium 7.5 mg/dL (8.5-10.1); Carbon Dioxide 26.9 meq/L (21.0-32.0); Chloride 108 meq/L (98-107); Glomerular Filtration Rate 86 mL/min (>89); Glucose,Random 196 mg/dL (74-106); Potassium 3.3 meq/L (3.5-5.1); Sodium 143 meq/L (136-145)
[2018-02-15 07:22] LABS: Alkaline Phosphatase 54 U/L (45-117); Total Protein 5.7 g/dL (6.4-8.2)
[2018-02-15] MEDS: Heparin - SQ 10,000 UNITS/ML Vial SQ SCH ×2 (09:19→21:04)
[2018-02-15] MEDS: Calcium Carbonate 500 MG Tablet PO SCH ×2 (09:19→21:04)
[2018-02-15] MEDS: amLODIPine 5 MG Tablet PO SCH (09:19)
[2018-02-15] MEDS: Lactobacillus Acidophilus/L. Spores Tablet PO SCH ×2 (09:20→21:04)
[2018-02-15] MEDS: Albumin Human 25% Inj 100 ML IV.SIG SCH (09:20)
[2018-02-15] MEDS: Fluconazole 100 MG Tablet PO SCH (09:20)
[2018-02-15] MEDS: Ferrous Sulfate 325 MG Tablet PO SCH (09:21)
[2018-02-15] MEDS: Insulin NovoLOG Aspart Correctional Sugar Inj SQ SCH ×4 (09:21→21:05)
[2018-02-15] MEDS: Budesonide-Formoterol 80/4.5 MCG 6.9 GM Inhaler INH SCH ×2 (09:22→21:06)
--- NOTE | 2018-02-15 10:39 | P.PNIM ---
Subjective Interval history: Follow-up visit for C. difficile colitis, leukocytosis, diabetes type 2. Patient seen and examined laying in bed, still sleeping, awakened for assessment. Patient denies any pain or shortness of breath, denies any abdominal pain, nausea, vomiting.. Denies any diarrhea at this time. Patient denies any fever or chills. Patient states that she is eating better. Nurse reported patient very sleepy this morning, unable to wake up right away, however reported no sedative medications given last night. Physical Exam Vital signs: Last Vital Signs Temp 99.2 F 02/15/18 08:00 Pulse 87 02/15/18 08:00 Resp 20 02/15/18 08:00 BP 156/65 H 02/15/18 08:00 Pulse Ox 99 02/15/18 08:00 Intake & Output 02/13/18 02/14/18 02/15/18 02/16/18 06:59 06:59 06:59 06:59 Intake Total 1265 / 1265 1750 / 1750 320 / 320 Output Total 1600 / 1600 2800 / 2800 3251 / 3251 Balance -335 / -335 -1050 / -1050 -2931 / -2931 Weight 96.6 kg 96.5 kg 93.4 kg Narrative: GENERAL: Well-developed, well-nourished, elderly female, in no apparent distress SKIN: Warm and dry. HEAD: Atraumatic. Normocephalic. EYES: Pupils equal and round. No scleral icterus. No injection or drainage. ENT: No nasal bleeding or discharge. Oral white trash NECK: Trachea midline. No JVD. CARDIOVASCULAR: Regular rate and rhythm. RESPIRATORY: No accessory muscle use. Clear to auscultation. Breath sounds equal bilaterally. GASTROINTESTINAL: Abdomen soft, no tenderness on palpation, nondistended. Hepatic and splenic margins not palpable. : Davis catheter in place, draining yellow urine MUSCULOSKELETAL: Extremities without clubbing, cyanosis, or edema. No obvious deformities. NEUROLOGICAL: Awake and alert. No obvious cranial nerve deficits. Motor grossly within normal limits. Generalized weakness moving all 4 extremities. Normal slow speech. PSYCHIATRIC: Flat mood and affect; insight and judgment normal. Urinary Catheter Management Indwelling Urethral Catheter: Cath placed during this visit: yes Urethral indwelling: No Insertion date: 02/14/18 Insertion time: 14:00 Results Labs CBC & Chem 7: 02/15/18 05:53 02/15/18 05:53 Labs: Microbiology 02/09/18 14:28 Blood - Peripheral Aerobic Blood Culture - Final No growth in 5 days 02/09/18 14:28 Blood - Peripheral Anaerobic Blood Culture - Final No growth in 5 days 02/09/18 14:35 Blood - Peripheral Aerobic Blood Culture - Final No growth in 5 days 02/09/18 14:35 Blood - Peripheral Anaerobic Blood Culture - Final QNS - See aerobic report. Assessment and Plan (1) Clostridium difficile colitis: Code(s): A04.72 - Enterocolitis due to Clostridium difficile, not specified as recurrent Status: Acute (2) Colitis: Code(s): K52.9 - Noninfective gastroenteritis and colitis, unspecified Status: Acute (3) Hypoglycemia: Code(s): E16.2 - Hypoglycemia, unspecified Status: Acute Plan This is an 88 y/o female with a history of htn, dm and asthma was brought to the ED via EMS for increased lethargy and confusion per the daughter C diff colitis Leukocytosis SIRS, sepsis due to colitis - lactic acid less than 2 -Blood cultures on 02/06/18: Positive for S. aureus MRSA and staph coag negative -Blood culture on 02/09/18 pending, follow results, No growth in 5 days -Diagnosed in the outpatient positive for C. difficile and was started on Flagyl p.o. -Abdominal CT reviewed and shows Severe wall thickening and severe surrounding inflammation involving the rectum and distal sigmoid colon. Findings are characteristic of a severe acute proctocolitis. -s/p IVF , discontinued due to edema -Colorectal following: Limited colonoscopy to the left colon-edema and swelling of the rectosigmoid mucosa down to the rectum with significant pseudomembranes within the rectal vault. Good blood supply and viability -ID following appreciate recommendation: d/c IV Flagyl, continue Vanco PO, and Vanco enema -WBC improving trends, 15.0 today Leukocytosis -Increasing white blood cell count -WBC trending down 15.0 today -Highest temp 99.6 -ID following recommendation as above -Repeat blood culture, No growth x 5 days -Chest x-ray 02/10/18: no acute Pulmonary Disease -Urinalysis done, called micro for C&S if indicated -No fever or chills, no elevated temperature recorded -Monitor CBC, and temperature -Continue on antibiotic treatment as above Abnormal UA UA shows small leukocyte esterase -culture pending, no growth in 48 hrs -Urine tea colored -Urinalysis done, called micro for C&S if indicated -start on Diflucan for ashlyn/yeast Oral Ashlyn -Improving -Continue clotrimazole troches -Daily oral care Acute kidney injury, likely due to dehydration Hypokalemia -creatine improved, back to baseline 1.0 -replaced KCL -avoid nephrotoxins -follow renal Indices Pressure ulcer,sacrum - patient is at risk for increasing pressure ulcer -Barrier cream as needed -Turn Q2H -Davis catheter in place for wound healing DM Type 2, chronic Uncontrolled -increase NPH 70/30 dose, for elevated BS -Accu checks with Sliding scale -Diabetic diet HTN, chronic BP Labile, elevated -increase home medications to Norvasc 10 mg -Monitor BP adjust medications as needed Generalized weakness -encourage OOB tid -PT/OT rehab per protocol DVT prophylaxis: heparin Discharge Planning: Plan to discharge home when cleared with colorectal surgeon and ID Progress Note: Quality VTE Deep Vein Thrombosis/Pulmonary Embolism Present on Admission: No
--- NOTE | 2018-02-15 12:46 | P.PNID ---
Subjective Remarks: Patient is an 88-year-old female, presented to the hospital for further evaluation of lethargy. Patient apparently has been having diarrhea over the last 2 weeks. She was seen by her primary care physician, and tested positive for C. difficile. She was started on p.o. Flagyl. On the day of admission patient was noted to be quite lethargic,. She lives with her daughter. She was concerned so the patient was brought into the hospital for further evaluation and treatment. Since admission she has not been febrile. Her white count is greater than 20,000. CT of the abdomen and pelvis is showing significant bowel wall thickening of the rectum and the sigmoid colon. She is having a lot of diarrhea. Infectious disease consultation has been requested to assist with evaluation and treatment. Notes reviewed Temps ok WBC decreasing Mild abdominal pain Getting her Vanco enema and po Vanco Flagyl D/C Has evidence of pseudomembrane on sigmoidoscopy Has one BC with Coag Neg Staph and MRSA Repeat BC negative Antibiotics: PO Vancomycin Vanco enema Lines: PIV Past Medical History: Asthma Diabetes Hypertension Uterine fibroid Oophorectomy Allergies/Adverse Reactions: Allergies No Known Allergies Allergy (Verified 01/10/18 22:35) Objective Vital Signs 02/14/18 16:00 02/14/18 20:00 02/15/18 00:00 Temperature 98.7 F 100.0 F H 99.3 F Pulse Rate 99 H 85 84 Respiratory Rate 20 20 20 Blood Pressure 170/65 H 138/63 136/63 Pulse Oximetry 97 96 98 02/15/18 04:00 02/15/18 08:00 Temperature 99.3 F 99.2 F Pulse Rate 90 87 Respiratory Rate 20 20 Blood Pressure 122/56 L 156/65 H Pulse Oximetry 99 99 Intake & Output 02/14/18 02/15/18 02/15/18 18:59 06:59 18:59 Intake Total 320 / 320 Output Total 1751 / 1751 1500 / 1500 Balance -1431 / -1431 -1500 / -1500 Weight 93.4 kg Intake: IV 200 / 200 Flexbumin 25% Inj 100 ML @ 60 100 / 100 mls/hr IV.SIG DAILY [facility] Rx#: [id number] Flagyl 500 MG Inj 100 ML @ 100 100 / 100 mls/hr IV.SIG Q8H [facility] Rx#: [id number] Oral 120 / 120 Output: Urine 1750 / 1750 1500 / 1500 Stool Other: Date of Last Bowel Movement 02/14/18 02/14/18 02/14/18 02/14/18 14:50 Catheterized Urine Urine Culture - Pending 02/09/18 14:28 Blood - Peripheral Aerobic Blood Culture - Final No growth in 5 days 02/09/18 14:28 Blood - Peripheral Anaerobic Blood Culture - Final No growth in 5 days 02/09/18 14:35 Blood - Peripheral Aerobic Blood Culture - Final No growth in 5 days 02/09/18 14:35 Blood - Peripheral Anaerobic Blood Culture - Final QNS - See aerobic report. Lab - Hematology Results 02/13/18 02/14/18 02/15/18 19:09 14:27 05:53 WBC 17.2 H 17.0 H 15.0 H RBC 2.86 L 2.71 L 2.90 L Hgb 9.1 L 9.0 L 9.5 L Hct 27.0 L 25.6 L 27.3 L MCV 94.5 94.5 94.1 MCH 31.8 33.2 32.7 MCHC 33.7 35.1 34.7 RDW 13.9 13.9 13.6 Plt Count 328 325 329 MPV 7.4 7.4 7.6 Neut % (Auto) 78.1 H 79.6 H 69.9 Lymph % (Auto) 13.6 12.7 20.8 [place] % (Auto) 7.0 6.6 7.9 Eos % (Auto) 0.7 0.4 0.9 Baso % (Auto) 0.6 0.7 0.5 Neut # (Auto) 13.5 H 13.5 H 10.5 H Lymph # (Auto) 2.3 2.2 3.1 [place] # (Auto) 1.2 H 1.1 H 1.2 H Eos # (Auto) 0.1 0.1 0.1 Baso # (Auto) 0.1 0.1 0.1 WBC Differential . . . Differential Comment Auto diff final Auto diff final Auto diff final Lab - Chemistry Results 02/13/18 02/13/18 02/13/18 16:29 16:45 20:06 Sodium 142 Potassium 3.7 Chloride 112 H Carbon Dioxide 23.5 Anion Gap 7 BUN 7 Creatinine 0.76 Estimated GFR 87 L POC Glucose 270 H 259 H Random Glucose 246 H D Calcium 7.0 L* Calcium Adj for Albumin 8.4 L Total Bilirubin AST ALT Alkaline Phosphatase Total Protein Albumin 2.2 L 02/14/18 02/14/18 02/14/18 00:59 07:57 08:15 Sodium Potassium Chloride Carbon Dioxide Anion Gap BUN Creatinine 0.81 Estimated GFR 81 L POC Glucose 204 H 234 H Random Glucose Calcium Calcium Adj for Albumin Total Bilirubin AST ALT Alkaline Phosphatase Total Protein Albumin 02/14/18 02/14/18 02/14/18 12:37 14:27 17:16 Sodium 144 Potassium 3.1 L Chloride 110 H Carbon Dioxide 26.0 Anion Gap 8 BUN 7 Creatinine 0.82 Estimated GFR 80 L POC Glucose 200 H 193 H Random Glucose 185 H Calcium 7.5 L Calcium Adj for Albumin Total Bilirubin AST ALT Alkaline Phosphatase Total Protein Albumin 02/14/18 02/15/18 02/15/18 21:12 05:53 08:54 Sodium 143 Potassium 3.3 L Chloride 108 H Carbon Dioxide 26.9 Anion Gap 8 BUN 7 Creatinine 0.77 Estimated GFR 86 L POC Glucose 244 H 238 H Random Glucose 196 H Calcium 7.5 L Calcium Adj for Albumin Total Bilirubin 0.3 AST 13 L ALT 13 Alkaline Phosphatase 54 Total Protein 5.7 L Albumin 2.3 L Imaging: ITS Impressions Abdomen/Pelvis CT 02/06/18 19:48 CONCLUSION: 1. Severe wall thickening and severe surrounding inflammation involving the rectum and distal sigmoid colon. Findings are characteristic of a severe acute proctocolitis. The sigmoid colon immediately proximal to the inflammation is dilated. 2. 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 This was previously described on the 11/09/[address] 3. Severe atherosclerotic disease. Chest X-Ray 02/10/18 00:00 CONCLUSION: No acute cardiopulmonary disease. Physical Exam: GENERAL: awake and alert, not in respiratory distress. SKIN: Cool and dry. No generalized rash HEAD: Atraumatic. Normocephalic. No temporal wasting, or tenderness. EYES: [place] conjunctiva. No petechia or hemorrhage. No scleral icterus. No injection or drainage. EARS, NOSE AND THROAT: Moist oral mucosa, white coating on tongue NECK: Trachea midline. Supple and not tender, no meningeal signs CARDIOVASCULAR: Regular rate and rhythm. No murmurs, rubs or gallops heard RESPIRATORY: Clear to auscultation. Breath sounds equal bilaterally. No rales , wheezing or rhonchi ABDOMEN: Soft, non-tender, nondistended. Bowel sounds present and normoactive. No guarding. No rebound. EXTREMITIES: No clubbing, cyanosis, or edema. No calf tenderness. NEURO: Grossly non-focal PSYCHIATRIC: Normal affect, calm and cooperative. LINE: No evidence of infection Assessment and Plan - Plan IMpression Possible sepsis due to C diff, better C difficile colitis Severe proctocolitis on CT A/P Leukocytosis, improving Prob underlying dementia One (+) BC with MRSA and Coag Neg Staph, ?real Recommendation Continue po Vanco Continue Vanco enema Follow CBC Follow temps Follow repeat BC Monitor progress
[2018-02-15] MEDS: amLODIPine 10 MG Tablet PO SCH (14:00)
--- NOTE | 2018-02-15 17:09 | P.PNCS ---
Subjective Interval history: afebrile, VSS UO good PO better Objective Result Diagrams: 02/15/18 05:53 02/15/18 05:53 Objective Remarks: PE lethargic Abd - softer, min tender, less tympany Assessment and Plan - Plan Imp: WBC better cont enemas, PO vanco IVF insert worthy - check output DC plans
[2018-02-16] MEDS: Sod Chloride 0.9% Inj 1,000 ML IV.CONT SCH ×2 (02:17→17:19)
[2018-02-16] MEDS: [UNRECOGNIZED DRUG - OTHER] RECTAL SCH ×4 (05:23→17:15)
[2018-02-16] MEDS: SODIUM CHLORIDE 0.9% RECTAL SCH ×4 (05:23→17:15)
[2018-02-16] MEDS: Clotrimazole 10 MG Troche BUCCAL SCH ×5 (05:25→22:29)
[2018-02-16] MEDS: Insulin NovoLOG Aspart Correctional Sugar Inj SQ SCH ×4 (09:00→20:34)
[2018-02-16] MEDS: Calcium Carbonate 500 MG Tablet PO SCH ×2 (09:01→20:10)
[2018-02-16] MEDS: amLODIPine 10 MG Tablet PO SCH (09:01)
[2018-02-16] MEDS: Heparin - SQ 10,000 UNITS/ML Vial SQ SCH ×2 (09:01→20:10)
[2018-02-16] MEDS: Lactobacillus Acidophilus/L. Spores Tablet PO SCH ×2 (09:01→20:10)
[2018-02-16] MEDS: Ferrous Sulfate 325 MG Tablet PO SCH (09:01)
[2018-02-16] MEDS: Fluconazole 100 MG Tablet PO SCH (09:01)
[2018-02-16] MEDS: Budesonide-Formoterol 80/4.5 MCG 6.9 GM Inhaler INH SCH ×2 (09:03→20:15)
--- NOTE | 2018-02-16 12:51 | P.PNIM ---
Subjective Interval history: Dressed today. Potassium low today. Blood cultures negative at 5 days. Physical Exam Vital signs: Last Vital Signs Temp 98.5 F 02/16/18 08:00 Pulse 96 H 02/16/18 08:00 Resp 20 02/16/18 08:00 BP 158/63 H 02/16/18 08:00 Pulse Ox 99 02/16/18 08:00 Intake & Output 02/14/18 02/15/18 02/16/18 02/17/18 06:59 06:59 06:59 06:59 Intake Total 1750 / 1750 320 / 320 1800 / 1800 Output Total 2800 / 2800 3251 / 3251 2701 / 2701 Balance -1050 / -1050 -2931 / -2931 -901 / -901 Weight 96.5 kg 93.4 kg 90.7 kg Narrative: GENERAL: NAD, A&Ox3 HEAD: Normocephalic. NECK: Supple, trachea midline. No lymphadenopathy. EYES: No scleral icterus. No injection or drainage. CARDIOVASCULAR: Regular rate and rhythm without murmurs, gallops, or rubs. RESPIRATORY: Breath sounds equal bilaterally. No accessory muscle use. GASTROINTESTINAL: Abdomen soft, non-tender, nondistended. MUSCULOSKELETAL: No cyanosis, or edema. SKIN: Warm and dry. NEURO: No focal neurological deficits. Urinary Catheter Management Indwelling Urethral Catheter: Cath placed during this visit: yes Urethral indwelling: No Insertion date: 02/14/18 Insertion time: 14:00 Results Labs CBC & Chem 7: 02/15/18 05:53 02/15/18 05:53 Labs: Microbiology 02/14/18 14:50 Catheterized Urine Urine Culture - Final Klebsiella pneumoniae [place] albicans Assessment and Plan Plan 88 y/o female with a history of htn, dm and asthma was brought to the ED via EMS for increased lethargy and confusion per the daughter Lethargy remains. Davis catheter removed. C diff colitis Leukocytosis sepsis due to colitis Sepsis resolved Continue p.o. vancomycin Continue vancomycin enemas ID following Ashlyn UTI Continue Diflucan Oral Ashlyn Continue clotrimazole troches Daily oral care Acute kidney injury likely due to dehydration Avoid nephrotoxins Follow renal function Hypokalemia Monitor and replace as needed Pressure ulcer at sacrum Continue barrier cream Frequent turns Patient encouraged to be out of bed External female catheter to keep wound dry Diabetes mellitus type 2 Follow blood sugars Insulin sliding scale Diabetic diet Hypertension Continue baseline treatment Follow blood pressures Adjust treatments as needed Generalized weakness Continue physical therapy and occupational therapy penitentiary facility needed at discharge Patient encouraged to be out of bed DVT prophylaxis Heparin Discharge planning ID clearance needed prior to discharge Progress Note: Quality VTE Deep Vein Thrombosis/Pulmonary Embolism Present on Admission: No
--- NOTE | 2018-02-16 13:17 | P.PNID ---
Subjective Remarks: Patient is an 88-year-old female, presented to the hospital for further evaluation of lethargy. Patient apparently has been having diarrhea over the last 2 weeks. She was seen by her primary care physician, and tested positive for C. difficile. She was started on p.o. Flagyl. On the day of admission patient was noted to be quite lethargic,. She lives with her daughter. She was concerned so the patient was brought into the hospital for further evaluation and treatment. Since admission she has not been febrile. Her white count is greater than 20,000. CT of the abdomen and pelvis is showing significant bowel wall thickening of the rectum and the sigmoid colon. She is having a lot of diarrhea. Infectious disease consultation has been requested to assist with evaluation and treatment. Notes reviewed Temps ok WBC decreasing Mild abdominal pain UC (+), though UA only 8 WBC; has worthy cath Getting her Vanco enema Has evidence of pseudomembrane on sigmoidoscopy Has one BC with Coag Neg Staph and MRSA Repeat BC negative Antibiotics: PO Vancomycin Vanco enema Lines: PIV Past Medical History: Asthma Diabetes Hypertension Uterine fibroid Oophorectomy Allergies/Adverse Reactions: Allergies No Known Allergies Allergy (Verified 01/10/18 22:35) Objective Vital Signs 02/15/18 16:00 02/15/18 20:00 02/16/18 00:00 Temperature 98.7 F 98.4 F 99.0 F Pulse Rate 89 89 91 H Respiratory Rate 20 18 20 Blood Pressure 116/65 144/59 H 133/58 L Pulse Oximetry 99 98 98 02/16/18 04:00 02/16/18 08:00 02/16/18 12:00 Temperature 97.8 F 98.5 F 98.5 F Pulse Rate 82 96 H 84 Respiratory Rate 18 20 20 Blood Pressure 144/65 H 158/63 H 141/67 H Pulse Oximetry 98 99 98 Intake & Output 02/15/18 02/16/18 02/16/18 18:59 06:59 18:59 Intake Total 800 / 800 1000 / 1000 Output Total 1501 / 1501 1200 / 1200 Balance -701 / -701 -200 / -200 Weight 90.7 kg Intake: IV 100 / 100 1000 / 1000 NS Inj 1,000 ML @ 60 mls/hr IV. 1000 / 1000 CONT .[id number] [facility] Rx#:[id number] Flexbumin 25% Inj 100 ML @ 60 100 / 100 mls/hr IV.SIG DAILY [facility] Rx#: [id number] Other 700 / 700 Output: Urine 1500 / 1500 1200 / 1200 Stool Other: Other Intake Source Saline Solution Date of Last Bowel Movement 02/14/18 02/14/18 # Bowel Movements 4 2 # Incontinent Bowel Movements 1 02/14/18 14:50 Catheterized Urine Urine Culture - Final Klebsiella pneumoniae [place] albicans 02/09/18 14:28 Blood - Peripheral Aerobic Blood Culture - Final No growth in 5 days 02/09/18 14:28 Blood - Peripheral Anaerobic Blood Culture - Final No growth in 5 days 02/09/18 14:35 Blood - Peripheral Aerobic Blood Culture - Final No growth in 5 days 02/09/18 14:35 Blood - Peripheral Anaerobic Blood Culture - Final QNS - See aerobic report. Lab - Hematology Results 02/14/18 02/15/18 14:27 05:53 WBC 17.0 H 15.0 H RBC 2.71 L 2.90 L Hgb 9.0 L 9.5 L Hct 25.6 L 27.3 L MCV 94.5 94.1 MCH 33.2 32.7 MCHC 35.1 34.7 RDW 13.9 13.6 Plt Count 325 329 MPV 7.4 7.6 Neut % (Auto) 79.6 H 69.9 Lymph % (Auto) 12.7 20.8 [place] % (Auto) 6.6 7.9 Eos % (Auto) 0.4 0.9 Baso % (Auto) 0.7 0.5 Neut # (Auto) 13.5 H 10.5 H Lymph # (Auto) 2.2 3.1 [place] # (Auto) 1.1 H 1.2 H Eos # (Auto) 0.1 0.1 Baso # (Auto) 0.1 0.1 WBC Differential . . Differential Comment Auto diff final Auto diff final Lab - Chemistry Results 02/14/18 02/14/18 02/14/18 14:27 17:16 21:12 Sodium 144 Potassium 3.1 L Chloride 110 H Carbon Dioxide 26.0 Anion Gap 8 BUN 7 Creatinine 0.82 Estimated GFR 80 L POC Glucose 193 H 244 H Random Glucose 185 H Calcium 7.5 L Total Bilirubin AST ALT Alkaline Phosphatase Total Protein Albumin 02/15/18 02/15/1802/15/18 05:53 08:54 12:48 Sodium 143 Potassium 3.3 L Chloride 108 H Carbon Dioxide 26.9 Anion Gap 8 BUN 7 Creatinine 0.77 Estimated GFR 86 L POC Glucose 238 H 312 H Random Glucose 196 H Calcium 7.5 L Total Bilirubin 0.3 AST 13 L ALT 13 Alkaline Phosphatase 54 Total Protein 5.7 L Albumin 2.3 L 02/15/18 02/15/18 02/16/18 18:53 20:44 03:36 Sodium Potassium Chloride Carbon Dioxide Anion Gap BUN Creatinine Estimated GFR POC Glucose 222 H 198 H 188 H Random Glucose Calcium Total Bilirubin AST ALT Alkaline Phosphatase Total Protein Albumin 02/16/18 08:09 Sodium Potassium Chloride Carbon Dioxide Anion Gap BUN Creatinine Estimated GFR POC Glucose 238 H Random Glucose Calcium Total Bilirubin AST ALT Alkaline Phosphatase Total Protein Albumin Imaging: ITS Impressions Abdomen/Pelvis CT 02/06/18 19:48 CONCLUSION: 1. Severe wall thickening and severe surrounding inflammation involving the rectum and distal sigmoid colon. Findings are characteristic of a severe acute proctocolitis. The sigmoid colon immediately proximal to the inflammation is dilated. 2. 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 This was previously described on the 11/09/[address] 3. Severe atherosclerotic disease. Chest X-Ray 02/10/18 00:00 CONCLUSION: No acute cardiopulmonary disease. Physical Exam: GENERAL: awake and alert, NAD. SKIN: Cool and dry. No generalized rash HEAD: Atraumatic. Normocephalic. No temporal wasting, or tenderness. EYES: [place] conjunctiva. No petechia or hemorrhage. No scleral icterus. No injection or drainage. EARS, NOSE AND THROAT: Nose without bleeding or purulent nasal discharge. Slightly dry oral mucosa, white coating on tongue NECK: Trachea midline. Supple and not tender, no meningeal signs CARDIOVASCULAR: Regular rate and rhythm. No murmurs, rubs or gallops heard RESPIRATORY: Clear to auscultation. Breath sounds equal bilaterally. No rales , wheezing or rhonchi ABDOMEN: Soft, non-tender, nondistended. Bowel sounds present and normoactive. No guarding. No rebound. No organomegaly. EXTREMITIES: No clubbing, cyanosis, or edema. No calf tenderness. NEURO: Grossly non-focal PSYCHIATRIC: Normal affect, calm and cooperative. LINE: No evidence of infection Assessment and Plan - Plan IMpression Possible sepsis due to C diff C difficile colitis Severe proctocolitis on CT A/P Leukocytosis Prob underlying dementia One (+) BC with MRSA and Coag Neg Staph, ?real Recommendation Continue po Vanco Continue Vanco enema Follow CBC Follow temps Follow repeat BC Remove worthy Monitor progress D/W RN
--- NOTE | 2018-02-16 21:52 | P.PNCS ---
Subjective Interval history: afebrile, VSS UO good alert less diarrhea Objective Result Diagrams: 02/15/18 05:53 02/15/18 05:53 Objective Remarks: PE lethargic Abd - softer, min tender, less tympany Assessment and Plan - Plan Imp: WBC better cont enemas, PO vanco IVF insert worthy - check output DC plans - OK for rehab
[2018-02-17] MEDS: Clotrimazole 10 MG Troche BUCCAL SCH ×2 (06:00→09:54)
[2018-02-17] MEDS: SODIUM CHLORIDE 0.9% RECTAL SCH ×4 (06:00→17:32)
[2018-02-17] MEDS: [UNRECOGNIZED DRUG - OTHER] RECTAL SCH ×4 (06:00→17:32)
[2018-02-17 07:14] LABS: Baso # (Auto) 0.1 th/mm3 (0.0-0.2); Baso % (Auto) 0.5 % (0.0-2.0); Eos # (Auto) 0.1 th/mm3 (0.0-0.4); Hematocrit 29.6 % (35.0-46.0); Lymph # (Auto) 2.6 th/mm3 (1.0-4.8); Lymph % (Auto) 18.2 % (9.0-44.0); Mean Corpuscular HGB Conc 33.9 % (32.0-36.0); Mean Corpuscular Volume 94.6 fL (80.0-100.0); Mean Platelet Volume 7.6 fL (7.0-11.0); Mono # (Auto) 1.2 th/mm3 (0.0-0.9); Mono % (Auto) 8.2 % (0.0-8.0); Neut # (Auto) 10.3 th/mm3 (1.8-7.7); Neut % (Auto) 72.1 % (16.0-70.0); Platelet Count 399 th/mm3 (150-450); Red Blood Count 3.13 mil/mm3 (4.00-5.30); Red Cell Distribution Width 14.1 % (11.6-17.2); White Blood Count 14.3 th/mm3 (4.0-11.0)
[2018-02-17 07:40] LABS: Albumin 2.7 g/dL (3.4-5.0); Anion Gap 7 meq/L (5-15); Blood Urea Nitrogen 6 mg/dL (7-18); Calcium 8.2 mg/dL (8.5-10.1); Carbon Dioxide 24.9 meq/L (21.0-32.0); Chloride 106 meq/L (98-107); Glomerular Filtration Rate 85 mL/min (>89); Glucose,Random 160 mg/dL (74-106); Potassium 3.3 meq/L (3.5-5.1); Sodium 138 meq/L (136-145)
--- NOTE | 2018-02-17 07:41 | P.PNCS ---
Subjective Interval history: afebrile, VSS UO good, ?? jennie PO Objective Result Diagrams: 02/17/18 06:44 02/15/18 05:53 Objective Remarks: PE lethargic Abd - softer, min tender, less tympany, flat Assessment and Plan - Plan Imp: WBC better cont enemas, PO vanco IVF, dc DC plans - OK for rehab
[2018-02-17 07:42] LABS: Alanine Aminotransferase 14 U/L (10-53); Aspartate Aminotransferase 10 U/L (15-37)
[2018-02-17 07:43] LABS: Alkaline Phosphatase 54 U/L (45-117); Total Protein 6.4 g/dL (6.4-8.2)
[2018-02-17] MEDS: Ferrous Sulfate 325 MG Tablet PO SCH (09:47)
[2018-02-17] MEDS: amLODIPine 10 MG Tablet PO SCH (09:48)
[2018-02-17] MEDS: Fluconazole 100 MG Tablet PO SCH (09:49)
[2018-02-17] MEDS: Heparin - SQ 10,000 UNITS/ML Vial SQ SCH ×2 (09:49→23:13)
[2018-02-17] MEDS: Calcium Carbonate 500 MG Tablet PO SCH ×2 (09:49→23:06)
[2018-02-17] MEDS: Lactobacillus Acidophilus/L. Spores Tablet PO SCH ×2 (09:49→23:06)
[2018-02-17] MEDS: Insulin NovoLOG Aspart Correctional Sugar Inj SQ SCH ×4 (09:50→23:13)
[2018-02-17] MEDS: Budesonide-Formoterol 80/4.5 MCG 6.9 GM Inhaler INH SCH ×2 (09:51→23:17)
[2018-02-17] MEDS: Sod Chloride 0.9% Inj 1,000 ML IV.CONT SCH ×2 (10:08→23:05)
--- NOTE | 2018-02-17 14:16 | P.PNID ---
Subjective Remarks: Patient is an 88-year-old female, presented to the hospital for further evaluation of lethargy. Patient apparently has been having diarrhea over the last 2 weeks. She was seen by her primary care physician, and tested positive for C. difficile. She was started on p.o. Flagyl. On the day of admission patient was noted to be quite lethargic,. She lives with her daughter. She was concerned so the patient was brought into the hospital for further evaluation and treatment. Since admission she has not been febrile. Her white count is greater than 20,000. CT of the abdomen and pelvis is showing significant bowel wall thickening of the rectum and the sigmoid colon. She is having a lot of diarrhea. Infectious disease consultation has been requested to assist with evaluation and treatment. Notes reviewed Temps ok WBC decreasing Mild abdominal pain Worthy removed UC (+), though UA only 8 WBC; has worthy cath Getting her Vanco enema Antibiotics: PO Vancomycin Vanco enema Lines: PIV Past Medical History: Asthma Diabetes Hypertension Uterine fibroid Oophorectomy Allergies/Adverse Reactions: Allergies No Known Allergies Allergy (Verified 01/10/18 22:35) Objective Vital Signs 02/16/18 15:50 02/16/18 20:00 02/17/18 00:00 Temperature 98.5 F 98.3 F 98.7 F Pulse Rate 70 91 H 87 Respiratory Rate 20 20 20 Blood Pressure 136/81 158/72 H 115/57 L Pulse Oximetry 97 98 98 02/17/18 01:14 02/17/18 04:00 02/17/18 08:00 Temperature 98.0 F 99.4 F Pulse Rate 82 89 Respiratory Rate 18 20 18 Blood Pressure 137/65 136/84 Pulse Oximetry 99 100 02/17/18 12:00 Temperature 99.3 F Pulse Rate 85 Respiratory Rate 16 Blood Pressure 130/60 Pulse Oximetry 98 Intake & Output 02/16/18 02/17/18 02/17/18 18:59 06:59 18:59 Intake Total 1000 / 1000 779 / 779 1000 / 1000 Output Total 150 / 150 Balance 999 / 999 629 / 629 1000 / 1000 Weight 91.8 kg Intake: IV 1000 / 1000 779 / 779 1000 / 1000 NS Inj 1,000 ML @ 60 mls/hr IV. 1000 / 1000 779 / 779 1000 / 1000 CONT .[id number] [facility] Rx#:[id number] Output: Urine 150 / 150 Stool Other: # Incontinent Voids 3 Date of Last Bowel Movement 02/16/18 02/17/18 02/17/18 # Bowel Movements 2 # Incontinent Bowel Movements 1 02/14/18 14:50 Catheterized Urine Urine Culture - Final Klebsiella pneumoniae [place] albicans 02/09/18 14:28 Blood - Peripheral Aerobic Blood Culture - Final No growth in 5 days 02/09/18 14:28 Blood - Peripheral Anaerobic Blood Culture - Final No growth in 5 days 02/09/18 14:35 Blood - Peripheral Aerobic Blood Culture - Final No growth in 5 days 02/09/18 14:35 Blood - Peripheral Anaerobic Blood Culture - Final QNS - See aerobic report. Lab - Hematology Results 02/17/18 06:44 WBC 14.3 H RBC 3.13 L Hgb 10.0 L Hct 29.6 L MCV 94.6 MCH 32.0 MCHC 33.9 RDW 14.1 Plt Count 399 MPV 7.6 Neut % (Auto) 72.1 H Lymph % (Auto) 18.2 [place] % (Auto) 8.2 H Eos % (Auto) 1.0 Baso % (Auto) 0.5 Neut # (Auto) 10.3 H Lymph # (Auto) 2.6 [place] # (Auto) 1.2 H Eos # (Auto) 0.1 Baso # (Auto) 0.1 WBC Differential . Differential Comment Auto diff final Lab - Chemistry Results 02/15/18 02/15/18 02/16/18 18:53 20:44 03:36 Sodium Potassium Chloride Carbon Dioxide Anion Gap BUN Creatinine Estimated GFR POC Glucose 222 H 198 H 188 H Random Glucose Calcium Total Bilirubin AST ALT Alkaline Phosphatase Total Protein Albumin 02/16/18 02/16/18 02/16/18 08:09 13:42 17:18 Sodium Potassium Chloride Carbon Dioxide Anion Gap BUN Creatinine Estimated GFR POC Glucose 238 H 113 H 120 H Random Glucose Calcium Total Bilirubin AST ALT Alkaline Phosphatase Total Protein Albumin 02/16/18 02/17/18 02/17/18 20:09 06:44 07:33 Sodium 138 Potassium 3.3 L Chloride 106 Carbon Dioxide 24.9 Anion Gap 7 BUN 6 L Creatinine 0.78 Estimated GFR 85 L POC Glucose 210 H 217 H Random Glucose 160 H Calcium 8.2 L Total Bilirubin 0.4 AST 10 L ALT 14 Alkaline Phosphatase 54 Total Protein 6.4 D Albumin 2.7 L 02/17/18 12:09 Sodium Potassium Chloride Carbon Dioxide Anion Gap BUN Creatinine Estimated GFR POC Glucose 190 H Random Glucose Calcium Total Bilirubin AST ALT Alkaline Phosphatase Total Protein Albumin Imaging: ITS Impressions Abdomen/Pelvis CT 02/06/18 19:48 CONCLUSION: 1. Severe wall thickening and severe surrounding inflammation involving the rectum and distal sigmoid colon. Findings are characteristic of a severe acute proctocolitis. The sigmoid colon immediately proximal to the inflammation is dilated. 2. 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 This was previously described on the 11/09/[address] 3. Severe atherosclerotic disease. Chest X-Ray 02/10/18 00:00 CONCLUSION: No acute cardiopulmonary disease. Physical Exam: GENERAL: awakens easily, NAD. SKIN: Cool and dry. No generalized rash HEAD: Atraumatic. Normocephalic. No temporal wasting, or tenderness. EYES: [place] conjunctiva. No petechia or hemorrhage. No scleral icterus. No injection or drainage. EARS, NOSE AND THROAT: Slightly dry oral mucosa NECK: Trachea midline. Supple and not tender, no meningeal signs CARDIOVASCULAR: Regular rate and rhythm. No murmurs, rubs or gallops heard RESPIRATORY: Clear to auscultation. Breath sounds equal bilaterally. ABDOMEN: Soft, non-tender, nondistended. Bowel sounds present and normoactive. EXTREMITIES: No clubbing, cyanosis, or edema. No calf tenderness. NEURO: Grossly non-focal PSYCHIATRIC: Normal affect, calm and cooperative. LINE: No evidence of infection Assessment and Plan - Plan IMpression Possible sepsis due to C diff C difficile colitis Severe proctocolitis on CT A/P Leukocytosis Prob underlying dementia One (+) BC with MRSA and Coag Neg Staph, ?real, fup negative Recommendation Continue po Vanco Continue Vanco enema Follow CBC Follow temps Monitor progress CRS ok with rehab - not sure if Vanco enema can be done in rehab D/W Dr Hollis Mcgarry ([facility])
--- NOTE | 2018-02-17 15:57 | P.PNIM ---
Subjective Interval history: No acute changes overnight. Family education for Vancomycin enemas needed prior to discharge. Preference to return to home rather than SNF. Physical Exam Vital signs: Last Vital Signs Temp 99.3 F 02/17/18 12:00 Pulse 85 02/17/18 12:00 Resp 16 02/17/18 12:00 BP 130/60 02/17/18 12:00 Pulse Ox 98 02/17/18 12:00 Intake & Output 02/15/18 02/16/18 02/17/18 02/18/18 06:59 06:59 06:59 06:59 Intake Total 320 / 320 1800 / 1800 1779 / 1779 1000 / 1000 Output Total 3251 / 3251 2701 / 2701 151 / 151 Balance -2931 / -2931 -901 / -901 1628 / 1628 1000 / 1000 Weight 93.4 kg 90.7 kg 91.8 kg Narrative: GENERAL: NAD, A&Ox3 HEAD: Normocephalic. NECK: Supple, trachea midline. No lymphadenopathy. EYES: No scleral icterus. No injection or drainage. CARDIOVASCULAR: Regular rate and rhythm without murmurs, gallops, or rubs. RESPIRATORY: Breath sounds equal bilaterally. No accessory muscle use. GASTROINTESTINAL: Abdomen soft, non-tender, nondistended. MUSCULOSKELETAL: No cyanosis, or edema. SKIN: Warm and dry. NEURO: No focal neurological deficits. Urinary Catheter Management Indwelling Urethral Catheter: Cath placed during this visit: yes, but has since been removed by the nurse Urethral indwelling: No Insertion date: 02/14/18 Insertion time: 14:00 Removal date: 02/16/18 Removal time: 15:00 Results Labs CBC & Chem 7: 02/17/18 06:44 02/17/18 06:44 Assessment and Plan Plan 88 y/o female with a history of htn, dm and asthma was brought to the ED via EMS for increased lethargy and confusion per the daughter No acute changes. If vancomycin enemas to be continued, family education needed prior to discharge. C diff colitis Leukocytosis sepsis due to colitis Sepsis resolved Continue p.o. vancomycin Continue vancomycin enemas ID following Ashlyn UTI Continue Diflucan Oral Ashlyn Continue clotrimazole troches Daily oral care Acute kidney injury likely due to dehydration Avoid nephrotoxins Follow renal function Hypokalemia Monitor and replace as needed Pressure ulcer at sacrum Continue barrier cream Frequent turns Patient encouraged to be out of bed External female catheter to keep wound dry Diabetes mellitus type 2 Follow blood sugars Insulin sliding scale Diabetic diet Hypertension Continue baseline treatment Follow blood pressures Adjust treatments as needed Generalized weakness Continue physical therapy and occupational therapy snf facility needed at discharge Patient encouraged to be out of bed DVT prophylaxis Heparin Discharge planning ID clearance needed prior to discharge Progress Note: Quality VTE Deep Vein Thrombosis/Pulmonary Embolism Present on Admission: No
[2018-02-18] MEDS: Sod Chloride 0.9% Inj 1,000 ML IV.CONT SCH ×2 (00:41→22:19)
[2018-02-18 06:42] LABS: Albumin 2.5 g/dL (3.4-5.0); Anion Gap 9 meq/L (5-15); Aspartate Aminotransferase 10 U/L (15-37); Blood Urea Nitrogen 7 mg/dL (7-18); Carbon Dioxide 23.9 meq/L (21.0-32.0); Chloride 110 meq/L (98-107); Glomerular Filtration Rate 88 mL/min (>89); Glucose,Random 176 mg/dL (74-106); Potassium 3.6 meq/L (3.5-5.1); Sodium 143 meq/L (136-145)
[2018-02-18 06:45] LABS: Alanine Aminotransferase 11 U/L (10-53); Alkaline Phosphatase 49 U/L (45-117); Total Protein 6.1 g/dL (6.4-8.2)
[2018-02-18] MEDS: [UNRECOGNIZED DRUG - OTHER] RECTAL SCH ×4 (07:18→17:35)
[2018-02-18] MEDS: SODIUM CHLORIDE 0.9% RECTAL SCH ×4 (07:18→17:35)
[2018-02-18] MEDS: Lactobacillus Acidophilus/L. Spores Tablet PO SCH ×2 (08:50→22:12)
[2018-02-18] MEDS: Ferrous Sulfate 325 MG Tablet PO SCH (08:50)
[2018-02-18] MEDS: Calcium Carbonate 500 MG Tablet PO SCH ×2 (08:50→22:11)
[2018-02-18] MEDS: amLODIPine 10 MG Tablet PO SCH (08:50)
[2018-02-18] MEDS: Heparin - SQ 10,000 UNITS/ML Vial SQ SCH ×2 (08:50→22:10)
[2018-02-18] MEDS: Fluconazole 100 MG Tablet PO SCH (08:50)
[2018-02-18] MEDS: Insulin NovoLOG Aspart Correctional Sugar Inj SQ SCH ×4 (08:51→22:23)
[2018-02-18] MEDS: Budesonide-Formoterol 80/4.5 MCG 6.9 GM Inhaler INH SCH ×2 (08:52→22:31)
--- NOTE | 2018-02-18 12:29 | P.DCO ---
Physical Therapy Order: Evaluate and treat and Improve ambulation Home Health Nursing Order: Medical education, Signs/symptoms of disease process and Nursing assessment with vital signs Case Management Consult Case Management Consult-Home Health: Yes I have seen patient Nahomi Morales on 02/18/18. My clinical findings support the need for the requested home health care services because: Deconditioned with increased weakness, Limited ability to care for self, High risk of falls and Infection with risk of complications I certify that my clinical findings support that this patient is homebound because: Unsteady gait/balance, Unsafe to leave home unassisted and Unable to use public transportation
--- NOTE | 2018-02-18 12:33 | P.DS ---
DS: Providers Date of admission: 02/06/18 21:27 Primary care physician: Yanni Valdez MD Consults: 02/07/18 13:47 Consult to Infectious Diseases Routine Consulting Provider: Shabnam Rodríguez Reason for Consultation: Severe colitis. Leukocytosis. Diagnosed with Cdiff in the outpatient was started on flagyl. CT severe proctocolitis Notified:: Service Spoke with:: MICHELLE Date Notified:: 02/07/18 Time Notified:: 13:51 Ordering Provider: NOAH 02/07/18 16:00 Consult to Colorectal Surgery Routine Consulting Provider: Cruz rAanda Reason for Consultation: CT abd proctocolitis involving rectum and distal sigmoid colon. Diagnosed with cdiff in the outpatient. Please evaluate. Thank you. Notified:: Service Spoke with:: YOSI Date Notified:: 02/07/18 Time Notified:: 16:27 Ordering Provider: NOAH Brief History from admission: 88 y/o female with a history of htn, dm and asthma was brought to the ED via EMS for increased lethargy and confusion per the daughter. Patient is oriented x 2, sleepy, information was provided by her daughter at bedside. She states the patient has had increasing stools for 2 weeks and on Wednesday tested positive for cdiff out patient, she was then started on Flagyl Po. She states the patient was being fed today and went unresponsive so ems was called. Patient opens eyes briefly to answer some questions, she denies any abdominal pain, sob, or chest pain. No dysuria complaints. Patient does have care givers that take care of her at night that also work at a local assisted. Daughter also states patients sugar tends to go low at home, patient takes 70/30 at home 15units multiple times a day, daughter states she only eats 2 meals a day and snacks the rest of the time. DS: Summary Mrs. Blanco is an 88-year-old female. She has a past history of C. difficile colitis. She was admitted secondary to C. difficile colitis. This has been treated with oral vancomycin rectal enema vancomycin. Patient has had improvement. She is medically stable and cleared by cardiology and ID for discharge. Medically stable and cleared for discharge home today. Treatments to continue at home. She will receive 1 more week of vancomycin enemas and 3 weeks of oral vancomycin from this point forward. Time Spent with Patient Total time spent providing and/or coordinating discharge services: Quality: VTE Deep Vein Thrombosis/Pulmonary Embolism Present on Admission: No Results Labs on day of discharge: Labs from last 24 hours 02/18/18 02/18/18 02/17/18 08:30 05:14 19:55 Sodium 143 Potassium 3.6 Chloride 110 H Carbon Dioxide 23.9 Anion Gap 9 BUN 7 Creatinine 0.75 Estimated GFR 88 L POC Glucose 201 H 213 H Random Glucose 176 H Calcium 8.0 L Total Bilirubin 0.4 AST 10 L ALT 11 Alkaline Phosphatase 49 Total Protein 6.1 L Albumin 2.5 L 02/17/18 18:10 Sodium Potassium Chloride Carbon Dioxide Anion Gap BUN Creatinine Estimated GFR POC Glucose 124 H Random Glucose Calcium Total Bilirubin AST ALT Alkaline Phosphatase Total Protein Albumin Impressions ITS Impressions Abdomen/Pelvis CT 02/06/18 19:48 CONCLUSION: 1. Severe wall thickening and severe surrounding inflammation involving the rectum and distal sigmoid colon. Findings are characteristic of a severe acute proctocolitis. The sigmoid colon immediately proximal to the inflammation is dilated. 2. 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 This was previously described on the 11/09/[address] 3. Severe atherosclerotic disease. Chest X-Ray 02/10/18 00:00 CONCLUSION: No acute cardiopulmonary disease. Discharge Plan Discharge Disposition Patient Disposition: /Home Health Service Discharge Condition Condition: Stable Discharge Order Discharge Orders: Discharge Order (Routine); Ordered 02/18/18 Ordered By: Chavez Mcgarry Discharge Details Anticipated Discharge Date: 02/18/18 Physicians Team Primary Care Provider: Yanni Valdez Attending Provider: Chavez Mcgarry Other Providers: Shabnam Rodríguez ; Cruz Aranda Rxs /Orders / Referrals /Forms Prescriptions: New fluconazole 100 mg Tablet 100 mg PO DAILY Qty: 7 RF: 0 sodium chloride 0.9 % Solution 500 ml CO Q12H Qty: 14 RF: 0 potassium chloride 20 mEq Tablet,Er Particles/Crystals 20 meq PO DAILY Qty: 30 RF: 0 amlodipine [Norvasc] 10 mg Tablet 10 mg PO DAILY Qty: 30 RF: 0 vancomycin 500 mg Recon Soln 500 mg PO QID Qty: 63 RF: 0 vancomycin 500 mg Recon Soln 500 mg CO Q12H Qty: 14 RF: 0 acidophilus-sporogenes [Acidophilus Ex Str (L. sporog)] 35 million- 25 million cell Tablet 1 tab PO BID Qty: 60 RF: 0 furosemide [Lasix] 20 mg tablet 20 mg PO DAILY Qty: 30 RF: 0 Continue insulin NPH and regular human [Humulin 70/30 U-100 Insulin] 100 unit/mL (70-30 ) Suspension 33 unit SUB-Q QAM RF: 0 medroxyprogesterone 5 mg Tablet 5 mg PO DAILY RF: 0 insulin NPH and regular human [Humulin 70/30 U-100 Insulin] 100 unit/mL (70-30 ) Suspension 15 unit SUB-Q 4XW RF: 0 ferrous sulfate 325 mg (65 mg iron) Tablet 325 mg PO DAILY RF: 0 budesonide-formoterol [Symbicort] 80-4.5 mcg/actuation Hfa Aerosol Inhaler 2 puff INHALATION BID RF: 0 albuterol sulfate 2.5 mg /3 mL (0.083 %) solution for nebulization 2.5 mg INHALATION Q4-8H PRN (Reason: shortness of breath or wheezing) Qty: 90 RF: 0 Discontinued trazodone 50 mg Tablet 50 mg PO QPM RF: 0 amlodipine 5 mg Tablet 5 mg PO DAILY RF: 0 alprazolam 0.25 mg Tablet 0.25 mg PO TID PRN (Reason: ANXIETY) RF: 0 benzonatate 100 mg Capsule 100 mg PO TID PRN (Reason: Cough) RF: 0 lisinopril 40 mg Tablet 40 mg PO DAILY RF: 0 Ambulatory Orders / Order Sets / DME: Hospital Bed - Electric (1 each) (Routine) Location: Determined by Patient Ordered By: Eileen Valdivia Referrals: Yanni Valdez MD [Primary Care Provider] - 03/03/18 10:45 am (PATIENT WILL SEE INSTEAD OF ) [facility], [Agency] - See Instructions (Agency will call with visit time) Discharge Instructions Patient Printed Instructions: Colonoscopy (DC) Additional Instructions: [facility] [phone] will deliver hospital bed to patients home Status ED Status: Left Department
[2018-02-19] MEDS: [UNRECOGNIZED DRUG - OTHER] RECTAL SCH ×4 (06:21→18:18)
[2018-02-19] MEDS: SODIUM CHLORIDE 0.9% RECTAL SCH ×4 (06:21→18:18)
[2018-02-19] MEDS: Heparin - SQ 10,000 UNITS/ML Vial SQ SCH ×2 (08:50→21:36)
[2018-02-19] MEDS: Lactobacillus Acidophilus/L. Spores Tablet PO SCH ×2 (08:51→21:38)
[2018-02-19] MEDS: amLODIPine 10 MG Tablet PO SCH (08:51)
[2018-02-19] MEDS: Calcium Carbonate 500 MG Tablet PO SCH ×2 (08:52→21:38)
[2018-02-19] MEDS: Fluconazole 100 MG Tablet PO SCH (08:52)
[2018-02-19] MEDS: Ferrous Sulfate 325 MG Tablet PO SCH (08:52)
[2018-02-19] MEDS: Budesonide-Formoterol 80/4.5 MCG 6.9 GM Inhaler INH SCH ×2 (08:53→21:39)
[2018-02-19] MEDS: Insulin NovoLOG Aspart Correctional Sugar Inj SQ SCH ×4 (08:53→21:54)
--- NOTE | 2018-02-19 11:39 | P.PNIM ---
Subjective Interval history: No significant changes overnight. Patient responding well to treatment. Patient discharged on 02/18/2018. Awaiting arrival of hospital bed at home. Physical Exam Vital signs: Last Vital Signs Temp 98.2 F 02/19/18 08:00 Pulse 84 02/19/18 08:00 Resp 20 02/19/18 08:00 BP 157/87 H 02/19/18 08:00 Pulse Ox 98 02/19/18 08:00 Intake & Output 02/17/18 02/18/18 02/19/18 02/20/18 06:59 06:59 06:59 06:59 Intake Total 1779 / 1779 4240 / 4240 2220 / 2220 Output Total 151 / 151 900 / 900 1900 / 1900 Balance 1628 / 1628 3340 / 3340 320 / 320 Weight 91.8 kg 88.8 kg 88.8 kg Narrative: GENERAL: NAD, A&Ox3 HEAD: Normocephalic. NECK: Supple, trachea midline. No lymphadenopathy. EYES: No scleral icterus. No injection or drainage. CARDIOVASCULAR: Regular rate and rhythm without murmurs, gallops, or rubs. RESPIRATORY: Breath sounds equal bilaterally. No accessory muscle use. GASTROINTESTINAL: Abdomen soft, non-tender, nondistended. MUSCULOSKELETAL: No cyanosis, or edema. SKIN: Warm and dry. NEURO: No focal neurological deficits. Urinary Catheter Management Indwelling Urethral Catheter: Cath placed during this visit: yes, but has since been removed by the nurse Urethral indwelling: No Insertion date: 02/14/18 Insertion time: 14:00 Removal date: 02/16/18 Removal time: 15:00 Results Labs CBC & Chem 7: 02/17/18 06:44 02/18/18 05:14 Assessment and Plan Plan 88 y/o female with a history of htn, dm and asthma was brought to the ED via EMS for increased lethargy and confusion per the daughter Patient medically cleared and discharged 02/18/2018. No acute changes. Hospital bed most arrived at home prior to patient being able to return to home. C diff colitis Leukocytosis sepsis due to colitis Sepsis resolved Continue p.o. vancomycin Continue vancomycin enemas ID following Ashlyn UTI Continue Diflucan Oral Ashlyn Continue clotrimazole troches Daily oral care Acute kidney injury likely due to dehydration Avoid nephrotoxins Follow renal function Hypokalemia Monitor and replace as needed Pressure ulcer at sacrum Continue barrier cream Frequent turns Patient encouraged to be out of bed External female catheter to keep wound dry Diabetes mellitus type 2 Follow blood sugars Insulin sliding scale Diabetic diet Hypertension Continue baseline treatment Follow blood pressures Adjust treatments as needed Generalized weakness Continue physical therapy and occupational therapy [facility] facility needed at discharge Patient encouraged to be out of bed DVT prophylaxis Heparin Discharge planning ID clearance needed prior to discharge Progress Note: Quality VTE Deep Vein Thrombosis/Pulmonary Embolism Present on Admission: No
[2018-02-19] MEDS: Sod Chloride 0.9% Inj 1,000 ML IV.CONT SCH ×2 (13:27→19:30)
[2018-02-20] MEDS: SODIUM CHLORIDE 0.9% RECTAL SCH ×4 (05:00→18:33)
[2018-02-20] MEDS: [UNRECOGNIZED DRUG - OTHER] RECTAL SCH ×4 (05:00→18:33)
[2018-02-20] MEDS: Sod Chloride 0.9% Inj 1,000 ML IV.CONT SCH ×2 (05:03→18:33)
[2018-02-20] MEDS: Lactobacillus Acidophilus/L. Spores Tablet PO SCH ×2 (09:15→22:40)
[2018-02-20] MEDS: amLODIPine 10 MG Tablet PO SCH (09:15)
[2018-02-20] MEDS: Ferrous Sulfate 325 MG Tablet PO SCH (09:15)
[2018-02-20] MEDS: Heparin - SQ 10,000 UNITS/ML Vial SQ SCH ×2 (09:15→22:39)
[2018-02-20] MEDS: Calcium Carbonate 500 MG Tablet PO SCH ×2 (09:15→22:41)
[2018-02-20] MEDS: Insulin NovoLOG Aspart Correctional Sugar Inj SQ SCH ×4 (09:16→22:40)
[2018-02-20] MEDS: Budesonide-Formoterol 80/4.5 MCG 6.9 GM Inhaler INH SCH ×2 (09:16→22:41)
--- NOTE | 2018-02-20 14:20 | P.PNIM ---
Subjective Interval history: The patient is in bed appears sleepy. Says eating but not much. No fever or chills no nausea or vomiting. The patient was discharge 02/18/18 awaiting for arrival hospital bed at home. Physical Exam Vital signs: Last Vital Signs Temp 98.7 F 02/20/18 12:00 Pulse 83 02/20/18 12:00 Resp 20 02/20/18 12:00 BP 136/60 02/20/18 12:00 Pulse Ox 97 02/20/18 12:00 Intake & Output 02/18/18 02/19/18 02/20/18 02/21/18 06:59 06:59 06:59 06:59 Intake Total 4240 / 4240 2220 / 2220 1000 / 1000 Output Total 900 / 900 1900 / 1900 Balance 3340 / 3340 320 / 320 1000 / 1000 Weight 88.8 kg 88.8 kg 87.2 kg Narrative: GENERAL: NAD, A&Ox3 HEAD: Normocephalic. NECK: Supple, trachea midline. No lymphadenopathy. EYES: No scleral icterus. No injection or drainage. CARDIOVASCULAR: Regular rate and rhythm without murmurs, gallops, or rubs. RESPIRATORY: Breath sounds equal bilaterally. No accessory muscle use. GASTROINTESTINAL: Abdomen soft, non-tender, nondistended. MUSCULOSKELETAL: No cyanosis, or edema. SKIN: Warm and dry. NEURO: No focal neurological deficits. Urinary Catheter Management Indwelling Urethral Catheter: Cath placed during this visit: yes, but has since been removed by the nurse Urethral indwelling: No Insertion date: 02/14/18 Insertion time: 14:00 Removal date: 02/16/18 Removal time: 15:00 Results Labs CBC & Chem 7: 02/17/18 06:44 02/18/18 05:14 Assessment and Plan Plan 88 y/o female with a history of htn, dm and asthma was brought to the ED via EMS for increased lethargy and confusion per the daughter Patient medically cleared and discharged 02/18/2018. No acute changes. Hospital bed most arrived at home prior to patient being able to return to home. C diff colitis Leukocytosis sepsis due to colitis Sepsis resolved Continue p.o. vancomycin Continue vancomycin enemas ID following Ashlyn UTI Continue Diflucan Oral Ashlyn Continue clotrimazole troches Daily oral care Acute kidney injury likely due to dehydration Avoid nephrotoxins Follow renal function Hypokalemia Monitor and replace as needed Pressure ulcer at sacrum Continue barrier cream Frequent turns Patient encouraged to be out of bed External female catheter to keep wound dry Diabetes mellitus type 2 Follow blood sugars Insulin sliding scale Diabetic diet Hypertension Continue baseline treatment Follow blood pressures Adjust treatments as needed Generalized weakness Continue physical therapy and occupational therapy [facility] facility needed at discharge Patient encouraged to be out of bed DVT prophylaxis Heparin Discharge planning when arrangements are done Patient medically cleared and discharged 02/18/2018. No acute changes. Hospital bed most arrived at home prior to patient being able to return to home. Progress Note: Quality VTE Deep Vein Thrombosis/Pulmonary Embolism Present on Admission: No
[2018-02-21] MEDS: SODIUM CHLORIDE 0.9% RECTAL SCH ×4 (06:23→17:39)
[2018-02-21] MEDS: [UNRECOGNIZED DRUG - OTHER] RECTAL SCH ×4 (06:23→17:39)
[2018-02-21] MEDS: Insulin NovoLOG Aspart Correctional Sugar Inj SQ SCH ×4 (09:28→22:08)
[2018-02-21] MEDS: Lactobacillus Acidophilus/L. Spores Tablet PO SCH ×2 (09:29→17:38)
[2018-02-21] MEDS: Ferrous Sulfate 325 MG Tablet PO SCH (09:29)
[2018-02-21] MEDS: amLODIPine 10 MG Tablet PO SCH (09:29)
[2018-02-21] MEDS: Budesonide-Formoterol 80/4.5 MCG 6.9 GM Inhaler INH SCH ×2 (09:30→22:10)
[2018-02-21] MEDS: Heparin - SQ 10,000 UNITS/ML Vial SQ SCH ×2 (09:30→22:09)
[2018-02-21] MEDS: Calcium Carbonate 500 MG Tablet PO SCH ×2 (09:30→22:10)
--- NOTE | 2018-02-21 09:34 | P.PNIM ---
Subjective Interval history: F/u c. difficile. Patient has no new complaints. Discussed with nursing, still having loose stools on IV fluids Physical Exam Vital signs: Last Vital Signs Temp 98.8 F 02/21/18 04:00 Pulse 85 02/21/18 04:00 Resp 18 02/21/18 04:00 BP 137/60 02/21/18 04:00 Pulse Ox 95 02/21/18 04:00 Intake & Output 02/19/18 02/20/18 02/21/18 02/22/18 06:59 06:59 06:59 06:59 Intake Total 2220 / 2220 1000 / 1000 1000 / 1000 Output Total 1900 / 1900 Balance 320 / 320 1000 / 1000 1000 / 1000 Weight 88.8 kg 87.2 kg 88.5 kg Narrative: GENERAL: NAD, A&Ox3 CARDIOVASCULAR: Regular rate and rhythm without murmurs, gallops, or rubs. RESPIRATORY: Breath sounds equal bilaterally. No accessory muscle use. GASTROINTESTINAL: Abdomen soft, non-tender, nondistended. MUSCULOSKELETAL: No cyanosis, or edema. SKIN: Warm and dry. NEURO: No focal neurological deficits. Urinary Catheter Management Indwelling Urethral Catheter: Cath placed during this visit: yes, but has since been removed by the nurse Urethral indwelling: No Insertion date: 02/14/18 Insertion time: 14:00 Removal date: 02/16/18 Removal time: 15:00 Results Labs CBC & Chem 7: 02/21/18 11:35 02/21/18 11:35 Imaging Imaging: ITS Impressions Abdomen/Pelvis CT 02/06/18 19:48 CONCLUSION: 1. Severe wall thickening and severe surrounding inflammation involving the rectum and distal sigmoid colon. Findings are characteristic of a severe acute proctocolitis. The sigmoid colon immediately proximal to the inflammation is dilated. 2. 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 This was previously described on the 11/09/[address] 3. Severe atherosclerotic disease. Chest X-Ray 02/10/18 00:00 CONCLUSION: No acute cardiopulmonary disease. Assessment and Plan Plan 88 y/o female with a history of htn, dm and asthma was brought to the ED via EMS for increased lethargy and confusion per the daughter Patient medically cleared and discharged 02/18/2018. No acute changes. Hospital bed must arrive at home prior to patient being able to return to home. C diff colitis Leukocytosis sepsis due to colitis Sepsis resolved Continue p.o. vancomycin til 03/11 Continue vancomycin enemas til02/25 ID following Ashlyn UTI Continue Diflucan Oral Ashlyn Continue clotrimazole troches Daily oral care Acute kidney injury likely due to dehydration continue IV hydration will discontinue the Avoid nephrotoxins Follow renal function Hypokalemia Monitor and replace as needed Pressure ulcer at sacrum Continue barrier cream Frequent turns Patient encouraged to be out of bed External female catheter to keep wound dry Diabetes mellitus type 2 Follow blood sugars Insulin sliding scale Diabetic diet Hypertension Continue baseline treatment Follow blood pressures Adjust treatments as needed Generalized weakness Continue physical therapy and occupational therapy Patient encouraged to be out of bed DVT prophylaxis Heparin Discharge planning when arrangements are done Patient medically cleared and discharged 02/18/2018. No acute changes. Hospital bed must arrive at home prior to patient being able to return to home. Progress Note: Quality VTE Deep Vein Thrombosis/Pulmonary Embolism Present on Admission: No
[2018-02-21 12:06] LABS: Baso # (Auto) 0.1 th/mm3 (0.0-0.2); Baso % (Auto) 0.4 % (0.0-2.0); Eos # (Auto) 0.2 th/mm3 (0.0-0.4); Eos % (Auto) 1.4 % (0.0-4.0); Hemoglobin 10.3 gm/dL (11.6-15.3); Lymph % (Auto) 16.8 % (9.0-44.0); Mean Corpuscular HGB Conc 34.2 % (32.0-36.0); Mean Corpuscular Hemoglobin 33.2 pg (27.0-34.0); Mean Corpuscular Volume 97.3 fL (80.0-100.0); Mean Platelet Volume 7.4 fL (7.0-11.0); Mono # (Auto) 0.9 th/mm3 (0.0-0.9); Mono % (Auto) 7.7 % (0.0-8.0); Neut # (Auto) 8.6 th/mm3 (1.8-7.7); Neut % (Auto) 73.7 % (16.0-70.0); Platelet Count 369 th/mm3 (150-450); Red Blood Count 3.08 mil/mm3 (4.00-5.30); Red Cell Distribution Width 16.4 % (11.6-17.2); White Blood Count 11.7 th/mm3 (4.0-11.0)
[2018-02-21 12:26] LABS: Calcium 8.6 mg/dL (8.5-10.1); Carbon Dioxide 25.5 meq/L (21.0-32.0); Magnesium 1.8 mg/dL (1.5-2.5); Potassium 4.1 meq/L (3.5-5.1)
[2018-02-21] MEDS: Sod Chloride 0.9% Inj 1,000 ML IV.CONT SCH (13:01)
[2018-02-22] MEDS: SODIUM CHLORIDE 0.9% RECTAL SCH ×4 (06:33→21:58)
[2018-02-22] MEDS: [UNRECOGNIZED DRUG - OTHER] RECTAL SCH ×4 (06:33→21:58)
[2018-02-22] MEDS: Sod Chloride 0.9% Inj 1,000 ML IV.CONT SCH ×2 (06:33→22:31)
[2018-02-22 08:29] LABS: Calcium 8.7 mg/dL (8.5-10.1); Carbon Dioxide 23.5 meq/L (21.0-32.0); Magnesium 1.9 mg/dL (1.5-2.5); Potassium 4.3 meq/L (3.5-5.1)
[2018-02-22] MEDS: Insulin NovoLOG Aspart Correctional Sugar Inj SQ SCH ×4 (09:13→21:59)
[2018-02-22] MEDS: Lactobacillus Acidophilus/L. Spores Tablet PO SCH ×3 (09:15→17:55)
[2018-02-22] MEDS: Calcium Carbonate 500 MG Tablet PO SCH ×2 (09:15→21:58)
[2018-02-22] MEDS: amLODIPine 10 MG Tablet PO SCH (09:15)
[2018-02-22] MEDS: Ferrous Sulfate 325 MG Tablet PO SCH (09:15)
[2018-02-22] MEDS: Heparin - SQ 10,000 UNITS/ML Vial SQ SCH ×2 (09:16→21:58)
[2018-02-22] MEDS: Budesonide-Formoterol 80/4.5 MCG 6.9 GM Inhaler INH SCH ×2 (09:17→21:59)
--- NOTE | 2018-02-22 14:51 | P.PNIM ---
Subjective Interval history: Follow-up C. difficile. Patient with improving diarrhea discussed with nurse mushy stools. Physical Exam Vital signs: Last Vital Signs Temp 98.5 F 02/22/18 12:00 Pulse 97 H 02/22/18 12:00 Resp 20 02/22/18 12:00 BP 146/67 H 02/22/18 12:00 Pulse Ox 97 02/22/18 12:00 Intake & Output 02/20/18 02/21/18 02/22/18 02/23/18 06:59 06:59 06:59 06:59 Intake Total 1000 / 1000 1000 / 1000 3500 / 3500 Output Total 500 / 500 Balance 1000 / 1000 1000 / 1000 3000 / 3000 Weight 87.2 kg 88.5 kg 87.8 kg Narrative: GENERAL: NAD, A&Ox3 No oral thrush noted cARDIOVASCULAR: Regular rate and rhythm without murmurs, gallops, or rubs. RESPIRATORY: Breath sounds equal bilaterally. No accessory muscle use. GASTROINTESTINAL: Abdomen soft, non-tender, nondistended. MUSCULOSKELETAL: No cyanosis, or edema. SKIN: Warm and dry. NEURO: No focal neurological deficits. Urinary Catheter Management Indwelling Urethral Catheter: Cath placed during this visit: yes, but has since been removed by the nurse Urethral indwelling: No Insertion date: 02/14/18 Insertion time: 14:00 Removal date: 02/16/18 Removal time: 15:00 Results Labs CBC & Chem 7: 02/21/18 11:35 02/22/18 06:55 Assessment and Plan Plan 88 y/o female with a history of htn, dm and asthma was brought to the ED via EMS for increased lethargy and confusion per the daughter Patient medically cleared and discharged 02/18/2018. No acute changes. Hospital bed must arrive at home prior to patient being able to return to home. C diff colitis Leukocytosis sepsis due to colitis Sepsis resolved Continue p.o. vancomycin til 03/11 Continue vancomycin enemas til 02/25 ID following Oral Ashlyn No evidence of Ashlyn Daily oral care Acute kidney injury likely due to dehydration continue IV hydration will discontinue Lasix Avoid nephrotoxins Follow renal function Hypokalemia Monitor and replace as needed Pressure ulcer at sacrum Continue barrier cream Frequent turns Patient encouraged to be out of bed External female catheter to keep wound dry Diabetes mellitus type 2 Follow blood sugars Insulin sliding scale Diabetic diet Hypertension Continue baseline treatment Follow blood pressures Adjust treatments as needed Generalized weakness Continue physical therapy and occupational therapy Patient encouraged to be out of bed DVT prophylaxis Heparin Discharge planning when arrangements are done Patient medically cleared and discharged 02/18/2018. No acute changes. Hospital bed must arrive at home prior to patient being able to return to home. Progress Note: Quality VTE Deep Vein Thrombosis/Pulmonary Embolism Present on Admission: No
[2018-02-22] MEDS ORDERED: SODIUM CHLORIDE 0.9% RECTAL SCH ×4 (16:00→21:00)
[2018-02-22] MEDS ORDERED: [UNRECOGNIZED DRUG - OTHER] RECTAL SCH ×4 (16:00→21:00)
[2018-02-23] MEDS: amLODIPine 10 MG Tablet PO SCH (08:50)
[2018-02-23] MEDS: Lactobacillus Acidophilus/L. Spores Tablet PO SCH ×3 (08:50→17:44)
[2018-02-23] MEDS: Calcium Carbonate 500 MG Tablet PO SCH ×2 (08:51→21:45)
[2018-02-23] MEDS: Heparin - SQ 10,000 UNITS/ML Vial SQ SCH ×3 (08:51→21:43)
[2018-02-23] MEDS: Ferrous Sulfate 325 MG Tablet PO SCH (08:51)
[2018-02-23] MEDS: Insulin NovoLOG Aspart Correctional Sugar Inj SQ SCH ×4 (08:52→21:43)
[2018-02-23] MEDS: SODIUM CHLORIDE 0.9% RECTAL SCH ×6 (08:52→21:32)
[2018-02-23] MEDS: [UNRECOGNIZED DRUG - OTHER] RECTAL SCH ×6 (08:52→21:32)
[2018-02-23] MEDS: Budesonide-Formoterol 80/4.5 MCG 6.9 GM Inhaler INH SCH ×2 (08:53→21:45)
--- NOTE | 2018-02-23 15:40 | P.PNIM ---
Subjective Interval history: Follow-up C. difficile. Denies diarrhea. Discussed with nursing mushy stools Physical Exam Vital signs: Last Vital Signs Temp 98 F 02/23/18 12:00 Pulse 97 H 02/23/18 12:00 Resp 20 02/23/18 12:00 BP 145/67 H 02/23/18 12:00 Pulse Ox 97 02/23/18 12:00 Intake & Output 02/21/18 02/22/18 02/23/18 02/24/18 06:59 06:59 06:59 06:59 Intake Total 1000 / 1000 3500 / 3500 1700 / 1700 Output Total 500 / 500 600 / 600 Balance 1000 / 1000 3000 / 3000 1100 / 1100 Weight 88.5 kg 87.8 kg 86.9 kg Narrative: GENERAL: NAD, A&Ox3 no signs of dehydration No oral thrush noted cARDIOVASCULAR: Regular rate and rhythm without murmurs, gallops, or rubs. RESPIRATORY: Breath sounds equal bilaterally. No accessory muscle use. GASTROINTESTINAL: Abdomen soft, non-tender, nondistended. MUSCULOSKELETAL: No cyanosis, or edema. SKIN: Warm and dry. NEURO: No focal neurological deficits. Urinary Catheter Management Indwelling Urethral Catheter: Cath placed during this visit: yes, but has since been removed by the nurse Urethral indwelling: No Insertion date: 02/14/18 Insertion time: 14:00 Removal date: 02/16/18 Removal time: 15:00 Results Labs CBC & Chem 7: 02/21/18 11:35 02/22/18 06:55 Assessment and Plan Plan 88 y/o female with a history of htn, dm and asthma was brought to the ED via EMS for increased lethargy and confusion per the daughter Patient medically cleared and discharged 02/18/2018. No acute changes. Hospital bed must arrive at home prior to patient being able to return to home. C diff colitis Leukocytosis sepsis due to colitis Sepsis resolved Continue p.o. vancomycin til 03/11 Continue vancomycin enemas til 02/25 ID following Oral Ashlyn No evidence of Ashlyn Daily oral care Acute kidney injury likely due to dehydration. Improved discontinue IV hydration Avoid nephrotoxins Follow renal function Hypokalemia Monitor and replace as needed Pressure ulcer at sacrum Continue barrier cream Frequent turns Patient encouraged to be out of bed External female catheter to keep wound dry Diabetes mellitus type 2 Follow blood sugars Insulin sliding scale Diabetic diet Hypertension Continue baseline treatment Follow blood pressures Adjust treatments as needed Generalized weakness Continue physical therapy and occupational therapy Patient encouraged to be out of bed DVT prophylaxis Heparin Discharge planning when arrangements are done Patient medically cleared and discharged 02/18/2018. No acute changes. Hospital bed must arrive at home prior to patient being able to return to home. Progress Note: Quality VTE Deep Vein Thrombosis/Pulmonary Embolism Present on Admission: No
[2018-02-24] MEDS: SODIUM CHLORIDE 0.9% RECTAL SCH ×4 (09:21→21:52)
[2018-02-24] MEDS: amLODIPine 10 MG Tablet PO SCH (09:21)
[2018-02-24] MEDS: Ferrous Sulfate 325 MG Tablet PO SCH (09:21)
[2018-02-24] MEDS: Calcium Carbonate 500 MG Tablet PO SCH ×2 (09:21→21:53)
[2018-02-24] MEDS: [UNRECOGNIZED DRUG - OTHER] RECTAL SCH ×4 (09:21→21:52)
[2018-02-24] MEDS: Heparin - SQ 10,000 UNITS/ML Vial SQ SCH ×2 (09:22→21:53)
[2018-02-24] MEDS: Lactobacillus Acidophilus/L. Spores Tablet PO SCH ×3 (09:22→17:20)
[2018-02-24] MEDS: Insulin NovoLOG Aspart Correctional Sugar Inj SQ SCH ×4 (09:23→21:53)
[2018-02-24] MEDS: Budesonide-Formoterol 80/4.5 MCG 6.9 GM Inhaler INH SCH ×2 (09:23→21:54)
--- NOTE | 2018-02-24 14:54 | P.PNIM ---
Subjective Interval history: Follow-up C. difficile. No diarrhea discussed with nursing. Physical Exam Vital signs: Last Vital Signs Temp 98.5 F 02/24/18 12:00 Pulse 92 H 02/24/18 12:00 Resp 20 02/24/18 12:00 BP 135/64 02/24/18 12:00 Pulse Ox 98 02/24/18 12:00 Intake & Output 02/22/18 02/23/18 02/24/18 02/25/18 06:59 06:59 06:59 06:59 Intake Total 3500 / 3500 1700 / 1700 200 / 200 Output Total 500 / 500 600 / 600 2 / 2 Balance 3000 / 3000 1100 / 1100 200 / 200 -2 / -2 Weight 87.8 kg 86.9 kg 86.9 kg Narrative: GENERAL: NAD, A&Ox3 no signs of dehydration No oral thrush noted cARDIOVASCULAR: Regular rate and rhythm without murmurs, gallops, or rubs. RESPIRATORY: Breath sounds equal bilaterally. No accessory muscle use. GASTROINTESTINAL: Abdomen soft, non-tender, nondistended. MUSCULOSKELETAL: No cyanosis, or edema. SKIN: Warm and dry. Urinary Catheter Management Indwelling Urethral Catheter: Cath placed during this visit: yes, but has since been removed by the nurse Urethral indwelling: No Insertion date: 02/14/18 Insertion time: 14:00 Removal date: 02/16/18 Removal time: 15:00 Results Labs CBC & Chem 7: 02/21/18 11:35 02/22/18 06:55 Assessment and Plan Plan 88 y/o female with a history of htn, dm and asthma was brought to the ED via EMS for increased lethargy and confusion per the daughter Patient medically cleared and discharged 02/18/2018. No acute changes. Hospital bed must arrive at home prior to patient being able to return to home. C diff colitis Leukocytosis sepsis due to colitis Sepsis resolved Continue p.o. vancomycin til 03/11 Continue vancomycin enemas til 02/25 ID following Oral Ashlyn No evidence of Ashlyn Daily oral care Acute kidney injury likely due to dehydration. Improved discontinue IV hydration Avoid nephrotoxins Follow renal function Hypokalemia Monitor and replace as needed Pressure ulcer at sacrum Continue barrier cream Frequent turns Patient encouraged to be out of bed External female catheter to keep wound dry Diabetes mellitus type 2 Follow blood sugars Insulin sliding scale Diabetic diet Hypertension Continue baseline treatment Follow blood pressures Adjust treatments as needed Generalized weakness Continue physical therapy and occupational therapy Patient encouraged to be out of bed DVT prophylaxis Heparin Discharge planning when arrangements are done Patient medically cleared and discharged 02/18/2018. No acute changes. Hospital bed must arrive at home prior to patient being able to return to home. Progress Note: Quality VTE Deep Vein Thrombosis/Pulmonary Embolism Present on Admission: No
[2018-02-25] MEDS: [UNRECOGNIZED DRUG - OTHER] RECTAL SCH ×2 (08:35)
[2018-02-25] MEDS: SODIUM CHLORIDE 0.9% RECTAL SCH ×2 (08:35)
[2018-02-25] MEDS: amLODIPine 10 MG Tablet PO SCH (08:36)
[2018-02-25] MEDS: Heparin - SQ 10,000 UNITS/ML Vial SQ SCH (08:36)
[2018-02-25] MEDS: Calcium Carbonate 500 MG Tablet PO SCH (08:36)
[2018-02-25] MEDS: Ferrous Sulfate 325 MG Tablet PO SCH (08:37)
[2018-02-25] MEDS: Lactobacillus Acidophilus/L. Spores Tablet PO SCH ×2 (08:37→12:47)
[2018-02-25] MEDS: Insulin NovoLOG Aspart Correctional Sugar Inj SQ SCH ×2 (08:38→12:46)
[2018-02-25] MEDS: Budesonide-Formoterol 80/4.5 MCG 6.9 GM Inhaler INH SCH (08:39)
--- NOTE | 2018-02-25 14:55 | P.PNIM ---
Subjective Interval history: F/u C diff. No c/o. No diarrhea per RN Physical Exam Vital signs: Last Vital Signs Temp 99.0 F 02/25/18 13:28 Pulse 89 02/25/18 13:28 Resp 16 02/25/18 13:28 BP 128/60 02/25/18 13:28 Pulse Ox 98 02/25/18 13:28 Intake & Output 02/23/18 02/24/18 02/25/18 02/26/18 06:59 06:59 06:59 06:59 Intake Total 1700 / 1700 200 / 200 400 / 400 Output Total 600 / 600 902 / 902 Balance 1100 / 1100 200 / 200 -502 / -502 Weight 86.9 kg 86.9 kg 86.5 kg Narrative: GENERAL: NAD, A&Ox3 No oral thrush noted CARDIOVASCULAR: Regular rate and rhythm without murmurs, gallops, or rubs. RESPIRATORY: Breath sounds equal bilaterally. No accessory muscle use. GASTROINTESTINAL: Abdomen soft, non-tender, nondistended. MUSCULOSKELETAL: No cyanosis, or edema. SKIN: Warm and dry. Urinary Catheter Management Indwelling Urethral Catheter: Cath placed during this visit: yes, but has since been removed by the nurse Urethral indwelling: No Insertion date: 02/14/18 Insertion time: 14:00 Removal date: 02/16/18 Removal time: 15:00 Results Labs CBC & Chem 7: 02/21/18 11:35 02/22/18 06:55 Assessment and Plan Plan 88 y/o female with a history of htn, dm and asthma was brought to the ED via EMS for increased lethargy and confusion per the daughter Patient medically cleared and discharged 02/18/2018. No acute changes. Hospital bed must arrive at home prior to patient being able to return to home. C diff colitis Leukocytosis sepsis due to colitis Sepsis resolved Continue p.o. vancomycin til 03/11 S/p vancomycin enemas ID following Oral Ashlyn No evidence of Ashlyn Daily oral care Acute kidney injury likely due to dehydration. Improved discontinue IV hydration Avoid nephrotoxins Follow renal function Hypokalemia Monitor and replace as needed Pressure ulcer at sacrum Continue barrier cream Frequent turns Patient encouraged to be out of bed External female catheter to keep wound dry Diabetes mellitus type 2 Follow blood sugars Insulin sliding scale Diabetic diet Hypertension Continue baseline treatment Follow blood pressures Adjust treatments as needed Generalized weakness Continue physical therapy and occupational therapy Patient encouraged to be out of bed DVT prophylaxis Heparin Discharge planning when arrangements are done Patient medically cleared and discharged 02/18/2018. No acute changes. Hospital bed must arrive at home prior to patient being able to return to home. Progress Note: Quality VTE Deep Vein Thrombosis/Pulmonary Embolism Present on Admission: No
--- NOTE | 2018-02-25 15:00 | P.DS ---
DS: Providers Date of admission: 02/06/18 21:27 Primary care physician: Yanni Valdez MD Consults: 02/07/18 13:47 Consult to Infectious Diseases Routine Consulting Provider: Shabnam Rodríguez Reason for Consultation: Severe colitis. Leukocytosis. Diagnosed with Cdiff in the outpatient was started on flagyl. CT severe proctocolitis Notified:: Service Spoke with:: MICHELLE Date Notified:: 02/07/18 Time Notified:: 13:51 Ordering Provider: NOAH 02/07/18 16:00 Consult to Colorectal Surgery Routine Consulting Provider: Cruz Aranda Reason for Consultation: CT abd proctocolitis involving rectum and distal sigmoid colon. Diagnosed with cdiff in the outpatient. Please evaluate. Thank you. Notified:: Service Spoke with:: YOSI Date Notified:: 02/07/18 Time Notified:: 16:27 Ordering Provider: NOAH Brief History from admission: 88 y/o female with a history of htn, dm and asthma was brought to the ED via EMS for increased lethargy and confusion per the daughter. Patient is oriented x 2, sleepy, information was provided by her daughter at bedside. She states the patient has had increasing stools for 2 weeks and on Wednesday tested positive for cdiff out patient, she was then started on Flagyl Po. She states the patient was being fed today and went unresponsive so ems was called. Patient opens eyes briefly to answer some questions, she denies any abdominal pain, sob, or chest pain. No dysuria complaints. Patient does have care givers that take care of her at night that also work at a local correction. Daughter also states patients sugar tends to go low at home, patient takes 70/30 at home 15units multiple times a day, daughter states she only eats 2 meals a day and snacks the rest of the time. DS: Summary 88 y/o female with a history of htn, dm and asthma was brought to the ED via EMS for increased lethargy and confusion per the daughter Patient medically cleared and discharged 02/18/2018. No acute changes. Hospital bed must arrive at home prior to patient being able to return to home. C diff colitis Leukocytosis sepsis due to colitis Sepsis resolved Continue p.o. vancomycin til 03/11 S/p vancomycin enemas ID following Oral Ashlyn No evidence of Ashlyn Daily oral care Acute kidney injury likely due to dehydration. Improved discontinue IV hydration Avoid nephrotoxins Follow renal function Hypokalemia Monitor and replace as needed Pressure ulcer at sacrum Continue barrier cream Frequent turns Patient encouraged to be out of bed External female catheter to keep wound dry Diabetes mellitus type 2 Follow blood sugars Insulin sliding scale Diabetic diet Hypertension Continue baseline treatment Follow blood pressures Adjust treatments as needed Generalized weakness Continue physical therapy and occupational therapy Patient encouraged to be out of bed DVT prophylaxis Heparin Discharge planning when arrangements are done Patient medically cleared and discharged 02/18/2018. No acute changes. Hospital bed must arrive at home prior to patient being able to return to home. Time Spent with Patient Total time spent providing and/or coordinating discharge services: Greater than 30 minutes Quality: VTE Deep Vein Thrombosis/Pulmonary Embolism Present on Admission: No Exam Narrative Exam Narrative: GENERAL: WD WN SKIN: Warm and dry. CARDIOVASCULAR: Regular rate and rhythm. RESPIRATORY: No accessory muscle use. Clear to auscultation. Breath sounds equal bilaterally. GASTROINTESTINAL: Abdomen soft, non-tender, nondistended. MUSCULOSKELETAL: Extremities without clubbing, cyanosis, or edema. No obvious deformities. NEUROLOGICAL: Awake and alert. No obvious cranial nerve deficits. Motor grossly within normal limits. Five out of 5 muscle strength in the arms and legs. Normal speech. Results Labs on day of discharge: Labs from last 24 hours 02/25/18 02/25/18 02/24/18 11:08 07:18 19:36 POC Glucose 177 H 206 H 238 H 02/24/18 16:25 POC Glucose 174 H Impressions ITS Impressions Abdomen/Pelvis CT 02/06/18 19:48 CONCLUSION: 1. Severe wall thickening and severe surrounding inflammation involving the rectum and distal sigmoid colon. Findings are characteristic of a severe acute proctocolitis. The sigmoid colon immediately proximal to the inflammation is dilated. 2. 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 This was previously described on the 11/09/[address] 3. Severe atherosclerotic disease. Chest X-Ray 02/10/18 00:00 CONCLUSION: No acute cardiopulmonary disease. Discharge Plan Discharge Disposition Patient Disposition: W/Home Health Service Discharge Condition Condition: Stable Discharge Order Discharge Orders: Discharge Order (Routine); Ordered 02/18/18 Ordered By: Chavez Mcgarry Discharge Details Anticipated Discharge Date: 02/18/18 Physicians Team Primary Care Provider: Yanni Valdez Attending Provider: Darshan Dupont Other Providers: Shabnam Rodríguez ; Cruz Aranda Rxs /Orders / Referrals /Forms Prescriptions: New amlodipine [Norvasc] 10 mg Tablet 10 mg PO DAILY Qty: 30 RF: 0 vancomycin 500 mg Recon Soln 500 mg PO QID Qty: 63 RF: 0 acidophilus-sporogenes [Acidophilus Ex Str (L. sporog)] 35 million- 25 million cell Tablet 1 tab PO BID Qty: 60 RF: 0 cholestyramine (with sugar) 4 gram Powder In Packet 4 gm PO BID Qty: 14 RF: 0 Continue medroxyprogesterone 5 mg Tablet 5 mg PO DAILY RF: 0 ferrous sulfate 325 mg (65 mg iron) Tablet 325 mg PO DAILY RF: 0 lisinopril 40 mg Tablet 40 mg PO DAILY RF: 0 budesonide-formoterol [Symbicort] 80-4.5 mcg/actuation Hfa Aerosol Inhaler 2 puff INHALATION BID RF: 0 albuterol sulfate 2.5 mg /3 mL (0.083 %) solution for nebulization 2.5 mg INHALATION Q4-8H PRN (Reason: shortness of breath or wheezing) Qty: 90 RF: 0 Changed insulin NPH and regular human [Humulin 70/30 U-100 Insulin] 100 unit/mL (70-30 ) Suspension 15 unit SUB-Q DAILY Qty: 0 RF: 0 Discontinued insulin NPH and regular human [Humulin 70/30 U-100 Insulin] 100 unit/mL (70-30 ) Suspension 33 unit SUB-Q QAM RF: 0 trazodone 50 mg Tablet 50 mg PO QPM RF: 0 amlodipine 5 mg Tablet 5 mg PO DAILY RF: 0 alprazolam 0.25 mg Tablet 0.25 mg PO TID PRN (Reason: ANXIETY) RF: 0 benzonatate 100 mg Capsule 100 mg PO TID PRN (Reason: Cough) RF: 0 Ambulatory Orders / Order Sets / DME: Hospital Bed - Electric (1 each) (Routine) Location: Determined by Patient Ordered By: Eileen Sarabia With Front Wheels (1 each) (Routine) Location: Determined by Patient Ordered By: Darshan Dupont Referrals: Yanni Valdez MD [Primary Care Provider] - 03/03/18 10:45 am (PATIENT WILL SEE INSTEAD OF ) [facility], [Agency] - See Instructions (Agency will call with visit time) Discharge Instructions Patient Printed Instructions: Colonoscopy (DC) Additional Instructions: [facility] [phone] will deliver hospital bed to patients home Post Discharge Care Plan Care Plan Goals: Your Health Problems: Goals to Promote Your Health: * To prevent worsening of your condition * To maintain your health at the optimal level Directions to Meet Your Goals: * Take your medications as prescribed * Follow your dietary instruction * Follow activity as directed * Keep your appointments as scheduled * Take your immunizations and boosters as scheduled * If your symptoms worsen call your PCP * If no PCP go to Urgent Care or Emergency Room Smoking is dangerous to your health. Avoid second hand smoke. You may reach the 24-hour crisis hotline for domestic abuse at . Status ED Status: Left Department
== END 2018-02-25 17:00 | disposition home health service (06) ==
LOC: NEPC 16:35 → NEDA 21:27 → N05 22:59
PROVIDERS: ADMIT Internal Medicine; ATTEND Internal Medicine
PROC: COLONOS (2018-02-08 15:16)
DX: E87.2 Acidosis; B95.62 Methicillin resistant Staphylococcus aureus infection as the cause of diseases classified elsewhere; B37.0 Candidal stomatitis; Z79.51 Long term (current) use of inhaled steroids; L89.159 Pressure ulcer of sacral region, unspecified stage; R60.9 Edema, unspecified; N17.9 Acute kidney failure, unspecified; R22.2 Localized swelling, mass and lump, trunk; A04.72 Enterocolitis due to Clostridium difficile, not specified as recurrent; B37.49 Other urogenital candidiasis; E11.649 Type 2 diabetes mellitus with hypoglycemia without coma; F03.90 Unspecified dementia, unspecified severity, without behavioral disturbance, psychotic disturbance, mood disturbance, and anxiety; I10 Essential (primary) hypertension; Z79.4 Long term (current) use of insulin; R21 Rash and other nonspecific skin eruption; A41.4 Sepsis due to anaerobes; J45.909 Unspecified asthma, uncomplicated; E86.0 Dehydration; E87.6 Hypokalemia; Z82.49 Family history of ischemic heart disease and other diseases of the circulatory system; Z79.899 Other long term (current) drug therapy